=== PATIENT | female | born 1950 | race Caucasian/White ===

== ENCOUNTER 2021-12-21 09:29 | Outpatient (CLI) | payer OTHER, SELFPAY ==
[2021-12-21 13:07] LABS: Chloride* 100 mmol/L (96-114); Potassium* 4.1 mmol/L (3.6-5.1); Sodium* 138 mmol/L (135-149)
[2021-12-21 13:10] LABS: Blood Urea Nitrogen* 27 mg/dL (7-30); Carbon Dioxide* 31 mmol/L (20-32); Creatinine* 1.3 mg/dL (0.5-1.5); Estimated Glomerular Filt Rate 44 ml/min
[2021-12-21 13:11] LABS: Calcium* 9.1 mg/dL (8.4-10.6); Glucose* 115 mg/dL (60-115)
[2021-12-21 13:19] LABS: NT Pro B Type NatriureticPept* 4620 PG/mL (0-125)
== END 2021-12-21 09:30 | disposition home or self-care (01) ==
PROVIDERS: PCP Family Medicine; Visit Provider Family Medicine
DX: D64.9 Anemia, unspecified (principal); I10 Essential (primary) hypertension; I42.0 Dilated cardiomyopathy; I50.9 Heart failure, unspecified
CPT/HCPCS: 80048; 83880

== ENCOUNTER 2021-12-24 08:59 | Day surgery (SDC) | payer OTHER, SELFPAY ==
[2021-12-24] MEDS: TETRACAINE 0.5% OPHTH 1 DROP EYE-LEFT ×2 (09:16→09:26)
[2021-12-24] MEDS: KETOROLAC OPHTH 0.5% 1 DROP EYE-LEFT ×3 (09:16→09:36)
[2021-12-24] MEDS: SODIUM CHLORIDE 0.9 % (FLUSH) 10 ML SYRINGE IVF (09:30)
[2021-12-24] MEDS: BALANCED SALT IRRIG SOLN 15 ML EYE-LEFT (09:38)
[2021-12-24] MEDS: TETRACAINE 0.5% OPHTH 2 DROP EYE-LEFT (09:38)
[2021-12-24 09:49] VITALS: BP 118/68; PULSE 94; RESP 16; TEMP 36.1; O2SAT 97; BMI 32.6
--- NOTE | 2021-12-24 09:56 | SUR.PREOP ---
The eye drops brought by the patient (Ketorolac and Prednisolone) are examined and I have determined they are labeled by the patient's pharmacy for this patient as prescribed by the surgeon. The bottles are intact, recently obtained and appear to be correct.
[2021-12-24 11:00] VITALS: BP 108/56; PULSE 92; RESP 16; TEMP 36.6; O2SAT 95
--- NOTE | 2021-12-24 11:23 | W.ANESCHARGE ---
Anesthesia Charges Start Date/Time Anesthesia Start Date: 12/24/21 Anesthesia Start Time: 10:15 Stop Date/Time Anesthesia Stop Date: 12/24/21 Anesthesia Stop Time: 10:48 Summary Emergency: No Extremes of Age: Over 69-CPT 99178
--- NOTE | 2021-12-24 11:40 | W.ANESCHARGE ---
Anesthesia Charges Start Date/Time Anesthesia Start Date: 12/24/21 Anesthesia Start Time: 10:15 Stop Date/Time Anesthesia Stop Date: 12/24/21 Anesthesia Stop Time: 10:48 Summary Emergency: No Extremes of Age: Over 69-CPT 90439
--- NOTE | 2021-12-24 12:29 | PM.PROC ---
Procedure Note Date Seen: 12/24/21 Will [facility] bill your pro fee for this procedure?: Yes Procedure Description: SURGEON: Lynne Tabor MD PREOPERATIVE DIAGNOSIS: Mature cataract, left eye. POSTOPERATIVE DIAGNOSIS: Mature cataract, left eye. NAME OF OPERATION: Phacoemulsification of cataract with posterior chamber intraocular lens implantation in the left eye with trypan blue. ANESTHESIA: Topical. ESTIMATED BLOOD LOSS: Less than 2 cc. COMPLICATIONS: None. PATHOLOGY SPECIMEN: None. INDICATIONS: See consult note for details. The risks, benefits and alternatives of the procedure were explained to the patient, who elected to proceed and signed informed consent to do so. PROCEDURE: The patient was brought to the pre-holding area where the left eye was identified as the operative eye. I placed my initials above this eye. The patient received eye drops consisting of 0.5% tetracaine, 1% tropicamide, 10% phenylephrine, and 0.5% ketorolac. The patient was given 12.5 grams IV mannitol (discussed with Isidro in pharmacy on 12/23/21 and felt ok to give with this low dose) and a Honan balloon was placed for 8 minutes pre-operatively. The patient was then brought to the operating room where the left eye was again identified as the operative eye. The eye was prepped with Betadine and draped in the usual sterile ophthalmic fashion. A #15 super-sharp blade was used to create a paracentesis site. 1% non-preserved intracameral lidocaine was injected into the anterior chamber. An air bubble was injected into the anterior chamber. Trypan blue was injected posterior to the air bubble in order to stain Endocoat was injected into the anterior chamber. A 2.4 mm keratome was used to create a three-plane self-sealing incision 1 mm anterior to the temporal limbus. A cystotome was used to create an anterior capsular leaflet. The Utrata forceps were used to extend this to form a continuous curvilinear capsulorrhexis. Hydrodissection was performed. The cataract was removed with phacoemulsification using the [id number] technique. The irrigation and aspiration tip was used to remove the remaining cortex. Healon was injected into the capsular bag. An STELLA ZCB00 intraocular lens of 29.0 diopters was injected into the capsular bag. The irrigation and aspiration tip was used to remove the remaining viscoelastic. Balanced salt solution on a cannula was used to hydrate the wound, and the wound was found to be watertight. The pupil was noted to be round. DISPOSITION: The patient was taken to the recovery room and discharged to home in stable condition. The patient was instructed to call me or go to the emergency department with any sudden change, including dramatic loss of vision, severe pain in the eye or eyebrow region, nausea, or vomiting. The patient will follow up in the clinic tomorrow morning. Surgeon: Lynne Tabor MD
== END 2021-12-24 11:34 | disposition home or self-care (01) ==
PROVIDERS: PCP Family Medicine; Visit Provider Ophthalmology
PROC: (CPT 66984; principal; 2021-12-24 09:00)
DX: H25.89 Other age-related cataract (principal)
CPT/HCPCS: 66984; 00142; 99100; A9270; J2150; J2250; J3010; V2632

== ENCOUNTER 2022-01-05 07:33 | Day surgery (SDC) | payer OTHER, SELFPAY ==
[2022-01-05] MEDS: TETRACAINE 0.5% OPHTH 1 DROP EYE-RIGHT ×2 (07:30→07:40)
[2022-01-05] MEDS: KETOROLAC OPHTH 0.5% 1 DROP EYE-RIGHT ×3 (07:30→07:50)
[2022-01-05 07:55] VITALS: BP 108/80; PULSE 96; RESP 16; TEMP 36.5; O2SAT 96; BMI 32.6
[2022-01-05] MEDS: ETHYL CHLORIDE 1 APPLICATION 1 APPLIC TOPICAL (08:16)
[2022-01-05] MEDS: SODIUM CHLORIDE 0.9 % (FLUSH) 10 ML SYRINGE IVF (08:16)
--- NOTE | 2022-01-05 08:18 | SUR.PREOP ---
0730: The eye drops brought by the patient (Ketorolac and Prednisolone) are examined and I have determined they are labeled by the patient's pharmacy for this patient as prescribed by the surgeon. The bottles are intact, recently obtained and appear to be correct.
[2022-01-05] MEDS: TETRACAINE 0.5% OPHTH 2 DROP EYE-RIGHT (08:43)
[2022-01-05] MEDS: BALANCED SALT IRRIG SOLN 15 ML EYE-RIGHT (08:47)
[2022-01-05] MEDS: TRYPAN BLUE 0.5 ML SYRINGE EYE-RIGHT (08:47)
[2022-01-05 09:09] VITALS: BP 99/47; PULSE 83; RESP 16; TEMP 36.3; O2SAT 96
--- NOTE | 2022-01-05 09:12 | W.ANESCHARGE ---
Anesthesia Charges Start Date/Time Anesthesia Start Date: 01/05/22 Anesthesia Start Time: 08:40 Stop Date/Time Anesthesia Stop Date: 01/05/22 Anesthesia Stop Time: 09:13 Summary Emergency: No Extremes of Age: Over 69-CPT [id number]
--- NOTE | 2022-01-05 09:20 | PM.PROC ---
Procedure Note Date Seen: 01/05/22 Will [facility] bill your pro fee for this procedure?: Yes Procedure Description: SURGEON: Lynne aTbor MD PREOPERATIVE DIAGNOSIS: Mature cataract, right eye. POSTOPERATIVE DIAGNOSIS: Mature cataract, right eye. NAME OF OPERATION: Phacoemulsification of cataract with posterior chamber intraocular lens implantation in the right eye with trypan blue. ANESTHESIA: Topical. ESTIMATED BLOOD LOSS: Less than 2 cc. COMPLICATIONS: None. PATHOLOGY SPECIMEN: None. INDICATIONS: See consult note for details. The risks, benefits and alternatives of the procedure were explained to the patient, who elected to proceed and signed informed consent to do so. PROCEDURE: The patient was brought to the pre-holding area where the right eye was identified as the operative eye. I placed my initials above this eye. The patient received eye drops consisting of 0.5% tetracaine, 1% tropicamide, 10% phenylephrine, and 0.5% ketorolac. The patient was given 12.5 grams IV mannitol and a Honan balloon was placed for 5 minutes pre-operatively. The patient was then brought to the operating room where the left eye was again identified as the operative eye. The eye was prepped with Betadine and draped in the usual sterile ophthalmic fashion. A #15 super-sharp blade was used to create a paracentesis site. 1% non-preserved intracameral lidocaine was injected into the anterior chamber. An air bubble was injected into the anterior chamber. Trypan blue was injected posterior to the air bubble in order to stain the anterior capsule. Balanced salt solution was used to irrigate the anterior chamber. Endocoat was injected into the anterior chamber. A 2.4 mm keratome was used to create a three-plane self-sealing incision 1 mm anterior to the temporal limbus. A cystotome was used to create an anterior capsular leaflet. The Utrata forceps were used to extend this to form a continuous curvilinear capsulorrhexis. Hydrodissection was performed. The cataract was removed with phacoemulsification using the [id number]-[id number] technique. The irrigation and aspiration tip was used to remove the remaining cortex. Healon was injected into the capsular bag. An STELLA ZCB00 intraocular lens of 28.0 diopters was injected into the capsular bag. The irrigation and aspiration tip was used to remove the remaining viscoelastic. Balanced salt solution on a cannula was used to hydrate the wound, and the wound was found to be watertight. The pupil was noted to be round. DISPOSITION: The patient was taken to the recovery room and discharged to home in stable condition. The patient was instructed to call me or go to the emergency department with any sudden change, including dramatic loss of vision, severe pain in the eye or eyebrow region, nausea, or vomiting. The patient will follow up in the clinic tomorrow morning. Surgeon: Lynne Tabor MD
== END 2022-01-05 09:32 | disposition home or self-care (01) ==
LOC: OR 07:36
PROVIDERS: PCP Family Medicine; Visit Provider Ophthalmology
PROC: (CPT 66984; principal; 2022-01-05 07:30)
DX: H25.89 Other age-related cataract (principal)
CPT/HCPCS: 66984; 00142; 99100; A9270; J2150; J2250; J3010; V2632

== ENCOUNTER 2023-04-21 15:48 | Outpatient (CLI) | payer OTHER, SELFPAY | END 2023-04-21 15:49 | disposition home or self-care (01) | LOC: NFLDREF 15:49 | PROVIDERS: PCP Family Medicine; Visit Provider Family Medicine | DX: N18.30 Chronic kidney disease, stage 3 unspecified (principal) | CPT/HCPCS: 80048 ==

== ENCOUNTER 2023-04-27 10:52 | Outpatient (REF) | payer OTHER, SELFPAY | END 2023-04-27 10:53 | disposition home or self-care (01) | LOC: NFLDREF 10:52 | PROVIDERS: PCP Family Medicine; Referring Provider Family Medicine; Visit Provider Family Medicine | DX: N17.9 Acute kidney failure, unspecified (principal) | CPT/HCPCS: 80048 ==

== ENCOUNTER 2023-05-23 10:38 | Outpatient (CLI) | payer OTHER, SELFPAY | END 2023-05-23 10:39 | disposition home or self-care (01) | LOC: NFLDREF 05-24 12:47 | PROVIDERS: PCP Family Medicine; Referring Provider Family Medicine; Visit Provider Family Medicine | DX: N18.30 Chronic kidney disease, stage 3 unspecified (principal); I10 Essential (primary) hypertension | CPT/HCPCS: 80048 ==

== ENCOUNTER 2023-10-05 14:00 | Outpatient (CLI) | payer OTHER, SELFPAY ==
--- OUTSIDE RECORDS SUMMARY | 2023-10-05 14:02 | XMS_ITS | Clinical Summary ---
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 Bacitracin Contact Dermatitis 04/25/2016 Benzalkonium Chloride Rash,Contact Dermatitis 05/30/2016 Talc Rash High 02/16/2021 Vitamin A Rash 01/05/2017 Zinc Oxide Rash 01/05/2017 Medications Medication Sig Dispensed Refills Start Date End Date Status loratadine (CLARITIN) 10 mg tabletIndications:D ilated cardiomyopathy (HC) Take 1 tablet by mouth once daily. 90 tablet 3 10/21/2014 Active multivitamin (MVI) tablet Take 1 tablet by mouth once daily. 0 05/25/2015 Active cholecalciferol (VITAMIN D3) 1,000 unit capsule Take 1 capsule by mouth once daily. 0 05/25/2015 Active VITAMIN B COMPLEX (B COMPLEX 1 ORAL) Take by mouth once daily. Active albuterol HFA (PRO-AIR; VENTOLIN; PROVENTIL) 90 mcg/actuation inhaler Inhale 2 Puffs by mouth 4 times daily if needed. 0 12/31/2020 Active durable medical equipment (DME)Indications:PT TD (posterior tibial tendon dysfunction) AIR LIFT PTTD BRACE, LARGE, RIGHT, REF: 02PLR 1 Each 03/24/2021 Active aspirin (ECOTRIN) 81 mg enteric coated tabletIndications:C hronic systolic congestive heart failure (HC) Take 1 Tablet (81 mg) by mouth once daily. 0 05/24/2022 Active apixaban (Eliquis) 5 mg tabletIndications:P aroxysmal atrial fibrillation (HC) Take 1 Tablet (5 mg) by mouth two times daily. 180 Tablet 3 12/07/2022 Active carvediloL (COREG) 25 mg tabletIndications:P aroxysmal atrial fibrillation (HC) Take 1 Tablet (25 mg) by mouth two times daily. 180 Tablet 3 12/07/2022 Active Arnuity Ellipta 100 mcg/actuation inhaler Inhale 1 Puff by mouth once daily. 02/04/2023 Active Spiriva Respimat 2.5 mcg/actuation mist for inhalation Inhale 2 Puffs by mouth once daily. 02/04/2023 Active vitamin e 200 unit capsule Take 1 Capsule by mouth once daily. Active fluticasone (50 mcg per actuation) nasal solution (FLONASE) Inhale 1 Roberts into affected nostril(s) once daily if needed for Rhinitis. Active amiodarone (CORDARONE) 200 mg tabletIndications:A trial fibrillation, unspecified type (HC) Take 200 mg (1 tablet) once daily. Discontinue after 2 months. 0 04/06/2023 Active simvastatin (ZOCOR) 10 mg tabletIndications:C hronic systolic congestive heart failure (HC) TAKE 1 TABLET BY MOUTH AT BEDTIME 90 Tablet 2 05/17/2023 Active isosorbide dinitrate (ISORDIL) 30 mg tabletIndications:N onischemic cardiomyopathy (HC) Take 1 Tablet (30 mg) by mouth three times daily. 90 Tablet 5 06/29/2023 Active hydrALAZINE (APRESOLINE) 10 mg tabletIndications:N onischemic cardiomyopathy (HC) Take 4 Tablets (40 mg) by mouth three times daily. 355 Tablet 5 06/29/2023 Active empagliflozin (Jardiance) 10 mg tabletIndications:N onischemic cardiomyopathy (HC) Take 1 Tablet (10 mg) by mouth once daily. 30 Tablet 11 08/24/2023 Active furosemide (LASIX) 40 mg tabletIndications:D ilated cardiomyopathy (HC) TAKE 1 TABLET BY MOUTH IN THE MORNING AND 1 TABLET BY MOUTH AT 1PM 135 Tablet 1 09/22/2023 Active potassium chloride (KLOR-CON M10) 10 mEq extended-release tablet (part/cryst)Indicat ions:Dilated cardiomyopathy (HC) Take 1 Tablet (10 mEq) by mouth once daily with a meal. 90 Tablet 3 10/03/2023 Active furosemide (LASIX) 40 mg tabletIndications:D ilated cardiomyopathy (HC) TAKE 1 TABLET BY MOUTH IN THE MORNING AND 1/2 (ONE-HALF) IN THE EVENING 135 Tablet 1 04/28/2023 09/22/19 24 Discontinue d(Reorder (E-cancel not sent)) doxycycline 100 mg tabletIndications:W ound of left lower extremity, initial encounter Take 1 Tablet (100 mg) by mouth two times daily for 7 days. 14 Tablet 09/21/2023 09/28/19 24 potassium chloride (KLOR-CON M10) 10 mEq extended-release tablet (part/cryst)Indicat ions:Dilated cardiomyopathy (HC) Take 1 Tablet (10 mEq) by mouth once daily with a meal. 90 Tablet 3 10/03/2023 10/03/19 24 Discontinue d(Reorder (E-cancel not sent)) Hospital, Clinic, or Other Facility Administered Medication Ordered Dose Route Frequency Start Date End Date Status cefTRIAXone (ROCEPHIN) Intramuscular injection 1 gIndications:skin and skin structure infection 1 g IM ONE TIME 09/21/2023 09/21/2023 Ended Active Problems Problem Noted Date Diagnosed Date Obesity, Class II, BMI 35-39.9, with comorbidity 07/05/2016 CKD (chronic kidney disease) stage 3, GFR 30-59 ml/min 03/25/2015 Venous insufficiency 03/25/2015 Hyperuricemia 03/25/2015 Asymptomatic menopausal state 03/25/2015 Vitamin D deficiency 08/13/2012 Hyperlipidemia 08/13/2012 Dilated cardiomyopathy 01/06/2012 Ankle wound Resolved Problems Problem Noted Date Diagnosed Date Resolved Date Asymptomatic varicose veins 02/04/2009 03/25/2015 Encounters Date Type Department Care Team Description 10/02/2023 10:15 AM CDT Office Visit [facility] [address] [place] [address] Lise Cardenas MD Follow Up (Left ankle wound. Has wound care on 10/05/23) 10/02/2023 Travel 09/27/2023 Telephone [facility] [address] [place] [address] Lise Cardenas MD FYI (Wound clinic appt ) 09/22/2023 3:55 PM CDT Office Visit [facility] [address] [place] [address] Lise Cardenas MD Foot Pain/problem (Urgent care 09/21/23. Left foot pain. Pain is improving ); Establish Care (Looking for a new PCP/) 09/22/2023 Telephone [facility] [address] [place] [phone] Charisma Montaño Appointment 09/21/2023 7:05 PM CDT Ancillary Procedure [facility] [address] [place] [phone] 09/21/2023 5:55 PM CDT - 09/21/2023 11:59 PM CDT Hospital Encounter [facility] [address] [place] [address] Charis Weber PROFESSOR OF BUSINESS Left ankle swelling; Wound of left lower extremity, initial encounter; Pain and swelling of lower leg, left 09/21/2023 5:00 PM CDT Office Visit [facility] [address] [place] [phone] Charis Weber NP Derm Problem (left ankle) 09/21/2023 Travel 09/21/2023 Nurse Triage [facility] [address] [place] [address] Pcp, No Leg Swelling (Left leg only. ) 08/24/2023 Refill [facility] [address] [place] [phone] Maurice Poe MD Refill Request (Jardiance) 07/10/2023 Telephone [facility] [address] [place] [phone] Leti Cortez Referral (Nephrology) from Last 3 Months Immunizations Name Administration Dates Next Due AMB Influenza, IIV3 (Age >=3 years)(Flu Clinic O nly) 03/14/2013 AMB Influenza, IIV4 PF (=>6 mos Flulaval,Fluzone Fluarix)(Flu Clinic Only) 02/06/2014 Influenza, High-dose Inactivated 03/17/2016,03/02 Influenza, IIV3 (Age >=3 years) 01/25/2012 Pneumococcal Poly,23-Valent (Pneumovax) 02/07/20 12 Pneumococcal conj 13-Valent (Prevnar 13) 016 Tdap 02/07/2012 Family History Medical History Relation Name Comments Heart Disease Mother Stroke Mother Cancer-breast No Family History Relation Name Status Comments Father Alive Mother (Age 71) Cancer Social History Tobacco Use Types Packs/Day Years Used Date Smoking Tobacco: Former Cigarettes 1 40 0 01/03/1972 - 01/03/2012 Smokeless Tobacco: Never Tobacco Cessation:Counseling Given: Yes Alcohol Use Standard Drinks/Week Comments No 0 (1 standard drink = 0.6 oz pur e alcohol) Social Connections Answer Date Recorded Frequency of Communication with Friends and Fami ly 0 09/22/2023 Financial Resource Strain Answer Date R ecorded Difficulty of Paying Living Expenses 3 09/22/2023 Difficulty of Paying Living Expenses Not on file 09/22/2023 Food Insecurity Answer Date Recorded Worried About Running Out of Food in the Last Ye ar 1 09/22/2023 Transportation Needs Answer Date Record ed Lack of Transportation (Medical) 1 09/22/2023 Housing Stability Answer Date Recorded Unable to Pay for Housing in the Last Year 1 09/22/2023 Sex and Gender Information Value Date Recorded Sex Assigned at Not on file Gender Identity Not on file Sexual Orientation Not on file Obstetrics History Last Filed Vital Signs Vital Sign Reading Time Taken Comments Blood Pressure 120/79 10/02/2023 10:14 AM CDT Pulse 74 10/02/2023 10:14 AM CDT Temperature 36.4 ??C (97.5 ??F) 09/21/2023 5:07 PM CD T Respiratory Rate 16 09/21/2023 5:07 PM CDT Oxygen Saturation 96% 10/02/2023 10:14 AM CDT Inhaled Oxygen Concentration - - Weight 106.1 kg (234 lb) 10/02/2023 10:14 AM CDT Height 172.7 cm (5' 8) 04/05/2023 9:39 AM RN CLINICAL DOCUMENTATION Body Mass Index 35.58 04/05/2023 9:39 AM RN CLINICAL DOCUMENTATION Plan of Treatment Upcoming Encounters Date Type Department Care Team (Late st Contact Info) Description 10/10/2023 11:00 AM CDT Office Visit [facility] [address] [phone] Brian Jc MD [address] [address] 10/24/2023 2:30 PM CDT Orders Only [facility] [address] [facility] [address] [place] [phone] 10/24/2023 3:30 PM CDT Office Visit [facility] [address] [facility] [address] [place] [phone] Maurice Poe MD [address] [address] Health Maintenance Due Date Last Done Comments Hepatitis C screening for ag e 18-79 1967 Colonoscopy through age [address] (for lung CA) ag e 50-80 1999 Zoster (shingles) series for age 50+ (1 of 2) 1999 Mammogram for age 45-75 05/21/2013 05/21/2012 Medicare Wellness for age 65+ 2014 Depression screening for age 12+ 03/31/2017 03/31/20 16 Pneumococcal series for age 65+ (3 of 3 - PPSV23 or PCV20) 03/31/2017 03/31/2016, 02/07/2012 Tetanus booster 02/06/2022 02/07/2012 COVID-19 vaccine series ( season) 2022 03/26/2021, 07/24/2020, 07/03/2020 Lipids for age 45-75 06/22/2023 06/22/2018, 2015, 10/08/2012, Additional history exists Influenza for age 65+ 12/31/2023 03/17/2016 , 03/25/2015, 03/25/2015, Additional history exists BMI (ht and wt on same day) for age 18+ 02/16/2024 02/15/2023, 12/17/2019, 12/19/2018, Additional history exists Tdap Completed 02/07/2012 DEXA/DXA scan for age 65+ Completed 03/27/2015 Procedures Procedure Name Priority Date/Time Associated Diagnosis Comments MAGNESIUM Routine 10/02/2023 10:48 AM CDT Nonischemic cardiomyopathy (HC) PRO-BNP Routine 10/02/2023 10:48 AM CDT Nonischemic cardiomyopathy (HC) BASIC METABOLIC PANEL Routine 10/02/2023 10:48 AM CDT Nonischemic cardiomyopathy (HC) AEROBIC BACTERIAL CULTURE, STAIN STAT 09/21/2023 7:40 PM CDT Wound of left lower extremity, initial encounter XR ANKLE 3 VIEWS LEFT STAT 09/21/2023 7:11 PM CDT Left ankle swelling Wound of left lower extremity, initial encounter CBC WITH AUTO DIFFERENTIAL STAT 09/21/2023 7:05 PM CDT Left ankle swelling Wound of left lower extremity, initial encounter URIC ACID STAT 09/21/2023 7:05 PM CDT Left ankle swelling Wound of left lower extremity, initial encounter BASIC METABOLIC PANEL STAT 09/21/2023 7:05 PM CDT Left ankle swelling Wound of left lower extremity, initial encounter CBC WITH AUTO DIFFERENTIAL STAT 09/21/2023 7:05 PM CDT Left ankle swelling Wound of left lower extremity, initial encounter US VENOUS LOWER EXTREMITY LEFT STAT 09/21/2023 6:44 PM CDT Left ankle swelling Wound of left lower extremity, initial encounter Pain and swelling of lower leg, left LIPID PANEL Routine 06/22/2018 7:32 AM RN CLINICAL DOCUMENTATION Dilated cardiomyopathy (HC) XR DXA BONE DENSITY 2 SITES AXIAL Routine 03/27/2015 1:29 PM RN CLINICAL DOCUMENTATION Asymptomatic menopausal state XR MAMMO BILAT SCREEN FFDM (IA) Routine 05/21/2012 11:17 AM RN CLINICAL DOCUMENTATION Other screening mammogram from Last 3 Months or Most Recently Relevant to Health Maintenance Results * (ABNORMAL) PRO-BNP (10/02/2023 10:48 AM CDT) [facility] PRO-BNP 3,902(H) <125 pg/mL 10/02/2023 6:24 PM CDT [facility] Blood BLOOD SPECIMEN / Unknown Venipuncture / Unknown 10/02/2023 10:48 AM CDT 10/02/2023 11:00 AM CDT Narrative [facility] - 10/02/2023 6:24 PM CDT The following cut-points have been suggested for the use of proBNP for the diagnostic evaluation of heart failure (HF) in patient with acute dyspnea. Patients with eGFR >= 60 Diagnosis (rule in CHF) ? <50 Years Old ?450 pg/mL 50 - 75 Years Old ?900 pg/mL >75 Years Old ? 1800 pg/mL Exclusion (rule out CHF) Age Independent ?300 pg/mL A cutoff of 1200 pg/mL for patients with an eGFR <60 yields a diagnostic sensitivity of 89% and specificity of 72% for acute congestive heart failure. ? Maurice Poe MD SEND OUTS Performing Organization Address [facility] de Phone Number [facility] [address] [place] [address], * MAGNESIUM (10/02/2023 10:48 AM CDT) Pathologist [facility] MAGNESIUM 2.0 1.6 - 2.4 mg/dL 10/02/2023 6:21 PM CDT [facility] Blood BLOOD SPECIMEN / Unknown Venipuncture / Unknown 10/02/2023 10:48 AM CDT 10/02/2023 11:00 AM CDT Maurice Poe MD CHEMISTRY Performing Organization Address [facility] Phone Number [facility] [address] [place] [address], * (ABNORMAL) BASIC METABOLIC PANEL (10/02/2023 10:48 AM CDT) Only the most recent of2 resultswithin the time period is included. SODIUM 142 136 - 145 mmol/L 10/02/2023 6:21 PM CDT [facility] POTASSIUM 3.2(L) 3.5 - 5.1 mmol/L 10/02/2023 6:21 PM CDT [facility] CHLORIDE 103 98 - 107 mmol/L 10/02/2023 6:21 PM CDT [facility] CO2,TOTAL 27 22 - 29 mmol/L 10/02/2023 6:21 PM CDT [facility] ANION GAP 12 5 - 18 10/02/2023 6:21 PM CDT [facility] GLUCOSE 94 70 - 99 mg/dL 10/02/2023 6:21 PM CDT [facility] CALCIUM 9.1 8.8 - 10.2 mg/dL 10/02/2023 6:21 PM CDT [facility] BUN 17 8 - 23 mg/dL 10/02/2023 6:21 PM T [facility] CREATININE 1.37(H) 0.50 - 0.90 mg/dL 10/02/2023 6:21 PM T [facility] BUN/CREAT RATIO 12 10 - 20 6:21 PM T [facility] eGFR 41(L) >90 mL/min/1.7 3m2 10/02/2023 6:21 PM CDT [facility] Comment:As of 2021, eG FR is calculated by the CKD-EPI creatinine equation without race adjustment. ??eGFR can be influenced by muscle mass, exercise, and diet. ??The reported eGFR is an estimation only and is only applicable if the renal function is stable. Blood BLOOD SPECIMEN / Unknown Venipuncture / Unknown 10/02/2023 10:48 AM CDT 10/02/2023 11:00 AM CDT Maurice Poe MD CHEMISTRY [facility] [address] [place] [address], * (ABNORMAL) AEROBIC BACTERIAL CULTURE, STAIN (09/21/2023 7:40 PM CDT) CULTURE RESULT(A) 09/25/2023 9:51 AM CDT [facility] CULTURE 4+ Staphylococcus aureus 09/25/2023 9:51 AM CDT [facility] GRAM STAIN No PMNs 09/25/2023 9:51 AM CDT [facility] GRAM STAIN No RBCs 09/25/2023 9:51 AM CDT [facility] GRAM STAIN No Epithelial cells 09/25/2023 9:51 AM CDT [facility] GRAM STAIN 3+ Gram Positive Cocci 09/25/2023 9:51 AM CDT [facility] Other (Other) Non-Blood / Unknown 09/21/2023 7:40 PM CDT 09/21/2023 7:57 PM CDT Narrative Organism Antibiotic Method Susceptibility Staphylococcus aureus OXACILLIN <=0.25: S Comment:Oxacillin mike sceptible should not be interpreted as penicillin or amoxicillin susceptible. Staphylococcus aureus CLINDAMYCIN <=0.12: S Staphylococcus aureus DOXYCYCLINE <=0.5: S Staphylococcus aureus CEFAZOLIN S Staphylococcus aureus TRIMETHOPRIM/SULF <=0.5/9.5: S Charis Weber PROFESSOR OF BUSINESS MICROBIOLOGY [facility] [address] [place] [address], * XR ANKLE 3 VIEWS LEFT (09/21/2023 7:11 PM CDT) Anatomical Region Laterality Modality ANKLES, ANKLE L Computed Radiogr aphy 09/21/2023 7:30 PM CDT Narrative 09/21/2023 7:30 PM CDT For Patients: ??As a result of the Cures Act, medical imaging exams and procedure reports are released immediately into your electronic medical record. ??You may view this report before your referring provider. ??If you have questions, please contact your health care provider. Indication: Left ankle swelling Technique: Left ankle, 3 views. Comparison: None. Findings/Impression: Bones: Alignment is normal. No displaced fractures or bone lesions. ?? Joint spaces: Degenerative changes. Soft tissues: Unremarkable. Dictated by Abram Rodríguez MD @ 09/21/2023 7:30:49 PM (Electronically Signed) Procedure Note Abram Rodríguez MD - 09/21/2023 For Patients: As a result of the Cures Act, medical imagingexams and procedure reports are released immediately into your electronicmedical record. You may view this report before your referring provider.If you have questions, please contact your health care provider. Indication: Left ankle swelling Technique: Left ankle, 3 views. Comparison: None. Findings/Impression: Bones: Alignment is normal. No displaced fractures or bone lesions. Joint spaces: Degenerative changes. Soft tissues: Unremarkable. Dictated by Abram Rodríguez MD @ 09/21/2023 7:30:49 PM (Electronically Signed) Charis Weber PROFESSOR OF BUSINESS GENERAL IMAGING * (ABNORMAL) CBC WITH AUTO DIFFERENTIAL (09/21/2023 7:05 PM CDT) WHITE BLOOD COUNT 5.1 4.5 - 11.0 thou/cu mm 09/21/2023 7:12 PM [facility] RED BLOOD COUNT 3.76(L) 4.00 - 5.20 mil/cu mm 09/21/2023 7:12 PM [facility] HEMOGLOBIN 11.7(L) 12.0 - 16.0 g/dL 09/21/2023 7:12 PM [facility] HEMATOCRIT 36.0 33.0 - 51.0 % 09/21/2023 7:12 PM [facility] MCV 96 80 - 100 fL 09/21/2023 7:12 PM [facility] MCH 31.1 26.0 - 34.0 pg 09/21/2023 7:12 PM [facility] MCHC 32.5 32.0 - 36.0 g/dL 09/21/2023 7:12 PM [facility] RDW 12.7 11.5 - 15.5 % 09/21/2023 7:12 PM [facility] PLATELET COUNT 192 140 - 440 thou/cu mm 09/21/2023 7:12 PM [facility] MPV 10.0 6.5 - 11.0 fL 09/21/2023 7:12 PM [facility] % NEUT 64.6 % 09/21/2023 7:12 PM [facility] % LYMPH 21.1 % 09/21/2023 7:12 PM T [facility] % MONO 9.9 % 09/21/2023 7:12 PM T [facility] % EOS 2.6 % 09/21/2023 7:12 PM T [facility] % BASO 1.8 % 09/21/2023 7:12 PM T [facility] ABSOLUTE NEUTROPHILS 3.3 1.7 - 7.0 thou/cu mm 09/21/2023 7:12 PM T [facility] ABSOLUTE LYMPHOCYTES 1.1 0.9 - 2.9 thou/cu mm 09/21/2023 7:12 PM T [facility] ABSOLUTE MONOCYTES 0.5 <0.9 thou/cu mm 09/21/2023 7:12 PM T [facility] ABSOLUTE EOSINOPHILS 0.1 <0.5 thou/cu mm 09/21/2023 7:12 PM [facility] ABSOLUTE BASOPHILS 0.1 <0.3 thou/cu mm 09/21/2023 7:12 PM T [facility] Blood BLOOD SPECIMEN / Unknown Venipuncture / Unknown 09/21/2023 7:05 PM CDT 09/21/2023 7:05 PM CDT Charis E Furlong PROFESSOR OF BUSINESS HEMATOLOGY Performing Organization Address [facility] Co de Phone Number [facility] [address] [place] [address] * (ABNORMAL) URIC ACID (09/21/2023 7:05 PM CDT) URIC ACID 8.6(H) 2.4 - 5.7 mg/dL 09/21/2023 7:28 PM CDT [facility] Blood BLOOD SPECIMEN / Unknown Venipuncture / Unknown 09/21/2023 7:05 PM CDT 09/21/2023 7:05 PM CDT Charis E Furlong PROFESSOR OF BUSINESS CHEMISTRY [facility] [address] [place] [address] * US VENOUS LOWER EXTREMITY LEFT (09/21/2023 6:44 PM CDT) Anatomical Region Laterality Modality LEGS, LEG L, Abdomen Ultrasound 09/21/2023 7:09 PM CDT Impressions 09/21/2023 7:09 PM CDT 1. Mild nonspecific soft tissue swelling of the left lower calf limits evaluation of the veins of the lower calf. 2. Otherwise, no deep vein thrombus within left lower extremity. Dictated by Gibran Ayala MD @ 09/21/2023 7:09:10 PM (Electronically Signed) Narrative 09/21/2023 7:09 PM CDT For Patients: ??As a result of the Cures Act, medical imaging exams and procedure reports are released immediately into your electronic medical record. ??You may view this report before your referring provider. ??If you have questions, please contact your health care provider. INDICATION: Left lower extremity swelling. TECHNIQUE: Left lower extremity Doppler venous ultrasound examination was performed. Grayscale and color Doppler images were obtained. COMPARISON: Bilateral lower extremity Doppler venous ultrasound 02/28/2017. FINDINGS: RIGHT LOWER EXTREMITY: Common femoral vein: Fully compressible. No deep vein thrombus. Normal flow and response to augmentation on color Doppler imaging. LEFT LOWER EXTREMITY: Common femoral vein: Fully compressible. No deep vein thrombus. Normal flow on color Doppler imaging. Superficial femoral vein: Fully compressible. No deep vein thrombus. Normal flow on color Doppler imaging. Deep femoral vein: No deep vein thrombus Popliteal vein: Fully compressible. No deep vein thrombus. Normal flow on color Doppler imaging. Lower calf: The visualized posterior tibial vein is fully compressible. Nonvisualized peroneal vein. No deep vein thrombus. Normal flow on color Doppler imaging. Superficial veins: The superficial veins, including the greater saphenous vein, remain patent and are fully compressible. Soft tissues: There is suggestion of superficial varicose veins. No popliteal fossa fluid collection identified. Mild nonspecific soft tissue edema involving the soft tissues of the left lower calf. Left inguinal lymph node measuring 8 mm in short axis, possibly reactive Procedure Note Gibran Ayala DO - 09/21/2023 For Patients: As a result of the 21st Century Cures Act, medical imagingexams and procedure reports are released immediately into your electronicmedical record. You may view this report before your referring provider.If you have questions, please contact your health care provider. INDICATION: Left lower extremity swelling. TECHNIQUE: Left lower extremity Doppler venous ultrasound examination was performed.Grayscale and color Doppler images were obtained. COMPARISON: Bilateral lower extremity Doppler venous ultrasound 02/28/2017. FINDINGS: RIGHT LOWER EXTREMITY: Common femoral vein: Fully compressible. No deep vein thrombus. Normalflow and response to augmentation on color Doppler imaging. LEFT LOWER EXTREMITY: Common femoral vein: Fully compressible. No deep vein thrombus. Normalflow on color Doppler imaging. Superficial femoral vein: Fully compressible. No deep vein thrombus.Normal flow on color Doppler imaging. Deep femoral vein: No deep vein thrombus Popliteal vein: Fully compressible. No deep vein thrombus. Normal flow oncolor Doppler imaging. Lower calf: The visualized posterior tibial vein is fully compressible.Nonvisualized peroneal vein. No deep vein thrombus. Normal flow on colorDoppler imaging. Superficial veins: The superficial veins, including the greater saphenousvein, remain patent and are fully compressible. Soft tissues: There is suggestion of superficial varicose veins. Nopopliteal fossa fluid collection identified. Mild nonspecific soft tissueedema involving the soft tissues of the left lower calf. Left inguinallymph node measuring 8 mm in short axis, possibly reactive IMPRESSION: 1. Mild nonspecific soft tissue swelling of the left lower calf limitsevaluation of the veins of the lower calf. 2. Otherwise, no deep vein thrombus within left lower extremity. Dictated by Gibran Ayala MD @ 09/21/2023 7:09:10 PM (Electronically Signed) Charis Weber NP US * LIPID PANEL (06/22/2018 7:32 AM RN CLINICAL DOCUMENTATION) Pathologist [facility] CHOLESTEROL,TOTAL 177 100 - 199 mg/dL 06/22/2018 8:19 AM RN CLINICAL DOCUMENTATION [facility] TRIGLYCERIDES 118 <150 mg/dL 06/22/2018 8:19 AM RN CLINICAL DOCUMENTATION [facility] HDL CHOLESTEROL 54 >40 mg/dL 9 8:19 AM [facility] NON-HDL CHOLESTEROL 123 <145 mg/dl 06/22/2018 8:19 AM [facility] CHOL/HDL RATIO 3.28 <4.50 06/22/2018 8:19 AM [facility] LDL CHOLESTEROL 99 <=130 mg/dL 06/22/2018 8:19 AM [facility] PROVIDER ORDERED STATUS FASTING 06/22/2018 8:19 AM [facility] Blood BLOOD SPECIMEN / Unknown Venipuncture / Unknown 06/22/2018 7:32 AM RN CLINICAL DOCUMENTATION 06/22/2018 7:53 AM RN CLINICAL DOCUMENTATION Maurice Poe MD CHEMISTRY [facility] [address] [place] [address], * (ABNORMAL) XR DXA BONE DENSITY 2 SITES (03/27/2015 1:29 PM RN CLINICAL DOCUMENTATION) Anatomical Region Laterality Modality Spine, HIPS, HIPL, HIPR Other Narrative 04/03/2015 8:04 AM RN CLINICAL DOCUMENTATION Please see scanned document for results of this study. Raza Killian MD DEXA * XR MAMMO BILAT SCREEN FFDM (05/21/2012 11:17 AM RN CLINICAL DOCUMENTATION) Anatomical Region Laterality Modality BREASTS, Breast Left, Breast Right Bilateral Mammography Addenda Addendum by Raphael Flaherty DO on 07/31/2012 3:10 PM CDT ??ADDENDUM ? ADDENDUM ? ADDENDUM Many attempts have been made to contact the patient regarding additional imaging that is needed following her screening mammogram. ??The patient has failed to return for our recommended follow-up. ?? Impressions 05/21/2012 3:54 PM RN CLINICAL DOCUMENTATION ??ACR 0 Incomplete: Need Additional Imaging Evaluation and/or Prior Mammograms for Comparison RECOMMENDATION: ??Ultrasound of the RIGHT breast. Narrative 05/21/2012 3:54 PM RN CLINICAL DOCUMENTATION BILATERAL FULL-FIELD DIGITAL SCREENING MAMMOGRAM WITH CAD CLINICAL HISTORY: ??Screening mammogram. ?? Comparison: ??No prior mammograms for comparison. These mammographic images have been obtained using full-field digital technique. ??These mammographic images were interpreted with the benefit of computer-aided detection. FINDINGS: ??The breasts are average density. ??There is a small benign-appearing mass in the anterior RIGHT breast in the upper outer quadrant. ??This is located at the 10:00-11:00 position and measures approximately 5 mm. ??No suspicious calcifications or areas of architectural distortion are identified in either breast. Procedure Note Raphael Flaherty, DO - 07/31/2012 BILATERAL FULL-FIELD DIGITAL SCREENING MAMMOGRAM WITH CAD CLINICAL HISTORY: Screening mammogram. Comparison: No prior mammograms for comparison. These mammographic images have been obtained using full-field digitaltechnique. These mammographic images were interpreted with the benefit ofcomputer-aided detection. FINDINGS: The breasts are average density. There is a smallbenign-appearing mass in the anterior RIGHT breast in the upper outerquadrant. This is located at the 10:00-11:00 position and measuresapproximately 5 mm. No suspicious calcifications or areas ofarchitectural distortion are identified in either breast. IMPRESSION: ACR 0 Incomplete: Need Additional Imaging Evaluation and/orPrior Mammograms for Comparison RECOMMENDATION: Ultrasound of the RIGHT breast. 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
== END 2023-10-05 14:01 | disposition home or self-care (01) ==
LOC: WOUND 14:01
PROVIDERS: PCP Student in an Organized Health Care Education/Training Program; Visit Provider Nurse Practitioner Family
DX: I87.2 Venous insufficiency (chronic) (peripheral) (principal); L97.321 Non-pressure chronic ulcer of left ankle limited to breakdown of skin; L98.9 Disorder of the skin and subcutaneous tissue, unspecified; I42.0 Dilated cardiomyopathy; N18.30 Chronic kidney disease, stage 3 unspecified
CPT/HCPCS: 97597; G0463

== ENCOUNTER 2023-10-09 10:41 | Outpatient (CLI) | payer OTHER, SELFPAY ==
--- OUTSIDE RECORDS SUMMARY | 2023-10-09 10:43 | XMS_ITS | Clinical Summary ---
Author Organization [employer] Address [place], [place] [address] Care Team Providers Care Brake Repair Mechanic Name Role Phone Nurses, Advanced Heart Failure [...] per actuation) nasal solution (FLONASE) Inhale 1 Cotter into affected nostril(s) once daily if needed [...] Description 10/02/2023 10:15 AM CDT Office Visit [facility] [address] [place] [address] Lise Cardenas MD Follow Up (Left ankle wound. Has wound care on 10/05/23) 10/02/2023 Travel 09/27/[address] [facility] [address] [place] [address] Lise Cardenas MD FYI (Wound clinic appt ) 09/22/2023 3:55 PM CDT Office Visit [facility] [address] [place] [address] Lise Cardenas MD Foot Pain/problem (Urgent care 09/21/23. Left foot pain. Pain is improving ); Establish Care (Looking for a new PCP/) 09/22/2023 Telephone [facility] Orthopedics [facility] [address] [place] [phone] Charisma Montaño Appointment 09/21/2023 7:05 PM [address]T Ancillary Procedure [facility] [address] [place] [phone] 09/21/2023 5:55 PM CDT - 09/21/2023 11:59 PM CDT Hospital Encounter [facility] [address] [place] [address] Charis Weber MINCEMEAT MAKER Left ankle swelling; Wound of left lower extremity, initial encounter; Pain and swelling of lower leg, left 09/21/2023 5:00 PM CDT Office Visit [facility] [address] [place] [phone] Charis Weber NP Derm Problem (left ankle) 09/21/2023 Travel 09/21/[address] [facility] [address] [place] [address] Pcp, No Leg Swelling (Left leg only. ) 08/24/[address] [facility] [address] [place] [phone] Maurice Poe MD Refill Request (Jardiance) 07/10/[address] [facility] [address] [place] [address] Leti Cortez Referral (Nephrology) from [...] 172.7 cm (5' 8) 04/05/2023 9:39 AM FLAME ANNEALING MACHINE SETTER Body Mass Index 35.58 04/05/2023 9:39 AM FLAME ANNEALING MACHINE SETTER Plan of Treatment Upcoming Encounters Date Type Department Care Team (Late st Contact Info) Description 10/10/2023 11:00 AM CDT Office Visit [facility] [address] [phone] Brian Jc MD [address] [address] 10/24/2023 2:30 PM CDT Orders Only [facility] [address] [facility] [address] [place] [phone] 10/24/2023 3:30 PM CDT Office Visit [facility] [address] [facility] [address] [place] [phone] Maurice Poe MD [address] [address] Health Maintenance Due Date Last Done Comments [...] left LIPID PANEL Routine 06/22/2018 7:32 AM FLAME ANNEALING MACHINE SETTER Dilated cardiomyopathy (HC) XR DXA BONE DENSITY 2 SITES AXIAL Routine 03/27/2015 1:29 PM FLAME ANNEALING MACHINE SETTER Asymptomatic menopausal state XR MAMMO BILAT SCREEN FFDM (IA) Routine 05/21/2012 11:17 AM FLAME ANNEALING MACHINE SETTER Other screening mammogram from Last 3 Months or Most Recently Relevant to Health Maintenance Results * (ABNORMAL) PRO-BNP (10/02/2023 10:48 AM CDT) [facility] PRO-BNP 3,902(H) <125 pg/mL 10/02/2023 6:24 PM CDT [facility] Blood BLOOD SPECIMEN / Unknown Venipuncture / Unknown 10/02/2023 10:48 AM CDT 10/02/2023 11:00 AM CDT Narrative [facility] - 10/02/2023 6:24 PM CDT [...] Poe MD SEND OUTS Performing Organization Address [facility] de Phone Number [facility] [address] [place] [address], * MAGNESIUM (10/02/2023 10:48 AM CDT) Pathologist [facility] MAGNESIUM 2.0 1.6 - 2.4 mg/dL 10/02/2023 6:21 PM CDT [facility] Blood BLOOD SPECIMEN / Unknown Venipuncture / Unknown 10/02/2023 10:48 AM CDT 10/02/2023 11:00 AM CDT Maurice Poe MD CHEMISTRY Performing Organization Address [facility] Phone Number [facility] [address] [place] [address], * (ABNORMAL) BASIC METABOLIC PANEL (10/02/2023 10:48 AM CDT) Only the most recent of2 resultswithin the time period is included. SODIUM 142 136 - 145 mmol/L 10/02/2023 6:21 PM CDT [facility] POTASSIUM 3.2(L) 3.5 - 5.1 mmol/L 10/02/2023 6:21 PM CDT [facility] CHLORIDE 103 98 - 107 mmol/L 10/02/2023 6:21 PM CDT [facility] CO2,TOTAL 27 22 - 29 mmol/L 10/02/2023 6:21 PM CDT [facility] ANION GAP 12 5 - 18 10/02/2023 6:21 PM CDT [facility] GLUCOSE 94 70 - 99 mg/dL 10/02/2023 6:21 PM CDT [facility] CALCIUM 9.1 8.8 - 10.2 mg/dL 10/02/2023 6:21 PM CDT [facility] BUN 17 8 - 23 mg/dL 10/02/2023 6:21 PM T [facility] CREATININE 1.37(H) 0.50 - 0.90 mg/dL 10/02/2023 6:21 PM T [facility] BUN/CREAT RATIO 12 10 - 20 6:21 PM T [facility] eGFR 41(L) >90 mL/min/1.7 3m2 10/02/2023 6:21 PM CDT [facility] Comment:As of 2021, eG FR [...] 11:00 AM CDT Maurice Poe MD CHEMISTRY [facility] [address] [place] [address], * (ABNORMAL) AEROBIC BACTERIAL CULTURE, STAIN (09/21/2023 7:40 PM CDT) CULTURE RESULT(A) 09/25/2023 9:51 AM CDT [facility] CULTURE 4+ Staphylococcus aureus 09/25/2023 9:51 AM CDT [facility] GRAM STAIN No PMNs 09/25/2023 9:51 AM CDT [facility] GRAM STAIN No RBCs 09/25/2023 9:51 AM CDT [facility] GRAM STAIN No Epithelial cells 09/25/2023 9:51 AM CDT [facility] GRAM STAIN 3+ Gram Positive Cocci 09/25/2023 9:51 AM CDT [facility] Other (Other) Non-Blood / Unknown 09/21/2023 7:40 PM CDT 09/21/2023 7:57 PM CDT Narrative Organism Antibiotic Method Susceptibility Staphylococcus aureus OXACILLIN <=0.25: S Comment:Oxacillin mike sceptible should not be interpreted as penicillin or amoxicillin susceptible. Staphylococcus aureus CLINDAMYCIN <=0.12: S Staphylococcus aureus DOXYCYCLINE <=0.5: S Staphylococcus aureus CEFAZOLIN S Staphylococcus aureus TRIMETHOPRIM/SULF <=0.5/9.5: S Charis Weber MINCEMEAT MAKER MICROBIOLOGY [facility] [address] [place] [address], * XR ANKLE 3 VIEWS LEFT (09/21/2023 [...] 09/21/2023 7:30:49 PM (Electronically Signed) Charis Weber MINCEMEAT MAKER GENERAL IMAGING * (ABNORMAL) CBC WITH AUTO DIFFERENTIAL (09/21/2023 7:05 PM CDT) WHITE BLOOD COUNT 5.1 4.5 - 11.0 thou/cu mm 09/21/2023 7:12 PM [facility] RED BLOOD COUNT 3.76(L) 4.00 - 5.20 mil/cu mm 09/21/2023 7:12 PM [facility] HEMOGLOBIN 11.7(L) 12.0 - 16.0 g/dL 09/21/2023 7:12 PM [facility] HEMATOCRIT 36.0 33.0 - 51.0 % 09/21/2023 7:12 PM [facility] MCV 96 80 - 100 fL 09/21/2023 7:12 PM [facility] MCH 31.1 26.0 - 34.0 pg 09/21/2023 7:12 PM [facility] MCHC 32.5 32.0 - 36.0 g/dL 09/21/2023 7:12 PM [facility] RDW 12.7 11.5 - 15.5 % 09/21/2023 7:12 PM [facility] PLATELET COUNT 192 140 - 440 thou/cu mm 09/21/2023 7:12 PM [facility] MPV 10.0 6.5 - 11.0 fL 09/21/2023 7:12 PM [facility] % NEUT 64.6 % 09/21/2023 7:12 PM [facility] % LYMPH 21.1 % 09/21/2023 7:[address] [facility] % MONO 9.9 % 09/21/2023 7:[address] [facility] % EOS 2.6 % 09/21/2023 7:[address] [facility] % BASO 1.8 % 09/21/2023 7:[address] [facility] ABSOLUTE NEUTROPHILS 3.3 1.7 - 7.0 thou/cu mm 09/21/2023 7:[address] [facility] ABSOLUTE LYMPHOCYTES 1.1 0.9 - 2.9 thou/cu mm 09/21/2023 7:[address] [facility] ABSOLUTE MONOCYTES 0.5 <0.9 thou/cu mm 09/21/2023 7:[address] [facility] ABSOLUTE EOSINOPHILS 0.1 <0.5 thou/cu mm 09/21/2023 7:12 PM [facility] ABSOLUTE BASOPHILS 0.1 <0.3 thou/cu mm 09/21/2023 7:[address] [facility] Blood BLOOD SPECIMEN / Unknown Venipuncture / Unknown 09/21/2023 7:05 PM CDT 09/21/2023 7:05 PM CDT Charis E Furlong MINCEMEAT MAKER HEMATOLOGY Performing Organization Address City/[facility] Co de Phone Number [facility] [address] [place] [address] * (ABNORMAL) URIC ACID (09/21/2023 7:05 PM CDT) URIC ACID 8.6(H) 2.4 - 5.7 mg/dL 09/21/2023 7:[address] [facility] Blood BLOOD SPECIMEN / Unknown Venipuncture / Unknown 09/21/2023 7:05 PM CDT 09/21/2023 7:05 PM CDT Charis E Furlong MINCEMEAT MAKER CHEMISTRY [facility] [address] [place] [address] * US VENOUS LOWER EXTREMITY LEFT (09/21/2023 [...] US * LIPID PANEL (06/22/2018 7:32 AM FLAME ANNEALING MACHINE SETTER) Pathologist [facility] CHOLESTEROL,TOTAL 177 100 - 199 mg/dL 06/22/2018 8:19 AM FLAME ANNEALING MACHINE SETTER [facility] TRIGLYCERIDES 118 <150 mg/dL 06/22/2018 8:19 AM FLAME ANNEALING MACHINE SETTER [facility] HDL CHOLESTEROL 54 >40 mg/dL 9 8:19 AM [facility] NON-HDL CHOLESTEROL 123 <145 mg/dl 06/22/2018 8:19 AM [facility] CHOL/HDL RATIO 3.28 <4.50 06/22/2018 8:19 AM [facility] LDL CHOLESTEROL 99 <=130 mg/dL 06/22/2018 8:19 AM [facility] PROVIDER ORDERED STATUS FASTING 06/22/2018 8:19 AM [facility] Blood BLOOD SPECIMEN / Unknown Venipuncture / Unknown 06/22/2018 7:32 AM FLAME ANNEALING MACHINE SETTER 06/22/2018 7:53 AM FLAME ANNEALING MACHINE SETTER Maurice Poe MD CHEMISTRY [facility] [address] [place] [address], * (ABNORMAL) XR DXA BONE DENSITY 2 SITES (03/27/2015 1:29 PM FLAME ANNEALING MACHINE SETTER) Anatomical Region Laterality Modality Spine, HIPS, HIPL, HIPR Other Narrative 04/03/2015 8:04 AM FLAME ANNEALING MACHINE SETTER Please see scanned document for results of this study. Raza Killian MD DEXA * XR MAMMO BILAT SCREEN FFDM (05/21/2012 11:17 AM FLAME ANNEALING MACHINE SETTER) Anatomical Region Laterality Modality BREASTS, Breast Left, Breast Right Bilateral Mammography Addenda Addendum by Raphael Flaherty DO on 07/31/2012 3:10 PM CDT ??ADDENDUM ? ADDENDUM ? ADDENDUM Many attempts have been made to contact the patient regarding additional imaging that is needed following her screening mammogram. ??The patient has failed to return for our recommended follow-up. ?? Impressions 05/21/2012 3:54 PM FLAME ANNEALING MACHINE SETTER ??ACR 0 Incomplete: Need Additional Imaging Evaluation and/or Prior Mammograms for Comparison RECOMMENDATION: ??Ultrasound of the RIGHT breast. Narrative 05/21/2012 3:54 PM FLAME ANNEALING MACHINE SETTER BILATERAL FULL-FIELD DIGITAL SCREENING MAMMOGRAM WITH CAD [...] Code Status Discussion: Reviewed Preferences Care Teams Brake Repair Mechanic Relationship Specialty Start Date End Date Lise Cardenas MD [address] [place] [address] PCP - General Family Practice 09/22/23 Nurses, Advanced Heart Failure [address] [place] [phone] Heart Failure Care Coordination 08/25/15 Maurice Poe MD [address] [address] [place] [address] Advanced Heart Failure/Transplant Card 01/14/22
== END 2023-10-09 10:42 | disposition home or self-care (01) ==
LOC: WOUND 10:41
PROVIDERS: PCP Student in an Organized Health Care Education/Training Program; Visit Provider Nurse Practitioner Family
DX: I87.2 Venous insufficiency (chronic) (peripheral) (principal); L97.321 Non-pressure chronic ulcer of left ankle limited to breakdown of skin; L98.9 Disorder of the skin and subcutaneous tissue, unspecified
CPT/HCPCS: 29581

== ENCOUNTER 2023-10-12 14:29 | Outpatient (CLI) | payer OTHER, SELFPAY ==
--- OUTSIDE RECORDS SUMMARY | 2023-10-12 14:31 | XMS_ITS | Clinical Summary ---
Author Organization [facility] Address [place], [place] [address] Care Team Providers Care Quarry Supervisor Dimension Stone Name Role Phone Nurses, Advanced Heart Failure [...] per actuation) nasal solution (FLONASE) Inhale 1 Varina into affected nostril(s) once daily if needed for Rhinitis. Active simvastatin (ZOCOR) 10 mg tabletIndications:C hronic [...] a meal. 90 Tablet 3 10/03/2023 Active sacubitril-valsarta n (ENTRESTO 24 MG-26 MG TABLET) 24-26 mg tabletIndications:N onischemic cardiomyopathy (HC) Take 1 Tablet by mouth two times daily. 10/12/2023 Active amiodarone (CORDARONE) 200 mg tabletIndications:A trial fibrillation, unspecified type (HC) Take 200 mg (1 tablet) once daily. Discontinue after 2 months. 0 04/06/2023 10/10/19 24 Discontinue d(*Patient states no longer taking) furosemide (LASIX) 40 mg tabletIndications:D ilated cardiomyopathy [...] Active Problems Problem Noted Date Diagnosed Date Persistent atrial fibrillation 10/10/2023 Typical atrial flutter 10/10/2023 Obesity, Class II, BMI 35-39.9, with comorbidity 07/05/2016 CKD (chronic kidney disease) stage 3, GFR 30-59 ml/min 03/25/2015 Venous insufficiency 03/25/2015 Hyperuricemia 03/25/2015 Asymptomatic menopausal state 03/25/2015 Vitamin D deficiency 08/13/2012 Hyperlipidemia 08/13/2012 Dilated cardiomyopathy 01/06/2012 Ankle wound Resolved Problems Problem Noted Date Diagnosed Date Resolved Date Asymptomatic varicose veins 02/04/2009 03/25/2015 Encounters Date Type Department Care Team Description 10/12/2023 Telephone [facility] [address] [place] [address] Maurice Poe MD Medication Management 10/10/2023 1:00 PM CDT Ancillary Procedure [facility] [address] [place] [address] Arrived 10/10/2023 11:00 AM CDT Office Visit [facility] [address] [place] [address] Vince Carpenter MD CV Electrophysiology Est (Post Ablation (04/05/23)//PCP: Lise Cardenas MD) 10/10/2023 Travel 10/02/2023 10:15 AM CDT Office Visit [facility] [address] [place] [address] Lise Cardenas MD Follow Up (Left ankle wound. Has wound care on 10/05/23) 10/02/2023 Travel 09/27/2023 Telephone [facility] [address] [place] [address] Lise Cardenas MD FYI (Wound clinic appt ) 09/22/2023 3:55 PM CDT Office Visit [facility] [address] [place] [address] Lise aCrdenas MD Foot Pain/problem (Urgent care 09/21/23. Left foot pain. Pain is improving ); Establish Care (Looking for a new PCP/) 09/22/2023 Telephone [facility] [address] [place] [phone] Charisma Montaño Appointment 09/21/2023 7:05 PM CDT Ancillary Procedure [facility] [address] [place] [address] 09/21/2023 5:55 PM CDT - 09/21/2023 11:59 PM CDT Hospital Encounter [facility] [address] [place] [address] Charis Weber, TONY Left ankle swelling; Wound of left lower extremity, initial encounter; Pain and swelling of lower leg, left 09/21/2023 5:00 PM CDT Office Visit [facility] [address] [place] [address] Charis Weber NP Derm Problem (left ankle) 09/21/2023 Travel 09/21/2023 Nurse Triage [facility] [address] [place] [address] Pcp, No Leg Swelling (Left leg only. ) 08/24/2023 Refill [facility] [address] [facility] [address] [place] [address] Maurice Poe MD Refill Request (Jardiance) from Last 3 Months Immunizations Name Administration [...] Sign Reading Time Taken Comments Blood Pressure 126/76 10/10/2023 10:58 AM CDT Pulse 65 10/10/2023 10:58 AM CDT Temperature 36.4 ??C (97.5 ??F) 09/21/2023 5:07 PM CD T Respiratory Rate 16 09/21/2023 5:07 PM CDT Oxygen Saturation 96% 10/10/2023 10:58 AM CDT Inhaled Oxygen Concentration - - Weight 106.1 kg (234 lb) 10/10/2023 10:58 AM CDT Height 172.7 cm (5' 8) 10/10/2023 10:58 AM CDT Body Mass Index 35.58 10/10/2023 10:58 AM CDT Plan of Treatment Upcoming Encounters Date Type Department Care Team (Late st Contact Info) Description 10/24/2023 2:30 PM CDT Orders Only [facility] [address] [facility] [address] [place] [phone] 10/24/2023 3:30 PM CDT Office Visit [facility] [address] [place] [phone] Maurice Poe MD [address] [facility] [address] [place] [address] Health Maintenance Due Date Last Done Comments [...] wt on same day) for age 18+ 10/09/2024 10/10/2023, 02/15/2023, 12/17/2019, Additional history exists Tdap Completed 02/07/2012 DEXA/DXA scan for age 65+ Completed 03/27/2015 Procedures Procedure Name Priority Date/Time Associated Diagnosis Comments ECHO TTE COMPLETE WO CONTRAST NAT 10/10/2023 1:34 PM CDT Dilated cardiomyopathy (HC) EKG 12 LEAD Routine 10/10/2023 9:46 AM CDT Persistent atrial fibrillation (HC) MAGNESIUM Routine 10/02/2023 10:48 AM CDT Nonischemic [...] left LIPID PANEL Routine 06/22/2018 7:32 AM NUT PROCESSING SUPERVISOR Dilated cardiomyopathy (HC) XR DXA BONE DENSITY 2 SITES AXIAL Routine 03/27/2015 1:29 PM NUT PROCESSING SUPERVISOR Asymptomatic menopausal state XR MAMMO BILAT SCREEN FFDM (IA) Routine 05/21/2012 11:17 AM NUT PROCESSING SUPERVISOR Other screening mammogram from Last 3 Months or Most Recently Relevant to Health Maintenance Results * ECHO TTE COMPLETE WO CONTRAST (10/10/2023 1:34 PM CDT) AORTIC VALVE MEAN PG 3 mmHg EJECTION FRACTION 36 % PEAK TR VELOCITY 3.2 m/s LVEDD 6.8 cm MITRAL VALVE MR ERO 22 mm2 EJECTION FRACTION 30 - 35% Anatomical Region Laterality Modality Ultrasound 10/10/2023 12:5 2 PM CDT Narrative 10/10/2023 2:01 PM CDT ECHOCARDIOGRAM LEESA MOODY ? Accession#: ?? [id number] : ?1950 73 years Study Date: ?? 10/10/2023 12:52:08 PM Gender: F ?BP: ? 126/76 mmHg Height: 172.72 cm ?BSA: ?2.18 m? ? ? Weight: 106.14 kg ?Tech: ? JCP ? Referring MD: VINCE CARPENTER Site: ? [facility] Reading Location: MOBILE - OP Patient Location: Procedure: 2D, Color Doppler and Spectral Doppler. Indication for study: Dilated cardiomyopathy Cardiac Rhythm: Normal sinus and with premature ventricular contractions.Study quality: Final Impressions: 1. Severely increased LV size, normal wall thickness, moderately reduced global systolic function with an estimated EF of 30 - 35%. 2. Right ventricular cavity size is normal, global systolic RV function is borderline reduced. 3. Severely enlarged left atrium. 4. The mitral valve is sclerotic, moderate mitral regurgitation. Comparison Compared to prior exam: Left ventricular dimensions have increased, systolic function is marginally decreased, and mitral regurgitation has increased. Chamber Sizes and Function Severely increased left ventricular size, normal wall thickness, moderately reduced global systolic function with an estimated EF of 30 - 35%. Left atrial size is severely enlarged. Right ventricular cavity size is normal, global systolic RV function is borderline reduced. The right atrium is moderately enlarged. The pulmonary artery is of normal size and origin. The sinus of Valsalva is normal sized. The ascending aorta is normal for age/sex/bsa. Valves, RV Pressures and Diastolic Function The aortic valve is normal in structure and trileaflet, no stenosis and trivial regurgitation. The mitral valve is sclerotic, moderate mitral regurgitation. Indeterminate pattern of LV diastolic filling. The tricuspid valve is normal in structure. Tricuspid regurgitation is mild regurgitation. The tricuspid regurgitant velocity is 3.2 m/s, the estimated right ventricular systolic pressure is 40 mmHg plus right atrial pressure. The pulmonic valve is normal. No pulmonary regurgitation. Masses, Effusion, Shunts There is no pericardial effusion. The inferior vena cava is dilated, respiratory size variation greater than 50%. No left to right shunting was detected by limited color flow Doppler interrogation of the interatrial septum. MEASUREMENTS AND CALCULATIONS 2-D Measurements and LV Function: LVID (d) 6.8 cm LV FS% (2D) ?? 7 % LVID (s) 6.3 cm LVOT diameter 2.3 cm IVS (d) ??0.8 cm HR ?56 bpm LVPW (d) 0.8 cm LA Vol index ??63 ml/m2 Ao Sinus 3.3 cm Asc Ao ?? 3.9 cm Diastology: Mitral ?Tissue Doppler E Peak 0.9 m/s ??e', Septum ? 0.05 m/s DT ? 158 msec e', Lateral ?0.08 m/s ?E/e' Average ?? 13.84 Aortic Valve: Vmax ? 1.1 m/s ??ALEXANDER (V) ?? 3.18 cm? ? ? VTI ?0.30 m ?? ALEXANDER (I) ?? 3.17 cm? ? ? LVOT V max 0.9 m/s ??Max PG ?5 mmHg LVOT VTI ?? 0.23 m ?? Mean PG ?? 3 mmHg SV ? 95 ml ?Dim Index 0.76 SV index ?? 44 ml/m? ? ? CO ?5.3 l/min ?CI ?2.4 l/min/m? ? ? Mitral Valve: MVA ? 4.8 cm? ? ? MR ERO ??0.22 cm? ? ? MV P 1/2 ??46 msec MR Vol. 42 ml MV Mean G 2 mmHg ??MR TVI ??1.89 m Tricuspid Valve and estimated PA pressures: TR Vmax 3.2 m/s TAPSE 1.7 cm TR maxG 40 mmHg . This study was interpreted by an [facility] accredited facility. ??Final ?? Procedure Note Gildardo Mccarthy MD - 10/10/2023 ECHOCARDIOGRAM LEESA MOODY : 1950 73 years Study Date: 10/10/2023 12:52:08 PM Gender: F BP: 126/76 mmHg Height: 172.72 cm BSA: 2.18 m? ? ? Weight: 106.14 kg Tech: P Referring MD: VINCE CARPENTER Site: [facility] Reading Location: MOBILE - OP Patient Location: Procedure: 2D, Color Doppler and Spectral Doppler. Indication for study: Dilated cardiomyopathy Cardiac Rhythm: Normal sinus and with premature ventricularcontractions.Study quality: Final Impressions: 1. Severely increased LV size, normal wall thickness, moderately reducedglobal systolic function with an estimated EF of 30 - 35%. 2. Right ventricular cavity size is normal, global systolic RV functionis borderline reduced. 3. Severely enlarged left atrium. 4. The mitral valve is sclerotic, moderate mitral regurgitation. Comparison Compared to prior exam: Left ventricular dimensions have increased, systolic function ismarginally decreased, and mitral regurgitation has increased. Chamber Sizes and Function Severely increased left ventricular size, normal wall thickness,moderately reduced global systolic function with an estimated EF of 30 -35%. Left atrial size is severely enlarged. Right ventricular cavity sizeis normal, global systolic RV function is borderline reduced. The rightatrium is moderately enlarged. The pulmonary artery is of normal size andorigin. The sinus of Valsalva is normal sized. The ascending aorta isnormal for age/sex/bsa. Valves, RV Pressures and Diastolic Function The aortic valve is normal in structure and trileaflet, no stenosis andtrivial regurgitation. The mitral valve is sclerotic, moderate mitralregurgitation. Indeterminate pattern of LV diastolic filling. Thetricuspid valve is normal in structure. Tricuspid regurgitation is mildregurgitation. The tricuspid regurgitant velocity is 3.2 m/s, theestimated right ventricular systolic pressure is 40 mmHg plus right atrialpressure. The pulmonic valve is normal. No pulmonary regurgitation. Masses, Effusion, Shunts There is no pericardial effusion. The inferior vena cava is dilated,respiratory size variation greater than 50%. No left to right shunting wasdetected by limited color flow Doppler interrogation of the interatrialseptum. MEASUREMENTS AND CALCULATIONS 2-D Measurements and LV Function: LVID (d) 6.8 cm LV FS% (2D) 7 % LVID (s) 6.3 cm LVOT diameter 2.3 cm IVS (d) 0.8 cm HR 56 bpm LVPW (d) 0.8 cm LA Vol index 63 ml/m2 Ao Sinus 3.3 cm Asc Ao 3.9 cm Diastology: Mitral Tissue Doppler E Peak 0.9 m/s e', Septum 0.05 m/s DT 158 msec e', Lateral 0.08 m/s E/e' Average 13.84 Aortic Valve: Vmax 1.1 m/s ALEXANDER (V) 3.18 cm? ? ? VTI 0.30 m ALEXANDER (I) 3.17 cm? ? ? LVOT V max 0.9 m/s Max PG 5 mmHg LVOT VTI 0.23 m Mean PG 3 mmHg SV 95 ml Dim Index 0.76 SV index 44 ml/m? ? ? CO 5.3 l/min CI 2.4 l/min/m? ? ? Mitral Valve: MVA 4.8 cm? ? ? MR ERO 0.22 cm? ? ? MV P 1/2 46 msec MR Vol. 42 ml MV Mean G 2 mmHg MR TVI 1.89 m Tricuspid Valve and estimated PA pressures: TR Vmax 3.2 m/s TAPSE 1.7 cm TR maxG 40 mmHg . This study was interpreted by an [facility] accredited facility. Final Vince Carpenter MD ECHO ORD * EKG 12 LEAD (10/10/2023 9:46 AM CDT) Interpretation Sinus bradycardia with 1st degree A-V block Left axis deviation Poor ??R wave Transition Abnormal ECG Ventricular Rate 59 BPM Atrial Rate 59 BPM P-R Interval 226 ms QRS Duration 106 ms QT 458 ms QTc 453 ms P [place] 46 degrees R [place] -41 degrees T [place] -68 degrees 10/10/2023 9:46 AM CDT 10/10/2023 8:04 PM CDT Vince Carpenter MD EKG ORD * (ABNORMAL) PRO-BNP (10/02/2023 10:48 AM CDT) PRO-BNP 3,902(H) <125 pg/mL 10/02/2023 6:24 PM CDT [facility] Blood BLOOD SPECIMEN / Unknown Venipuncture / Unknown 10/02/2023 10:48 AM CDT 10/02/2023 11:00 AM CDT Narrative [facility] - 10/02/2023 6:24 PM CDT The [...] Poe MD SEND OUTS Performing Organization Address [facility]/ZIP Co de Phone Number [facility] [address] [place] [address], * MAGNESIUM (10/02/2023 10:48 AM CDT) MAGNESIUM 2.0 1.6 - 2.4 mg/dL 10/02/2023 6:21 PM CDT [facility] Blood BLOOD SPECIMEN / Unknown Venipuncture / Unknown 10/02/2023 10:48 AM CDT 10/02/2023 11:00 AM CDT Maurice Poe MD CHEMISTRY Performing Organization Address [facility] Co de Phone Number [facility] [address] [place] [address], * (ABNORMAL) BASIC METABOLIC PANEL (10/02/2023 10:48 AM CDT) Only the most recent of2 resultswithin the time period is included. SODIUM 142 136 - 145 mmol/L 10/02/2023 6:21 PM CDT [facility] POTASSIUM 3.2(L) 3.5 - 5.1 mmol/L 10/02/2023 6:21 PM CDT [facility] CHLORIDE 103 98 - 107 mmol/L 10/02/2023 6:21 PM CDT [facility] CO2,TOTAL 27 22 - 29 mmol/L 10/02/2023 6:21 PM CDT [facility] ANION GAP 12 5 - 18 10/02/2023 6:21 PM CDT [facility] GLUCOSE 94 70 - 99 mg/dL 10/02/2023 6:21 PM CDT [facility] CALCIUM 9.1 8.8 - 10.2 mg/dL 10/02/2023 6:21 PM CDT [facility] BUN 17 8 - 23 mg/dL 10/02/2023 6:21 PM CDT [facility] CREATININE 1.37(H) 0.50 - 0.90 mg/dL 10/02/2023 6:21 PM CDT [facility] BUN/CREAT RATIO 12 10 - 20 6:21 PM CDT [facility] eGFR 41(L) >90 mL/min/1.7 3m2 10/02/2023 6:21 PM CDT [facility] Comment:As of 2021, eG FR [...] 11:00 AM CDT Maurice Poe MD CHEMISTRY [facility] [address] [place] [address], * (ABNORMAL) AEROBIC BACTERIAL CULTURE, STAIN (09/21/2023 7:40 PM CDT) CULTURE RESULT(A) 09/25/2023 9:51 AM CDT [facility] CULTURE 4+ Staphylococcus aureus 09/25/2023 9:51 AM CDT [facility] GRAM STAIN No PMNs 09/25/2023 9:51 AM CDT [facility] GRAM STAIN No RBCs 09/25/2023 9:51 AM CDT [facility] GRAM STAIN No Epithelial cells 09/25/2023 9:51 AM CDT [facility] GRAM STAIN 3+ Gram Positive Cocci 09/25/2023 9:51 AM CDT [facility] Other (Other) Non-Blood / Unknown 09/21/2023 7:40 PM CDT 09/21/2023 7:57 PM CDT Narrative Organism Antibiotic Method Susceptibility Staphylococcus aureus OXACILLIN <=0.25: S Comment:Oxacillin mike sceptible should not be interpreted as penicillin or amoxicillin susceptible. Staphylococcus aureus CLINDAMYCIN <=0.12: S Staphylococcus aureus DOXYCYCLINE <=0.5: S Staphylococcus aureus CEFAZOLIN S Staphylococcus aureus TRIMETHOPRIM/SULF <=0.5/9.5: S Charis Weber WALLPAPER HANGER MICROBIOLOGY [facility] [address] [place] [address], * XR ANKLE 3 VIEWS LEFT (09/21/2023 [...] 09/21/2023 7:30:49 PM (Electronically Signed) Charis Weber WALLPAPER HANGER GENERAL IMAGING * (ABNORMAL) CBC WITH AUTO DIFFERENTIAL (09/21/2023 7:05 PM CDT) WHITE BLOOD COUNT 5.1 4.5 - 11.0 thou/cu mm 09/21/2023 7:12 PM [facility] RED BLOOD COUNT 3.76(L) 4.00 - 5.20 mil/cu mm 09/21/2023 7:12 PM [facility] HEMOGLOBIN 11.7(L) 12.0 - 16.0 g/dL 09/21/2023 7:12 PM [facility] HEMATOCRIT 36.0 33.0 - 51.0 % 09/21/2023 7:12 PM [facility] MCV 96 80 - 100 fL 09/21/2023 7:12 PM [facility] MCH 31.1 26.0 - 34.0 pg 09/21/2023 7:12 PM [facility] MCHC 32.5 32.0 - 36.0 g/dL 09/21/2023 7:12 PM [facility] RDW 12.7 11.5 - 15.5 % 09/21/2023 7:12 PM [facility] PLATELET COUNT 192 140 - 440 thou/cu mm 09/21/2023 7:12 PM [facility] MPV 10.0 6.5 - 11.0 fL 09/21/2023 7:12 PM [facility] % NEUT 64.6 % 09/21/2023 7:12 PM [facility] % LYMPH 21.1 % 09/21/2023 7:12 PM [facility] % MONO 9.9 % 09/21/2023 7:12 PM [facility] % EOS 2.6 % 09/21/2023 7:12 PM CDT [facility] % BASO 1.8 % 09/21/2023 7:12 PM CDT [facility] ABSOLUTE NEUTROPHILS 3.3 1.7 - 7.0 thou/cu mm 09/21/2023 7:12 PM CDT [facility] ABSOLUTE LYMPHOCYTES 1.1 0.9 - 2.9 thou/cu mm 09/21/2023 7:12 PM CDT [facility] ABSOLUTE MONOCYTES 0.5 <0.9 thou/cu mm 09/21/2023 7:12 PM T [facility] ABSOLUTE EOSINOPHILS 0.1 <0.5 thou/cu mm 09/21/2023 7:12 PM CDT [facility] ABSOLUTE BASOPHILS 0.1 <0.3 thou/cu mm 09/21/2023 7:12 PM CDT [facility] Blood BLOOD SPECIMEN / Unknown Venipuncture / Unknown 09/21/2023 7:05 PM CDT 09/21/2023 7:05 PM CDT Charis E Furlong WALLPAPER HANGER HEMATOLOGY [facility] [address] [place] [address] * (ABNORMAL) URIC ACID (09/21/2023 7:05 PM CDT) URIC ACID 8.6(H) 2.4 - 5.7 mg/dL 09/21/2023 7:28 PM CDT [facility] Blood BLOOD SPECIMEN / Unknown Venipuncture / Unknown 09/21/2023 7:05 PM CDT 09/21/2023 7:05 PM CDT Charis E Furlong WALLPAPER HANGER CHEMISTRY [facility] [address] [place] [address] * US VENOUS LOWER EXTREMITY LEFT (09/21/2023 [...] US * LIPID PANEL (06/22/2018 7:32 AM NUT PROCESSING SUPERVISOR) [facility] CHOLESTEROL,TOTAL 177 100 - 199 mg/dL 06/22/2018 8:19 AM [facility] TRIGLYCERIDES 118 <150 mg/dL 06/22/2018 8:19 AM [facility] HDL CHOLESTEROL 54 >40 mg/dL 9 8:19 AM [facility] NON-HDL CHOLESTEROL 123 <145 mg/dl 06/22/2018 8:19 AM [facility] CHOL/HDL RATIO 3.28 <4.50 06/22/2018 8:19 AM NUT PROCESSING SUPERVISOR [facility] LDL CHOLESTEROL 99 <=130 mg/dL 06/22/2018 8:19 AM NUT PROCESSING SUPERVISOR [facility] PROVIDER ORDERED STATUS FASTING 06/22/2018 8:19 AM NUT PROCESSING SUPERVISOR [facility] Blood BLOOD SPECIMEN / Unknown Venipuncture / Unknown 06/22/2018 7:32 AM NUT PROCESSING SUPERVISOR 06/22/2018 7:53 AM NUT PROCESSING SUPERVISOR Maurice Poe MD [facility] [address] [place] [address], * (ABNORMAL) XR DXA BONE DENSITY 2 SITES (03/27/2015 1:29 PM NUT PROCESSING SUPERVISOR) Anatomical Region Laterality Modality Spine, HIPS, HIPL, HIPR Other Narrative 04/03/2015 8:04 AM NUT PROCESSING SUPERVISOR Please see scanned document for results of this study. Raza Killian MD DEXA * XR MAMMO BILAT SCREEN FFDM (05/21/2012 11:17 AM NUT PROCESSING SUPERVISOR) Anatomical Region Laterality Modality BREASTS, Breast Left, Breast Right Bilateral Mammography Addenda Addendum by Raphael Flaherty DO on 07/31/2012 3:10 PM CDT ??ADDENDUM ? ADDENDUM ? ADDENDUM Many attempts have been made to contact the patient regarding additional imaging that is needed following her screening mammogram. ??The patient has failed to return for our recommended follow-up. ?? Impressions 05/21/2012 3:54 PM NUT PROCESSING SUPERVISOR ??ACR 0 Incomplete: Need Additional Imaging Evaluation and/or Prior Mammograms for Comparison RECOMMENDATION: ??Ultrasound of the RIGHT breast. Narrative 05/21/2012 3:54 PM NUT PROCESSING SUPERVISOR BILATERAL FULL-FIELD DIGITAL SCREENING MAMMOGRAM WITH CAD [...] Code Status Discussion: Reviewed Preferences Care Teams Quarry Supervisor Dimension Stone Relationship Specialty Start Date End Date Lise Cardenas MD [address] [place] [id number] PCP - General Family Practice 09/22/23 Nurses, Advanced Heart Failure [address] [address] Heart Failure Care Coordination 08/25/15 Maurice Poe MD [address] [address] [place] [id number] Advanced Heart Failure/Transplant Card 01/14/22
== END 2023-10-12 14:30 | disposition home or self-care (01) ==
LOC: WOUND 14:29
PROVIDERS: PCP Student in an Organized Health Care Education/Training Program; Visit Provider Nurse Practitioner Family
DX: I87.2 Venous insufficiency (chronic) (peripheral) (principal); I89.0 Lymphedema, not elsewhere classified; L97.321 Non-pressure chronic ulcer of left ankle limited to breakdown of skin
CPT/HCPCS: 97597

== ENCOUNTER 2023-10-16 08:26 | Outpatient (CLI) | payer OTHER, SELFPAY ==
--- OUTSIDE RECORDS SUMMARY | 2023-10-16 08:28 | XMS_ITS | Clinical Summary ---
Author Organization [facility] Address [place], [place] [address] Care Team Providers Care [employer] Name Role Phone Nurses, Advanced Heart Failure [...] per actuation) nasal solution (FLONASE) Inhale 1 [place] into affected nostril(s) once daily if needed [...] Encounters Date Type Department Care Team Description 10/13/2023 Telephone [facility] [address] [place] [address] Vince Carpenter MD Results (Echocardiogram 10/10/23) 10/12/2023 Telephone [facility] [address] [place] [address] Maurice Poe MD Medication Management 10/10/2023 1:00 PM CDT Ancillary Procedure [facility] [address] [place] [address] 10/10/2023 11:00 AM CDT Office Visit [facility] [address] [place] [address] Vince Carpenter MD CV Electrophysiology Est (Post Ablation (04/05/23)//PCP: Lise Cardenas MD) 10/10/2023 Travel 10/02/2023 10:15 AM CDT Office Visit [facility] [address] [place] [address] Lise Cardenas MD Follow Up (Left ankle wound. Has wound care on 10/05/23) 10/02/2023 Travel 09/27/2023 Telephone [facility] [address] [place] [address] Lise Cardenas MD FYI (Wound clinic appt ) 09/22/2023 3:55 PM CDT Office Visit [facility] [address] [place] [address] Lise Cardenas MD Foot Pain/problem (Urgent care 09/21/23. Left foot pain. Pain is improving ); Establish Care (Looking for a new PCP/) 09/22/2023 Telephone [facility] Orthoped[facility] [address] [place] [address] Sabra Charisma Nataliia Appointment 09/21/2023 7:05 PM CDT Ancillary Procedure [facility] [address] [place] [address] 09/21/2023 5:55 PM CDT - 09/21/2023 11:59 PM CDT Hospital Encounter [facility] [address] [place] [address] Charis Weber NP Left ankle swelling; Wound of left lower extremity, initial encounter; Pain and swelling of lower leg, left 09/21/2023 5:00 PM CDT Office Visit [facility] [address] [place] [address] Charis Weber NP Derm Problem (left ankle) 09/21/2023 Travel 09/21/2023 Nurse Triage [facility] [address] [place] [address] Pcp, No Leg Swelling (Left leg only. ) 08/24/2023 Refill [facility] [address] [place] [phone] Maurice Poe MD Refill Request (Jardiance) from [...] Description 10/24/2023 2:30 PM CDT Orders Only [facility] [address] [place] [address] 10/24/2023 3:30 PM CDT Office [place] [facility] [address] [place] [address] Maurice Poe MD [address] [facility] [address] [facility] [address] [place] [address] Health Maintenance Due Date Last Done Comments [...] left LIPID PANEL Routine 06/22/2018 7:32 AM PLATEN DRIER OPERATOR Dilated cardiomyopathy (HC) XR DXA BONE DENSITY 2 SITES AXIAL Routine 03/27/2015 1:29 PM PLATEN DRIER OPERATOR Asymptomatic menopausal state XR MAMMO BILAT SCREEN FFDM (IA) Routine 05/21/2012 11:17 AM PLATEN DRIER OPERATOR Other screening mammogram from Last 3 Months [...] CDT ECHOCARDIOGRAM LEESA MOODY ? Accession#: ?? [id number] : ?1950 73 years Study Date: ?? 10/10/2023 12:52:08 PM Gender: F ?BP: ? 126/76 mmHg Height: 172.72 cm ?BSA: ?2.18 m? ? ? Weight: 106.14 kg ?Tech: ? JCP ? Referring MD: VINCE CARPENTER Site: ? [facility] [place] Location: MOBILE - OP Patient Location: [...] . This study was interpreted by an [facility] accredited facility. ??Final ?? Procedure Note Gildardo Mccarthy MD - 10/10/2023 ECHOCARDIOGRAM LEESA MOODY : 1950 73 years Study Date: 10/10/2023 12:52:08 PM Gender: F BP: 126/76 mmHg Height: 172.72 cm BSA: 2.18 m? ? ? Weight: 106.14 kg Tech: [facility] Referring MD: VINCE CARPENTER Site: [facility] [place] Location: MOBILE - OP Patient Location: [...] . This study was interpreted by an [facility] accredited facility. Final Vince Carpenter MD ECHO ORD * EKG 12 LEAD (10/10/2023 9:46 AM CDT) Interpretation Sinus bradycardia with 1st degree A-V block Left axis deviation Poor ??R wave Transition Abnormal ECG Ventricular Rate 59 BPM Atrial Rate 59 BPM P-R Interval 226 ms QRS Duration 106 ms QT 458 ms QTc 453 ms P [place] 46 degrees R [place] -41 degrees T [place] -68 degrees 10/10/2023 9:46 AM CDT 10/10/2023 8:04 PM CDT Vince Carpenter MD EKG ORD * (ABNORMAL) PRO-BNP (10/02/2023 10:48 AM CDT) PRO-BNP 3,902(H) <125 pg/mL 10/02/2023 6:24 PM CDT [facility] [employer] [facility] Blood BLOOD SPECIMEN / Unknown Venipuncture / Unknown 10/02/2023 10:48 AM CDT 10/02/2023 11:00 AM CDT N[facility]ative [facility] - 10/02/2023 6:24 PM CDT [...] Poe MD SEND OUTS Performing Organization Address [facility] Co de Phone Number [facility] [address] [place] [address], * MAGNESIUM (10/02/2023 10:48 AM CDT) MAGNESIUM 2.0 1.6 - 2.4 mg/dL 10/02/2023 6:21 PM CDT [facility] Blood BLOOD SPECIMEN / Unknown Venipuncture / Unknown 10/02/2023 10:48 AM CDT 10/02/2023 11:00 AM CDT Maurice Poe MD CHEMISTRY Performing Organization Address [facility] de Phone Number [facility] [address] [place] [address], * (ABNORMAL) BASIC METABOLIC PANEL (10/02/2023 10:48 AM CDT) Only the most recent of2 resultswithin the time period is included. SODIUM 142 136 - 145 mmol/L 10/02/2023 6:21 PM CDT [facility] POTASSIUM 3.2(L) 3.5 - 5.1 mmol/L 10/02/2023 6:21 PM CDT [facility] CHLORIDE 103 98 - 107 mmol/L 10/02/2023 6:21 PM CDT [facility] CO2,TOTAL 27 22 - 29 mmol/L 10/02/2023 6:21 PM CDT [facility] ANION GAP 12 5 - 18 10/02/2023 6:21 PM T [facility] GLUCOSE 94 70 - 99 mg/dL 10/02/2023 6:21 PM T [facility] CALCIUM 9.1 8.8 - 10.2 mg/dL 10/02/2023 6:21 PM T [facility] BUN 17 8 - 23 mg/dL 10/02/2023 6:21 PM T [facility] CREATININE 1.37(H) 0.50 - 0.90 mg/dL 10/02/2023 6:21 PM [facility] BUN/CREAT RATIO 12 10 - 20 6:21 PM [facility] eGFR 41(L) >90 mL/min/1.7 3m2 10/02/2023 6:21 PM [facility] Comment:As of 2021, [...] 11:00 AM CDT Maurice Poe MD CHEMISTRY [facility] [address] [place] [address], * (ABNORMAL) AEROBIC BACTERIAL CULTURE, STAIN (09/21/2023 7:40 PM CDT) CULTURE RESULT(A) 09/25/2023 9:51 AM CDT [facility] CULTURE 4+ Staphylococcus aureus 09/25/2023 9:51 AM CDT [facility] GRAM STAIN No PMNs 09/25/2023 9:51 AM CDT [facility] GRAM STAIN No RBCs 09/25/2023 9:51 AM CDT [facility] GRAM STAIN No Epithelial cells 09/25/2023 9:51 AM CDT [facility] GRAM STAIN 3+ Gram Positive Cocci 09/25/2023 9:51 AM CDT [facility] Other (Other) Non-Blood / Unknown 09/21/2023 7:40 PM CDT 09/21/2023 7:57 PM CDT Narrative Organism Antibiotic Method Susceptibility Staphylococcus aureus OXACILLIN <=0.25: S Comment:Oxacillin mike sceptible should not be interpreted as penicillin or amoxicillin susceptible. Staphylococcus aureus CLINDAMYCIN <=0.12: S Staphylococcus aureus DOXYCYCLINE <=0.5: S Staphylococcus aureus CEFAZOLIN S Staphylococcus aureus TRIMETHOPRIM/SULF <=0.5/9.5: S Charis Weber SEWER REPAIRER MICROBIOLOGY Performing Organization Address City/State/[facility] Co de Phone Number [facility] [address] [place] [address], * XR ANKLE 3 VIEWS LEFT (09/21/2023 7:11 PM CDT) Anatomical Region Laterality Modality ANKLES, ANKLE L Computed Radiogr aphy 09/21/2023 7:30 PM CDT Narrative 09/21/2023 7:30 PM CDT For Patients: ??As a result of the Century Cures Act, medical imaging exams and procedure [...] For Patients: As a result of the Century Cures Act, medical imagingexams and procedure [...] 09/21/2023 7:30:49 PM (Electronically Signed) Charis Weber SEWER REPAIRER GENERAL IMAGING * (ABNORMAL) CBC WITH AUTO DIFFERENTIAL (09/21/2023 7:05 PM CDT) WHITE BLOOD COUNT 5.1 4.5 - 11.0 thou/cu mm 09/21/2023 7:12 PM [facility] RED BLOOD COUNT 3.76(L) 4.00 - 5.20 mil/cu mm 09/21/2023 7:12 PM [facility] HEMOGLOBIN 11.7(L) 12.0 - 16.0 g/dL 09/21/2023 7:12 PM [facility] HEMATOCRIT 36.0 33.0 - 51.0 % 09/21/2023 7:12 PM [facility] MCV 96 80 - 100 fL 09/21/2023 7:12 PM [facility] MCH 31.1 26.0 - 34.0 pg 09/21/2023 7:12 PM [facility] MCHC 32.5 32.0 - 36.0 g/dL 09/21/2023 7:12 PM [facility] RDW 12.7 11.5 - 15.5 % 09/21/2023 7:12 PM [facility] PLATELET COUNT 192 140 - 440 thou/cu mm 09/21/2023 7:12 PM [facility] MPV 10.0 6.5 - 11.0 fL 09/21/2023 7:12 PM [facility] % NEUT 64.6 % 09/21/2023 7:12 PM CDT [facility] % LYMPH 21.1 % 09/21/2023 7:12 PM T [facility] % MONO 9.9 % 09/21/2023 7:12 PM T [facility] % EOS 2.6 % 09/21/2023 7:12 PM T [facility] % BASO 1.8 % 09/21/2023 7:12 PM T [facility] ABSOLUTE NEUTROPHILS 3.3 1.7 - 7.0 thou/cu mm 09/21/2023 7:12 PM T [facility] ABSOLUTE LYMPHOCYTES 1.1 0.9 - 2.9 thou/cu mm 09/21/2023 7:12 PM T [facility] ABSOLUTE MONOCYTES 0.5 <0.9 thou/cu mm 09/21/2023 7:12 PM T [facility] ABSOLUTE EOSINOPHILS 0.1 <0.5 thou/cu mm 09/21/2023 7:12 PM T [facility] ABSOLUTE BASOPHILS 0.1 <0.3 thou/cu mm 09/21/2023 7:12 PM T [facility] Blood BLOOD SPECIMEN / Unknown Venipuncture / Unknown 09/21/2023 7:05 PM CDT 09/21/2023 7:05 PM CDT Charis Weber NP HEMATOLOGY [facility] [address] [place] [address] * (ABNORMAL) URIC ACID (09/21/2023 7:05 PM CDT) URIC ACID 8.6(H) 2.4 - 5.7 mg/dL 09/21/2023 7:28 PM CDT [facility] Blood BLOOD SPECIMEN / Unknown Venipuncture / Unknown 09/21/2023 7:05 PM CDT 09/21/2023 7:05 PM CDT Charis Rileyhaylee SEWER REPAIRER CHEMISTRY [facility] [address] [place] [address] * US VENOUS LOWER EXTREMITY LEFT (09/21/2023 [...] short axis, possibly reactive Procedure Note Gibran Ayala, - 09/21/2023 For Patients: As a result of the Century Cures Act, medical imagingexams and procedure [...] US * LIPID PANEL (06/22/2018 7:32 AM PLATEN DRIER OPERATOR) CHOLESTEROL,TOTAL 177 100 - 199 mg/dL 06/22/2018 8:19 AM PLATEN DRIER OPERATOR [facility] TRIGLYCERIDES 118 <150 mg/dL 06/22/2018 8:19 AM PLATEN DRIER OPERATOR [facility] HDL CHOLESTEROL 54 >40 mg/dL 9 8:19 AM PLATEN DRIER OPERATOR [facility] NON-HDL CHOLESTEROL 123 <145 mg/dl 06/22/2018 8:19 AM PLATEN DRIER OPERATOR [facility] CHOL/HDL RATIO 3.28 <4.50 06/22/2018 8:19 AM PLATEN DRIER OPERATOR [facility] LDL CHOLESTEROL 99 <=130 mg/dL 06/22/2018 8:19 AM PLATEN DRIER OPERATOR [facility] PROVIDER ORDERED STATUS FASTING 06/22/2018 8:19 AM PLATEN DRIER OPERATOR [facility] Blood BLOOD SPECIMEN / Unknown Venipuncture / Unknown 06/22/2018 7:32 AM PLATEN DRIER OPERATOR 06/22/2018 7:53 AM PLATEN DRIER OPERATOR Maurice Poe MD CHEMISTRY [facility] [address] [place] [address], * (ABNORMAL) XR DXA BONE DENSITY 2 SITES (03/27/2015 1:29 PM PLATEN DRIER OPERATOR) Anatomical Region Laterality Modality Spine, HIPS, HIPL, HIPR Other Narrative 04/03/2015 8:04 AM PLATEN DRIER OPERATOR Please see scanned document for results of this study. Raza Killian MD DEXA * XR MAMMO BILAT SCREEN FFDM (05/21/2012 11:17 AM PLATEN DRIER OPERATOR) Anatomical Region Laterality Modality BREASTS, Breast Left, Breast Right Bilateral Mammography Addenda Addendum by Raphael Flaehrty DO on 07/31/2012 3:10 PM CDT ??ADDENDUM ? ADDENDUM ? ADDENDUM Many attempts have been made to contact the patient regarding additional imaging that is needed following her screening mammogram. ??The patient has failed to return for our recommended follow-up. ?? Impressions 05/21/2012 3:54 PM PLATEN DRIER OPERATOR ??ACR 0 Incomplete: Need Additional Imaging Evaluation and/or Prior Mammograms for Comparison RECOMMENDATION: ??Ultrasound of the RIGHT breast. Narrative 05/21/2012 3:54 PM PLATEN DRIER OPERATOR BILATERAL FULL-FIELD DIGITAL SCREENING MAMMOGRAM WITH CAD [...] Code Status Discussion: Reviewed Preferences Care Teams Light Industrial Relationship Specialty Start Date End Date Lise Cardenas MD [address] [place] [id number] PCP - General Family Practice 09/22/23 Nurses, Advanced Heart Failure [address] [place] [phone] Heart Failure Care Coordination 08/25/15 Maurice Poe MD [address] [place] [id number] Advanced Heart Failure/Transplant Card 01/14/22
== END 2023-10-16 08:27 | disposition home or self-care (01) ==
LOC: WOUND 08:26
PROVIDERS: PCP Student in an Organized Health Care Education/Training Program; Visit Provider Nurse Practitioner Family
DX: I87.2 Venous insufficiency (chronic) (peripheral) (principal); L97.321 Non-pressure chronic ulcer of left ankle limited to breakdown of skin
CPT/HCPCS: 29581

== ENCOUNTER 2023-10-19 13:20 | Outpatient (CLI) | payer OTHER, SELFPAY ==
--- OUTSIDE RECORDS SUMMARY | 2023-10-19 13:22 | XMS_ITS | Clinical Summary ---
Author Organization [facility] Address [place], [place] [address] Care Team Providers Care Flight Service Specialist Name Role Phone Nurses, Advanced Heart Failure [...] per actuation) nasal solution (FLONASE) Inhale 1 [place] into affected nostril(s) once daily if needed [...] Type Department Care Team Description 10/13/2023 Telephone [facility] [address] [place] [address] Vince Carpenter MD Results (Echocardiogram 10/10/23) 10/12/2023 Telephone [facility] [address] [place] [address] Maurice Poe MD Medication Management 10/10/2023 1:00 PM CDT Ancillary Procedure [facility] [address] [place] [address] 10/10/2023 11:00 AM CDT Office Visit [facility] [address] [place] [address] Vince Carpenter MD CV Electrophysiology Est (Post Ablation (04/05/23)//PCP: Lise Cardenas MD) 10/10/2023 Travel 10/02/2023 10:15 AM CDT Office Visit [facility] [address] [place] [address] Lise Cardenas MD Follow Up (Left ankle wound. Has wound care on 10/05/23) 10/02/2023 Travel 09/27/2023 Telephone [facility] [address] [place] [address] Lise Cardenas MD FYI (Wound clinic appt ) 09/22/2023 3:55 PM CDT Office Visit [facility] [address] [place] [address] Lise Cardenas MD Foot Pain/problem (Urgent care 09/21/23. Left foot pain. Pain is improving ); Establish Care (Looking for a new PCP/) 09/22/2023 Telephone [facility] [address] [place] [address] Sabra Charisma Nataliia Appointment 09/21/2023 7:05 PM CDT Ancillary Procedure [facility] [address] [place] [address] 09/21/2023 5:55 PM CDT - 09/21/2023 11:59 PM CDT Hospital Encounter [facility] [address] [place] [address] Charis Weber NP Left ankle swelling; Wound of left lower extremity, initial encounter; Pain and swelling of lower leg, left 09/21/2023 5:00 PM CDT Office Visit [facility] [address] [place] [address] Charis Weber NP Derm Problem (left ankle) 09/21/2023 Travel 09/21/2023 Nurse Triage [facility] [address] [place] [address] Pcp, No Leg Swelling (Left leg only. ) 08/24/2023 Refill [facility] [address] [facility] [address] [place] [phone] Maurice Poe MD Refill Request (Jardiance) from [...] Description 10/24/2023 2:30 PM CDT Orders Only [facility] [address] [place] [address] 10/24/2023 3:30 PM CDT Office Visit [facility] [address] [place] [address] Maurice Poe MD [address] [facility] [address] [place] [address] Health Maintenance Due Date Last Done Comments [...] left LIPID PANEL Routine 06/22/2018 7:32 AM SAUSAGE MAKER Dilated cardiomyopathy (HC) XR DXA BONE DENSITY 2 SITES AXIAL Routine 03/27/2015 1:29 PM SAUSAGE MAKER Asymptomatic menopausal state XR MAMMO BILAT SCREEN FFDM (IA) Routine 05/21/2012 11:17 AM SAUSAGE MAKER Other screening mammogram from Last 3 Months [...] CDT ECHOCARDIOGRAM LEESA MOODY ? Accession#: ?? [id number] : ?1950 73 years Study Date: ?? 10/10/2023 12:52:08 PM Gender: F ?BP: ? 126/76 mmHg Height: 172.72 cm ?BSA: ?2.18 m? ? ? Weight: 106.14 kg ?Tech: ? JCP ? Referring MD: VINCE CARPENTER Site: ? [facility] Reading Location: MOBILE - OP Patient [...] was interpreted by an [facility] accredited facility. ??Final ?? Procedure Note Gildardo Mccarthy MD - 10/10/2023 ECHOCARDIOGRAM LEESA MOODY : 1950 73 years Study Date: 10/10/2023 12:52:08 PM Gender: F BP: 126/76 mmHg Height: 172.72 cm BSA: 2.18 m? ? ? Weight: 106.14 kg Tech: [facility] Referring MD: VINCE CARPENTER Site: [facility] Reading Location: MOBILE - OP Patient [...] was interpreted by an [facility] accredited facility. Final Vince Carpenter MD ECHO ORD * EKG 12 LEAD (10/10/2023 9:46 AM CDT) Interpretation Sinus bradycardia with 1st degree A-V block Left axis deviation Poor ??R wave Transition Abnormal ECG Ventricular Rate 59 BPM Atrial Rate 59 BPM P-R Interval 226 ms QRS Duration 106 ms QT 458 ms QTc 453 ms P Griffin 46 degrees R Griffin -41 degrees T Griffin -68 degrees 10/10/2023 9:46 AM CDT 10/10/2023 8:04 PM CDT Vince Carpenter MD EKG ORD * (ABNORMAL) PRO-BNP (10/02/2023 10:48 AM CDT) PRO-BNP 3,902(H) <125 pg/mL 10/02/2023 6:24 PM CDT [facility] Blood BLOOD SPECIMEN / Unknown Venipuncture / Unknown 10/02/2023 10:48 AM CDT 10/02/2023 11:00 AM CDT Narrative [facility] - 10/02/2023 6:24 PM [...] Poe MD SEND OUTS Performing Organization Address [facility] Co de Phone Number [facility] [address] [place] [address], * MAGNESIUM (10/02/2023 10:48 AM CDT) MAGNESIUM 2.0 1.6 - 2.4 mg/dL 10/02/2023 6:21 PM CDT [facility] Blood BLOOD SPECIMEN / Unknown Venipuncture / Unknown 10/02/2023 10:48 AM CDT 10/02/2023 11:00 AM CDT Maurice Poe MD CHEMISTRY Performing Organization Address [facility] de Phone Number [facility] [address] [place] [address], * (ABNORMAL) BASIC METABOLIC PANEL (10/02/2023 10:48 AM CDT) Only the most recent of2 resultswithin the time period is included. SODIUM 142 136 - 145 mmol/L 10/02/2023 6:21 PM CDT [facility] POTASSIUM 3.2(L) 3.5 - 5.1 mmol/L 10/02/2023 6:21 PM CDT [facility] CHLORIDE 103 98 - 107 mmol/L 10/02/2023 6:21 PM CDT [facility] CO2,TOTAL 27 22 - 29 mmol/L 10/02/2023 6:21 PM CDT [facility] ANION GAP 12 5 - 18 10/02/2023 6:21 PM T [facility] GLUCOSE 94 70 - 99 mg/dL 10/02/2023 6:21 PM T [facility] CALCIUM 9.1 8.8 - 10.2 mg/dL 10/02/2023 6:21 PM T [facility] BUN 17 8 - 23 mg/dL 10/02/2023 6:21 PM T [facility] CREATININE 1.37(H) 0.50 - 0.90 mg/dL 10/02/2023 6:21 PM [facility] BUN/CREAT RATIO 12 10 - 20 6:21 PM [facility] eGFR 41(L) >90 mL/min/1.7 3m2 10/02/2023 6:21 PM [facility] Comment:As of 2021, eG [...] 11:00 AM CDT Maurice Poe MD CHEMISTRY [facility] [address] [place] [address], * (ABNORMAL) AEROBIC BACTERIAL CULTURE, STAIN (09/21/2023 7:40 PM CDT) CULTURE RESULT(A) 09/25/2023 9:51 AM CDT [facility] CULTURE 4+ Staphylococcus aureus 09/25/2023 9:51 AM CDT [facility] GRAM STAIN No PMNs 09/25/2023 9:51 AM CDT [facility] GRAM STAIN No RBCs 09/25/2023 9:51 AM CDT [facility] GRAM STAIN No Epithelial cells 09/25/2023 9:51 AM CDT [facility] GRAM STAIN 3+ Gram Positive Cocci 09/25/2023 9:51 AM CDT [facility] Other (Other) Non-Blood / Unknown 09/21/2023 7:40 PM CDT 09/21/2023 7:57 PM CDT Narrative Organism Antibiotic Method Susceptibility Staphylococcus aureus OXACILLIN <=0.25: S Comment:Oxacillin mike sceptible should not be interpreted as penicillin or amoxicillin susceptible. Staphylococcus aureus CLINDAMYCIN <=0.12: S Staphylococcus aureus DOXYCYCLINE <=0.5: S Staphylococcus aureus CEFAZOLIN S Staphylococcus aureus TRIMETHOPRIM/SULF <=0.5/9.5: S Charis Weber CLINICAL TRIAL ASSISTANT MICROBIOLOGY Performing Organization Address City/State/[facility] Co de Phone Number [facility] [address] [place] [address], * XR ANKLE 3 VIEWS LEFT (09/21/2023 [...] 09/21/2023 7:30:49 PM (Electronically Signed) Charis Weber CLINICAL TRIAL ASSISTANT GENERAL IMAGING * (ABNORMAL) CBC WITH AUTO DIFFERENTIAL (09/21/2023 7:05 PM CDT) WHITE BLOOD COUNT 5.1 4.5 - 11.0 thou/cu mm 09/21/2023 7:12 PM [facility] RED BLOOD COUNT 3.76(L) 4.00 - 5.20 mil/cu mm 09/21/2023 7:12 PM [facility] HEMOGLOBIN 11.7(L) 12.0 - 16.0 g/dL 09/21/2023 7:12 PM [facility] HEMATOCRIT 36.0 33.0 - 51.0 % 09/21/2023 7:12 PM [facility] MCV 96 80 - 100 fL 09/21/2023 7:12 PM [facility] MCH 31.1 26.0 - 34.0 pg 09/21/2023 7:12 PM [facility] MCHC 32.5 32.0 - 36.0 g/dL 09/21/2023 7:12 PM [facility] RDW 12.7 11.5 - 15.5 % 09/21/2023 7:12 PM [facility] PLATELET COUNT 192 140 - 440 thou/cu mm 09/21/2023 7:12 PM [facility] MPV 10.0 6.5 - 11.0 fL 09/21/2023 7:12 PM [facility] % NEUT 64.6 % 09/21/2023 7:12 PM CDT [facility] % LYMPH 21.1 % 09/21/2023 7:12 PM T [facility] % MONO 9.9 % 09/21/2023 7:12 PM T [facility] % EOS 2.6 % 09/21/2023 7:12 PM T [facility] % BASO 1.8 % 09/21/2023 7:12 PM T [facility] ABSOLUTE NEUTROPHILS 3.3 1.7 - 7.0 thou/cu mm 09/21/2023 7:12 PM T [facility] ABSOLUTE LYMPHOCYTES 1.1 0.9 - 2.9 thou/cu mm 09/21/2023 7:12 PM T [facility] ABSOLUTE MONOCYTES 0.5 <0.9 thou/cu mm 09/21/2023 7:12 PM T [facility] ABSOLUTE EOSINOPHILS 0.1 <0.5 thou/cu mm 09/21/2023 7:12 PM T [facility] ABSOLUTE BASOPHILS 0.1 <0.3 thou/cu mm 09/21/2023 7:12 PM T [facility] Blood BLOOD SPECIMEN / Unknown Venipuncture / Unknown 09/21/2023 7:05 PM CDT 09/21/2023 7:05 PM CDT Charis Weber NP HEMATOLOGY [facility] [address] [place] [address] * (ABNORMAL) URIC ACID (09/21/2023 7:05 PM CDT) URIC ACID 8.6(H) 2.4 - 5.7 mg/dL 09/21/2023 7:28 PM CDT [facility] Blood BLOOD SPECIMEN / Unknown Venipuncture / Unknown 09/21/2023 7:05 PM CDT 09/21/2023 7:05 PM CDT Charis Rileyhaylee CLINICAL TRIAL ASSISTANT CHEMISTRY [facility] [address] [place] [address] * US VENOUS LOWER EXTREMITY LEFT (09/21/2023 [...] US * LIPID PANEL (06/22/2018 7:32 AM SAUSAGE MAKER) CHOLESTEROL,TOTAL 177 100 - 199 mg/dL 06/22/2018 8:19 AM SAUSAGE MAKER [facility] TRIGLYCERIDES 118 <150 mg/dL 06/22/2018 8:19 AM SAUSAGE MAKER [facility] HDL CHOLESTEROL 54 >40 mg/dL 9 8:19 AM SAUSAGE MAKER [facility] NON-HDL CHOLESTEROL 123 <145 mg/dl 06/22/2018 8:19 AM [facility] CHOL/HDL RATIO 3.28 <4.50 06/22/2018 8:19 AM SAUSAGE MAKER [facility] LDL CHOLESTEROL 99 <=130 mg/dL 06/22/2018 8:19 AM SAUSAGE MAKER [facility] PROVIDER ORDERED STATUS FASTING 06/22/2018 8:19 AM SAUSAGE MAKER [facility] Blood BLOOD SPECIMEN / Unknown Venipuncture / Unknown 06/22/2018 7:32 AM SAUSAGE MAKER 06/22/2018 7:53 AM SAUSAGE MAKER Maurice Poe MD CHEMISTRY [facility] [address] [place] [address], * (ABNORMAL) XR DXA BONE DENSITY 2 SITES (03/27/2015 1:29 PM SAUSAGE MAKER) Anatomical Region Laterality Modality Spine, HIPS, HIPL, HIPR Other Narrative 04/03/2015 8:04 AM SAUSAGE MAKER Please see scanned document for results of this study. Raza Killian MD DEXA * XR MAMMO BILAT SCREEN FFDM (05/21/2012 11:17 AM SAUSAGE MAKER) Anatomical Region Laterality Modality BREASTS, Breast Left, Breast Right Bilateral Mammography Addenda Addendum by Raphael Flaherty DO on 07/31/2012 3:10 PM CDT ??ADDENDUM ? ADDENDUM ? ADDENDUM Many attempts have been made to contact the patient regarding additional imaging that is needed following her screening mammogram. ??The patient has failed to return for our recommended follow-up. ?? Impressions 05/21/2012 3:54 PM SAUSAGE MAKER ??ACR 0 Incomplete: Need Additional Imaging Evaluation and/or Prior Mammograms for Comparison RECOMMENDATION: ??Ultrasound of the RIGHT breast. Narrative 05/21/2012 3:54 PM SAUSAGE MAKER BILATERAL FULL-FIELD DIGITAL SCREENING MAMMOGRAM WITH CAD [...] Code Status Discussion: Reviewed Preferences Care Teams Flight Service Specialist Relationship Specialty Start Date End Date Lise Cardenas MD [address] [place] [id number] PCP - General Family Practice 09/22/23 Nurses, Advanced Heart Failure [address] [place] [address] Heart Failure Care Coordination 08/25/15 Maurice Poe MD [address] [place] [phone] Advanced Heart Failure/Transplant Card 01/14/22
== END 2023-10-19 13:21 | disposition home or self-care (01) ==
PROVIDERS: PCP Student in an Organized Health Care Education/Training Program; Visit Provider Family Medicine
DX: I87.2 Venous insufficiency (chronic) (peripheral) (principal); L97.322 Non-pressure chronic ulcer of left ankle with fat layer exposed; I89.0 Lymphedema, not elsewhere classified
CPT/HCPCS: 11042

== ENCOUNTER 2023-10-26 13:59 | Outpatient (CLI) | payer OTHER, SELFPAY ==
--- OUTSIDE RECORDS SUMMARY | 2023-10-26 14:01 | XMS_ITS | Clinical Summary ---
Author Organization [facility] [employer] [facility] Address [place], [place] [address] Care Team Providers Care Second Miller Name Role Phone Nurses, Advanced Heart Failure [...] times daily if needed. 0 12/31/2020 Active aspirin (ECOTRIN) 81 mg enteric coated [...] per actuation) nasal solution (FLONASE) Inhale 1 [place] into affected nostril(s) once daily if needed for Rhinitis. Active simvastatin (ZOCOR) 10 mg tabletIndications:C hronic systolic congestive heart failure (HC) TAKE 1 TABLET BY MOUTH AT BEDTIME 90 Tablet 2 05/17/2023 Active isosorbide dinitrate (ISORDIL) 30 mg tabletIndications:N onischemic cardiomyopathy (HC) Take 1 Tablet (30 mg) by mouth three times daily. 90 Tablet 5 06/29/2023 Active empagliflozin (Jardiance) 10 [...] by mouth once daily with a meal. On hold due for questions 10/24/2023 Active hydrALAZINE (APRESOLINE) 25 mg tabletIndications:D ilated cardiomyopathy (HC) Take 2 Tablets (50 mg) by mouth three times daily. 540 Tablet 3 10/24/2023 Active durable medical equipment (DME)Indications:PT TD (posterior tibial tendon dysfunction) AIR LIFT PTTD BRACE, LARGE, RIGHT, REF: 02PLR 1 Each 03/24/2021 10/24/19 24 Discontinue d(*Patient states no longer taking) amiodarone (CORDARONE) 200 mg tabletIndications:A trial fibrillation, unspecified type (HC) Take 200 mg (1 tablet) once daily. Discontinue after 2 months. 0 04/06/2023 10/10/19 24 Discontinue d(*Patient states no longer taking) hydrALAZINE (APRESOLINE) 10 mg tabletIndications:N onischemic cardiomyopathy (HC) Take 4 Tablets (40 mg) by mouth three times daily. 355 Tablet 5 06/29/2023 10/24/19 24 Discontinue d(Reorder (E-cancel not sent)) doxycycline 100 mg tabletIndications:W ound of left lower extremity, initial encounter Take 1 Tablet (100 mg) by mouth two times daily for 7 days. 14 Tablet 09/21/2023 09/28/19 potassium chloride (KLOR-CON M10) 10 mEq extended-release tablet (part/cryst)Indicat ions:Dilated cardiomyopathy (HC) Take 1 Tablet (10 mEq) by mouth once daily with a meal. 90 Tablet 3 10/03/2023 10/03/19 Discontinue d(Reorder (E-cancel not sent)) potassium chloride (KLOR-CON M10) 10 mEq extended-release tablet (part/cryst)Indicat ions:Dilated cardiomyopathy (HC) Take 1 Tablet (10 mEq) by mouth once daily with a meal. 90 Tablet 3 10/03/2023 10/24/19 24 Discontinue d(Other - add note to specify (E-cancel not sent)) sacubitril-valsarta n (ENTRESTO 24 MG-26 MG TABLET) 24-26 mg tabletIndications:N onischemic cardiomyopathy (HC) Take 1 Tablet by mouth two times daily. 10/12/2023 10/24/19 24 Discontinue d(*Med complete/Re gimen complete/Le anuj of care change) Active Problems Problem Noted Date Diagnosed Date [...] Encounters Date Type Department Care Team Description 10/24/2023 3:30 PM CDT [place] [facility] [address] [phone] Maurice Poe MD CV Heart Failure Est (CHF IN PERSON F/U VISIT. LABS DONE PRIOR /DX. Nonischemic cardiomyopathy (HC) [I42.8] //PCP:Lise Cardenas MD/) 10/24/2023 2:30 PM CDT Orders Only [facility] [address] [facility] [address] [phone] Lab (/) 10/24/2023 Travel 10/20/2023 Refill [facility] [address] [place] [address] [phone] Maurice Poe MD Refill Request (Furosemide) 10/13/2023 Telephone [facility] [address] [phone] Vince Carpenter MD Results (Echocardiogram 10/10/23) 10/12/2023 Telephone [facility] [address] [phone] Maurice Poe MD Medication Management 10/10/2023 1:00 PM CDT Ancillary Procedure [facility] [address] [place] [address] 10/10/2023 11:00 AM CDT Office Visit [facility] [address] [place] [phone] Vince Carpenter MD CV Electrophysiology Est (Post Ablation (04/05/23)//PCP: Lise Cardenas MD) 10/10/2023 Travel 10/02/2023 10:15 AM CDT Office Visit [facility] [address] [place] [address] Lise Cardenas MD Follow Up (Left ankle wound. Has wound care on 10/05/23) 10/02/2023 Travel 09/27/2023 Telephone [facility] [address] [place] [address] Lise Cardenas MD FYI (Wound clinic appt ) 09/22/2023 3:55 PM CDT Office Visit [facility] [address] [place] [address] Lise Cardenas MD Foot Pain/problem (Urgent care 09/21/23. Left foot pain. Pain is improving ); Establish Care (Looking for a new PCP/) 09/22/2023 Telephone [facility] [address] [place] [phone] Charisma Montaño Appointment 09/21/2023 7:05 PM CDT Ancillary Procedure [facility] [address] [place] [phone] 09/21/2023 5:55 PM CDT - 09/21/2023 11:59 PM CDT Hospital Encounter [facility] [address] [place] [address] Charis Weber NP Left ankle swelling; Wound of left lower extremity, initial encounter; Pain and swelling of lower leg, left 09/21/2023 5:00 PM CDT Office Visit [facility] [address] [place] [address] Charis Weber, TONY Derm Problem (left ankle) 09/21/2023 Travel 09/21/2023 Nurse Triage [facility] [address] [place] [address] Pcp, No Leg Swelling (Left leg only. ) 08/24/2023 Refill [facility] [address] [place] [address] Maurice Poe MD Refill Request [...] Sign Reading Time Taken Comments Blood Pressure 102/66 10/24/2023 3:16 PM CDT Pulse 60 10/24/2023 3:16 PM CDT Temperature 36.4 ??C (97.5 ??F) 09/21/2023 5:07 PM CD T Respiratory Rate 16 09/21/2023 5:07 PM CDT Oxygen Saturation 95% 10/24/2023 3:16 PM CDT Inhaled Oxygen Concentration - - Weight 103.4 kg (228 lb) 10/24/2023 3:16 PM CDT Height 172.7 cm (5' 8) 10/10/2023 10:58 AM CDT Body Mass Index 34.67 10/10/2023 10:58 AM CDT Plan of Treatment Upcoming Encounters Date Type Department Care Team (Late st Contact Info) Description 11/20/2023 11:25 AM CDT Office Visit [facility] [place] [address] [facility] [address] [place] [address] Ileana Anand MD [address] [facility] [address] [address] [place], [place] [phone] Health Maintenance Due Date Last Done Comments [...] Priority Date/Time Associated Diagnosis Comments MAGNESIUM Routine 10/24/2023 1:55 PM CDT Nonischemic cardiomyopathy (HC) PRO-BNP Routine 10/24/2023 1:55 PM CDT Nonischemic cardiomyopathy (HC) BASIC METABOLIC PANEL Routine 10/24/2023 1:55 PM CDT Nonischemic cardiomyopathy (HC) ECHO TTE COMPLETE WO CONTRAST NAT 10/10/2023 [...] left LIPID PANEL Routine 06/22/2018 7:32 AM ALINING INSPECTOR Dilated cardiomyopathy (HC) XR DXA BONE DENSITY 2 SITES AXIAL Routine 03/27/2015 1:29 PM ALINING INSPECTOR Asymptomatic menopausal state XR MAMMO BILAT SCREEN FFDM (IA) Routine 05/21/2012 11:17 AM ALINING INSPECTOR Other screening mammogram from Last 3 Months or Most Recently Relevant to Health Maintenance Results * (ABNORMAL) PRO-BNP (10/24/2023 1:55 PM CDT) Only the most recent of2 resultswithin the time period is included. PRO-BNP 1,563(H) <125 pg/mL 10/24/2023 3:12 PM CDT [facility] Blood BLOOD SPECIMEN / Unknown Venipuncture / Unknown 10/24/2023 1:55 PM CDT 10/24/2023 2:[address] [facility] - 10/24/2023 3:12 PM CDT The following cut-points have been [...] Poe MD SEND OUTS Performing Organization Address [facility] de Phone Number [facility] [address] [place] [address], * MAGNESIUM (10/24/2023 1:55 PM CDT) Only the most recent of2 resultswithin the time period is included. [facility] MAGNESIUM 2.4 1.6 - 2.4 mg/dL 10/24/2023 3:11 PM CDT [facility] Blood BLOOD SPECIMEN / Unknown Venipuncture / Unknown 10/24/2023 1:55 PM CDT 10/24/2023 2:02 PM CDT Maurice Poe MD CHEMISTRY Performing Organization Address [facility] de Phone Number [facility] [employer] [facility] [address] [place] [phone], * (ABNORMAL) BASIC METABOLIC PANEL (10/24/2023 1:55 PM CDT) Only the most recent of3 resultswithin the time period is included. Pathologist [facility] SODIUM 139 136 - 145 mmol/L 10/24/2023 3:11 PM CDT [facility] POTASSIUM 3.9 3.5 - 5.1 mmol/L 10/24/2023 3:11 PM CDT [facility] CHLORIDE 101 98 - 107 mmol/L 10/24/2023 3:11 PM CDT [facility] CO2,TOTAL 27 22 - 29 mmol/L 10/24/2023 3:11 PM CDT [facility] ANION GAP 11 5 - 18 10/24/2023 3:11 PM T [facility] GLUCOSE 110(H) 70 - 99 mg/dL 10/24/2023 3:11 PM T [facility] CALCIUM 9.0 8.8 - 10.2 mg/dL 10/24/2023 3:11 PM T [facility] BUN 30(H) 8 - 23 mg/dL 10/24/2023 3:11 PM T [facility] CREATININE 1.86(H) 0.50 - 0.90 mg/dL 10/24/2023 3:11 PM T [facility] BUN/CREAT RATIO 16 10 - 20 3:11 PM T [facility] eGFR 28(L) >90 mL/min/1.7 3m2 10/24/2023 3:11 PM T [facility] Comment:As of 2021, eG FR is calculated by the CKD-EPI creatinine equation without race adjustment. ??eGFR can be influenced by muscle mass, exercise, and diet. ??The reported eGFR is an estimation only and is only applicable if the renal function is stable. Blood BLOOD SPECIMEN / Unknown Venipuncture / Unknown 10/24/2023 1:55 PM CDT 10/24/2023 2:02 PM CDT Maurice Poe MD CHEMISTRY [facility] [address] [place] [id number], [place] * ECHO TTE COMPLETE WO CONTRAST (10/10/2023 1:34 PM CDT) AORTIC VALVE MEAN PG 3 mmHg EJECTION FRACTION 36 % PEAK TR VELOCITY 3.2 m/s LVEDD 6.8 cm MITRAL VALVE MR ERO 22 mm2 EJECTION FRACTION 30 - 35% Anatomical Region Laterality Modality Ultrasound 10/10/2023 12:5 2 PM CDT Narrative 10/10/2023 2:01 PM CDT ECHOCARDIOGRAM LEESA MOODY ? Accession#: ?? [id number] : ?1950 73 years Study Date: ?? 10/10/2023 12:52:08 PM Gender: F ?BP: ? 126/76 mmHg Height: 172.72 cm ?BSA: ?2.18 m? ? ? Weight: 106.14 kg ?Tech: ? JCP ? Referring MD: VINCE CARPENTER Site: ? [facility] Reading Location: MOBILE - OP Patient [...] . This study was interpreted by an [facility] accredited facility. ??Final ?? Procedure Note Gildardo Mccarthy MD - 10/10/2023 ECHOCARDIOGRAM LEESA MOODY : 1950 73 years Study Date: 10/10/2023 12:52:08 PM Gender: F BP: 126/76 mmHg Height: 172.72 cm BSA: 2.18 m? ? ? Weight: 106.14 kg Tech: LOU Referring MD: VINCE ACRPENTER Site: [facility] Reading Location: MOBILE - OP Patient [...] . This study was interpreted by an [facility] accredited facility. Final Vince Carpenter MD ECHO ORD * EKG 12 LEAD (10/10/2023 9:46 AM CDT) Interpretation Sinus bradycardia with 1st degree A-V block Left axis deviation Poor ??R wave Transition Abnormal ECG Ventricular Rate 59 BPM Atrial Rate 59 BPM P-R Interval 226 ms QRS Duration 106 ms QT 458 ms QTc 453 ms P [place] 46 degrees R [place] -41 degrees T [place] -68 degrees 10/10/2023 9:46 AM CDT 10/10/2023 8:04 PM CDT Vince Carpenter MD EKG ORD * (ABNORMAL) AEROBIC BACTERIAL CULTURE, STAIN (09/21/2023 7:40 PM CDT) CULTURE RESULT(A) 09/25/2023 9:51 AM CDT [facility]AL LAB[facility] CULTURE 4+ Staphylococcus aureus 09/25/2023 9:51 AM CDT [facility] GRAM STAIN No PMNs 09/25/2023 9:51 AM CDT [facility] GRAM STAIN No RBCs 09/25/2023 9:51 AM CDT [facility] GRAM STAIN No Epithelial cells 09/25/2023 9:51 AM CDT [facility] GRAM STAIN 3+ Gram Positive Cocci 09/25/2023 9:51 AM CDT [facility] Other (Other) Non-Blood / Unknown 09/21/2023 7:40 PM CDT 09/21/2023 7:57 PM CDT Narrative Organism Antibiotic Method Susceptibility Staphylococcus aureus OXACILLIN <=0.25: S Comment:Oxacillin mike sceptible should not be interpreted as penicillin or amoxicillin susceptible. Staphylococcus aureus CLINDAMYCIN <=0.12: S Staphylococcus aureus DOXYCYCLINE <=0.5: S Staphylococcus aureus CEFAZOLIN S Staphylococcus aureus TRIMETHOPRIM/SULF <=0.5/9.5: S Charis Weber QUILL WORKER MICROBIOLOGY [facility] [address] [place] [address], [place] * XR ANKLE 3 VIEWS LEFT (09/21/2023 [...] 09/21/2023 7:30:49 PM (Electronically Signed) Charis Weber QUILL WORKER GENERAL IMAGING * (ABNORMAL) CBC WITH AUTO DIFFERENTIAL (09/21/2023 7:05 PM CDT) WHITE BLOOD COUNT 5.1 4.5 - 11.0 thou/cu mm 09/21/2023 7:12 PM [facility] RED BLOOD COUNT 3.76(L) 4.00 - 5.20 mil/cu mm 09/21/2023 7:12 PM [facility] HEMOGLOBIN 11.7(L) 12.0 - 16.0 g/dL 09/21/2023 7:12 PM [facility] HEMATOCRIT 36.0 33.0 - 51.0 % 09/21/2023 7:12 PM [facility] MCV 96 80 - 100 fL 09/21/2023 7:12 PM [facility] MCH 31.1 26.0 - 34.0 pg 09/21/2023 7:12 PM [facility] MCHC 32.5 32.0 - 36.0 g/dL 09/21/2023 7:12 PM [facility] RDW 12.7 11.5 - 15.5 % 09/21/2023 7:12 PM [facility] PLATELET COUNT 192 140 - 440 thou/cu mm 09/21/2023 7:12 PM [facility] MPV 10.0 6.5 - 11.0 fL 09/21/2023 7:12 PM [facility] % NEUT 64.6 % 09/21/2023 7:12 PM [facility] % LYMPH 21.1 % 09/21/2023 7:12 PM [facility] % MONO 9.9 % 09/21/2023 7:12 PM [facility] % EOS 2.6 % 09/21/2023 7:12 PM [facility] % BASO 1.8 % 09/21/2023 7:12 PM [facility] ABSOLUTE NEUTROPHILS 3.3 1.7 - 7.0 thou/cu mm 09/21/2023 7:12 PM CDT [facility] ABSOLUTE LYMPHOCYTES 1.1 0.9 - 2.9 thou/cu mm 09/21/2023 7:12 PM CDT [facility] ABSOLUTE MONOCYTES 0.5 <0.9 thou/cu mm 09/21/2023 7:12 PM CDT [facility] ABSOLUTE EOSINOPHILS 0.1 <0.5 thou/cu mm 09/21/2023 7:12 PM CDT [facility] ABSOLUTE BASOPHILS 0.1 <0.3 thou/cu mm 09/21/2023 7:12 PM CDT [facility] Blood BLOOD SPECIMEN / Unknown Venipuncture / Unknown 09/21/2023 7:05 PM CDT 09/21/2023 7:05 PM CDT Charis E Furlong QUILL WORKER HEMATOLOGY Performing Organization Address City/[facility]/ZIP Co de Phone Number [facility] [address] [place] [address] * (ABNORMAL) URIC ACID (09/21/2023 7:05 PM CDT) URIC ACID 8.6(H) 2.4 - 5.7 mg/dL 09/21/2023 7:28 PM CDT [facility] Blood BLOOD SPECIMEN / Unknown Venipuncture / Unknown 09/21/2023 7:05 PM CDT 09/21/2023 7:05 PM CDT Charis E Furlong QUILL WORKER CHEMISTRY [facility] [address] [place] [address] * US VENOUS LOWER EXTREMITY LEFT (09/21/2023 [...] US * LIPID PANEL (06/22/2018 7:32 AM [facility]) [facility] CHOLESTEROL,TOTAL 177 100 - 199 mg/dL 06/22/2018 8:19 AM [facility] [employer] [facility] TRIGLYCERIDES 118 <150 mg/dL 06/22/2018 8:19 AM [facility] HDL CHOLESTEROL 54 >40 mg/dL 9 8:19 AM [facility] NON-HDL CHOLESTEROL 123 <145 mg/dl 06/22/2018 8:19 AM [facility] CHOL/HDL RATIO 3.28 <4.50 06/22/2018 8:19 AM [facility] LDL CHOLESTEROL 99 <=130 mg/dL 06/22/2018 8:19 AM [facility] PROVIDER ORDERED STATUS FASTING 06/22/2018 8:19 AM [facility] Blood BLOOD SPECIMEN / Unknown Venipuncture / Unknown 06/22/2018 7:32 AM ALINING INSPECTOR 06/22/2018 7:53 AM ALINING INSPECTOR Maurice Poe MD CHEMISTRY [facility] [address] [place] [address], [place] * (ABNORMAL) XR DXA BONE DENSITY 2 SITES (03/27/2015 1:29 PM ALINING INSPECTOR) Anatomical Region Laterality Modality Spine, HIPS, HIPL, HIPR Other Narrative 04/03/2015 8:04 AM ALINING INSPECTOR Please see scanned document for results of this study. Raza Killian MD DEXA * XR MAMMO BILAT SCREEN FFDM (05/21/2012 11:17 AM ALINING INSPECTOR) Anatomical Region Laterality Modality BREASTS, Breast Left, Breast Right Bilateral Mammography Addenda Addendum by Raphael Flaherty DO on 07/31/2012 3:10 PM CDT ??ADDENDUM ? ADDENDUM ? ADDENDUM Many attempts have been made to contact the patient regarding additional imaging that is needed following her screening mammogram. ??The patient has failed to return for our recommended follow-up. ?? Impressions 05/21/2012 3:54 PM ALINING INSPECTOR ??ACR 0 Incomplete: Need Additional Imaging Evaluation and/or Prior Mammograms for Comparison RECOMMENDATION: ??Ultrasound of the RIGHT breast. Narrative 05/21/2012 3:54 PM ALINING INSPECTOR BILATERAL FULL-FIELD DIGITAL SCREENING MAMMOGRAM WITH CAD [...] identified in either breast. Procedure Note Raphael Flaherty DO - 07/31/2012 BILATERAL FULL-FIELD DIGITAL SCREENING [...] Code Status Discussion: Reviewed Preferences Care Teams Second Miller Relationship Specialty Start Date End Date Lise Cardenas MD [address] [place] [address] PCP - General Family Practice 09/22/23 Nurses, Advanced Heart Failure [address] [place] [phone] Heart Failure Care Coordination 08/25/15 Maurice Poe MD [address] [facility] [address] [place] [address] Advanced Heart Failure/Transplant Card 01/14/22
--- OUTSIDE RECORDS SUMMARY | 2023-10-26 14:01 | XMS_ITS ---
Author Organization [facility] Address [address] [place] [address] Care Team Providers Care Hedge Fund Principal Name Role Phone Unavailable Unavailable Unavailable Surgery Details Not on file Complications Check Surgery Details section. Procedure Estimated Blood Loss Check Surgery Details section. Procedure Findings Check Surgery Details section. Procedure Specimens Taken Check Surgery Details section.
--- OUTSIDE RECORDS SUMMARY | 2023-10-26 14:01 | XMS_ITS | Clinical Summary ---
Author Organization [facility] Address [address] [place] [address] Care Team Providers Care Disability Advocate Name Role Phone Unavailable Primary Care Provider Unavailabl e Source Comments Patient records contain information from all sites at [facility]. For routine questions regarding patient records, call [phone] during business hours, M-F 8:00 AM - 5:00 PM Central Time. Record requests for emergency care only can be directed to [phone] at any time.[facility] Medications Medication Sig Dispensed Refills Start Date End Date Status apixaban (ELIQUIS) 5 mg tablet Take 1 tablet by mouth 2 (two) times a day. 12/07/[address] tablet Take 1 tablet by mouth daily. 05/24/2022 Active carvediloL (COREG) 25 mg tablet Take 25 mg by mouth 2 (two) times a day. 12/07/2022 Active empagliflozin (JARDIANCE) 10 mg tablet Take 1 tablet by mouth daily. 08/24/2023 Active fluticasone propionate (FLONASE) 50 mcg/actuation nasal spray Administer 1 spray into nostril(s) at bedtime as needed. Active furosemide (LASIX) 40 mg tablet Take 40 mg by mouth 2 (two) times a day. 10/06/2017 Active hydrALAZINE (APRESOLINE) 10 mg tablet Take 40 mg by mouth every 8 (eight) hours. 06/29/2023 Active isosorbide dinitrate (ISORDIL) 30 mg tablet Take 30 mg by mouth 3 (three) times a day before meals. 06/29/2023 Active potassium chloride (KLOR-CON M) 10 mEq ER tablet Take 10 mEq by mouth daily with breakfast. 10/03/2023 Active tiotropium (Spiriva Respimat) 2.5 mcg/actuation inhaler Inhale 2 puffs daily. 02/04/2023 Active Active Problems Problem Noted Date Diagnosed Date Chronic Kidney Disease (CKD) , Stage 3b Glomerular Filtration Rate (GFR) 30 To 44 10/04/2023 Hypertensive Heart And Chron ic Kidney Disease With Heart Failure And Stage 1 To 4 Chronic Kidney Disease Or Unspecified Chronic Kidney Disease 10/04/2023 Hypokalemia 10/04/2023 Chronic Combined Systolic (C ongestive) And Diastolic (Congestive) Heart Failure 10/04/2023 Non-Pressure Chronic Ulcer O f Other Part Of Left Lower Leg Limited To Breakdown Of Skin 10/04/2023 Morbid Obesity Body Mass Index 40.0-44.9 Adult 0 07/05/2016 Hyperuricemia 03/25/2015 Venous Insufficiency Chronic Peripheral 03/25/20 15 Hyperlipidemia 08/13/2012 Deficiency Vitamin D 08/13/2012 Cardiomyopathy Dilated 01/06/2012 Encounters Date Type Department Care Team Description 10/04/2023 9:00 AM CDT External Outreach Division of Nephrology and Hypertension in [place], [place] [address] [place] [address] Stevan Adamson Jr., D.O. Chronic Kidney Disease (CKD), Stage 3b Glomerular Filtration Rate (GFR) 30 To 44 (HCC) (Primary Dx); Hypertensive Heart And Chronic Kidney Disease With Heart Failure And Stage 1 To 4 Chronic Kidney Disease Or Unspecified Chronic Kidney Disease (HCC); Chronic Combined Systolic (Congestive) And Diastolic (Congestive) Heart Failure (HCC); Hypokalemia; Non-Pressure Chronic Ulcer Of Other Part Of Left Lower Leg Limited To Breakdown Of Skin (HCC); Cardiomyopathy Dilated (HCC); Venous Insufficiency Chronic Peripheral; Morbid Obesity Body Mass Index 40.0-44.9 Adult (HCC); Hyperuricemia; Hyperlipidemia from Last 3 Months Immunizations Name Administration Dates Next Due Influenza Whole 02/09/2017 Influenza high dose QV(65 ye ars or older) (PF) 04/21/2023,12/22/2022,05/23/2022,2020 Influenza, Injectable, Quadrivalent 02/07/2019 Influenza, Quadrivalent, Adj uvanted, Preservative Free 04/17/2020 Influenza, Seasonal, Injectable 03/14/2013,01/24 PCV13 03/31/2016 PPSV23 08/21/2017,02/07/2012 RSV: respiratory syncytial v irus (AREXVY) recombinant vaccine 12/22/2022 Tdap 05/23/2022,02/07/2012 influenza high dose (65 year s or older) (PF) 03/17/2016,03/25/2015 influenza vaccine quad (FLUZONE/FLUARIX) (6 months and older)(PF) 02/06/2014 Social History Tobacco Use Types Packs/Day Years Used Date Smoking Tobacco: Never Assessed Dental Answer Date Recorded Dental: Regular Dentist Unknown 10/04/19 Sex and Gender Information Value Date Recorded Sex Assigned at Not on file Gender Identity Not on file Sexual Orientation Not on file Last Filed Vital Signs Vital Sign Reading Time Taken Comments Blood Pressure 116/68 10/04/2023 10:34 AM CDT Pulse 58 10/04/2023 10:34 AM CDT Temperature - - Respiratory Rate - - Oxygen Saturation - - Inhaled Oxygen Concentration - - Weight 107 kg (235 lb 15.7 oz) 10/04/2023 10:34 AM CDT Height 168.9 cm (5' 6.5) 10/04/2023 10:34 AM CD T Body Mass Index 37.52 10/04/2023 10:34 AM CDT Plan of Treatment Health Maintenance Due Date Last Done Comments Bone Density Scan (Osteoporo sis Screen) 1949 CT Colonography 1949 Cologuard 1950 Colonoscopy 1949 Colorectal Cancer Screening 1949 FIT 1949 Hepatitis C Screening 1950 Mammogram 1950 Zoster Vaccines (1 of 2) 1999 Lipid (Cholesterol) Screening 06/22/2019 06/22/2018 COVID-19 Vaccine ( - 2022-2 4 season) 2022 03/26/2021, 07/24/2020, 07/03/2020 Depression Screening (Annual PHQ-2) 05/01/2023 Fall Risk Screen (Annual) 05/01/2023 Creatinine Level (Kidney Fun ction Test) 10/01/2024 10/02/2023, 09/21/2023, 07/03/2023, Additional history exists Potassium Level 10/01/2024 10/02/2023, 05/2 06/2023, 07/03/2023, Additional history exists Sodium Level 10/01/2024 10/02/2023, 08/30, 07/03/2023, Additional history exists Office Visit for Blood Press ure Check / Re-check 10/03/2024 10/04/2023 Fasting Glucose for Diabetes Screening 10/01/2026 10/02/2023, 09/21/2023, 07/03/2023, Additional history exists DTaP,Tdap,and Td Vaccines (3 - Td or Tdap) 05/23/2032 05/23/2022, 02/07/2012 Pneumococcal vaccine (65+ years) Completed 08/21/2017, 03/31/2016, 02/07/2012 RSV vaccine - (32-3 6 weeks) or 60+ years Completed 12/22/2022 Influenza Vaccine Completed 04/21/2023, , 05/23/2022, Additional history exists Procedures Procedure Name Priority Date/Time Associated Diagnosis Comments EXTI BASIC METABOLIC PANEL, S/P Routine 10/02/2023 10:48 AM CDT EXTI LIPID PANEL, S Routine 06/22/2018 7 :32 AM BROKERAGE OFFICE MANAGER from Last 3 Months or Most Recently Relevant to Health Maintenance
--- OUTSIDE RECORDS SUMMARY | 2023-10-26 14:01 | XMS_ITS | Encounter Summary ---
Author Organization [facility] Address [address] [place] [address] Care Team Providers Care Weight Training Instructor Name Role Phone Unavailable Primary Care Provider Unavailabl e Reason for Visit * Appointment Request (Routine) - Closed Specialty Diagnoses / Procedures Referred By Sam bains Referred To Contact Nephrology and Hypertension Miguel Dash M.D. [address] [place] [address] Referral ID Status Reason Start Date Expiration Date Visits Re quested Visits Authorized [id number] Closed 10/04/2023 10/03/2024 1 1 Encounter Details Date Type Department Care Team (Latest Contact Info) Description 10/04/2023 9:00 AM CDT External Outreach Division of Nephrology and Hypertension in [place], [place] [address] [place] [address] Stevan Adamson Jr., D.O. [address] [place] [address] Chronic Kidney Disease (CKD), Stage 3b Glomerular [...] Mass Index 40.0-44.9 Adult (HCC); Hyperuricemia; Hyperlipidemia Social History Tobacco Use Types Packs/Day Years Used Date Smoking Tobacco: Never Assessed Dental Answer Date Recorded Dental: Regular Dentist Unknown 10/04/19 24 Sex and Gender Information Value Date Recorded Sex Assigned at Not on file Gender Identity Not on file Sexual Orientation Not on file documented as of this encounter Last Filed Vital Signs Vital Sign Reading [...] Mass Index 37.52 10/04/2023 10:34 AM CDT documented in this encounter Progress Notes * Stevan Adamson Jr., D.O. - 10/04/2023 9:00 AM CDT Referring Provider: DR Miller, REASON FOR VISIT [place] [facility] Initial consultation and management regards chronic kidney disease HISTORY OF PRESENT ILLNESS Ms. Moody is a 73 y.o. female who presents with a known history of chronic kidney disease which dates back to 2020. She has a history of a nonischemic dilated cardiomyopathy which was 1st diagnosed in December of 2011 when she developed acute decompensated heart failure required admission to the [facility]. 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 With goal-directed therapy over the years she has been able to regain ejection fraction up to 45-50%. Note her serum creatinine level until 2020 was 1.2 mg/dL, dora to the 1.7 and up to 2 mg/dL in [id number] on the background of requiring ablation for paroxysmal atrial fibrillation. Her goal-directed therapy included SG LT 2 inhibition, spironolactone, loop diuretics, ARB agents and beta blockade along with anticoagulation. As 2023 progressed, she has been noted to have a serum creatinine level increasing up to 2.4 mg/dL prompting her team to make some changes on the background of additionally noted hyperkalemia. Her spironolactone was discontinued, as was her losartan. She was initiated on hydralazine 3 times daily and isosorbide dinitrate 3 times daily. She lets me know that recently she had blood work performed with a serum creatinine now of 1.7 mg/dL. She has been noted to be hypokalemic and also has been advised to begin potassium chloride supplements. She has struggled with deep venous thrombosis, and superficial thrombosis with varicose veins requiring stripping in the past, and she is in the midst of a left ankle wound for which she required antibiotics over the past month. She has [facility] about this. She has noticing quite a bit of nocturia. Her weight is objectively increased by 6 lb over the her most recent visit. She is feeling rather well, she has no appetite for sweets, but has no nausea no vomiting she does not have dyspnea at rest no PND no orthopnea. She does have dyspnea on exertion. She ambulates with the use of a quad cane. She complains of tender and swollen legs. She does not use any NSAIDs or Pelayo 2 inhibitors. She has never had urolithiasis. She relates in [facility] there was a very dramatic event where she fell out of a wagon. Allegedly there was some kidney injury associated. She has had kidney infections in the past, but never been diagnosed with nephritis, no scarlet fever or rheumatic fever. She does not use NSAIDs, has not had any connective tissue type symptomatology, and does not have afamilial history of renal diseases or disorders other than a brother with obstructive uropathy. She does not recall renal imaging. As above, she had a ongoing history of paroxysmal atrial fibrillation for which she underwent ablation therapy in March of 2023. Past medical history: 1. Nonischemic dilated cardiomyopathy 2. Hypertension 3. Lower extremity varicose veins 4. Heart failure with reduced ejection fraction 5. Low vitamin-D levels 6. Hypokalemia 7. associated hypertension and DVT 8. Medically complicated overweight REVIEW OF SYSTEMS All other systems reviewed and are negative. OBJECTIVE BP 116/68 Pulse (!) 58 Ht 168.9 cm Wt 107 kg BMI 37.52 kg/m?? PHYSICAL EXAMINATION General: Awake alert oriented HEENT: BARBARA, EOMI, Mucous membranes moist, no oral lesions Neck: No Masses, No Bruits, jugular venous pulsations were visible above the base of the neck at 90?? Lungs: Clear to ascultation Heart: Regular Rate and Rhythm, No ectopy Murmurs or rubs Abdomen: Soft, Non-tender, distended Extremities: No cyanosis, No clubbing: Lower extremities are wrapped with Sadi wrapped left lower extremity is definitely more swollen than the right there is both pitting and [place] indurated nonpitting edema of bilateral lower extremities, her lower extremities are massively swollen. Neuro: Cranial Nerves intact, Gait is antalgic, she uses a cane strength grossly normal Skin: no suspicious lesions identified, I did not open the bandages over her left ankle Psychiatric: Normal affect DIAGNOSTICS Outside labs are being assembled as this was somewhat urgent consult ASSESSMENT / PLAN #1 Chronic Kidney Disease (CKD), Stage 3b Glomerular Filtration Rate (GFR) 30 To 44 ([facility]) She has CKD stage IIIB on the background of cardiorenal syndrome, ischemic and hypertensive nephrosclerosis. Going forward: 1. We will check renal artery duplex, and architecture of her kidneys 2. We will check urinalysis for her urine sediment and microalbumin From a therapeutic perspective: 1. Agree with her current goal-directed therapy, with SG LT 2 inhibition, hydralazine, nitrate, andbeta blockade therapy with a goal blood pressure of less than 120s over 80s 2. Heart failure regimen with daily weights and fine tuning of her diuretic regimen based on her weights. She is currently receiving furosemide 40 mg twice daily we will continue this for now 3. Low-sodium diet less than 2000 mg sodium per day 4. Potassium repletion as necessary towards a goal potassium of greater than 3.8 mEq per L 5. No NSAIDs or Pelayo 2 inhibitors 6. I have encouraged her drink to thirst 7. Given her dry mouth we have discussed mouth coat, and Biotene spray I am concerned about the potential for her to develop hyponatremia given her water intake currently. #2 Hypertensive Heart And Chronic Kidney Disease With Heart Failure And Stage 1 To 4 Chronic KidneyDisease Or Unspecified Chronic Kidney Disease (HCC) Her goal blood pressures have been achieved currently and we will continue with the current regimen. 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 While some of the data is not available to me it appears reasonable that the team move towards thiswith associated hyperkalemia and renal injury. #4 Hypokalemia She is on potassium supplements this will be followed carefully, I will be seeing her back in 4 months. #5 Non-Pressure Chronic Ulcer Of Other Part Of Left Lower Leg Limited To Breakdown Of Skin (HCC) She has seeing the [facility]. She just completed course of doxycycline. #6 Cardiomyopathy Dilated (HCC) Please see above #7 Venous Insufficiency Chronic Peripheral Please see above #8 Morbid Obesity Body Mass Index 40.0-44.9 Adult (HCC) She is avoiding sweets and we were hopeful to gain some traction with lowering her target weight, she may be a ultimate candidate for GLP 1 agonist. #9 Hyperuricemia We will continue on allopurinol #10 Hyperlipidemia Monitor and use statin as warranted Total time: 1 hour and 10 minutes Counseling Time: 50 minutes Stevan Adamson Jr., D.O. documented in this encounter Plan of Treatment Not on file documented as of this encounter Visit Diagnoses Diagnosis Chronic Kidney Disease (CKD), Stage 3b Glomerular Filtration Rate (GFR) 30 To 44 (HCC)- Primary Hypertensive Heart And Chronic Kidney Disease With Heart Failure And Stage 1 To 4 Chronic Kidney Disease Or Unspecified Chronic Kidney Disease (HCC) Chronic Combined Systolic (Congestive) And Diastolic (Congestive) Heart Failure (HCC) Hypokalemia Non-Pressure Chronic Ulcer Of Other Part Of Left Lower Leg Limited To Breakdown Of Skin (HCC) Cardiomyopathy Dilated (HCC) Venous Insufficiency Chronic Peripheral Morbid Obesity Body Mass Index 40.0-44.9 Adult (HCC) Hyperuricemia Hyperlipidemia documented in this encounter
--- OUTSIDE RECORDS SUMMARY | 2023-10-26 14:01 | XMS_ITS | Referral Summary ---
Author Organization [facility] Address [address] [place] [address] Care Team Providers Care Clutch Mechanic Name Role Phone Unavailable Primary Care Provider Unavailabl e Source Comments Patient records contain information from all sites at [facility]. For routine questions regarding patient records, call [phone] during business hours, M-F 8:00 AM - 5:00 PM Central Time. Record requests for emergency care only can be directed to [phone] at any time.[facility] Encounters Date Type Department Care Team Description 10/04/2023 9:00 AM CDT External Outreach Division of Nephrology and Hypertension in [place], [place] [address] [place] [address] Stevan Adamson Jr., D.O. Chronic Kidney Disease [...] (HCC); Hyperuricemia; Hyperlipidemia from Last 3 Months Medications Medication Sig Dispensed Refills Start Date [...] Hyperuricemia 03/25/2015 Venous Insufficiency Chronic Peripheral 03/25/20 Hyperlipidemia 08/13/2012 Deficiency Vitamin D 08/13/2012 Cardiomyopathy Dilated 01/06/2012 Immunizations Name Administration Dates Next Due Influenza [...] 10/04/2023 10:34 AM CDT Plan of Treatment Not on file Procedures Procedure Name Priority Date/Time Associated Diagnosis Comments EXTI BASIC METABOLIC PANEL, S/P Routine 10/02/2023 10:48 AM CDT EXTI LIPID PANEL, S Routine 06/22/2018 7 :32 AM 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
== END 2023-10-26 14:00 | disposition home or self-care (01) ==
LOC: WOUND 13:59
PROVIDERS: PCP Student in an Organized Health Care Education/Training Program; Visit Provider Nurse Practitioner Family
DX: I87.2 Venous insufficiency (chronic) (peripheral) (principal); I89.0 Lymphedema, not elsewhere classified; L97.322 Non-pressure chronic ulcer of left ankle with fat layer exposed
CPT/HCPCS: 97597

== ENCOUNTER 2023-10-31 08:26 | Outpatient (CLI) | payer OTHER, SELFPAY ==
--- OUTSIDE RECORDS SUMMARY | 2023-10-31 08:29 | XMS_ITS | Encounter Summary ---
Author Organization [facility] Address [address] [place] [address] Care Team Providers Care Cardiovascular Technologist Name Role Phone Unavailable Primary Care Provider Unavailabl e Reason for Visit * Appointment Request (Routine) - Closed Specialty Diagnoses / Procedures Referred By Sam t Referred To Contact Nephrology and Hypertension Miguel Dash M.D. [address] [place] [address] Referral ID Status Reason Start Date Expiration Date Visits Re quested Visits Authorized [id number] Closed 10/04/2023 10/03/2024 1 1 Encounter Details Date Type Department Care Team (Latest Contact Info) Description 10/04/2023 9:00 AM CDT External Outreach Division of Nephrology and Hypertension in [place], [place] [address] [place] [address] Stevan Adamson Jr., D.O. [address] [place] [address] Chronic Kidney Disease (CKD), Stage 3b Glomerular [...] Referring Provider: DR Miller, REASON FOR VISIT [place] [facility] Initial consultation and [...] decompensated heart failure required admission to the [facility]. 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 With goal-directed therapy over the years she has been able to regain ejection fraction up to 45-50%. Note her serum creatinine level until 2020 was 1.2 mg/dL, dora to the 1.7 and up to 2 mg/dL in [id number] on the background of requiring ablation for [...] has never had urolithiasis. She relates in [facility] there was a very dramatic event where [...] the right there is both pitting and [place] indurated nonpitting edema of bilateral lower extremities, [...] Filtration Rate (GFR) 30 To 44 (HCC) She has CKD stage IIIB on the [...]
--- OUTSIDE RECORDS SUMMARY | 2023-10-31 08:29 | XMS_ITS ---
Author Organization [facility] Address [address] [place] [address] Care Team Providers Care Supervisor [employer] Name Role Phone Unavailable Unavailable Unavailable Surgery Details Not on file Complications Check Surgery Details section. Procedure Estimated Blood Loss Check Surgery Details section. Procedure Findings Check Surgery Details section. Procedure Specimens Taken Check Surgery Details section.
--- OUTSIDE RECORDS SUMMARY | 2023-10-31 08:29 | XMS_ITS | Clinical Summary ---
Author Organization [facility] Address [place], [place] [address] Care Team Providers Care Branch Library Clerk Name Role Phone Nurses, Advanced Heart Failure [...] times daily. 355 Tablet 5 06/29/2023 10/24/19 Discontinue d(Reorder (E-cancel not sent)) potassium chloride [...] a meal. 90 Tablet 3 10/03/2023 10/24/19 Discontinue d(Other - add note to specify [...] Description 10/24/2023 3:30 PM CDT Office Visit [facility] [address] [place] [address] Maurice Poe MD CV Heart Failure Est (CHF IN PERSON F/U VISIT. LABS DONE PRIOR /DX. Nonischemic cardiomyopathy (HC) [I42.8] //PCP:Lise Cardenas MD/) 10/24/2023 2:30 PM CDT Orders Only [facility] [address] [place] [address] Lab (/) 10/24/2023 Travel 10/20/2023 Refill [facility] [address] [place] [address] Maurice Poe MD Refill Request (Furosemide) 10/13/2023 Telephone [facility] [address] [place] [address] Vince Carpenter MD Results (Echocardiogram 10/10/23) 10/12/2023 Telephone [facility] [address] [place] [address] Maurice Poe MD Medication Management 10/10/2023 1:00 PM CDT Ancillary Procedure [facility] [address] [place] [address] 10/10/2023 11:00 AM CDT Office Visit [facility] [address] [place] [address] Vince Carpenter MD CV Electrophysiology Est (Post Ablation (04/05/23)//PCP: Lise Cardenas MD) 10/10/2023 Travel 10/02/2023 10:15 AM CDT Office Visit [facility] [address] [place] [address] Lise Cardenas MD Follow Up (Left ankle wound. Has wound care on 10/05/23) 10/02/2023 Travel 09/27/2023 Telephone [facility] [address] [place] [address] Lise Cardenas MD FYI (Wound clinic appt ) 09/22/2023 3:55 PM CDT Office Visit [facility] [address] [place] [address] Lise Cardenas MD Foot Pain/problem (Urgent care 09/21/23. Left foot pain. Pain is improving ); Establish Care (Looking for a new PCP/) 09/22/2023 Telephone [facility] [address] [address] Charisma Montaño Appointment 09/21/2023 7:05 PM CDT Ancillary Procedure [facility] [address] [place] [address] 09/21/2023 5:55 PM CDT - 09/21/2023 11:59 PM CDT Hospital Encounter [facility] [address] [place] [address] Charis Weber NP Left ankle swelling; Wound of left lower extremity, initial encounter; Pain and swelling of lower leg, left 09/21/2023 5:00 PM CDT Office Visit [facility] [address] [place] [address] Charis Weber NP Derm Problem (left ankle) 09/21/2023 Travel 09/21/2023 Nurse Triage [facility] [address] [place] [address] Pcp, No Leg Swelling (Left leg only. ) 08/24/2023 Refill [facility] [address] [place] [phone] Maurice Poe MD Refill Request (Jardiance) from [...] Care Team (Late st Contact Info) Description 11/03/2023 2:10 PM CDT Orders Only [facility] [address] [place] [address] Lab, [facility] 11/20/2023 11:25 AM CDT Office Visit [facility] [place] [address] [facility] [address] [place] [address] Ileana Anand MD [address] [facility] [address] [place] [address] Health Maintenance Due Date Last Done Comments [...] left LIPID PANEL Routine 06/22/2018 7:32 AM [facility] Dilated cardiomyopathy (HC) XR DXA BONE DENSITY 2 SITES AXIAL Routine 03/27/2015 1:29 PM [facility] Asymptomatic menopausal state XR MAMMO BILAT SCREEN FFDM (IA) Routine 05/21/2012 11:17 AM [facility] Other screening mammogram from Last 3 Months or Most Recently Relevant to Health Maintenance Results * (ABNORMAL) PRO-BNP (10/24/2023 1:55 PM CDT) Only the most recent of2 resultswithin the time period is included. PRO-BNP 1,563(H) <125 pg/mL 10/24/2023 3:12 PM CDT [facility] Blood BLOOD SPECIMEN / Unknown Venipuncture / Unknown 10/24/2023 1:55 PM CDT 10/24/2023 2:02 PM [facility]T [facility] 10/24/2023 3:12 PM CDT The [...] Poe MD SEND OUTS Performing Organization Address [facility] de Phone Number [facility] [address] [place] [address], [place] * MAGNESIUM (10/24/2023 1:55 PM CDT) Only the most recent of2 resultswithin the time period is included. [facility] MAGNESIUM 2.4 1.6 - 2.4 mg/dL 10/24/2023 3:11 PM CDT [facility] Blood BLOOD SPECIMEN / Unknown Venipuncture / Unknown 10/24/2023 1:55 PM CDT 10/24/2023 2:02 PM CDT Maurice Poe MD CHEMISTRY Performing Organization Address [facility] Co de Phone Number [facility] [address] [place] [address], [place] * (ABNORMAL) BASIC METABOLIC PANEL (10/24/2023 1:55 PM CDT) Only the most recent of3 resultswithin the time period is included. [facility] SODIUM 139 136 - 145 mmol/L 10/24/2023 3:11 PM CDT [facility] POTASSIUM 3.9 3.5 - 5.1 mmol/L 10/24/2023 3:11 PM CDT [facility] CHLORIDE 101 98 - 107 mmol/L 10/24/2023 3:11 PM CDT [facility] CO2,TOTAL 27 22 - 29 mmol/L 10/24/2023 3:11 PM CDT [facility] ANION GAP 11 5 - 18 10/24/2023 3:11 PM CDT [facility] GLUCOSE 110(H) 70 - 99 mg/dL 10/24/2023 3:11 PM CDT [facility] CALCIUM 9.0 8.8 - 10.2 mg/dL 10/24/2023 3:11 PM T [facility] BUN 30(H) 8 - 23 mg/dL 10/24/2023 3:11 PM T [facility] CREATININE 1.86(H) 0.50 - 0.90 mg/dL 10/24/2023 3:11 PM T [facility] BUN/CREAT RATIO 16 10 - 20 4 3:11 PM T [facility] eGFR 28(L) >90 mL/min/1.7 3m2 10/24/2023 3:11 PM T [facility] Comment:As of 2021, eG [...] 2:02 PM CDT Maurice Poe MD CHEMISTRY [facility] [address] [place] [address], * ECHO TTE COMPLETE WO CONTRAST (10/10/2023 1:34 PM CDT) AORTIC VALVE MEAN PG 3 mmHg EJECTION FRACTION 36 % PEAK TR VELOCITY 3.2 m/s LVEDD 6.8 cm MITRAL VALVE MR ERO 22 mm2 EJECTION FRACTION 30 - 35% Anatomical Region Laterality Modality Ultrasound 10/10/2023 12:5 2 PM CDT Narrative 10/10/2023 2:01 PM CDT ECHOCARDIOGRAM LEESA OVIEDO ? Accession#: ?? [id number] : ?1950 73 years Study Date: ?? 10/10/2023 12:52:08 PM Gender: F ?BP: ? 126/76 mmHg Height: 172.72 cm ?BSA: ?2.18 m? ? ? Weight: 106.14 kg ?Tech: ? JCP ? Referring MD: VINCE CARPENTER Site: ? [facility] Reading Location: MOBILE - OP Patient [...] was interpreted by an [facility] accredited facility. ??Final ?? Procedure Note Gildardo Mccarthy MD - 10/10/2023 ECHOCARDIOGRAM LEESA OVIEDO : 1950 73 years Study Date: 10/10/2023 12:52:08 PM Gender: F BP: 126/76 mmHg Height: 172.72 cm BSA: 2.18 m? ? ? Weight: 106.14 kg Tech: [facility] Referring MD: VINCE CARPENTER Site: [facility] Reading Location: MOBILE - OP Patient [...] 3.18 cm? ? ? VTI 0.30 m LAEXANDER (I) 3.17 cm? ? ? LVOT V [...] was interpreted by an [facility] accredited facility. Final Vince Carpenter MD ECHO ORD * EKG 12 LEAD (10/10/2023 9:46 AM CDT) Interpretation Sinus bradycardia with 1st degree A-V block Left axis deviation Poor ??R wave Transition Abnormal ECG Ventricular Rate 59 BPM Atrial Rate 59 BPM P-R Interval 226 ms QRS Duration 106 ms QT 458 ms QTc 453 ms P [place] 46 degrees R [place] -41 degrees T [place] -68 degrees 10/10/2023 9:46 AM CDT 10/10/2023 8:04 PM CDT Vince Carpenter MD EKG ORD * (ABNORMAL) AEROBIC BACTERIAL CULTURE, STAIN (09/21/2023 7:40 PM CDT) CULTURE RESULT(A) 09/25/2023 9:51 AM CDT [facility] CULTURE 4+ Staphylococcus aureus 09/25/2023 9:51 AM CDT [facility] GRAM STAIN No PMNs 09/25/2023 9:51 AM CDT [facility] GRAM STAIN No RBCs 09/25/2023 9:51 AM CDT [facility] GRAM STAIN No Epithelial cells 09/25/2023 9:51 AM CDT [facility] GRAM STAIN 3+ Gram Positive Cocci 09/25/2023 9:51 AM CDT [facility] Other (Other) Non-Blood / Unknown 09/21/2023 7:40 PM CDT 09/21/2023 7:57 PM CDT Narrative Organism Antibiotic Method Susceptibility Staphylococcus aureus OXACILLIN <=0.25: S Comment:Oxacillin mike sceptible should not be interpreted as penicillin or amoxicillin susceptible. Staphylococcus aureus CLINDAMYCIN <=0.12: S Staphylococcus aureus DOXYCYCLINE <=0.5: S Staphylococcus aureus CEFAZOLIN S Staphylococcus aureus TRIMETHOPRIM/SULF <=0.5/9.5: S Charis Weber ACADEMIC REGISTRAR MICROBIOLOGY [facility] [address] [place] [address], * XR ANKLE 3 VIEWS LEFT (09/21/2023 [...] 09/21/2023 7:30:49 PM (Electronically Signed) Charis Weber ACADEMIC REGISTRAR GENERAL IMAGING * (ABNORMAL) CBC WITH AUTO DIFFERENTIAL (09/21/2023 7:05 PM CDT) WHITE BLOOD COUNT 5.1 4.5 - 11.0 thou/cu mm 09/21/2023 7:12 PM [facility] RED BLOOD COUNT 3.76(L) 4.00 - 5.20 mil/cu mm 09/21/2023 7:12 PM [facility] HEMOGLOBIN 11.7(L) 12.0 - 16.0 g/dL 09/21/2023 7:12 PM [facility] HEMATOCRIT 36.0 33.0 - 51.0 % 09/21/2023 7:12 PM [facility] MCV 96 80 - 100 fL 09/21/2023 7:12 PM [facility] MCH 31.1 26.0 - 34.0 pg 09/21/2023 7:12 PM [facility] MCHC 32.5 32.0 - 36.0 g/dL 09/21/2023 7:12 PM [facility] RDW 12.7 11.5 - 15.5 % 09/21/2023 7:12 PM [facility] PLATELET COUNT 192 140 - 440 thou/cu mm 09/21/2023 7:12 PM [facility] MPV 10.0 6.5 - 11.0 fL 09/21/2023 7:12 PM [facility] % NEUT 64.6 % 09/21/2023 7:12 PM [facility] % LYMPH 21.1 % 09/21/2023 7:12 PM [facility] % MONO 9.9 % 09/21/2023 7:12 PM [facility] % EOS 2.6 % 09/21/2023 7:12 PM [facility] % BASO 1.8 % 09/21/2023 7:12 PM [facility] ABSOLUTE NEUTROPHILS 3.3 1.7 - 7.0 thou/cu mm 09/21/2023 7:12 PM CDT [facility] ABSOLUTE LYMPHOCYTES 1.1 0.9 - 2.9 thou/cu mm 09/21/2023 7:12 PM CDT [facility] ABSOLUTE MONOCYTES 0.5 <0.9 thou/cu mm 09/21/2023 7:12 PM CDT [facility] ABSOLUTE EOSINOPHILS 0.1 <0.5 thou/cu mm 09/21/2023 7:12 PM CDT [facility] ABSOLUTE BASOPHILS 0.1 <0.3 thou/cu mm 09/21/2023 7:12 PM CDT [facility] Blood BLOOD SPECIMEN / Unknown Venipuncture / Unknown 09/21/2023 7:05 PM CDT 09/21/2023 7:05 PM CDT Charis E Osvaldolojay ACADEMIC REGISTRAR HEMATOLOGY [facility] [address] [place] [address] * (ABNORMAL) URIC ACID (09/21/2023 7:05 PM CDT) URIC ACID 8.6(H) 2.4 - 5.7 mg/dL 09/21/2023 7:28 PM CDT [facility] Blood BLOOD SPECIMEN / Unknown Venipuncture / Unknown 09/21/2023 7:05 PM CDT 09/21/2023 7:05 PM CDT Charis E Gus ACADEMIC REGISTRAR CHEMISTRY [facility] [address] [place] [address] * US VENOUS LOWER EXTREMITY LEFT (09/21/2023 [...] US * LIPID PANEL (06/22/2018 7:32 AM [facility]) Pathologist [facility] CHOLESTEROL,TOTAL 177 100 - 199 mg/dL 06/22/2018 8:19 AM [facility] TRIGLYCERIDES 118 <150 mg/dL 06/22/2018 8:19 AM [facility] HDL CHOLESTEROL 54 >40 mg/dL 9 8:19 AM [facility] NON-HDL CHOLESTEROL 123 <145 mg/dl 06/22/2018 8:19 AM [facility] CHOL/HDL RATIO 3.28 <4.50 06/22/2018 8:19 AM [facility] LDL CHOLESTEROL 99 <=130 mg/dL 06/22/2018 8:19 AM [facility] PROVIDER ORDERED STATUS FASTING 06/22/2018 8:19 AM [facility] Blood BLOOD SPECIMEN / Unknown Venipuncture / Unknown 06/22/2018 7:32 AM [facility] 06/22/2018 7:53 AM [facility] Maurice Poe MD CHEMISTRY [facility] [address] [place] [address], [place] * (ABNORMAL) XR DXA BONE DENSITY 2 SITES (03/27/2015 1:29 PM [facility]) Anatomical Region Laterality Modality Spine, HIPS, HIPL, HIPR Other Narrative 04/03/2015 8:04 AM [facility] Please see scanned document for results of this study. Raza Killian MD DEXA * XR MAMMO BILAT SCREEN FFDM (05/21/2012 11:17 AM [facility]) Anatomical Region Laterality Modality BREASTS, Breast Left, Breast Right Bilateral Mammography Addenda Addendum by Raphael Flaherty DO on 07/31/2012 3:10 PM CDT ??ADDENDUM ? ADDENDUM ? ADDENDUM Many attempts have been made to contact the patient regarding additional imaging that is needed following her screening mammogram. ??The patient has failed to return for our recommended follow-up. ?? Impressions 05/21/2012 3:54 PM [facility] ??ACR 0 Incomplete: Need Additional Imaging Evaluation and/or Prior Mammograms for Comparison RECOMMENDATION: ??Ultrasound of the RIGHT breast. Narrative 05/21/2012 3:54 PM [facility] BILATERAL FULL-FIELD DIGITAL SCREENING MAMMOGRAM WITH CAD [...] Code Status Discussion: Reviewed Preferences Care Teams Branch Library Clerk Relationship Specialty Start Date End Date Lise Cardenas MD [address] [place] [address] PCP - General Family Practice 09/22/23 Nurses, Advanced Heart Failure [address] [place] [address] Heart Failure Care Coordination 08/25/15 Maurice Poe MD [address] [facility] [address] [place] [address] Advanced Heart Failure/Transplant Card 01/14/22
--- OUTSIDE RECORDS SUMMARY | 2023-10-31 08:29 | XMS_ITS | Clinical Summary ---
Author Organization [facility] Address [address] [place] [address] Care Team Providers Care Christian Education Director Name Role Phone Unavailable Primary Care Provider Unavailabl e Source Comments Patient records contain information from all sites at [facility]. For routine questions regarding patient records, call [phone] during business hours, M-F 8:00 AM - 5:00 PM Central Time. Record requests for emergency care only can be directed to [phone] at any time.[facility] Medications Medication Sig Dispensed Refills Start Date [...] Outreach Division of Nephrology and Hypertension in [place], [place] [address] [place] [address] Stevan Adamson Jr., D.O. Chronic Kidney Disease [...] Lipid (Cholesterol) Screening 06/22/2019 06/22/2018 COVID-19 Vaccine (4 - 2022-2 4 season) 2022 03/26/2021, 07/24/2020, 07/03/2020 Depression Screening (Annual PHQ-2) 05/01/2023 Fall Risk Screen (Annual) 05/01/2023 Influenza Vaccine (#1) 2024 3, 12/22/2022, 05/23/2022, Additional history exists Creatinine Level (Kidney Fun ction Test) 10/01/2024 10/02/2023, 09/21/2023, 07/03/2023, Additional history exists Potassium Level 10/01/2024 10/02/2023, 08/30, 07/03/2023, Additional history exists Sodium Level 10/01/2024 [...] 6 weeks) or 60+ years Completed 12/22/2022 Procedures Procedure Name Priority Date/Time Associated Diagnosis Comments EXTI BASIC METABOLIC PANEL, S/P Routine 10/02/2023 10:48 AM CDT EXTI LIPID PANEL, S Routine 06/22/2018 7 :32 AM BOX SHOOK PATCHER from Last 3 Months or Most Recently Relevant to Health Maintenance
--- OUTSIDE RECORDS SUMMARY | 2023-10-31 08:29 | XMS_ITS | Referral Summary ---
Author Organization [facility] Address [address] [place] [address] Care Team Providers Care Business Programmer Name Role Phone Unavailable Primary Care Provider Unavailabl e Source Comments Patient records contain information from all sites at [facility]. For routine questions regarding patient records, call [phone] during business hours, M-F 8:00 AM - 5:00 PM Central Time. Record requests for emergency care only can be directed to [phone] at any time.[facility] Encounters Date Type Department Care Team Description 10/04/2023 9:00 AM CDT External Outreach Division of Nephrology and Hypertension in [place], [place] [address] [place] [address] Stevan Adamson Jr., D.O. Chronic Kidney Disease [...] PANEL, S Routine 06/22/2018 7 :32 AM HUMAN MACHINE INTERFACE ENGINEER from Last 3 Months or Most Recently Relevant to Health Maintenance
--- NOTE | 2023-10-31 08:45 | CRLHL7_ITS ---
For Patients: As a result of the Century Cures Act, medical imaging exams and procedure reports are released immediately into your electronic medical record. You may view this report before your referring provider. If you have questions, please contact your health care provider. INDICATION: Atherosclerosis of renal artery TECHNIQUE: Grayscale, color Doppler and power Doppler ultrasound of the kidneys and renal arteries performed. COMPARISON: None available FINDINGS: BILATERAL RENAL ARTERY DUPLEX ULTRASOUND ABDOMINAL AORTA: Peak systolic velocity = 86 cm/s. No aortic aneurysm. RIGHT KIDNEY: 9.3 cm in length. There is no hydronephrosis. Renal cortex measures 1.0 cm. Peak systolic velocity = 84 cm/second Renal artery to aortic peak systolic velocity ratio = 1.0 Resistive indices: 0.6-0.7 Renal vein = patent LEFT KIDNEY: 8.5 cm in length. There is no hydronephrosis. Renal cortex measures 1.0 cm. Peak systolic velocity = 104 cm/second Renal artery to aortic peak systolic velocity ratio = 1.2 Resistive indices: 0.6-0.7 Renal vein = patent IMPRESSION: No evidence of significant renal artery stenosis. Dictated by Oleksandr Lance MD @ 11/01/2023 9:11:06 AM (Electronically Signed)
== END 2023-10-31 08:27 | disposition home or self-care (01) ==
PROVIDERS: PCP Student in an Organized Health Care Education/Training Program; Visit Provider Internal Medicine Nephrology
DX: I70.1 Atherosclerosis of renal artery (principal)
CPT/HCPCS: 76775; 93975

== ENCOUNTER 2023-11-09 10:13 | Outpatient (CLI) | payer OTHER, SELFPAY ==
--- OUTSIDE RECORDS SUMMARY | 2023-11-09 10:15 | XMS_ITS | Referral Summary ---
Author Organization [facility] Address [address] [place] [address] Care Team Providers Care Web Methods Developer Name Role Phone Unavailable Primary Care Provider Unavailabl e Source Comments Patient records contain information from all sites at [facility]. For routine questions regarding patient records, call [phone] during business hours, M-F 8:00 AM - 5:00 PM Central Time. Record requests for emergency care only can be directed to [phone] at any time.[facility] Encounters Date Type Department Care Team Description 10/04/2023 9:00 AM CDT External Outreach Division of Nephrology and Hypertension in [place], [place] [address] [place] [address] Stevan Adamson Jr., D.O. Chronic Kidney Disease [...] Comments EXTI BASIC METABOLIC PANEL, S/P Routine 10/24/2023 1:55 PM CDT EXTI LIPID PANEL, S Routine 06/22/2018 7 :32 AM FOOD CROPS FARM HAND from Last 3 Months or Most Recently Relevant to Health Maintenance
--- OUTSIDE RECORDS SUMMARY | 2023-11-09 10:15 | XMS_ITS | Clinical Summary ---
Author Organization [facility] Address [place], [place] [address] Care Team Providers Care Advertising Dispatch Clerk Name Role Phone Nurses, Advanced Heart Failure Unavailable + Maurice Poe MD Unavailable [phone] Lise Cardenas MD Primary Care Prov ider [...] per actuation) nasal solution (FLONASE) Inhale 1 [place] into affected nostril(s) once daily if needed [...] LARGE, RIGHT, REF: 02PLR 1 Each 03/24/2021 4 Discontinued (*Patient states no longer taking) hydrALAZINE (APRESOLINE) 10 mg tabletIndications:N onischemic cardiomyopathy (HC) Take 4 Tablets (40 mg) by mouth three times daily. 355 Tablet 5 06/29/2023 4 Discontinued (Reorder (E-cancel not sent)) potassium chloride (KLOR-CON M10) 10 mEq extended-release tablet (part/cryst)Indicat ions:Dilated cardiomyopathy (HC) Take 1 Tablet (10 mEq) by mouth once daily with a meal. 90 Tablet 3 10/03/2023 4 Discontinued (Other - add note to specify (E-cancel not sent)) sacubitril-valsarta n (ENTRESTO 24 MG-26 MG TABLET) 24-26 mg tabletIndications:N onischemic cardiomyopathy (HC) Take 1 Tablet by mouth two times daily. 10/12/2023 4 Discontinued (*Med complete/Reg imen complete/Lev el of care change) Active Problems Problem Noted [...] Encounters Date Type Department Care Team Description 11/03/2023 2:10 PM CDT Orders Only [facility] [address] [place] [address] [facility] 11/03/2023 Telephone [facility] [address] [place] [address] [place] [phone] Maurice Poe MD Follow Up 11/03/2023 Travel 11/03/2023 Orders Only [facility] Scanner 1 scan: (1-Ord) INCOMING RECORDS-[facility], 11/03/2023 10/24/2023 3:30 PM CDT Office Visit [facility] [address] [facility] [address] [place] [phone] Maurice Poe MD CV Heart Failure Est (CHF IN PERSON F/U VISIT. LABS DONE PRIOR /DX. Nonischemic cardiomyopathy (HC) [I42.8] //PCP:Lise Cardenas MD/) 10/24/2023 2:30 PM CDT Orders Only [facility] [address] [facility] [address] [place] [phone] Lab (/) 10/24/2023 Travel 10/20/2023 Refill [facility] [address] [place] [address] [place] [phone] Maurice Poe MD Refill Request (Furosemide) 10/13/2023 Telephone [facility] [address] [place] [address] [place] [phone] Vince Carpenter MD Results (Echocardiogram 10/10/23) 10/12/2023 Telephone [facility] [address] [place] [address] [phone] Maurice Poe MD Medication Management 10/10/2023 1:00 PM CDT Ancillary Procedure [facility] [address] [place] [address] 10/10/2023 11:00 AM CDT Office [place] [facility] [address] [place] [address] [place] [phone] Vince Carpenter MD CV Electrophysiology Est (Post Ablation (12/6/23)//PCP: Lise Cardenas MD) 10/10/2023 Travel 10/02/2023 10:15 AM CDT Office Visit [facility] [address] [place] [address] Lise Cardenas MD Follow Up (Left ankle wound. Has wound care on 10/05/23) 10/02/2023 Travel 09/27/2023 Telephone [facility] [address] [place] [address] Lise Cardenas MD FYI (Wound clinic appt ) 09/22/2023 3:55 PM CDT Office Visit [facility] [address] [place] [address] Lise Cardenas MD Foot Pain/problem (Urgent care 09/21/23. Left foot pain. Pain is improving ); Establish Care (Looking for a new PCP/) 09/22/2023 Telephone [facility] [address] [address] Charisma Montaño Appointment 09/21/2023 7:05 PM CDT Ancillary Procedure [facility] [address] [place] [address] 09/21/2023 5:55 PM CDT - 09/21/2023 11:59 PM CDT Hospital Encounter [facility] [address] [place] [address] Charis Weber ACTIVITIES COUNSELOR Left ankle swelling; Wound of left lower extremity, initial encounter; Pain and swelling of lower leg, left 09/21/2023 5:00 PM CDT Office Visit [facility] [address] [place] [address] Charis Weber ACTIVITIES COUNSELOR Derm Problem (left ankle) 09/21/2023 Travel 09/21/2023 Nurse Triage [facility] [address] [place] [address] Pcp, No Leg Swelling (Left leg only. ) 08/24/2023 Refill [facility] [address] [place] [address] Maurice Poe MD Refill Request [...] Description 11/20/2023 11:25 AM CDT Office Visit [facility] [place] [address] [place] [phone] Ileana Anand MD [address] [place] [place] [address] Health Maintenance Due [...] Procedure Name Priority Date/Time Associated Diagnosis Comments BASIC METABOLIC PANEL Routine 11/03/2023 2:08 PM CDT Dilated cardiomyopathy (HC) SCAN CORRESP-IMAGING 11/03/2023 12:00 AM CDT MAGNESIUM Routine 10/24/2023 1:55 PM CDT Nonischemic [...] left LIPID PANEL Routine 06/22/2018 7:32 AM ANSWERER Dilated cardiomyopathy (HC) XR DXA BONE DENSITY 2 SITES AXIAL Routine 03/27/2015 1:29 PM ANSWERER Asymptomatic menopausal state XR MAMMO BILAT SCREEN FFDM (IA) Routine 05/21/2012 11:17 AM ANSWERER Other screening mammogram from Last 3 Months or Most Recently Relevant to Health Maintenance Results * (ABNORMAL) BASIC METABOLIC PANEL (11/03/2023 2:08 PM CDT) Only the most recent of4 resultswithin the time period is included. SODIUM 139 136 - 145 mmol/L 11/03/2023 2:38 PM CDT [facility] POTASSIUM 3.8 3.5 - 5.1 mmol/L 11/03/2023 2:38 PM T [facility] CHLORIDE 103 98 - 107 mmol/L 11/03/2023 2:38 PM CDT [facility] CO2,TOTAL 29 22 - 29 mmol/L 11/03/2023 2:38 PM [facility] ANION GAP 7 5 - 18 11/03/2023 2:38 PM CDT [facility] GLUCOSE 96 70 - 99 mg/dL 11/03/2023 2:38 PM CDT [facility] CALCIUM 9.0 8.8 - 10.2 mg/dL 11/03/2023 2:38 PM CDT [facility] BUN 27(H) 8 - 23 mg/dL 11/03/2023 2:38 PM CDT [facility] CREATININE 1.38(H) 0.50 - 0.90 mg/dL 11/03/2023 2:38 PM CDT [facility] BUN/CREAT RATIO 20 10 - 20 2:38 PM T [facility] eGFR 40(L) >90 mL/min/1.7 3m2 11/03/2023 2:38 PM T [facility] Comment:As of 2021, eG FR is calculated by the CKD-EPI creatinine equation without race adjustment. ??eGFR can be influenced by muscle mass, exercise, and diet. ??The reported eGFR is an estimation only and is only applicable if the renal function is stable. Blood BLOOD SPECIMEN / Unknown Venipuncture / Unknown 11/03/2023 2:08 PM CDT 11/03/2023 2:09 PM CDT Maurice Poe MD CHEMISTRY [facility] [address] [place] [address] * SCAN CORRESP-IMAGING (11/03/2023 12:00 AM CDT) Anatomical Region Laterality Modality Other Scanner OTHER * (ABNORMAL) PRO-BNP (10/24/2023 1:55 PM CDT) Only the most recent of2 resultswithin the time period is included. PRO-BNP 1,563(H) <125 pg/mL 10/24/2023 3:12 PM CDT [facility] Blood BLOOD SPECIMEN / Unknown Venipuncture / Unknown 10/24/2023 1:55 PM CDT 10/24/2023 2:02 PM CDT Narrative [facility] - 10/24/2023 3:12 PM CDT The [...] Poe MD SEND OUTS Performing Organization Address City/[facility] Co de Phone Number [facility] [address] [place] [address], * MAGNESIUM (10/24/2023 1:55 PM CDT) Only the most recent of2 resultswithin the time period is included. MAGNESIUM 2.4 1.6 - 2.4 mg/dL 10/24/2023 3:11 PM CDT [facility] Blood BLOOD SPECIMEN / Unknown Venipuncture / Unknown 10/24/2023 1:55 PM CDT 10/24/2023 2:02 PM CDT Maurice Poe MD CHEMISTRY [facility] [address] [place] [address], * ECHO TTE COMPLETE WO CONTRAST (10/10/2023 1:34 PM CDT) AORTIC VALVE MEAN PG 3 mmHg EJECTION FRACTION 36 % PEAK TR VELOCITY 3.2 m/s LVEDD 6.8 cm MITRAL VALVE MR ERO 22 mm2 EJECTION FRACTION 30 - 35% Anatomical Region Laterality Modality Ultrasound 10/10/2023 12:5 2 PM CDT Narrative 10/10/2023 2:01 PM CDT ECHOCARDIOGRAM LEESA OVIEDO ? Accession#: ?? [id number] : ?1950 73 years Study Date: ?? 10/10/2023 12:52:08 PM Gender: F ?BP: ? 126/76 mmHg Height: 172.72 cm ?BSA: ?2.18 m? ? ? Weight: 106.14 kg ?Tech: ? JCP ? Referring MD: VINCE CARPENTER Site: ? [facility] Reading Location: MOBILE - OP Patient [...] . This study was interpreted by an [facility] accredited facility. ??Final ?? Procedure Note Gildardo Mccarthy MD - 10/10/2023 ECHOCARDIOGRAM LEESA OVIEDO : 1950 73 years Study Date: 10/10/2023 12:52:08 PM Gender: F BP: 126/76 mmHg Height: 172.72 cm BSA: 2.18 m? ? ? Weight: 106.14 kg Tech: [facility] Referring MD: VINCE CARPENTER Site: [facility] Reading Location: MOBILE - OP Patient [...] . This study was interpreted by an [facility] accredited facility. Final Vince Carpenter MD ECHO ORD * EKG 12 LEAD (10/10/2023 9:46 AM CDT) Interpretation Sinus bradycardia with 1st degree A-V block Left axis deviation Poor ??R wave Transition Abnormal ECG Ventricular Rate 59 BPM Atrial Rate 59 BPM P-R Interval 226 ms QRS Duration 106 ms QT 458 ms QTc 453 ms P [place] 46 degrees R [place] -41 degrees T [place] -68 degrees 10/10/2023 9:46 AM CDT 10/10/2023 8:04 PM CDT Vince Carpenter MD EKG ORD * (ABNORMAL) AEROBIC BACTERIAL CULTURE, STAIN (09/21/2023 7:40 PM CDT) CULTURE RESULT(A) 09/25/2023 9:51 AM CDT [facility] CULTURE 4+ Staphylococcus aureus 09/25/2023 9:51 AM CDT [facility] GRAM STAIN No PMNs 09/25/2023 9:51 AM CDT [facility] GRAM STAIN No RBCs 09/25/2023 9:51 AM CDT [facility] GRAM STAIN No Epithelial cells 09/25/2023 9:51 AM CDT [facility] GRAM STAIN 3+ Gram Positive Cocci 09/25/2023 9:51 AM CDT [facility] Other (Other) Non-Blood / Unknown 09/21/2023 7:40 PM CDT 09/21/2023 7:57 PM CDT Narrative Organism Antibiotic Method Susceptibility Staphylococcus aureus OXACILLIN <=0.25: S Comment:Oxacillin mike sceptible should not be interpreted as penicillin or amoxicillin susceptible. Staphylococcus aureus CLINDAMYCIN <=0.12: S Staphylococcus aureus DOXYCYCLINE <=0.5: S Staphylococcus aureus CEFAZOLIN S Staphylococcus aureus TRIMETHOPRIM/SULF <=0.5/9.5: S Charis Rileyverojay ACTIVITIES COUNSELOR MICROBIOLOGY [facility] [address] [place] [address], [place] * XR ANKLE 3 VIEWS LEFT [...] 09/21/2023 7:30:49 PM (Electronically Signed) Charis Weber ACTIVITIES COUNSELOR GENERAL IMAGING * (ABNORMAL) CBC WITH AUTO DIFFERENTIAL (09/21/2023 7:05 PM T) WHITE BLOOD COUNT 5.1 4.5 - 11.0 thou/cu mm 09/21/2023 7:12 PM [facility] RED BLOOD COUNT 3.76(L) 4.00 - 5.20 mil/cu mm 09/21/2023 7:12 PM [facility] HEMOGLOBIN 11.7(L) 12.0 - 16.0 g/dL 09/21/2023 7:12 PM [facility] HEMATOCRIT 36.0 33.0 - 51.0 % 09/21/2023 7:12 PM [facility] MCV 96 80 - 100 fL 09/21/2023 7:12 PM [facility] MCH 31.1 26.0 - 34.0 pg 09/21/2023 7:12 PM [facility] MCHC 32.5 32.0 - 36.0 g/dL 09/21/2023 7:12 PM [facility] RDW 12.7 11.5 - 15.5 % 09/21/2023 7:12 PM [facility] PLATELET COUNT 192 140 - 440 thou/cu mm 09/21/2023 7:12 PM [facility] MPV 10.0 6.5 - 11.0 fL 09/21/2023 7:12 PM [facility] % NEUT 64.6 % 09/21/2023 7:12 PM [facility] % LYMPH 21.1 % 09/21/2023 7:12 PM [facility] % MONO 9.9 % 09/21/2023 7:12 PM [facility] % EOS 2.6 % 09/21/2023 7:12 PM [facility] % BASO 1.8 % 09/21/2023 7:12 PM [facility] ABSOLUTE NEUTROPHILS 3.3 1.7 - 7.0 thou/cu mm 09/21/2023 7:12 PM CDT [facility] ABSOLUTE LYMPHOCYTES 1.1 0.9 - 2.9 thou/cu mm 09/21/2023 7:12 PM CDT [facility] ABSOLUTE MONOCYTES 0.5 <0.9 thou/cu mm 09/21/2023 7:12 PM CDT [facility] ABSOLUTE EOSINOPHILS 0.1 <0.5 thou/cu mm 09/21/2023 7:12 PM CDT [facility] ABSOLUTE BASOPHILS 0.1 <0.3 thou/cu mm 09/21/2023 7:12 PM CDT [facility] Blood BLOOD SPECIMEN / Unknown Venipuncture / Unknown 09/21/2023 7:05 PM CDT 09/21/2023 7:05 PM CDT Charis E Furlong ACTIVITIES COUNSELOR HEMATOLOGY Performing Organization Address City/[facility]/ZIP Co de Phone Number [facility] [address] [place] [address] * (ABNORMAL) URIC ACID (09/21/2023 7:05 PM CDT) URIC ACID 8.6(H) 2.4 - 5.7 mg/dL 09/21/2023 7:28 PM CDT [facility] Blood BLOOD SPECIMEN / Unknown Venipuncture / Unknown 09/21/2023 7:05 PM CDT 09/21/2023 7:05 PM CDT Charis E Furlong ACTIVITIES COUNSELOR CHEMISTRY [facility] [address] [place], [place] [id number] * US VENOUS LOWER EXTREMITY LEFT (09/21/2023 [...] US * LIPID PANEL (06/22/2018 7:32 AM [facility]) [facility] CHOLESTEROL,TOTAL 177 100 - 199 mg/dL 06/22/2018 8:19 AM [facility] TRIGLYCERIDES 118 <150 mg/dL 06/22/2018 8:19 AM [facility] HDL CHOLESTEROL 54 >40 mg/dL 9 8:19 AM [facility] NON-HDL CHOLESTEROL 123 <145 mg/dl 06/22/2018 8:19 AM [facility] CHOL/HDL RATIO 3.28 <4.50 06/22/2018 8:19 AM [facility] LDL CHOLESTEROL 99 <=130 mg/dL 06/22/2018 8:19 AM ANSWERER [facility] PROVIDER ORDERED STATUS FASTING 06/22/2018 8:19 AM ANSWERER [facility] Blood BLOOD SPECIMEN / Unknown Venipuncture / Unknown 06/22/2018 7:32 AM ANSWERER 06/22/2018 7:53 AM ANSWERER Maurice Poe MD CHEMISTRY [facility] [address] [place] [address], * (ABNORMAL) XR DXA BONE DENSITY 2 SITES (03/27/2015 1:29 PM ANSWERER) Anatomical Region Laterality Modality Spine, HIPS, HIPL, HIPR Other Narrative 04/03/2015 8:04 AM ANSWERER Please see scanned document for results of this study. Raza Killian MD DEXA * XR MAMMO BILAT SCREEN FFDM (05/21/2012 11:17 AM ANSWERER) Anatomical Region Laterality Modality BREASTS, Breast Left, Breast Right Bilateral Mammography Addenda Addendum by Raphael Flaherty DO on 07/31/2012 3:10 PM CDT ??ADDENDUM ? ADDENDUM ? ADDENDUM Many attempts have been made to contact the patient regarding additional imaging that is needed following her screening mammogram. ??The patient has failed to return for our recommended follow-up. ?? Impressions 05/21/2012 3:54 PM ANSWERER ??ACR 0 Incomplete: Need Additional Imaging Evaluation and/or Prior Mammograms for Comparison RECOMMENDATION: ??Ultrasound of the RIGHT breast. Narrative 05/21/2012 3:54 PM ANSWERER BILATERAL FULL-FIELD DIGITAL SCREENING MAMMOGRAM WITH CAD [...] Code Status Discussion: Reviewed Preferences Care Teams Advertising Dispatch Clerk Relationship Specialty Start Date End Date Lise Cardenas MD [address] [place] [address] PCP - General Family Practice 09/22/23 Nurses, Advanced Heart Failure [address] [place] [address] Heart Failure Care Coordination 08/25/15 Maurice Poe MD [address] [facility] [address] [place] [address] Advanced Heart Failure/Transplant Card 01/14/22
--- OUTSIDE RECORDS SUMMARY | 2023-11-09 10:15 | XMS_ITS | Encounter Summary ---
Author Organization [facility] Address [address] [place] [address] Care Team Providers Care Lead Person Name Role Phone Unavailable Primary Care Provider Unavailabl e Reason for Visit * Appointment Request (Routine) - Closed Specialty Diagnoses / Procedures Referred By Sam t Referred To Contact Nephrology and Hypertension Miguel Dash M.D. [address] [place] [address] Referral ID Status Reason Start Date Expiration Date Visits Re quested Visits Authorized [id number] Closed 10/04/2023 10/03/2024 1 1 Encounter Details Date Type Department Care Team (Latest Contact Info) Description 10/04/2023 9:00 AM CDT External Outreach Division of Nephrology and Hypertension in [place], [place] [address] [place] [address] Setvan Adamson Jr., D.O. [address] [place] [address] Chronic Kidney Disease (CKD), Stage 3b Glomerular [...] Referring Provider: DR Miller, REASON FOR VISIT [facility] [facility] Initial consultation and [...] decompensated heart failure required admission to the [facility]. 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 With goal-directed therapy over the years she has been able to regain ejection fraction up to 45-50%. Note her serum creatinine level until 2020 was 1.2 mg/dL, dora to the 1.7 and up to 2 mg/dL in [id number] on the background of requiring ablation for [...] has never had urolithiasis. She relates in [facility] there was a very dramatic event where [...] the right there is both pitting and [place] indurated nonpitting edema of bilateral lower extremities, [...]
--- OUTSIDE RECORDS SUMMARY | 2023-11-09 10:15 | XMS_ITS ---
Author Organization [facility] Address [address] [place] [address] Care Team Providers Care Marketing Performance Analyst Name Role Phone Unavailable Unavailable Unavailable Surgery Details Not on file Complications Check Surgery Details section. Procedure Estimated Blood Loss Check Surgery Details section. Procedure Findings Check Surgery Details section. Procedure Specimens Taken Check Surgery Details section.
--- OUTSIDE RECORDS SUMMARY | 2023-11-09 10:15 | XMS_ITS | Clinical Summary ---
Author Organization [facility] Address [address] [place] [address] Care Team Providers Care Supervisor Dry Cleaning Name Role Phone Unavailable Primary Care Provider Unavailabl e Source Comments Patient records contain information from all sites at [facility]. For routine questions regarding patient records, call [phone] during business hours, M-F 8:00 AM - 5:00 PM Central Time. Record requests for emergency care only can be directed to [phone] at any time.[facility] Medications Medication Sig Dispensed Refills [...] Outreach Division of Nephrology and Hypertension in [place], [place] [address] [place] [address] Stevan Adamson Jr., D.O. Chronic Kidney Disease [...] 2024 3, 12/22/2022, 05/23/2022, Additional history exists Office Visit for Blood Press ure Check / Re-check 10/03/2024 10/04/2023 Creatinine Level (Kidney Fun ction Test) 10/23/2024 10/24/2023, 10/02/2023, 09/21/2023, Additional history exists Potassium Level 10/23/2024 10/24/2023, 06/0 06/2023, 09/21/2023, Additional history exists Sodium Level 10/23/2024 10/24/2023, 06/0 06/2023, 09/21/2023, Additional history exists Fasting Glucose for Diabetes Screening 10/23/2026 10/24/2023, 10/02/2023, 09/21/2023, Additional history exists DTaP,Tdap,and Td Vaccines (3 - Td or Tdap) 05/23/2032 05/23/2022, 02/07/2012 Pneumococcal vaccine (65+ years) Completed 08/21/2017, 03/31/2016, 02/07/2012 RSV vaccine - (32-3 6 weeks) or 60+ years Completed 12/22/2022 Procedures Procedure Name Priority Date/Time Associated Diagnosis Comments EXTI BASIC METABOLIC PANEL, S/P Routine 10/24/2023 1:55 PM CDT EXTI LIPID PANEL, S Routine 06/22/2018 7 :32 AM VIDEO NETWORK ENGINEER from Last 3 Months or Most Recently Relevant to Health Maintenance
[2023-11-09 11:10] LABS: Basophils Absolute Auto 0.05 K/uL (0.00-0.30); Eosinophils Absolute Auto 0.15 K/uL (0.00-0.50); Eosinophils Percent Auto 3.1 % (0.0-7.0); Hematocrit 37.2 % (33.0-51.0); Hemoglobin* 11.9 gm/dL (12.0-16.0); Immature Granulocytes Abs Auto 0.01 K/uL (0.00-0.30); Immature Granulocytes Pct Auto 0.2 %; Lymphocytes Absolute Auto 1.04 K/uL (0.90-2.90); Lymphocytes Percent Auto 21.8 % (20-44); Mean Corpuscular HGB Conc 32 gm/dL (32-36); Mean Corpuscular Hemoglobin 30 pg (26-34); Mean Corpuscular Volume 93 fL (80-100); Monocytes Percent Auto 8.8 % (0.0-11.0); Neutrophils Percent Auto 65.1 % (42.0-72.0); Platelet Count* 175 K/uL (140-440); RDW Coefficient of Variation % 13.2 % (11.5-15.5); White Blood Count* 4.77 K/uL (4.50-11.00)
[2023-11-09 11:19] LABS: Slide Review Reflex No
[2023-11-09 11:31] LABS: Chloride* 104 mmol/L (96-114); Sodium* 140 mmol/L (135-149)
[2023-11-09 11:32] LABS: Potassium* 3.6 mmol/L (3.6-5.1)
[2023-11-09 11:34] LABS: Anion Gap 6 mEq/L (7-15); Blood Urea Nitrogen* 28 mg/dL (7-30); Carbon Dioxide* 30 mmol/L (20-32); Creatinine* 1.4 mg/dL (0.5-1.5); Estimated Glomerular Filt Rate 39 ml/min
[2023-11-09 11:35] LABS: Calcium* 8.4 mg/dL (8.4-10.6); Glucose* 76 mg/dL (60-115)
== END 2023-11-09 10:14 | disposition home or self-care (01) ==
LOC: WOUND 10:13
PROVIDERS: PCP Student in an Organized Health Care Education/Training Program; Visit Provider Nurse Practitioner Family
DX: I87.2 Venous insufficiency (chronic) (peripheral) (principal); I89.0 Lymphedema, not elsewhere classified; L97.322 Non-pressure chronic ulcer of left ankle with fat layer exposed; I42.0 Dilated cardiomyopathy; N18.30 Chronic kidney disease, stage 3 unspecified; Z01.812 Encounter for preprocedural laboratory examination
CPT/HCPCS: 11042; 36415; 80048; 82040; 84134; 85025

== ENCOUNTER 2023-11-16 10:32 | Outpatient (CLI) | payer OTHER, SELFPAY ==
--- OUTSIDE RECORDS SUMMARY | 2023-11-16 10:34 | XMS_ITS | Clinical Summary ---
Author Organization [facility] Address [address] [place] [address] Care Team Providers Care Clerk Of Works Name Role Phone Unavailable Primary Care Provider Unavailabl e Source Comments Patient records contain information from all sites at [facility]. For routine questions regarding patient records, call [phone] during business hours, M-F 8:00 AM - 5:00 PM Central Time. Record requests for emergency care only can be directed to [phone] at any time.[facility] Medications Medication Sig Dispensed Refills Start Date [...] Outreach Division of Nephrology and Hypertension in [place], [place] [address] [place] [address] Stevan Adamson Jr., D.O. Chronic Kidney Disease [...] PANEL, S Routine 06/22/2018 7 :32 AM SECURITY SYSTEMS ADMINISTRATOR from Last 3 Months or Most Recently Relevant to Health Maintenance
--- OUTSIDE RECORDS SUMMARY | 2023-11-16 10:35 | XMS_ITS | Encounter Summary ---
Author Organization [facility] Address [address] [place] [address] Care Team Providers Care Sales/Marketing Name Role Phone Unavailable Primary Care Provider Unavailabl e Reason for Visit * Appointment Request (Routine) - Closed Specialty Diagnoses / Procedures Referred By Sam t Referred To Contact Nephrology and Hypertension Miguel Dash M.D. [address] [place] [address] Referral ID Status Reason Start Date Expiration Date Visits Re quested Visits Authorized [id number] Closed 10/04/2023 10/03/2024 1 1 Encounter Details Date Type Department Care Team (Latest Contact Info) Description 10/04/2023 9:00 AM CDT External Outreach Division of Nephrology and Hypertension in [place], [place] [address] [place] [address] Stevan Adamson Jr., D.O. [address] [place] [address] Chronic Kidney Disease (CKD), Stage 3b Glomerular [...] Referring Provider: DR Miller, REASON FOR VISIT [place] [facility] Initial consultation and [...] decompensated heart failure required admission to the [facility]. 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 With goal-directed therapy over the years she has been able to regain ejection fraction up to 45-50%. Note her serum creatinine level until 2020 was 1.2 mg/dL, dora to the 1.7 and up to 2 mg/dL in [id number] on the background of requiring ablation for [...] has never had urolithiasis. She relates in [facility] there was a very dramatic event [...] the right there is both pitting and [place] indurated nonpitting edema of bilateral lower extremities, [...]
--- OUTSIDE RECORDS SUMMARY | 2023-11-16 10:35 | XMS_ITS | Clinical Summary ---
Author Organization [facility] Address [place], [place] [address] Care Team Providers Care Furnace Roaster Name Role Phone Nurses, Advanced Heart Failure Unavailable + Maurice Poe MD Unavailable [phone] Lise Cardenas MD Primary Care Prov ider [...] per actuation) nasal solution (FLONASE) Inhale 1 [place] into affected nostril(s) once daily if needed [...] Description 11/03/2023 2:10 PM CDT Orders Only [facility] [address] [place] [address] Lab[facility]ole Lab 11/03/2023 Telephone [facility] [address] [place] [address] [place] [phone] Maurice Poe MD Follow Up 11/03/2023 Travel 11/03/2023 Orders Only [facility] Scanner 1 scan: (1-Ord) INCOMING RECORDS-[facility], 11/03/2023 10/24/2023 3:30 PM CDT Office Visit [facility] [address] [facility] [address] [place] [phone] Maurice Poe MD CV Heart Failure Est (CHF IN PERSON F/U VISIT. LABS DONE PRIOR /DX. Nonischemic cardiomyopathy (HC) [I42.8] //PCP:Lise Cardenas MD/) 10/24/2023 2:30 PM CDT Orders Only [facility] [address] [facility] [address] [place] [phone] Lab (/) 10/24/2023 Travel 10/20/2023 Refill [facility] [address] [place] [address] [place] [phone] Maurice Poe MD Refill Request (Furosemide) 10/13/2023 Telephone [facility] [address] [place] [address] [place] [phone] Vince Carpenter MD Results (Echocardiogram 10/10/23) 10/12/2023 Telephone [facility] [address] [place] [address] [phone] Maurice Poe MD Medication Management 10/10/2023 1:00 PM CDT Ancillary Procedure [facility] [address] [facility] [address] [place] [address] 10/10/2023 11:00 AM CDT Office Visit [facility] [address] [place] [address] [place] [phone] Vince Carpenter MD CV Electrophysiology Est (Post Ablation (12/6/23)//PCP: Lise Cardenas MD) 10/10/2023 Travel 10/02/2023 10:15 AM CDT Office Visit [facility] [address] [place] [address] Lise Cardenas MD Follow Up (Left ankle wound. Has wound care on 10/05/23) 10/02/2023 Travel 09/27/2023 Telephone [facility] [address] [place] [address] Lise Cardenas MD FYI (Wound clinic appt ) 09/22/2023 3:55 PM CDT Office Visit [facility] [address] [place] [address] Lise Cardenas MD Foot Pain/problem (Urgent care 09/21/23. Left foot pain. Pain is improving ); Establish Care (Looking for a new PCP/) 09/22/2023 Telephone [facility] [address] [address] Charisma Montaño Appointment 09/21/2023 7:05 PM CDT Ancillary Procedure [facility] [address] [place] [address] 09/21/2023 5:55 PM CDT - 09/21/2023 11:59 PM CDT Hospital Encounter [facility] [address] [place] [address] Charis Weber MIDDLEWARE ENGINEER Left ankle swelling; Wound of left lower extremity, initial encounter; Pain and swelling of lower leg, left 09/21/2023 5:00 PM CDT Office Visit [facility] [address] [place] [address] Charis Weber MIDDLEWARE ENGINEER Derm Problem (left ankle) 09/21/2023 Travel 09/21/2023 Nurse Triage [facility] [address] [place] [address] Pcp, No Leg Swelling (Left leg only. ) 08/24/2023 Refill [facility] [address] [place] [address] Maurice Poe MD Refill Request [...] Description 11/20/2023 11:25 AM CDT Office Visit [facility] [place] [address] [facility] [address] [place] [phone] Ileana Anand MD [address] [facility] [address] [place] [address] 01/11/2024 12:30 PM CDT Orders Only [facility] [address] [place] [address] 01/11/2024 1:30 PM CDT Office Visit [facility] [address] [place] [address] Maurice Poe MD [address] [facility] [address] [place], [place] [phone] Health Maintenance Due Date Last Done Comments [...] left LIPID PANEL Routine 06/22/2018 7:32 AM DIRECTOR OF FIELD SALES Dilated cardiomyopathy (HC) XR DXA BONE DENSITY 2 SITES AXIAL Routine 03/27/2015 1:29 PM DIRECTOR OF FIELD SALES Asymptomatic menopausal state XR MAMMO BILAT SCREEN FFDM (IA) Routine 05/21/2012 11:17 AM DIRECTOR OF FIELD SALES Other screening mammogram from Last 3 Months or Most Recently Relevant to Health Maintenance Results * (ABNORMAL) BASIC METABOLIC PANEL (11/03/2023 2:08 PM CDT) Only the most recent of4 resultswithin the time period is included. SODIUM 139 136 - 145 mmol/L 11/03/2023 2:38 PM [facility] POTASSIUM 3.8 3.5 - 5.1 mmol/L 11/03/2023 2:38 PM [facility] CHLORIDE 103 98 - 107 mmol/L 11/03/2023 2:38 PM [facility] CO2,TOTAL 29 22 - 29 mmol/L 11/03/2023 2:38 PM [facility] ANION GAP 7 5 - 18 11/03/2023 2:38 PM [facility] GLUCOSE 96 70 - 99 mg/dL 11/03/2023 2:38 PM [facility] CALCIUM 9.0 8.8 - 10.2 mg/dL 11/03/2023 2:38 PM [facility] BUN 27(H) 8 - 23 mg/dL 11/03/2023 2:38 PM [facility] CREATININE 1.38(H) 0.50 - 0.90 mg/dL 11/03/2023 2:38 PM [facility] BUN/CREAT RATIO 20 10 - 20 2:38 PM [facility] eGFR 40(L) >90 mL/min/1.7 3m2 11/03/2023 2:38 PM [facility] Comment:As of 2021, eG FR is calculated by the CKD-EPI creatinine equation without race adjustment. ??eGFR can be influenced by muscle mass, exercise, and diet. ??The reported eGFR is an estimation only and is only applicable if the renal function is stable. Blood BLOOD SPECIMEN / Unknown Venipuncture / Unknown 11/03/2023 2:08 PM CDT 11/03/2023 2:09 PM CDT Maurice Poe MD CHEMISTRY [facility] [address] [place] [address] * SCAN CORRESP-IMAGING (11/03/2023 12:00 AM CDT) Anatomical Region Laterality Modality Other Scanner OTHER * (ABNORMAL) PRO-BNP (10/24/2023 1:55 PM CDT) Only the most recent of2 resultswithin the time period is included. PRO-BNP 1,563(H) <125 pg/mL 10/24/2023 3:[address] [facility] Blood BLOOD SPECIMEN / Unknown Venipuncture / Unknown 10/24/2023 1:55 PM CDT 10/24/2023 2:02 PM CDT Narrative [facility] [employer] [facility] - 10/24/2023 3:12 PM CDT The [...] failure. ? Maurice Poe MD SEND OUTS [facility] [employer] [facility] [address] [place] [address], * MAGNESIUM (10/24/2023 1:55 PM CDT) Only the most recent of2 resultswithin the time period is included. MAGNESIUM 2.4 1.6 - 2.4 mg/dL 10/24/2023 3:11 PM CDT [facility] Blood BLOOD SPECIMEN / Unknown Venipuncture / Unknown 10/24/2023 1:55 PM CDT 10/24/2023 2:02 PM CDT Maurice Poe MD CHEMISTRY [facility] [address] [place] [address], * ECHO TTE COMPLETE WO CONTRAST (10/10/2023 1:34 PM CDT) AORTIC VALVE MEAN PG 3 mmHg EJECTION FRACTION 36 % PEAK TR VELOCITY 3.2 m/s LVEDD 6.8 cm MITRAL VALVE MR ERO 22 mm2 EJECTION FRACTION 30 - 35% Anatomical Region Laterality Modality Ultrasound 10/10/2023 12:5 2 PM CDT Narrative 10/10/2023 2:01 PM CDT ECHOCARDIOGRAM LEESA Pedro Luis PREET ? Accession#: ?? [id number] : ?1950 73 years Study Date: ?? 10/10/2023 12:52:08 PM Gender: F ?BP: ? 126/76 mmHg Height: 172.72 cm ?BSA: ?2.18 m? ? ? Weight: 106.14 kg ?Tech: ? JCP ? Referring MD: VINCE TIGERENASHE ZISHIRI Site: ? [facility] Reading Location: MOBILE - OP [...] . This study was interpreted by an [facility] accredited facility. ??Final ?? Procedure Note Gildardo Mccarthy MD - 10/10/2023 ECHOCARDIOGRAM LEESA MOODY : 1950 73 years Study Date: 10/10/2023 12:52:08 PM Gender: F BP: 126/76 mmHg Height: 172.72 cm BSA: 2.18 m? ? ? Weight: 106.14 kg Tech: JCP Referring MD: VINCE CARPENTER Site: [facility] Reading Location: MOBILE - OP [...] . This study was interpreted by an [facility] accredited facility. Final Vnice Carpenter MD ECHO ORD * EKG 12 LEAD (10/10/2023 9:46 AM CDT) Interpretation Sinus bradycardia with 1st degree A-V block Left axis deviation Poor ??R wave Transition Abnormal ECG Ventricular Rate 59 BPM Atrial Rate 59 BPM P-R Interval 226 ms QRS Duration 106 ms QT 458 ms QTc 453 ms P [place] 46 degrees R [place] -41 degrees T [place] -68 degrees 10/10/2023 9:46 AM CDT 10/10/2023 8:04 PM CDT Vince Carpenter MD EKG ORD * (ABNORMAL) AEROBIC BACTERIAL CULTURE, STAIN (09/21/2023 7:40 PM CDT) CULTURE RESULT(A) 09/25/2023 9:51 AM CDT [facility] CULTURE 4+ Staphylococcus aureus 09/25/2023 9:51 AM CDT [facility] GRAM STAIN No PMNs 09/25/2023 9:51 AM CDT [facility] GRAM STAIN No RBCs 09/25/2023 9:51 AM CDT [facility] GRAM STAIN No Epithelial cells 09/25/2023 9:51 AM CDT [facility] GRAM STAIN 3+ Gram Positive Cocci 09/25/2023 9:51 AM CDT [facility] Other (Other) Non-Blood / Unknown 09/21/2023 7:40 PM CDT 09/21/2023 7:57 PM CDT Narrative Organism Antibiotic Method Susceptibility Staphylococcus aureus OXACILLIN <=0.25: S Comment:Oxacillin mike sceptible should not be interpreted as penicillin or amoxicillin susceptible. Staphylococcus aureus CLINDAMYCIN <=0.12: S Staphylococcus aureus DOXYCYCLINE <=0.5: S Staphylococcus aureus CEFAZOLIN S Staphylococcus aureus TRIMETHOPRIM/SULF <=0.5/9.5: S Charis Weber MIDDLEWARE ENGINEER [facility] [address] [place], [place] [id number], * XR ANKLE 3 VIEWS LEFT (09/21/2023 [...] MD @ 09/21/2023 7:30:49 PM (Electronically Signed) Charislucius Weber MIDDLEWARE ENGINEER GENERAL IMAGING * (ABNORMAL) CBC WITH AUTO DIFFERENTIAL (09/21/2023 7:05 PM CDT) WHITE BLOOD COUNT 5.1 4.5 - 11.0 thou/cu mm 09/21/2023 7:12 PM [facility] RED BLOOD COUNT 3.76(L) 4.00 - 5.20 mil/cu mm 09/21/2023 7:12 PM [facility] HEMOGLOBIN 11.7(L) 12.0 - 16.0 g/dL 09/21/2023 7:12 PM [facility] HEMATOCRIT 36.0 33.0 - 51.0 % 09/21/2023 7:12 PM [facility] MCV 96 80 - 100 fL 09/21/2023 7:12 PM [facility] MCH 31.1 26.0 - 34.0 pg 09/21/2023 7:12 PM [facility] MCHC 32.5 32.0 - 36.0 g/dL 09/21/2023 7:12 PM [facility] RDW 12.7 11.5 - 15.5 % 09/21/2023 7:12 PM [facility] PLATELET COUNT 192 140 - 440 thou/cu mm 09/21/2023 7:12 PM [facility] MPV 10.0 6.5 - 11.0 fL 09/21/2023 7:12 PM CDT [facility] % NEUT 64.6 % 09/21/2023 7:12 PM T [facility] % LYMPH 21.1 % 09/21/2023 7:12 PM T [facility] % MONO 9.9 % 09/21/2023 7:12 PM T [facility] % EOS 2.6 % 09/21/2023 7:12 PM T [facility] % BASO 1.8 % 09/21/2023 7:12 PM T [facility] ABSOLUTE NEUTROPHILS 3.3 1.7 - 7.0 thou/cu mm 09/21/2023 7:12 PM T [facility] ABSOLUTE LYMPHOCYTES 1.1 0.9 - 2.9 thou/cu mm 09/21/2023 7:12 PM T [facility] ABSOLUTE MONOCYTES 0.5 <0.9 thou/cu mm 09/21/2023 7:12 PM [facility] ABSOLUTE EOSINOPHILS 0.1 <0.5 thou/cu mm 09/21/2023 7:12 PM T [facility] ABSOLUTE BASOPHILS 0.1 <0.3 thou/cu mm 09/21/2023 7:12 PM T [facility] Blood BLOOD SPECIMEN / Unknown Venipuncture / Unknown 09/21/2023 7:05 PM CDT 09/21/2023 7:05 PM CDT Charis E Furlong MIDDLEWARE ENGINEER HEMATOLOGY Performing Organization Address City/State/[facility] Co de Phone Number [facility] [address] [place] [address] * (ABNORMAL) URIC ACID (09/21/2023 7:05 PM CDT) URIC ACID 8.6(H) 2.4 - 5.7 mg/dL 09/21/2023 7:28 PM T [facility] Blood BLOOD SPECIMEN / Unknown Venipuncture / Unknown 09/21/2023 7:05 PM CDT 09/21/2023 7:05 PM CDT Charis Weber MIDDLEWARE ENGINEER CHEMISTRY [facility] [address] [place], [place] [phone] * US VENOUS LOWER EXTREMITY LEFT (09/21/2023 [...] US * LIPID PANEL (06/22/2018 7:32 AM DIRECTOR OF FIELD SALES) [facility] CHOLESTEROL,TOTAL 177 100 - 199 mg/dL 06/22/2018 8:19 AM DIRECTOR OF FIELD SALES [facility] TRIGLYCERIDES 118 <150 mg/dL 06/22/2018 8:19 AM [facility] TRAL [facility]AT[facility] HDL CHOLESTEROL 54 >40 mg/dL 9 8:19 AM DIRECTOR OF FIELD SALES [facility] NON-HDL CHOLESTEROL 123 <145 mg/dl 06/22/2018 8:19 AM [facility] CHOL/HDL RATIO 3.28 <4.50 06/22/2018 8:19 AM [facility] LDL CHOLESTEROL 99 <=130 mg/dL 06/22/2018 8:19 AM [facility] PROVIDER ORDERED STATUS FASTING 06/22/2018 8:19 AM [facility] Blood BLOOD SPECIMEN / Unknown Venipuncture / Unknown 06/22/2018 7:32 AM DIRECTOR OF FIELD SALES 06/22/2018 7:53 AM DIRECTOR OF FIELD SALES Maurice Poe MD CHEMISTRY [facility] [address] [place] [address], * (ABNORMAL) XR DXA BONE DENSITY 2 SITES (03/27/2015 1:29 PM DIRECTOR OF FIELD SALES) Anatomical Region Laterality Modality Spine, HIPS, HIPL, HIPR Other Narrative 04/03/2015 8:04 AM DIRECTOR OF FIELD SALES Please see scanned document for results of this study. Raza Killian MD DEXA * XR MAMMO BILAT SCREEN FFDM (05/21/2012 11:17 AM DIRECTOR OF FIELD SALES) Anatomical Region Laterality Modality BREASTS, Breast Left, Breast Right Bilateral Mammography Addenda Addendum by Raphael Flaherty DO on 07/31/2012 3:10 PM CDT ??ADDENDUM ? ADDENDUM ? ADDENDUM Many attempts have been made to contact the patient regarding additional imaging that is needed following her screening mammogram. ??The patient has failed to return for our recommended follow-up. ?? Impressions 05/21/2012 3:54 PM DIRECTOR OF FIELD SALES ??ACR 0 Incomplete: Need Additional Imaging Evaluation and/or Prior Mammograms for Comparison RECOMMENDATION: ??Ultrasound of the RIGHT breast. Narrative 05/21/2012 3:54 PM DIRECTOR OF FIELD SALES BILATERAL FULL-FIELD DIGITAL SCREENING MAMMOGRAM WITH CAD [...] Code Status Discussion: Reviewed Preferences Care Teams Furnace Roaster Relationship Specialty Start Date End Date Lise Cardenas MD [address] [place] [address] PCP - General Family Practice 09/22/23 Nurses, Advanced Heart Failure [address] [place] [address] Heart Failure Care Coordination 08/25/15 Maurice Poe MD [address] [place] [address] Advanced Heart Failure/Transplant Card 01/14/22
--- OUTSIDE RECORDS SUMMARY | 2023-11-16 10:35 | XMS_ITS ---
Author Organization [facility] Address [address] [place] [address] Care Team Providers Care Snag Grinder Name Role Phone Unavailable Unavailable Unavailable Surgery Details Not on file Complications Check Surgery Details section. Procedure Estimated Blood Loss Check Surgery Details section. Procedure Findings Check Surgery Details section. Procedure Specimens Taken Check Surgery Details section.
--- OUTSIDE RECORDS SUMMARY | 2023-11-16 10:35 | XMS_ITS | Referral Summary ---
Author Organization [facility] Address [address] [place] [address] Care Team Providers Care Applied Psychology Professor Name Role Phone Unavailable Primary Care Provider Unavailabl e Source Comments Patient records contain information from all sites at [facility]. For routine questions regarding patient records, call [phone] during business hours, M-F 8:00 AM - 5:00 PM Central Time. Record requests for emergency care only can be directed to [phone] at any time.[facility] Encounters Date Type Department Care Team Description 10/04/2023 9:00 AM CDT External Outreach Division of Nephrology and Hypertension in [place], [place] [address] [place] [address] Stevan Adamson Jr., D.O. Chronic Kidney Disease [...] PANEL, S Routine 06/22/2018 7 :32 AM GEM CARVER from Last 3 Months or Most Recently Relevant to Health Maintenance
== END 2023-11-16 10:33 | disposition home or self-care (01) ==
LOC: WOUND 10:32
PROVIDERS: PCP Student in an Organized Health Care Education/Training Program; Visit Provider Nurse Practitioner Family
DX: I87.2 Venous insufficiency (chronic) (peripheral) (principal); I89.0 Lymphedema, not elsewhere classified; L97.822 Non-pressure chronic ulcer of other part of left lower leg with fat layer exposed
CPT/HCPCS: 11042

== ENCOUNTER 2023-11-23 10:30 | Outpatient (CLI) | payer OTHER, SELFPAY ==
--- OUTSIDE RECORDS SUMMARY | 2023-11-23 10:32 | XMS_ITS | Referral Summary ---
Author Organization [facility] Address [address] [place] [address] Care Team Providers Care Director Of Teenage Activities Name Role Phone Unavailable Primary Care Provider Unavailabl e Source Comments Patient records contain information from all sites at [facility]. For routine questions regarding patient records, call [phone] during business hours, M-F 8:00 AM - 5:00 PM Central Time. Record requests for emergency care only can be directed to [phone] at any time.[facility] Encounters Date Type Department Care Team Description 10/04/2023 9:00 AM CDT External Outreach Division of Nephrology and Hypertension in [place], [place] [address] [place] [address] Stevan Adamson Jr., D.O. Chronic Kidney Disease [...]
--- OUTSIDE RECORDS SUMMARY | 2023-11-23 10:32 | XMS_ITS | Clinical Summary ---
Author Organization [facility] Address [address] [place] [address] Care Team Providers Care Rolled Glass Crosscutter Name Role Phone Unavailable Primary Care Provider Unavailabl e Source Comments Patient records contain information from all sites at [facility]. For routine questions regarding patient records, call [phone] during business hours, M-F 8:00 AM - 5:00 PM Central Time. Record requests for emergency care only can be directed to [phone] at any time.[facility] Medications [...] Outreach Division of Nephrology and Hypertension in [place], [place] [address] [place] [address] Stevan Adamson Jr., D.O. Chronic Kidney Disease [...] 10/04/2023 Creatinine Level (Kidney Fun ction Test) 11/02/2024 11/03/2023, 10/24/2023, 10/02/2023, Additional history exists Potassium Level 11/02/2024 11/03/2023, 09/30, 10/02/2023, Additional history exists Sodium Level 11/02/2024 11/03/2023, 09/30, 10/02/2023, Additional history exists Fasting Glucose for Diabetes Screening 11/02/2026 11/03/2023, 10/24/2023, 10/02/2023, Additional history exists DTaP,Tdap,and Td Vaccines (3 - Td or Tdap) 05/23/2032 05/23/2022, 02/07/2012 Pneumococcal vaccine (65+ years) Completed 08/21/2017, 03/31/2016, 02/07/2012 RSV vaccine - (32-3 6 weeks) or 60+ years Completed 12/22/2022
--- OUTSIDE RECORDS SUMMARY | 2023-11-23 10:32 | XMS_ITS | Encounter Summary ---
Author Organization [facility] Address [address] [place] [address] Care Team Providers Care Otolaryngology Rep Name Role Phone Unavailable Primary Care Provider Unavailabl e Reason for Visit * Appointment Request (Routine) - Closed Specialty Diagnoses / Procedures Referred By Sam t Referred To Contact Nephrology and Hypertension Miguel Dash M.D. [address] [place] [address] Referral ID Status Reason Start Date Expiration Date Visits Re quested Visits Authorized [id number] Closed 10/04/2023 10/03/2024 1 1 Encounter Details Date Type Department Care Team (Latest Contact Info) Description 10/04/2023 9:00 AM CDT External Outreach Division of Nephrology and Hypertension in [place], [place] [address] [place] [address] Stevan Adamson Jr., D.O. [address] [place] [address] Chronic Kidney Disease (CKD), Stage 3b Glomerular [...] Referring Provider: DR Miller, REASON FOR VISIT [facility] Initial consultation and [...] decompensated heart failure required admission to the [facility]. 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 With goal-directed therapy over the years she has been able to regain ejection fraction up to 45-50%. Note her serum creatinine level until 2020 was 1.2 mg/dL, dora to the 1.7 and up to 2 mg/dL in [id number] on the background of requiring ablation for [...] has never had urolithiasis. She relates in [facility] there was a very dramatic event where [...] the right there is both pitting and [place] indurated nonpitting edema of bilateral lower extremities, [...]
--- OUTSIDE RECORDS SUMMARY | 2023-11-23 10:32 | XMS_ITS ---
Author Organization [facility] Address [address] [place] [address] Care Team Providers Care Head Irrigator Name Role Phone Unavailable Unavailable Unavailable Surgery Details Not on file Complications Check Surgery Details section. Procedure Estimated Blood Loss Check Surgery Details section. Procedure Findings Check Surgery Details section. Procedure Specimens Taken Check Surgery Details section.
--- OUTSIDE RECORDS SUMMARY | 2023-11-23 10:32 | XMS_ITS | Clinical Summary ---
Author Organization [facility] [employer] [facility] Address [place], [place] [address] Care Team Providers Care Controls Technician Name Role Phone Nurses, Advanced Heart Failure Unavailable + Maurice Poe MD Unavailable [phone] Lise Cardenas MD Primary Care Prov ider [...] End Date Status loratadine (CLARITIN) 10 mg tabletIndications:Di lated cardiomyopathy (HC) Take 1 tablet by mouth once daily. 90 tablet 3 10/21/2014 Active multivitamin (MVI) tablet Take 1 tablet by mouth once daily. 0 05/25/2015 Active cholecalciferol (VITAMIN D3) 1,000 unit capsule Take 1 capsule by mouth once daily. 0 05/25/2015 Active VITAMIN B COMPLEX (B COMPLEX 1 ORAL) Take by mouth once daily. Active aspirin (ECOTRIN) 81 mg enteric coated tabletIndications:Ch ronic systolic congestive heart failure (HC) Take 1 Tablet (81 mg) by mouth once daily. 0 05/24/2022 Active apixaban (Eliquis) 5 mg tabletIndications:Pa roxysmal atrial fibrillation (HC) Take 1 Tablet (5 mg) by mouth two times daily. 180 Tablet 3 12/07/2022 Active carvediloL (COREG) 25 mg tabletIndications:Pa roxysmal atrial fibrillation (HC) Take 1 Tablet (25 mg) by mouth two times daily. 180 Tablet 3 12/07/2022 Active vitamin e 200 unit capsule Take 1 Capsule by mouth once daily. Active simvastatin (ZOCOR) 10 mg tabletIndications:Ch ronic systolic congestive heart failure (HC) TAKE 1 TABLET BY MOUTH AT BEDTIME 90 Tablet 2 05/17/2023 Active isosorbide dinitrate (ISORDIL) 30 mg tabletIndications:No nischemic cardiomyopathy (HC) Take 1 Tablet (30 mg) by mouth three times daily. 90 Tablet 5 06/29/2023 Active empagliflozin (Jardiance) 10 mg tabletIndications:No nischemic cardiomyopathy (HC) Take 1 Tablet (10 mg) by mouth once daily. 30 Tablet 11 08/24/2023 Active furosemide (LASIX) 40 mg tabletIndications:Di lated cardiomyopathy (HC) TAKE 1 TABLET BY MOUTH IN THE MORNING AND 1 TABLET BY MOUTH AT 1PM 135 Tablet 1 09/22/2023 Active potassium chloride (KLOR-CON M10) 10 mEq extended-release tablet (part/cryst)Indicati ons:Dilated cardiomyopathy (HC) Take 1 Tablet (10 mEq) by mouth once daily with a meal. On hold due for questions 10/24/2023 Active hydrALAZINE (APRESOLINE) 25 mg tabletIndications:Di lated cardiomyopathy (HC) Take 2 Tablets (50 mg) by mouth three times daily. 540 Tablet 3 10/24/2023 Active albuterol HFA (PRO-AIR; VENTOLIN; PROVENTIL) 90 mcg/actuation inhalerIndications:A cute exacerbation of chronic obstructive pulmonary disease (COPD) (HC) Inhale 2 Puffs by mouth 4 times daily if needed for Shortness Of Breath, Wheezing or Shortness of Breath 1st choice. 1 Each 11/20/2023 Active Arnuity Ellipta 100 mcg/actuation inhalerIndications:A cute exacerbation of chronic obstructive pulmonary disease (COPD) (HC) Inhale 1 Puff by mouth once daily. 30 Each 11/20/2023 Active Spiriva Respimat 2.5 mcg/actuation mist for inhalationIndication s:Centrilobular emphysema (HC) Inhale 2 Puffs by mouth once daily. 3 Each 3 11/20/2023 Active fluticasone (50 mcg per actuation) nasal solution (FLONASE)Indications :Allergic rhinitis due to pollen, unspecified seasonality Inhale 1 [place] into affected nostril(s) once daily if needed for Rhinitis. 16 g 11 11/20/2023 Active albuterol HFA (PRO-AIR; VENTOLIN; PROVENTIL) 90 mcg/actuation inhaler Inhale 2 Puffs by mouth 4 times daily if needed. 0 12/31/2020 4 Discontinue d(Reorder (E-cancel not sent)) Arnuity Ellipta 100 mcg/actuation inhaler Inhale 1 Puff by mouth once daily. 02/04/2023 4 Discontinue d(Reorder (E-cancel not sent)) Spiriva Respimat 2.5 mcg/actuation mist for inhalation Inhale 2 Puffs by mouth once daily. 02/04/2023 4 Discontinue d(Reorder (E-cancel not sent)) fluticasone (50 mcg per actuation) nasal solution (FLONASE) Inhale 1 [place] into affected nostril(s) once daily if needed for Rhinitis. 4 Discontinue d(Reorder (E-cancel not sent)) Active Problems Problem Noted Date Diagnosed Date Centrilobular emphysema 11/20/2023 Acute on chronic systolic (congestive) heart daxa lure 11/20/2023 Persistent atrial fibrillation 10/10/2023 Typical atrial flutter [...] Encounters Date Type Department Care Team Description 11/20/2023 11:25 AM CDT Office Visit [facility] [place] [address] [place] [phone] Ileana Anand MD Follow Up (Pulmonary. COPD.) 11/20/2023 Travel 11/03/2023 2:10 PM CDT Orders Only [facility] [address] [facility] [place] [phone] Lab, [facility] 11/03/2023 Telephone [facility] [address] [place] [phone] Maurice Poe MD Follow Up 11/03/2023 Travel 11/03/2023 Orders Only [facility] Scanner 1 scan: (1-Ord) INCOMING RECORDS-[facility], 11/03/2023 10/24/2023 3:30 PM CDT Office Visit [facility] [address] [place] [phone] Maurice Poe MD CV Heart Failure Est (CHF IN PERSON F/U VISIT. LABS DONE PRIOR /DX. Nonischemic cardiomyopathy (HC) [I42.8] //PCP:Lise Cardenas MD/) 10/24/2023 2:30 PM CDT Orders Only [facility] [address] [place] [address] Lab (/) 10/24/2023 Travel 10/20/2023 Refill [facility] [address] [place] [address] Maurice Poe MD Refill Request (Furosemide) 10/13/2023 Telephone [facility] [address] [place] [phone] Vince Carpenter MD Results (Echocardiogram 10/10/23) 10/12/2023 Telephone [facility] [address] [place] [address] Maurcie Poe MD Medication Management 10/10/2023 1:00 PM CDT Ancillary Procedure [facility] [address] [place] [address] 10/10/2023 11:00 AM CDT Office Visit [facility] [address] [place] [address] Vince Carpenter MD CV Electrophysiology Est (Post Ablation (04/05/23)//PCP: Lise Cardenas MD) 10/10/2023 Travel 10/02/2023 10:15 AM CDT Office Visit [facility] [address] [place] [address] Lise Cardenas MD Follow Up (Left ankle wound. Has wound care on 10/05/23) 10/02/2023 Travel 09/27/2023 Telephone [facility] [address] [place] [address] Lise Cardenas MD FYI (Wound clinic appt ) 09/22/2023 3:55 PM CDT Office Visit [facility] [address] [place] [address] Lise Cardenas MD Foot Pain/problem (Urgent care 09/21/23. Left foot pain. Pain is improving ); Establish Care (Looking for a new PCP/) 09/22/2023 Telephone [facility] [address] [place] [phone] Charisma Montaño Appointment 09/21/2023 7:05 PM CDT Ancillary Procedure [facility] [address] [place] [address] 09/21/2023 5:55 PM CDT - 09/21/2023 11:59 PM CDT Hospital Encounter [facility] [address] [place] [address] Charis Weber NP Left ankle swelling; Wound of left lower extremity, initial encounter; Pain and swelling of lower leg, left 09/21/2023 5:00 PM CDT Office Visit [facility] [address] [facility] [place] [address] Charis Weber NP Derm Problem (left ankle) 09/21/2023 Travel 09/21/2023 Nurse Triage [facility] [address] [place] [address] Pcp, No Leg Swelling (Left leg only. ) 08/24/2023 Refill [facility] [address] [facility] [address] [place] [phone] Maurice Poe MD Refill Request (Jardiance) from [...] Sign Reading Time Taken Comments Blood Pressure 116/72 11/20/2023 12:11 PM CDT Pulse 66 11/20/2023 12:11 PM CDT Temperature 36.4 ??C (97.5 ??F) 09/21/2023 5:07 PM CD T Respiratory Rate 16 09/21/2023 5:07 PM CDT Oxygen Saturation 95% 10/24/2023 3:16 PM CDT Inhaled Oxygen Concentration - - Weight 104.7 kg (230 lb 12.8 oz) 2023 12:11 PM CDT Height 172.7 cm (5' 8) 11/20/2023 12:1 1 PM CDT Body Mass Index 35.09 11/20/2023 12:11 PM CDT Plan of Treatment Upcoming Encounters Date Type Department Care Team (Late st Contact Info) Description 01/11/2024 12:30 PM CDT Orders Only [facility] [address] [facility] [address] [place] [phone] 01/11/2024 1:30 PM CDT Office Visit [facility] [address] [place] [phone] Maurice Poe MD [address] [facility] [address] [place] [address] Health Maintenance Due Date Last Done Comments [...] wt on same day) for age 18+ 11/19/2024 11/20/2023, 10/10/2023, 02/15/2023, Additional history exists Tdap Completed 02/07/2012 DEXA/DXA [...] left LIPID PANEL Routine 06/22/2018 7:32 AM NEGATIVE TURNER Dilated cardiomyopathy (HC) XR DXA BONE DENSITY 2 SITES AXIAL Routine 03/27/2015 1:29 PM NEGATIVE TURNER Asymptomatic menopausal state XR MAMMO BILAT SCREEN FFDM (IA) Routine 05/21/2012 11:17 AM NEGATIVE TURNER Other screening mammogram from Last 3 Months or Most Recently Relevant to Health Maintenance Results * (ABNORMAL) BASIC METABOLIC PANEL (11/03/2023 2:08 PM CDT) Only the most recent of4 resultswithin the time period is included. SODIUM 139 136 - 145 mmol/L 11/03/2023 2:38 PM [facility] POTASSIUM 3.8 3.5 - 5.1 mmol/L 11/03/2023 2:38 PM [facility] CHLORIDE 103 98 - 107 mmol/L 11/03/2023 2:38 PM [facility] CO2,TOTAL 29 22 - 29 mmol/L 11/03/2023 2:38 PM [facility] ANION GAP 7 5 - 18 11/03/2023 2:38 PM [facility] GLUCOSE 96 70 - 99 mg/dL 11/03/2023 2:38 PM [facility] CALCIUM 9.0 8.8 - 10.2 mg/dL 11/03/2023 2:38 PM [facility] BUN 27(H) 8 - 23 mg/dL 11/03/2023 2:38 PM [facility] CREATININE 1.38(H) 0.50 - 0.90 mg/dL 11/03/2023 2:38 PM [facility] BUN/CREAT RATIO 20 10 - 20 2:38 PM [facility] eGFR 40(L) >90 mL/min/1.7 3m2 11/03/2023 2:38 PM [facility] Comment:As of 2021, eG FR is calculated by the CKD-EPI creatinine equation without race adjustment. ??eGFR can be influenced by muscle mass, exercise, and diet. ??The reported eGFR is an estimation only and is only applicable if the renal function is stable. Blood BLOOD SPECIMEN / Unknown Venipuncture / Unknown 11/03/2023 2:08 PM CDT 11/03/2023 2:09 PM CDT Maurice Poe MD CHEMISTRY [facility] [address] [place] [address] * SCAN CORRESP-IMAGING (11/03/2023 12:00 AM CDT) Anatomical Region Laterality Modality Other Scanner OTHER * (ABNORMAL) PRO-BNP (10/24/2023 1:55 PM CDT) Only the most recent of2 resultswithin the time period is included. [facility] PRO-BNP 1,563(H) <125 pg/mL 10/24/2023 3:12 PM CDT [facility] Blood BLOOD SPECIMEN / Unknown Venipuncture / Unknown 10/24/2023 1:55 PM CDT 10/24/2023 2:02 PM CDT Narrative [facility] - 10/24/2023 3:12 PM CDT [...] failure. ? Maurice Poe MD SEND OUTS [facility] [address] [place] [address], * MAGNESIUM (10/24/2023 1:55 PM CDT) Only the most recent of2 resultswithin the time period is included. MAGNESIUM 2.4 1.6 - 2.4 mg/dL 10/24/2023 3:11 PM CDT [facility] Blood BLOOD SPECIMEN / Unknown Venipuncture / Unknown 10/24/2023 1:55 PM CDT 10/24/2023 2:02 PM CDT Maurice Poe MD CHEMISTRY Performing Organization Address City/[facility] Co de Phone Number [facility] [address] [place] [address], [place] * ECHO TTE COMPLETE WO CONTRAST (10/10/2023 1:34 PM CDT) AORTIC VALVE MEAN PG 3 mmHg EJECTION FRACTION 36 % PEAK TR VELOCITY 3.2 m/s LVEDD 6.8 cm MITRAL VALVE MR ERO 22 mm2 EJECTION FRACTION 30 - 35% Anatomical Region Laterality Modality Ultrasound 10/10/2023 12:5 2 PM CDT Narrative 10/10/2023 2:01 PM CDT ECHOCARDIOGRAM LEESA OVIEDO ? Accession#: ?? [id number] : ?1950 73 years Study Date: ?? 10/10/2023 12:52:08 PM Gender: F ?BP: ? 126/76 mmHg Height: 172.72 cm ?BSA: ?2.18 m? ? ? Weight: 106.14 kg ?Tech: ? JCP ? Referring MD: VINCE CARPENTER Site: ? [facility] [place] Location: MOBILE - OP Patient Location: [...] . This study was interpreted by an [facility] accredited facility. ??Final ?? Procedure Note Gildardo Mccarthy MD - 10/10/2023 ECHOCARDIOGRAM LEESA OVIEDO : 1950 73 years Study Date: 10/10/2023 12:52:08 PM Gender: F BP: 126/76 mmHg Height: 172.72 cm BSA: 2.18 m? ? ? Weight: 106.14 kg Tech: LOU Referring MD: VINCE CARPENTER Site: [facility] [place] Location: MOBILE - OP Patient Location: [...] . This study was interpreted by an [facility] accredited facility. Final Vince Carpenter MD ECHO ORD * EKG 12 LEAD (10/10/2023 9:46 AM CDT) Interpretation Sinus bradycardia with 1st degree A-V block Left axis deviation Poor ??R wave Transition Abnormal ECG Ventricular Rate 59 BPM Atrial Rate 59 BPM P-R Interval 226 ms QRS Duration 106 ms QT 458 ms QTc 453 ms P [place] 46 degrees R [place] -41 degrees T [place] -68 degrees 10/10/2023 9:46 AM CDT 10/10/2023 8:04 PM CDT Vince Carpenter MD EKG ORD * (ABNORMAL) AEROBIC BACTERIAL CULTURE, STAIN (09/21/2023 7:40 PM CDT) CULTURE RESULT(A) 09/25/2023 9:51 AM CDT [facility] CULTURE 4+ Staphylococcus aureus 09/25/2023 9:51 AM CDT [facility] GRAM STAIN No PMNs 09/25/2023 9:51 AM CDT [facility] GRAM STAIN No RBCs 09/25/2023 9:51 AM CDT [facility] GRAM STAIN No Epithelial cells 09/25/2023 9:51 AM CDT [facility] GRAM STAIN 3+ Gram Positive Cocci 09/25/2023 9:51 AM CDT [facility] Other (Other) Non-Blood / Unknown 09/21/2023 7:40 PM CDT 09/21/2023 7:57 PM CDT Narrative Organism Antibiotic Method Susceptibility Staphylococcus aureus OXACILLIN <=0.25: S Comment:Oxacillin mike sceptible should not be interpreted as penicillin or amoxicillin susceptible. Staphylococcus aureus CLINDAMYCIN <=0.12: S Staphylococcus aureus DOXYCYCLINE <=0.5: S Staphylococcus aureus CEFAZOLIN S Staphylococcus aureus TRIMETHOPRIM/SULF <=0.5/9.5: S Charis Weber FISH NET MAKER [facility]CROBIOLOGY [facility] [address] [place] [address], * XR ANKLE 3 VIEWS LEFT (09/21/2023 7:11 PM CDT) Anatomical Region Laterality Modality ANKLES, ANKLE L Computed Radiogr aphy 09/21/2023 7:30 PM CDT Narrative 09/21/2023 7:30 PM CDT For Patients: ??As a result of the 21st Century Cures Act, medical imaging exams and [...] 09/21/2023 7:30:49 PM (Electronically Signed) Charislucius Weber [employer] GENERAL IMAGING * (ABNORMAL) CBC WITH AUTO DIFFERENTIAL (09/21/2023 7:05 PM CDT) WHITE BLOOD COUNT 5.1 4.5 - 11.0 thou/cu mm 09/21/2023 7:12 PM [facility] RED BLOOD COUNT 3.76(L) 4.00 - 5.20 mil/cu mm 09/21/2023 7:12 PM [facility] HEMOGLOBIN 11.7(L) 12.0 - 16.0 g/dL 09/21/2023 7:12 PM [facility] HEMATOCRIT 36.0 33.0 - 51.0 % 09/21/2023 7:12 PM [facility] MCV 96 80 - 100 fL 09/21/2023 7:12 PM T [facility] MCH 31.1 26.0 - 34.0 pg 09/21/2023 7:12 PM [facility] MCHC 32.5 32.0 - 36.0 g/dL 09/21/2023 7:12 PM [facility] RDW 12.7 11.5 - 15.5 % 09/21/2023 7:12 PM [facility] PLATELET COUNT 192 140 - 440 thou/cu mm 09/21/2023 7:12 PM [facility] MPV 10.0 6.5 - 11.0 fL 09/21/2023 7:12 PM [facility] % NEUT 64.6 % 09/21/2023 7:12 PM [facility] % LYMPH 21.1 % 09/21/2023 7:12 PM [facility] % MONO 9.9 % 09/21/2023 7:12 PM [facility] % EOS 2.6 % 09/21/2023 7:12 PM [facility] % BASO 1.8 % 09/21/2023 7:12 PM [facility] ABSOLUTE NEUTROPHILS 3.3 1.7 - 7.0 thou/cu mm 09/21/2023 7:12 PM [facility] ABSOLUTE LYMPHOCYTES 1.1 0.9 - 2.9 thou/cu mm 09/21/2023 7:12 PM [facility] ABSOLUTE MONOCYTES 0.5 <0.9 thou/cu mm 09/21/2023 7:12 PM [facility] ABSOLUTE EOSINOPHILS 0.1 <0.5 thou/cu mm 09/21/2023 7:12 PM [facility] ABSOLUTE BASOPHILS 0.1 <0.3 thou/cu mm 09/21/2023 7:12 PM [facility] Blood BLOOD SPECIMEN / Unknown Venipuncture / Unknown 09/21/2023 7:05 PM CDT 09/21/2023 7:05 PM CDT Charis Weber NP HEMATOLOGY [facility] [address] [place] [address] * (ABNORMAL) URIC ACID (09/21/2023 7:05 PM CDT) URIC ACID 8.6(H) 2.4 - 5.7 mg/dL 09/21/2023 7:28 PM CDT [facility] Blood BLOOD SPECIMEN / Unknown Venipuncture / Unknown 09/21/2023 7:05 PM CDT 09/21/2023 7:05 PM CDT Charis E Osvaldolong FISH [employer] MA[employer]ER CHEMISTRY [facility] [address] [place] [address] * US VENOUS LOWER EXTREMITY LEFT (09/21/2023 [...] US * LIPID PANEL (06/22/2018 7:32 AM NEGATIVE TURNER) CHOLESTEROL,TOTAL 177 100 - 199 mg/dL 06/22/2018 8:19 AM [facility] TRIGLYCERIDES 118 <150 mg/dL 06/22/2018 8:19 AM [facility] HDL CHOLESTEROL 54 >40 mg/dL 9 8:19 AM [facility] NON-HDL CHOLESTEROL 123 <145 mg/dl 06/22/2018 8:19 AM [facility] CHOL/HDL RATIO 3.28 <4.50 06/22/2018 8:19 AM [facility] LDL CHOLESTEROL 99 <=130 mg/dL 06/22/2018 8:19 AM [facility] PROVIDER ORDERED STATUS FASTING 06/22/2018 8:19 AM [facility] Blood BLOOD SPECIMEN / Unknown Venipuncture / Unknown 06/22/2018 7:32 AM NEGATIVE TURNER 06/22/2018 7:53 AM NEGATIVE TURNER Maurice Poe MD CHEMISTRY [facility] [address] [place] [address], * (ABNORMAL) XR DXA BONE DENSITY 2 SITES (03/27/2015 1:29 PM NEGATIVE TURNER) Anatomical Region Laterality Modality Spine, HIPS, HIPL, HIPR Other Narrative 04/03/2015 8:04 AM NEGATIVE TURNER Please see scanned document for results of this study. Raza Killian MD DEXA * XR MAMMO BILAT SCREEN FFDM (05/21/2012 11:17 AM NEGATIVE TURNER) Anatomical Region Laterality Modality BREASTS, Breast Left, Breast Right Bilateral Mammography Addenda Addendum by Raphael Flaherty DO on 07/31/2012 3:10 PM CDT ??ADDENDUM ? ADDENDUM ? ADDENDUM Many attempts have been made to contact the patient regarding additional imaging that is needed following her screening mammogram. ??The patient has failed to return for our recommended follow-up. ?? Impressions 05/21/2012 3:54 PM NEGATIVE TURNER ??ACR 0 Incomplete: Need Additional Imaging Evaluation and/or Prior Mammograms for Comparison RECOMMENDATION: ??Ultrasound of the RIGHT breast. Narrative 05/21/2012 3:54 PM NEGATIVE TURNER BILATERAL FULL-FIELD DIGITAL SCREENING MAMMOGRAM WITH CAD [...] Code Status Discussion: Reviewed Preferences Care Teams Controls Technician Relationship Specialty Start Date End Date Lise Cardenas MD [address] [place] [phone] PCP - General Family Practice 09/22/23 Nurses, Advanced Heart Failure [address] [place] [address] Heart Failure Care Coordination 08/25/15 Maurice Poe MD [address] [place] [address] Advanced Heart Failure/Transplant Card 01/14/22
== END 2023-11-23 10:31 | disposition home or self-care (01) ==
LOC: WOUND 10:30
PROVIDERS: PCP Student in an Organized Health Care Education/Training Program; Visit Provider Nurse Practitioner Family
DX: I87.2 Venous insufficiency (chronic) (peripheral) (principal); I89.0 Lymphedema, not elsewhere classified; L97.322 Non-pressure chronic ulcer of left ankle with fat layer exposed
CPT/HCPCS: 97597

== ENCOUNTER 2023-11-30 10:30 | Outpatient (CLI) | payer OTHER, SELFPAY ==
--- OUTSIDE RECORDS SUMMARY | 2023-11-30 10:33 | XMS_ITS | Clinical Summary ---
Author Organization [facility] Address [address] [place] [address] Care Team Providers Care Land Developer Name Role Phone Unavailable Primary Care Provider Unavailabl e Source Comments Patient records contain information from all sites at [facility]. For routine questions regarding patient records, call [phone] during business hours, M-F 8:00 AM - 5:00 PM Central Time. Record requests for emergency care only can be directed to [phone] at any time.[facility] Medications Medication Sig Dispensed Refills Start Date [...] Outreach Division of Nephrology and Hypertension in [place], [place] [address] [place] [address] Stevan Adamson Jr., D.O. Chronic Kidney Disease [...]
--- OUTSIDE RECORDS SUMMARY | 2023-11-30 10:33 | XMS_ITS | Encounter Summary ---
Author Organization [facility] Address [address] [place] [address] Care Team Providers Care Lobsterman Name Role Phone Unavailable Primary Care Provider Unavailabl e Reason for Visit * Appointment Request (Routine) - Closed Specialty Diagnoses / Procedures Referred By Sam t Referred To Contact Nephrology and Hypertension Miguel Dash M.D. [address] [place] [address] Referral ID Status Reason Start Date Expiration Date Visits Re quested Visits Authorized [id number] Closed 10/04/2023 10/03/2024 1 1 Encounter Details Date Type Department Care Team (Latest Contact Info) Description 10/04/2023 9:00 AM CDT External Outreach Division of Nephrology and Hypertension in [place], [place] [address] [place] [address] Stevan Adamson Jr., D.O. [address] [place] [address] Chronic Kidney Disease (CKD), Stage 3b Glomerular [...] Referring Provider: DR Miller, REASON FOR VISIT [place] out reach CKD [facility] Initial consultation and [...] decompensated heart failure required admission to the [facility]. 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 With goal-directed therapy over the years she has been able to regain ejection fraction up to 45-50%. Note her serum creatinine level until 2020 was 1.2 mg/dL, dora to the 1.7 and up to 2 mg/dL in [id number] on the background of requiring ablation for [...] has never had urolithiasis. She relates in [facility] there was a very dramatic event where [...] the right there is both pitting and Tracy indurated nonpitting edema of bilateral lower extremities, [...]
--- OUTSIDE RECORDS SUMMARY | 2023-11-30 10:33 | XMS_ITS | Referral Summary ---
Author Organization [facility] Address [address] [place] [address] Care Team Providers Care Project Superintendent Name Role Phone Unavailable Primary Care Provider Unavailabl e Source Comments Patient records contain information from all sites at [facility]. For routine questions regarding patient records, call [phone] during business hours, M-F 8:00 AM - 5:00 PM Central Time. Record requests for emergency care only can be directed to [phone] at any time.[facility] Encounters Date Type Department Care Team Description 10/04/2023 9:00 AM CDT External Outreach Division of Nephrology and Hypertension in [place], [place] [address] [place] [address] Stevan Adamson Jr., D.O. Chronic Kidney Disease [...]
--- OUTSIDE RECORDS SUMMARY | 2023-11-30 10:33 | XMS_ITS ---
Author Organization [facility] Address [address] [place] [address] Care Team Providers Care Tin Can Laborer Name Role Phone Unavailable Unavailable Unavailable Surgery Details Not on file Complications Check Surgery Details section. Procedure Estimated Blood Loss Check Surgery Details section. Procedure Findings Check Surgery Details section. Procedure Specimens Taken Check Surgery Details section.
--- OUTSIDE RECORDS SUMMARY | 2023-11-30 10:33 | XMS_ITS | Clinical Summary ---
Author Organization [facility] Address [place], [place] [address] Care Team Providers Care Side Hemmer Name Role Phone Nurses, Advanced Heart Failure Unavailable + Maurice Poe MD Unavailable [phone] Lise Cardenas MD Primary Care Prov ider [...] End Date Status loratadine (CLARITIN) 10 mg tabletIndications: Dilated cardiomyopathy (HC) Take 1 tablet by mouth once daily. 90 tablet 3 5 Active multivitamin (MVI) tablet Take 1 tablet by mouth once daily. 0 6 Active cholecalciferol (VITAMIN D3) 1,000 unit capsule Take 1 capsule by mouth once daily. 0 6 Active VITAMIN B COMPLEX (B COMPLEX 1 ORAL) Take by mouth once daily. Active aspirin (ECOTRIN) 81 mg enteric coated tabletIndications: Chronic systolic congestive heart failure (HC) Take 1 Tablet (81 mg) by mouth once daily. 0 3 Active vitamin e 200 unit capsule Take 1 Capsule by mouth once daily. Active simvastatin (ZOCOR) 10 mg tabletIndications: Chronic systolic congestive heart failure (HC) TAKE 1 TABLET BY MOUTH AT BEDTIME 90 Tablet 2 4 Active isosorbide dinitrate (ISORDIL) 30 mg tabletIndications: Nonischemic cardiomyopathy (HC) Take 1 Tablet (30 mg) by mouth three times daily. 90 Tablet 5 4 Active empagliflozin (Jardiance) 10 mg tabletIndications: Nonischemic cardiomyopathy (HC) Take 1 Tablet (10 mg) by mouth once daily. 30 Tablet 11 4 Active furosemide (LASIX) 40 mg tabletIndications: Dilated cardiomyopathy (HC) TAKE 1 TABLET BY MOUTH IN THE MORNING AND 1 TABLET BY MOUTH AT 1PM 135 Tablet 1 4 Active potassium chloride (KLOR-CON M10) 10 mEq extended-release tablet (part/cryst)Indica tions:Dilated cardiomyopathy (HC) Take 1 Tablet (10 mEq) by mouth once daily with a meal. On hold due for questions 4 Active hydrALAZINE (APRESOLINE) 25 mg tabletIndications: Dilated cardiomyopathy (HC) Take 2 Tablets (50 mg) by mouth three times daily. 540 Tablet 3 4 Active albuterol HFA (PRO-AIR; VENTOLIN; PROVENTIL) 90 mcg/actuation inhalerIndications :Acute exacerbation of chronic obstructive pulmonary disease (COPD) (HC) Inhale 2 Puffs by mouth 4 times daily if needed for Shortness Of Breath, Wheezing or Shortness of Breath 1st choice. 1 Each 4 Active Arnuity Ellipta 100 mcg/actuation inhalerIndications :Acute exacerbation of chronic obstructive pulmonary disease (COPD) (HC) Inhale 1 Puff by mouth once daily. 30 Each 4 Active Spiriva Respimat 2.5 mcg/actuation mist for inhalationIndicati ons:Centrilobular emphysema (HC) Inhale 2 Puffs by mouth once daily. 3 Each 4 Active fluticasone (50 mcg per actuation) nasal solution (FLONASE)Indicatio ns:Allergic rhinitis due to pollen, unspecified seasonality Inhale 1 [place] into affected nostril(s) once daily if needed for Rhinitis. 16 g 11 4 Active apixaban (Eliquis) 5 mg tabletIndications: Paroxysmal atrial fibrillation (HC) Take 1 tablet by mouth twice daily 180 Tablet 3 4 Active carvediloL (COREG) 25 mg tabletIndications: Paroxysmal atrial fibrillation (HC) Take 1 tablet by mouth twice daily 180 Tablet 3 4 Active albuterol HFA (PRO-AIR; VENTOLIN; PROVENTIL) 90 mcg/actuation inhaler Inhale 2 Puffs by mouth 4 times daily if needed. 0 1 11/20/19 24 Discontinued(Reo rder (E-cancel not sent)) apixaban (Eliquis) 5 mg tabletIndications: Paroxysmal atrial fibrillation (HC) Take 1 Tablet (5 mg) by mouth two times daily. 180 Tablet 3 3 11/24/19 24 Discontinued carvediloL (COREG) 25 mg tabletIndications: Paroxysmal atrial fibrillation (HC) Take 1 Tablet (25 mg) by mouth two times daily. 180 Tablet 3 3 11/24/19 24 Discontinued Arnuity Ellipta 100 mcg/actuation inhaler Inhale 1 Puff by mouth once daily. 3 11/20/19 24 Discontinued(Reo rder (E-cancel not sent)) Spiriva Respimat 2.5 mcg/actuation mist for inhalation Inhale 2 Puffs by mouth once daily. 3 11/20/19 24 Discontinued(Reo rder (E-cancel not sent)) fluticasone (50 mcg per actuation) nasal solution (FLONASE) Inhale 1 [place] into affected nostril(s) once daily if needed for Rhinitis. 11/20/19 24 Discontinued(Reo rder (E-cancel not sent)) Active Problems Problem Noted [...] Encounters Date Type Department Care Team Description 11/24/[address] [facility] [address] [place] [address] Maurice Poe MD Refill Request (Eliquis, Carvedilol) 11/20/2023 11:25 AM CDT Office Visit [facility] [place] [address] [facility] [address] [place] [phone] Ileana Anand MD Follow Up (Pulmonary. COPD.) 11/20/2023 Travel 11/03/2023 2:10 [address]T Orders Only [facility] [address] [facility] [place] [address] Lab, [facility] Lab 11/03/2023 Telephone [facility] [address] [facility] [address] [place] [address] Maurice Poe MD Follow Up 11/03/2023 Travel 11/03/2023 Orders Only [facility] Scanner 1 scan: (1-Ord) INCOMING RECORDS-[facility], 11/03/2023 10/24/2023 3:30 PM CDT Office Visit [facility] [address] [place] [address] Maurice Poe MD CV Heart Failure Est (CHF IN PERSON F/U VISIT. LABS DONE PRIOR /DX. Nonischemic cardiomyopathy (HC) [I42.8] //PCP:Lise Cardenas MD/) 10/24/2023 2:30 PM CDT Orders Only [facility] [address] [place] [address] Lab (/) 10/24/2023 Travel 10/20/[address] [facility] [address] [place] [address] Maurice Poe MD Refill Request (Furosemide) 10/13/[address] [facility] [address] [place] [address] Vince Carpenter MD Results (Echocardiogram 10/10/23) 10/12/[address] [facility] [address] [place] [address] Maurice Poe MD Medication Management 10/10/2023 1:00 PM CDT Ancillary Procedure [facility] [address] [place] [address] 10/10/2023 11:00 AM CDT Office Visit [facility] [address] [place] [address] Vince Carpenter MD CV Electrophysiology Est (Post Ablation (04/05/23)//PCP: Lise Cardenas MD) 10/10/2023 Travel 10/02/2023 10:15 AM CDT Office Visit [facility] [address] [place] [address] Lise Cardenas MD Follow Up (Left ankle wound. Has wound care on 10/05/23) 10/02/2023 Travel 09/27/2023 Telephone [facility] [address] [place] [address] Lise Cardenas MD FYI (Wound clinic appt ) 09/22/2023 3:55 PM CDT Office Visit [facility] [address] [place] [address] Lise Cardenas MD Foot Pain/problem (Urgent care 09/21/23. Left foot pain. Pain is improving ); Establish Care (Looking for a new PCP/) 09/22/2023 Telephone [facility] Orthoped[facility] - [place] [address] [place] [address] Charisma Montaño Appointment 09/21/2023 7:05 PM CDT Ancillary Procedure [facility] [address] [place] [address] 09/21/2023 5:55 PM CDT - 09/21/2023 11:59 PM CDT Hospital Encounter [facility] [address] [place] [address] Charis Weber NP Left ankle swelling; Wound of left lower extremity, initial encounter; Pain and swelling of lower leg, left 09/21/2023 5:00 PM CDT Office Visit [facility] [address] [place] [address] Charis Weber NP Derm Problem (left ankle) 09/21/2023 Travel 09/21/2023 Nurse Triage [facility] [address] [place] [address] Pcp, No Leg Swelling (Left leg only. ) from Last 3 Months Immunizations Name Administration [...] Description 01/11/2024 12:30 PM CDT Orders Only [facility] [address] [facility] [address] [place] [address] 01/11/2024 1:30 PM CDT Office Visit [facility] [address] [place] [address] Maurice Poe MD [address] [facility] [address] [place] [address] (work) Health Maintenance Due Date Last Done Comments [...] left LIPID PANEL Routine 06/22/2018 7:32 AM HELICOPTER CREW CHIEF Dilated cardiomyopathy (HC) XR DXA BONE DENSITY 2 SITES AXIAL Routine 03/27/2015 1:29 PM HELICOPTER CREW CHIEF Asymptomatic menopausal state XR MAMMO BILAT SCREEN FFDM (IA) Routine 05/21/2012 11:17 AM HELICOPTER CRE[employer] CHIEF Other screening mammogram from Last 3 Months or Most Recently Relevant to Health Maintenance Results * (ABNORMAL) BASIC METABOLIC PANEL (11/03/2023 2:08 PM CDT) Only the most recent of4 resultswithin the time period is included. SODIUM 139 136 - 145 mmol/L 11/03/2023 2:38 PM [facility] POTASSIUM 3.8 3.5 - 5.1 mmol/L 11/03/2023 2:38 PM [facility] CHLORIDE 103 98 - 107 mmol/L 11/03/2023 2:38 PM [facility] CO2,TOTAL 29 22 - 29 mmol/L 11/03/2023 2:38 PM [facility] ANION GAP 7 5 - 18 11/03/2023 2:38 PM [facility] GLUCOSE 96 70 - 99 mg/dL 11/03/2023 2:38 PM [facility] CALCIUM 9.0 8.8 - 10.2 mg/dL 11/03/2023 2:38 PM [facility] BUN 27(H) 8 - 23 mg/dL 11/03/2023 2:38 PM [facility] CREATININE 1.38(H) 0.50 - 0.90 mg/dL 11/03/2023 2:38 PM [facility] BUN/CREAT RATIO 20 10 - 20 2:38 PM [facility] eGFR 40(L) >90 mL/min/1.7 3m2 11/03/2023 2:38 PM [facility] Comment:As of 2021, eG FR [...] 2:09 PM CDT Maurice Poe MD CHEMISTRY [facility] [address] [place], [place] [phone] * SCAN CORRESP-IMAGING (11/03/2023 12:00 AM CDT) Anatomical Region Laterality Modality Other Scanner OTHER * (ABNORMAL) PRO-BNP (10/24/2023 1:55 PM CDT) Only the most recent of2 resultswithin the time period is included. Pathologist [facility] PRO-BNP 1,563(H) <125 pg/mL 10/24/2023 3:12 PM CDT [facility] Blood BLOOD SPECIMEN / Unknown Venipuncture / Unknown 10/24/2023 1:55 PM CDT 10/24/2023 2:02 PM CDT Narrative [facility] - 10/24/2023 3:12 PM CDT [...] Poe MD SEND OUTS Performing Organization Address [facility] Co de Phone Number [facility] [address] [phone], * MAGNESIUM (10/24/2023 1:55 PM CDT) Only the most recent of2 resultswithin the time period is included. Pathologist [facility] MAGNESIUM 2.4 1.6 - 2.4 mg/dL 10/24/2023 3:11 PM CDT [facility] Blood BLOOD SPECIMEN / Unknown Venipuncture / Unknown 10/24/2023 1:55 PM CDT 10/24/2023 2:02 PM CDT Maurice Poe MD CHEMISTRY Performing Organization Address [facility] Co de Phone Number [facility] [address] [address], * ECHO TTE COMPLETE WO CONTRAST (10/10/2023 1:34 PM CDT) AORTIC VALVE MEAN PG 3 mmHg EJECTION FRACTION 36 % PEAK TR VELOCITY 3.2 m/s LVEDD 6.8 cm MITRAL VALVE MR ERO 22 mm2 EJECTION FRACTION 30 - 35% Anatomical Region Laterality Modality Ultrasound 10/10/2023 12:5 2 PM CDT Narrative 10/10/2023 2:01 PM CDT ECHOCARDIOGRAM LEESA MOODY ? Accession#: ?? [id number] : ?1950 73 years Study Date: ?? 10/10/2023 12:52:08 PM Gender: F ?BP: ? 126/76 mmHg Height: 172.72 cm ?BSA: ?2.18 m? ? ? Weight: 106.14 kg ?Tech: ? JCP ? Referring MD: VINCE CARPENTER Site: ? [facility] Reading Location: MOBILE - OP Patient [...] Tech: JCP Referring MD: VINCE CARPENTER Site: [facility] Reading Location: MOBILE - OP Patient [...] QT 458 ms QTc 453 ms P [place] 46 degrees R [place] -41 degrees T [place] -68 degrees 10/10/2023 9:46 AM CDT 10/10/2023 8:04 PM CDT Vince Carpenter MD EKG ORD * (ABNORMAL) AEROBIC BACTERIAL CULTURE, STAIN (09/21/2023 7:40 PM CDT) CULTURE RESULT(A) 09/25/2023 9:51 AM CDT [facility] CULTURE 4+ Staphylococcus aureus 09/25/2023 9:51 AM CDT [facility] GRAM STAIN No PMNs 09/25/2023 9:51 AM CDT [facility] GRAM STAIN No RBCs 09/25/2023 9:51 AM CDT [facility] GRAM STAIN No Epithelial cells 09/25/2023 9:51 AM CDT [facility] GRAM STAIN 3+ Gram Positive Cocci 09/25/2023 9:51 AM CDT [facility] Other (Other) Non-Blood / Unknown 09/21/2023 7:40 PM CDT 09/21/2023 7:57 PM CDT Narrative Organism Antibiotic Method Susceptibility Staphylococcus aureus OXACILLIN <=0.25: S Comment:Oxacillin mike sceptible should not be interpreted as penicillin or amoxicillin susceptible. Staphylococcus aureus CLINDAMYCIN <=0.12: S Staphylococcus aureus DOXYCYCLINE <=0.5: S Staphylococcus aureus CEFAZOLIN S Staphylococcus aureus TRIMETHOPRIM/SULF <=0.5/9.5: S Cahris Weber NP MICROBIOLOGY [facility] [address] [place] [address], * XR ANKLE 3 VIEWS LEFT (09/21/2023 [...] 09/21/2023 7:30:49 PM (Electronically Signed) Charis Weber AVIATION MAINTENANCE INSTRUCTOR GENERAL IMAGING * (ABNORMAL) CBC WITH AUTO DIFFERENTIAL (09/21/2023 7:05 PM CDT) WHITE BLOOD COUNT 5.1 4.5 - 11.0 thou/cu mm 09/21/2023 7:12 PM [facility] RED BLOOD COUNT 3.76(L) 4.00 - 5.20 mil/cu mm 09/21/2023 7:12 PM T [facility] HEMOGLOBIN 11.7(L) 12.0 - 16.0 g/dL 09/21/2023 7:12 PM T [facility] HEMATOCRIT 36.0 33.0 - 51.0 % 09/21/2023 7:12 PM [facility] MCV 96 80 - 100 fL 09/21/2023 7:12 PM [facility] MCH 31.1 26.0 - 34.0 pg 09/21/2023 7:12 PM [facility] MCHC 32.5 32.0 - 36.0 g/dL 09/21/2023 7:12 PM [facility] RDW 12.7 11.5 - 15.5 % 09/21/2023 7:12 PM [facility] PLATELET COUNT 192 140 - 440 thou/cu mm 09/21/2023 7:12 PM [facility] MPV 10.0 6.5 - 11.0 fL 09/21/2023 7:12 PM [facility] % NEUT 64.6 % 09/21/2023 7:12 PM [facility] % LYMPH 21.1 % 09/21/2023 7:12 PM [facility] % MONO 9.9 % 09/21/2023 7:12 PM [facility] % EOS 2.6 % 09/21/2023 7:12 PM [facility] % BASO 1.8 % 09/21/2023 7:12 PM [facility] ABSOLUTE NEUTROPHILS 3.3 1.7 - 7.0 thou/cu mm 09/21/2023 7:12 PM [facility] ABSOLUTE LYMPHOCYTES 1.1 0.9 - 2.9 thou/cu mm 09/21/2023 7:12 PM [facility] ABSOLUTE MONOCYTES 0.5 <0.9 thou/cu mm 09/21/2023 7:12 PM [facility] ABSOLUTE EOSINOPHILS 0.1 <0.5 thou/cu mm 09/21/2023 7:12 PM [facility] ABSOLUTE BASOPHILS 0.1 <0.3 thou/cu mm 09/21/2023 7:12 PM [facility] Blood BLOOD SPECIMEN / Unknown Venipuncture / Unknown 09/21/2023 7:05 PM CDT 09/21/2023 7:05 PM T Charis E Furlong AVIATION MAINTENANCE INSTRUCTOR HEMATOLOGY [facility] [address] [place] [address] * (ABNORMAL) URIC ACID (09/21/2023 7:05 PM CDT) URIC ACID 8.6(H) 2.4 - 5.7 mg/dL 09/21/2023 7:28 PM CDT [facility] Blood BLOOD SPECIMEN / Unknown Venipuncture / Unknown 09/21/2023 7:05 PM CDT 09/21/2023 7:05 PM CDT Charis E Gus AVIATION MAINTENANCE INSTRUCTOR CHEMISTRY Performing Organization Address [facility] Co de Phone Number [facility] [address] [place] [address] * US VENOUS LOWER EXTREMITY LEFT (09/21/2023 [...] US * LIPID PANEL (06/22/2018 7:32 AM HELIC[employer]TER CREW CHIEF) CHOLESTEROL,TOTAL 177 100 - 199 mg/dL 06/22/2018 8:19 AM [facility] [facility] TRIGLYCERIDES 118 <150 mg/dL 06/22/2018 8:19 AM HELIC[employer]TER CREW CHIEF [facility] [employer] [facility] HDL CHOLESTEROL 54 >40 mg/dL 9 8:19 AM HELICOPTER CREW CHIEF [facility] NON-HDL CHOLESTEROL 123 <145 mg/dl 06/22/2018 8:19 AM HELICOPTER CREW CHIEF [facility] CHOL/HDL RATIO 3.28 <4.50 06/22/2018 8:19 AM HELICOPTER CREW CHIEF [facility] LDL CHOLESTEROL 99 <=130 mg/dL 06/22/2018 8:19 AM HELICOPTER CREW CHIEF [facility] PROVIDER ORDERED STATUS FASTING 06/22/2018 8:19 AM HELICOPTER CREW CHIEF [facility] [employer] [facility] Blood BLOOD SPECIMEN / Unknown Venipuncture / Unknown 06/22/2018 7:32 AM HELICOPTER CREW CHIEF 06/22/2018 7:53 AM HELICOPTER CREW CHIEF Maurice Poe MD CHEMISTRY [facility] [address] [place] [address], * (ABNORMAL) XR DXA BONE DENSITY 2 SITES (03/27/2015 1:29 PM HELIC[employer]TER CREW CHIEF) Anatomical Region Laterality Modality Spine, HIPS, HIPL, HIPR Other Narrative 04/03/2015 8:04 AM HELICOPTER CREW CHIEF Please see scanned document for results of this study. Raza Killian MD DEXA * XR MAMMO BILAT SCREEN FFDM (05/21/2012 11:17 AM HELICOPTER CREW CHIEF) Anatomical Region Laterality Modality BREASTS, Breast Left, Breast Right Bilateral Mammography Addenda Addendum by Raphael Flaherty DO on 07/31/2012 3:10 PM CDT ??ADDENDUM ? ADDENDUM ? ADDENDUM Many attempts have been made to contact the patient regarding additional imaging that is needed following her screening mammogram. ??The patient has failed to return for our recommended follow-up. ?? Impressions 05/21/2012 3:54 PM HELIC[employer]TER CREW CHIEF ??ACR 0 Incomplete: Need Additional Imaging Evaluation and/or Prior Mammograms for Comparison RECOMMENDATION: ??Ultrasound of the RIGHT breast. Narrative 05/21/2012 3:54 PM HELICOPTER CREW CHIEF BILATERAL FULL-FIELD DIGITAL SCREENING MAMMOGRAM WITH CAD [...] Code Status Discussion: Reviewed Preferences Care Teams Side Hemmer Relationship Specialty Start Date End Date Lise Cardenas MD [address] [place] [id number] PCP - General Family Practice 09/22/23 Nurses, Advanced Heart Failure [address] [place] [address] Heart Failure Care Coordination 08/25/15 Maurice Poe MD [address] [place] [address] [address] [place] [address] Advanced Heart Failure/Transplant Card 01/14/22
== END 2023-11-30 10:31 | disposition home or self-care (01) ==
PROVIDERS: PCP Student in an Organized Health Care Education/Training Program; Visit Provider Nurse Practitioner Family
DX: I87.2 Venous insufficiency (chronic) (peripheral) (principal); I89.0 Lymphedema, not elsewhere classified; L97.322 Non-pressure chronic ulcer of left ankle with fat layer exposed
CPT/HCPCS: 97597

== ENCOUNTER 2023-12-07 10:29 | Outpatient (CLI) | payer OTHER, SELFPAY ==
--- OUTSIDE RECORDS SUMMARY | 2023-12-07 10:31 | XMS_ITS | Clinical Summary ---
Author Organization [facility] Address [address] [place] [address] Care Team Providers Care Information Assoc Name Role Phone Unavailable Primary Care Provider Unavailabl e Source Comments Patient records contain information from all sites at [facility]. For routine questions regarding patient records, call [phone] during business hours, M-F 8:00 AM - 5:00 PM Central Time. Record requests for emergency care only can be directed to [phone] at any time.[facility] Medications Medication Sig Dispensed Refills Start [...] Outreach Division of Nephrology and Hypertension in [place], [place] [address] [place] [address] Stevan [place] Jr., D.O. Chronic Kidney Disease [...]
--- OUTSIDE RECORDS SUMMARY | 2023-12-07 10:31 | XMS_ITS | Referral Summary ---
Author Organization [facility] Address [address] [place] [address] Care Team Providers Care Rn Hospice Name Role Phone Unavailable Primary Care Provider Unavailabl e Source Comments Patient records contain information from all sites at [facility]. For routine questions regarding patient records, call [phone] during business hours, M-F 8:00 AM - 5:00 PM Central Time. Record requests for emergency care only can be directed to [phone] at any time.[facility] Encounters Date Type Department Care Team Description 10/04/2023 9:00 AM CDT External Outreach Division of Nephrology and Hypertension in [place], [place] [address] [place] [address] Stevan [place] Jr., D.O. Chronic Kidney Disease [...]
--- OUTSIDE RECORDS SUMMARY | 2023-12-07 10:31 | XMS_ITS | Encounter Summary ---
Author Organization [facility] Address [address] [place] [address] Care Team Providers Care Cardiology Consultants Name Role Phone Unavailable Primary Care Provider Unavailabl e Reason for Visit * Appointment Request (Routine) - Closed Specialty Diagnoses / Procedures Referred By Sam t Referred To Contact Nephrology and Hypertension Miguel Dash M.D. [address] [place] [address] Referral ID Status Reason Start Date Expiration Date Visits Re quested Visits Authorized [id number] Closed 10/04/2023 10/03/2024 1 1 Encounter Details Date Type Department Care Team (Latest Contact Info) Description 10/04/2023 9:00 AM CDT External Outreach Division of Nephrology and Hypertension in [place], [place] [address] [place] [address] Stevan [place] Jr., D.O. [address] [place] [address] Chronic Kidney Disease (CKD), Stage 3b Glomerular [...] Referring Provider: DR Miller, REASON FOR VISIT [place] out reach [facility] Initial consultation and [...] decompensated heart failure required admission to the [facility]. 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 With goal-directed therapy over the years she has been able to regain ejection fraction up to 45-50%. Note her serum creatinine level until 2020 was 1.2 mg/dL, dora to the 1.7 and up to 2 mg/dL in [id number] on the background of requiring ablation for [...] has never had urolithiasis. [facility] [...] the right there is both pitting and [place] indurated nonpitting edema of bilateral lower extremities, [...]
--- OUTSIDE RECORDS SUMMARY | 2023-12-07 10:31 | XMS_ITS | Clinical Summary ---
Author Organization [facility] Address [place], [place] [address] Care Team Providers Care Barge Captain Name Role Phone Nurses, Advanced Heart Failure [...] due to pollen, unspecified seasonality Inhale 1 [place] into affected nostril(s) once daily if needed [...] per actuation) nasal solution (FLONASE) Inhale 1 [place] into affected nostril(s) once daily if needed [...] Type Department Care Team Description 11/24/2023 Refill [facility] [address] [place] [address] Maurice Poe MD Refill Request (Eliquis, Carvedilol) 11/20/2023 11:25 AM CDT Office Visit [facility] [place] [address] [facility] [address] [place] [phone] Ileana Anand MD Follow Up (Pulmonary. COPD.) 11/20/2023 Travel 11/03/2023 2:10 PM CDT Orders Only [facility] [address] [facility] [place] [address] Lab, [facility] Lab 11/03/2023 Telephone [facility] [address] [facility] [address] [place] [address] Maurice Poe MD Follow Up 11/03/2023 Travel 11/03/2023 Orders Only [facility] Scanner 1 scan: (1-Ord) INCOMING RECORDS-[facility], 11/03/2023 10/24/2023 3:30 PM CDT Office Visit [facility] [address] [place] [address] Maurice Poe MD CV Heart Failure Est (CHF IN PERSON F/U VISIT. LABS DONE PRIOR /DX. Nonischemic cardiomyopathy (HC) [I42.8] //PCP:Lise Cardenas MD/) 10/24/2023 2:30 PM CDT Orders Only [facility] [address] [place] [address] Lab (/) 10/24/2023 Travel 10/20/2023 Refill [facility] [address] [place] [address] Maurice Poe MD Refill Request (Furosemide) 10/13/2023 Telephone [facility] [address] [place] [address] Vince Carpenter MD Results (Echocardiogram 10/10/23) 10/12/2023 Telephone [facility] [address] [place] [address] Maurice Poe MD Medication Management 10/10/2023 1:00 PM CDT Ancillary Procedure [facility] [address] [place] [address] 10/10/2023 11:00 AM CDT Office Visit [facility] [address] [place] [address] Vince Carpenter MD CV Electrophysiology Est (Post Ablation (04/05/23)//PCP: Lise Cardenas MD) 10/10/2023 Travel 10/02/2023 10:15 AM CDT Office Visit [facility] [address] [place] [address] Lise Cardenas MD Follow Up (Left ankle wound. Has wound care on 10/05/23) 10/02/2023 Travel 09/27/2023 Telephone [facility] [address] [place] [address] Lise Cardenas MD FYI (Wound clinic appt ) 09/22/2023 3:55 PM CDT Office Visit [facility] [address] [place] [address] Lise Cardenas MD Foot Pain/problem (Urgent care 09/21/23. Left foot pain. Pain is improving ); Establish Care (Looking for a new PCP/) 09/22/2023 Telephone [facility] [place] [address] [place] [address] Charisma Montaño Appointment 09/21/2023 7:05 PM CDT Ancillary Procedure [facility] [address] [place] [address] 09/21/2023 5:55 PM CDT - 09/21/2023 11:59 PM CDT Hospital Encounter [facility] [address] [place] [address] Charis Weber NP Left ankle swelling; Wound of left lower extremity, initial encounter; Pain and swelling of lower leg, left 09/21/2023 5:00 PM CDT Office Visit [facility] [address] [place] [address] Charis Weber NP Derm Problem (left ankle) 09/21/2023 Travel 09/21/2023 Nurse Triage [facility] [address] [place] [address] Pcp, No Leg Swelling (Left leg only. [...] Description 01/11/2024 12:30 PM CDT Orders Only [facility] [address] [facility] [address] [place] [address] 01/11/2024 1:30 PM CDT Office Visit [facility] [address] [place] [address] Maurice Poe MD [address] [facility] [address] [place] [address] (work) Health Maintenance Due Date Last Done [...] left LIPID PANEL Routine 06/22/2018 7:32 AM BLADE GRINDER Dilated cardiomyopathy (HC) XR DXA BONE DENSITY 2 SITES AXIAL Routine 03/27/2015 1:29 PM BLADE GRINDER Asymptomatic menopausal state XR MAMMO BILAT SCREEN FFDM (IA) Routine 05/21/2012 11:17 AM BLADE GRINDER Other screening mammogram from Last 3 Months or Most Recently Relevant to Health Maintenance Results * (ABNORMAL) BASIC METABOLIC PANEL (11/03/2023 2:08 PM CDT) Only the most recent of4 resultswithin the time period is included. SODIUM 139 136 - 145 mmol/L 11/03/2023 2:38 PM [facility] POTASSIUM 3.8 3.5 - 5.1 mmol/L 11/03/2023 2:38 PM [facility] CHLORIDE 103 98 - 107 mmol/L 11/03/2023 2:38 PM [facility] CO2,TOTAL 29 22 - 29 mmol/L 11/03/2023 2:38 PM [facility] ANION GAP 7 5 - 18 11/03/2023 2:38 PM [facility] GLUCOSE 96 70 - 99 mg/dL 11/03/2023 2:38 PM [facility] CALCIUM 9.0 8.8 - 10.2 mg/dL 11/03/2023 2:38 PM [facility] BUN 27(H) 8 - 23 mg/dL 11/03/2023 2:38 PM [facility] CREATININE 1.38(H) 0.50 - 0.90 mg/dL 11/03/2023 2:38 PM [facility] BUN/CREAT RATIO 20 10 - 20 2:38 PM [facility] eGFR 40(L) >90 mL/min/1.7 3m2 11/03/2023 2:38 PM [facility] Comment:As of 2021, eG FR is calculated by the CKD-EPI creatinine equation without race adjustment. ??eGFR can be influenced by muscle mass, exercise, and diet. ??The reported eGFR is an estimation only and is only applicable if the renal function is stable. Blood BLOOD SPECIMEN / Unknown Venipuncture / Unknown 11/03/2023 2:08 PM CDT 11/03/2023 2:09 PM CDT Maurice Poe MD CHEMISTRY [facility] [address] [place], [place] [id number] * SCAN CORRESP-IMAGING (11/03/2023 12:00 AM CDT) Anatomical Region Laterality Modality Other Scanner OTHER * (ABNORMAL) PRO-BNP (10/24/2023 1:55 PM CDT) Only the most recent of2 resultswithin the time period is included. Pathologist [facility] PRO-BNP 1,563(H) <125 pg/mL 10/24/2023 3:12 PM CDT [facility] Blood BLOOD SPECIMEN / Unknown Venipuncture / Unknown 10/24/2023 1:55 PM CDT 10/24/2023 2:02 PM CDT Narrative [facility] - 10/24/2023 3:12 PM CDT The [...] Poe MD SEND OUTS Performing Organization Address [facility] Co de Phone Number [facility] [address] [phone], * MAGNESIUM (10/24/2023 1:55 PM CDT) Only the most recent of2 resultswithin the time period is included. Pathologist [facility] MAGNESIUM 2.4 1.6 - 2.4 mg/dL 10/24/2023 3:[address] [facility] Blood BLOOD SPECIMEN / Unknown Venipuncture / Unknown 10/24/2023 1:55 PM CDT 10/24/2023 2:02 PM CDT Maurice Poe MD CHEMISTRY Performing Organization Address [facility] Co de Phone Number [facility] [address] [address], * ECHO TTE COMPLETE WO CONTRAST (10/10/2023 1:34 PM CDT) AORTIC VALVE MEAN PG 3 mmHg EJECTION FRACTION 36 % PEAK TR VELOCITY 3.2 m/s LVEDD 6.8 cm MITRAL VALVE MR ERO 22 mm2 EJECTION FRACTION 30 - 35% Anatomical Region Laterality Modality Ultrasound 10/10/2023 12:5 2 PM CDT Narrative 10/10/2023 2:01 PM CDT ECHOCARDIOGRAM LEESA MOODY ? Accession#: ?? [id number] : ?1950 73 years Study Date: ?? 10/10/2023 12:52:08 PM Gender: F ?BP: ? 126/76 mmHg Height: 172.72 cm ?BSA: ?2.18 m? ? ? Weight: 106.14 kg ?Tech: ? JCP ? Referring MD: VINCE CARPENTER Site: ? [facility] Reading Location: MOBILE - OP Patient Location: [...] . This study was interpreted by an [facility] accredited facility. ??Final ?? Procedure Note Gildardo Mccarthy MD - 10/10/2023 ECHOCARDIOGRAM LEESA MOODY : 1950 73 years Study Date: 10/10/2023 12:52:08 PM Gender: F BP: 126/76 mmHg Height: 172.72 cm BSA: 2.18 m? ? ? Weight: 106.14 kg Tech: JCP Referring MD: VINCE CARPENTER Site: [facility] Reading Location: MOBILE - OP Patient Location: [...] . This study was interpreted by an [facility] accredited facility. Final Vicne Carpenter MD ECHO ORD * EKG 12 LEAD (10/10/2023 9:46 AM CDT) Interpretation Sinus bradycardia with 1st degree A-V block Left axis deviation Poor ??R wave Transition Abnormal ECG Ventricular Rate 59 BPM Atrial Rate 59 BPM P-R Interval 226 ms QRS Duration 106 ms QT 458 ms QTc 453 ms P [place] 46 degrees R [place] -41 degrees T [place] -68 degrees 10/10/2023 9:46 AM CDT 10/10/2023 8:04 PM CDT Vince Carpenter MD EKG ORD * (ABNORMAL) AEROBIC BACTERIAL CULTURE, STAIN (09/21/2023 7:40 PM CDT) CULTURE RESULT(A) 09/25/2023 9:51 AM CDT [facility] CULTURE 4+ Staphylococcus aureus 09/25/2023 9:51 AM CDT [facility] GRAM STAIN No PMNs 09/25/2023 9:51 AM CDT [facility] GRAM STAIN No RBCs 09/25/2023 9:51 AM CDT [facility] GRAM STAIN No Epithelial cells 09/25/2023 9:51 AM CDT [facility] GRAM STAIN 3+ Gram Positive Cocci 09/25/2023 9:51 AM CDT [facility] Other (Other) Non-Blood / Unknown 09/21/2023 7:40 PM CDT 09/21/2023 7:57 PM CDT Narrative Organism Antibiotic Method Susceptibility Staphylococcus aureus OXACILLIN <=0.25: S Comment:Oxacillin mike sceptible should not be interpreted as penicillin or amoxicillin susceptible. Staphylococcus aureus CLINDAMYCIN <=0.12: S Staphylococcus aureus DOXYCYCLINE <=0.5: S Staphylococcus aureus CEFAZOLIN S Staphylococcus aureus TRIMETHOPRIM/SULF <=0.5/9.5: S Charis Weber NP MICROBIOLOGY [facility] [address] [place] [address], * XR ANKLE 3 VIEWS LEFT (09/21/2023 [...] 09/21/2023 7:30:49 PM (Electronically Signed) Charis Weber INSERT MOLDING OPERATOR GENERAL IMAGING * (ABNORMAL) CBC WITH AUTO DIFFERENTIAL (09/21/2023 7:05 PM CDT) WHITE BLOOD COUNT 5.1 4.5 - 11.0 thou/cu mm 09/21/2023 7:12 PM [facility] RED BLOOD COUNT 3.76(L) 4.00 - 5.20 mil/cu mm 09/21/2023 7:12 PM T [facility] HEMOGLOBIN 11.7(L) 12.0 - 16.0 g/dL 09/21/2023 7:12 PM T [facility] HEMATOCRIT 36.0 33.0 - 51.0 % 09/21/2023 7:12 PM [facility] MCV 96 80 - 100 fL 09/21/2023 7:12 PM [facility] MCH 31.1 26.0 - 34.0 pg 09/21/2023 7:12 PM [facility] MCHC 32.5 32.0 - 36.0 g/dL 09/21/2023 7:12 PM [facility] RDW 12.7 11.5 - 15.5 % 09/21/2023 7:12 PM [facility] PLATELET COUNT 192 140 - 440 thou/cu mm 09/21/2023 7:12 PM [facility] MPV 10.0 6.5 - 11.0 fL 09/21/2023 7:12 PM [facility] % NEUT 64.6 % 09/21/2023 7:12 PM [facility] % LYMPH 21.1 % 09/21/2023 7:12 PM [facility] % MONO 9.9 % 09/21/2023 7:12 PM [facility] % EOS 2.6 % 09/21/2023 7:12 PM [facility] % BASO 1.8 % 09/21/2023 7:12 PM [facility] ABSOLUTE NEUTROPHILS 3.3 1.7 - 7.0 thou/cu mm 09/21/2023 7:12 PM [facility] ABSOLUTE LYMPHOCYTES 1.1 0.9 - 2.9 thou/cu mm 09/21/2023 7:12 PM [facility] ABSOLUTE MONOCYTES 0.5 <0.9 thou/cu mm 09/21/2023 7:12 PM [facility] ABSOLUTE EOSINOPHILS 0.1 <0.5 thou/cu mm 09/21/2023 7:12 PM [facility] ABSOLUTE BASOPHILS 0.1 <0.3 thou/cu mm 09/21/2023 7:12 PM [facility] Blood BLOOD SPECIMEN / Unknown Venipuncture / Unknown 09/21/2023 7:05 PM CDT 09/21/2023 7:05 PM T Charis E Furlong INSERT MOLDING OPERATOR HEMATOLOGY [facility] [address] [place] [address] * (ABNORMAL) URIC ACID (09/21/2023 7:05 PM CDT) URIC ACID 8.6(H) 2.4 - 5.7 mg/dL 09/21/2023 7:28 PM CDT [facility] Blood BLOOD SPECIMEN / Unknown Venipuncture / Unknown 09/21/2023 7:05 PM CDT 09/21/2023 7:05 PM CDT Charis E Gus INSERT MOLDING OPERATOR CHEMISTRY Performing Organization Address [facility] Co de Phone Number [facility] [address] [place] [address] * US VENOUS LOWER EXTREMITY LEFT (09/21/2023 [...] US * LIPID PANEL (06/22/2018 7:32 AM BLADE GRINDER) CHOLESTEROL,TOTAL 177 100 - 199 mg/dL 06/22/2018 8:19 AM BLADE GRINDER [facility] LABOR[facility] TRIGLYCERIDES 118 <150 mg/dL 06/22/2018 8:19 AM BLADE GRINDER [facility] [employer] [facility] TRAL LABORAT[facility] HDL CHOLESTEROL 54 >40 mg/dL 9 8:19 AM BLADE GRINDER [facility] NON-HDL CHOLESTEROL 123 <145 mg/dl 06/22/2018 8:19 AM BLADE GRINDER [facility] CHOL/HDL RATIO 3.28 <4.50 06/22/2018 8:19 AM BLADE GRINDER [facility] TRAL LABORAT[facility] LDL CHOLESTEROL 99 <=130 mg/dL 06/22/2018 8:19 AM BLADE GRINDER [facility] TRAL [facility] PROVIDER ORDERED STATUS FASTING 06/22/2018 8:19 AM BLADE GRINDER [facility] [employer] [facility]ATORY Blood BLOOD SPECIMEN / Unknown Venipuncture / Unknown 06/22/2018 7:32 AM BLADE GRINDER 06/22/2018 7:53 AM BLADE GRINDER Maurice Poe MD CHEMISTRY [facility] [address] [place] [address], * (ABNORMAL) XR DXA BONE DENSITY 2 SITES (03/27/2015 1:29 PM BLADE GRINDER) Anatomical Region Laterality Modality Spine, HIPS, HIPL, HIPR Other Narrative 04/03/2015 8:04 AM BLADE GRINDER Please see scanned document for results of this study. Raza Killian MD DEXA * XR MAMMO BILAT SCREEN FFDM (05/21/2012 11:17 AM BLADE GRINDER) Anatomical Region Laterality Modality BREASTS, Breast Left, Breast Right Bilateral Mammography Addenda Addendum by Raphael Flaherty DO on 07/31/2012 3:10 PM CDT ??ADDENDUM ? ADDENDUM ? ADDENDUM Many attempts have been made to contact the patient regarding additional imaging that is needed following her screening mammogram. ??The patient has failed to return for our recommended follow-up. ?? Impressions 05/21/2012 3:54 PM BLADE GRINDER ??ACR 0 Incomplete: Need Additional Imaging Evaluation and/or Prior Mammograms for Comparison RECOMMENDATION: ??Ultrasound of the RIGHT breast. Narrative 05/21/2012 3:54 PM BLADE GRINDER BILATERAL FULL-FIELD DIGITAL SCREENING MAMMOGRAM WITH CAD [...] Code Status Discussion: Reviewed Preferences Care Teams Barge Captain Relationship Specialty Start Date End Date Lise Cardenas MD [address] [place] [id number] PCP - General Family Practice 09/22/23 Nurses, Advanced Heart Failure [address] [place] [phone] Heart Failure Care Coordination 08/25/15 Maurice Poe MD [address] [place] [address] [address] [place] [address] Advanced Heart Failure/Transplant Card 01/14/22
--- OUTSIDE RECORDS SUMMARY | 2023-12-07 10:31 | XMS_ITS ---
Author Organization [facility] Address [address] [place] [address] Care Team Providers Care Firearms Specialist Name Role Phone Unavailable Unavailable Unavailable Surgery Details Not on file Complications Check Surgery Details section. Procedure Estimated Blood Loss Check Surgery Details section. Procedure Findings Check Surgery Details section. Procedure Specimens Taken Check Surgery Details section.
== END 2023-12-07 10:30 | disposition home or self-care (01) ==
LOC: WOUND 10:29
PROVIDERS: PCP Student in an Organized Health Care Education/Training Program; Visit Provider Nurse Practitioner Family
DX: I87.2 Venous insufficiency (chronic) (peripheral) (principal); I89.0 Lymphedema, not elsewhere classified; L97.322 Non-pressure chronic ulcer of left ankle with fat layer exposed
CPT/HCPCS: 97597

== ENCOUNTER 2023-12-14 09:28 | Outpatient (CLI) | payer OTHER, SELFPAY ==
--- OUTSIDE RECORDS SUMMARY | 2023-12-14 09:30 | XMS_ITS | Clinical Summary ---
Author Organization [facility] Address [address] [place] [address] Care Team Providers Care Automation Driver Name Role Phone Unavailable Primary Care Provider Unavailabl e Source Comments Patient records contain information from all sites at [facility]. For routine questions regarding patient records, call [phone] during business hours, M-F 8:00 AM - 5:00 PM Central Time. Record requests for emergency care only can be directed to [phone] at any time.[facility] Medications Medication Sig Dispensed Refills [...] Outreach Division of Nephrology and Hypertension in [place], [place] [address] [place] [address] Stevan Adamson Jr., D.O. Chronic Kidney Disease [...]
--- OUTSIDE RECORDS SUMMARY | 2023-12-14 09:30 | XMS_ITS | Encounter Summary ---
Author Organization [facility] Address [address] [place] [address] Care Team Providers Care Tractor Crane Operator Name Role Phone Unavailable Primary Care Provider Unavailabl e Reason for Visit * Appointment Request (Routine) - Closed Specialty Diagnoses / Procedures Referred By Sam t Referred To Contact Nephrology and Hypertension Miguel Dash M.D. [address] [place] [address] Referral ID Status Reason Start Date Expiration Date Visits Re quested Visits Authorized [id number] Closed 10/04/2023 10/03/2024 1 1 Encounter Details Date Type Department Care Team (Latest Contact Info) Description 10/04/2023 9:00 AM CDT External Outreach Division of Nephrology and Hypertension in [place], [place] [address] [place] [address] Stevan Adamson Jr., D.O. [address] [place] [address] Chronic Kidney Disease (CKD), Stage 3b Glomerular [...] Referring Provider: DR Miller, REASON FOR VISIT [facility] Initial consultation and [...] decompensated heart failure required admission to the [facility]. 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 With goal-directed therapy over the years she has been able to regain ejection fraction up to 45-50%. Note her serum creatinine level until 2020 was 1.2 mg/dL, dora to the 1.7 and up to 2 mg/dL in [id number] on the background of requiring ablation for [...] has never had urolithiasis. She relates in [facility] there was a very dramatic event [...] the right there is both pitting and [place] indurated nonpitting edema of bilateral lower extremities, [...]
--- OUTSIDE RECORDS SUMMARY | 2023-12-14 09:30 | XMS_ITS ---
Author Organization [facility] Address [address] [place] [address] Care Team Providers Care Sieve Repairer Name Role Phone Unavailable Unavailable Unavailable Surgery Details Not on file Complications Check Surgery Details section. Procedure Estimated Blood Loss Check Surgery Details section. Procedure Findings Check Surgery Details section. Procedure Specimens Taken Check Surgery Details section.
--- OUTSIDE RECORDS SUMMARY | 2023-12-14 09:30 | XMS_ITS | Referral Summary ---
Author Organization [facility] Address [address] [place] [address] Care Team Providers Care Ebd Teacher Name Role Phone Unavailable Primary Care Provider Unavailabl e Source Comments Patient records contain information from all sites at [facility]. For routine questions regarding patient records, call [phone] during business hours, M-F 8:00 AM - 5:00 PM Central Time. Record requests for emergency care only can be directed to [phone] at any time.[facility] Encounters Date Type Department Care Team Description 10/04/2023 9:00 AM CDT External Outreach Division of Nephrology and Hypertension in [place], [place] [address] [place] [address] Stevan Adamson Jr., D.O. Chronic Kidney Disease [...]
--- OUTSIDE RECORDS SUMMARY | 2023-12-14 09:30 | XMS_ITS | Clinical Summary ---
Author Organization [employer] Address [place], [place] [address] Care Team Providers Care Resource Conservation Manager Name Role Phone Nurses, Advanced Heart Failure Unavailable + Maurice Poe MD Unavailable [phone] Lise Cardenas MD Primary Care Prov ider [...] due to pollen, unspecified seasonality Inhale 1 Ewing into affected nostril(s) once daily if needed [...] per actuation) nasal solution (FLONASE) Inhale 1 Ewing into affected nostril(s) once daily if needed [...] Type Department Care Team Description 11/24/2023 Refill [facility] [place] [address] [place] [address] Maurice Poe MD Refill Request (Eliquis, Carvedilol) 11/20/2023 11:25 AM CDT Office Visit [facility] [place] [address] [facility] [address] [place] [phone] Ileana Anand MD Follow Up (Pulmonary. COPD.) 11/20/2023 Travel 11/03/2023 2:10 PM CDT Orders Only [facility] [address] [facility] [place] [address] Lab, [facility] Lab 11/03/2023 Telephone [facility] [address] [facility] [address] [place] [address] Maurice Poe MD Follow Up 11/03/2023 Travel 11/03/2023 Orders Only [facility] Scanner 1 scan: (1-Ord) INCOMING RECORDS-[facility], 11/03/2023 10/24/2023 3:30 PM CDT Office Visit [facility] [address] [place] [address] Maurice Poe MD CV Heart Failure Est (CHF IN PERSON F/U VISIT. LABS DONE PRIOR /DX. Nonischemic cardiomyopathy (HC) [I42.8] //PCP:Lise Cardenas MD/) 10/24/2023 2:30 PM CDT Orders Only [facility] [address] [place] [address] Lab (/) 10/24/2023 Travel 10/20/2023 Refill [facility] [place] [address] [place] [address] Maurice Poe MD Refill Request (Furosemide) 10/13/2023 Telephone [facility] [place] [address] [place] [address] Vince Carpenter MD Results (Echocardiogram 10/10/23) 10/12/2023 Telephone [facility] [place] [address] [place] [address] Maurice Poe MD Medication Management 10/10/2023 1:00 PM CDT Ancillary Procedure [facility] [address] [place] [address] 10/10/2023 11:00 AM CDT Office Visit [facility] [place] [address] [place] [address] Vince Carpenter MD CV Electrophysiology Est (Post Ablation (04/05/23)//PCP: Lise Cardenas MD) 10/10/2023 Travel 10/02/2023 10:15 AM CDT Office Visit [facility] [address] [place] [address] Lise Cardenas MD Follow Up (Left ankle wound. Has wound care on 10/05/23) 10/02/2023 Travel 09/27/2023 Telephone [facility] [address] [place] [address] Lise Cardenas MD FYI (Wound clinic appt ) 09/22/2023 3:55 PM CDT Office Visit [facility] [address] [place] [address] Lise Cardenas MD Foot Pain/problem (Urgent care 09/21/23. Left foot pain. Pain is improving ); Establish Care (Looking for a new PCP/) 09/22/2023 Telephone [facility] [place] [address] [place] [address] Charisma Montaño Appointment 09/21/2023 7:05 PM CDT Ancillary Procedure [facility] [address] [place] [address] 09/21/2023 5:55 PM CDT - 09/21/2023 11:59 PM CDT Hospital Encounter [facility] [address] [place] [address] Charis Weber NP Left ankle swelling; Wound of left lower extremity, initial encounter; Pain and swelling of lower leg, left 09/21/2023 5:00 PM CDT Office Visit [facility] [address] [place] [address] Charis Weber NP Derm Problem (left ankle) 09/21/2023 Travel 09/21/2023 Nurse Triage [facility] [address] [place] [address] Pcp, No Leg Swelling (Left leg only. [...] Description 01/11/2024 12:30 PM CDT Orders Only [facility] [address] [facility] [address] [place] [address] 01/11/2024 1:30 PM CDT Office Visit [facility] [address] [place] [address] Maurice Poe MD [address] [facility] [address] [place] [address] (work) Health Maintenance Due Date Last Done [...] left LIPID PANEL Routine 06/22/2018 7:32 AM EARLY CHILDHOOD TEACHER ASSISTANT Dilated cardiomyopathy (HC) XR DXA BONE DENSITY 2 SITES AXIAL Routine 03/27/2015 1:29 PM EARLY CHILDHOOD TEACHER ASSISTANT Asymptomatic menopausal state XR MAMMO BILAT SCREEN FFDM (IA) Routine 05/21/2012 11:17 AM EARLY CHILDHOOD TEACHER ASSISTANT Other screening mammogram from Last 3 Months or Most Recently Relevant to Health Maintenance Results * (ABNORMAL) BASIC METABOLIC PANEL (11/03/2023 2:08 PM CDT) Only the most recent of4 resultswithin the time period is included. SODIUM 139 136 - 145 mmol/L 11/03/2023 2:38 PM [facility] POTASSIUM 3.8 3.5 - 5.1 mmol/L 11/03/2023 2:38 PM [facility] CHLORIDE 103 98 - 107 mmol/L 11/03/2023 2:38 PM [facility] CO2,TOTAL 29 22 - 29 mmol/L 11/03/2023 2:38 PM [facility] ANION GAP 7 5 - 18 11/03/2023 2:38 PM [facility] GLUCOSE 96 70 - 99 mg/dL 11/03/2023 2:38 PM [facility] CALCIUM 9.0 8.8 - 10.2 mg/dL 11/03/2023 2:38 PM [facility] BUN 27(H) 8 - 23 mg/dL 11/03/2023 2:38 PM [facility] CREATININE 1.38(H) 0.50 - 0.90 mg/dL 11/03/2023 2:38 PM [facility] BUN/CREAT RATIO 20 10 - 20 2:38 PM [facility] eGFR 40(L) >90 mL/min/1.7 3m2 11/03/2023 2:38 PM [facility] Comment:As of 2021, eG FR [...] 2:09 PM CDT Maurice Poe MD CHEMISTRY [facility] [address] [place], [place] [phone] * SCAN CORRESP-IMAGING (11/03/2023 12:00 AM CDT) Anatomical Region Laterality Modality Other Scanner OTHER * (ABNORMAL) PRO-BNP (10/24/2023 1:55 PM CDT) Only the most recent of2 resultswithin the time period is included. Pathologist [facility] PRO-BNP 1,563(H) <125 pg/mL 10/24/2023 3:12 PM CDT [facility] Blood BLOOD SPECIMEN / Unknown Venipuncture / Unknown 10/24/2023 1:55 PM CDT 10/24/2023 2:02 PM CDT Narrative [facility] - 10/24/2023 3:12 PM CDT [...] Poe MD SEND OUTS Performing Organization Address [facility] Co de Phone Number [facility] [address] [phone], * MAGNESIUM (10/24/2023 1:55 PM CDT) Only the most recent of2 resultswithin the time period is included. Pathologist [facility] MAGNESIUM 2.4 1.6 - 2.4 mg/dL 10/24/2023 3:11 PM CDT [facility] Blood BLOOD SPECIMEN / Unknown Venipuncture / Unknown 10/24/2023 1:55 PM CDT 10/24/2023 2:02 PM CDT Maurice Poe MD CHEMISTRY Performing Organization Address [facility] Co de Phone Number [facility] [address] [address], * ECHO TTE COMPLETE WO CONTRAST (10/10/2023 1:34 PM CDT) AORTIC VALVE MEAN PG 3 mmHg EJECTION FRACTION 36 % PEAK TR VELOCITY 3.2 m/s LVEDD 6.8 cm MITRAL VALVE MR ERO 22 mm2 EJECTION FRACTION 30 - 35% Anatomical Region Laterality Modality Ultrasound 10/10/2023 12:5 2 PM CDT Narrative 10/10/2023 2:01 PM CDT ECHOCARDIOGRAM LEESA MOODY ? Accession#: ?? [id number] : ?1950 73 years Study Date: ?? 10/10/2023 12:52:08 PM Gender: F ?BP: ? 126/76 mmHg Height: 172.72 cm ?BSA: ?2.18 m? ? ? Weight: 106.14 kg ?Tech: ? JCP ? Referring MD: VINCE CARPENTER Site: ? [facility] [place] Reading Location: MOBILE - OP Patient Location: [...] study was interpreted by an [facility] accredited facility. ??Final ?? Procedure Note Gildardo Mccarthy MD - 10/10/2023 ECHOCARDIOGRAM LEESA MOODY : 1950 73 years Study Date: 10/10/2023 12:52:08 PM Gender: F BP: 126/76 mmHg Height: 172.72 cm BSA: 2.18 m? ? ? Weight: 106.14 kg Tech: JCP Referring MD: VINCE CARPENTER Site: [facility] [place] Reading Location: MOBILE - OP Patient Location: [...] study was interpreted by an [facility] accredited facility. Final Vinec Carpenter MD ECHO ORD * EKG 12 LEAD (10/10/2023 9:46 AM CDT) Interpretation Sinus bradycardia with 1st degree A-V block Left axis deviation Poor ??R wave Transition Abnormal ECG Ventricular Rate 59 BPM Atrial Rate 59 BPM P-R Interval 226 ms QRS Duration 106 ms QT 458 ms QTc 453 ms P [place] 46 degrees R [place] -41 degrees T [place] -68 degrees 10/10/2023 9:46 AM CDT 10/10/2023 8:04 PM CDT Vince Carpenter MD EKG ORD * (ABNORMAL) AEROBIC BACTERIAL CULTURE, STAIN (09/21/2023 7:40 PM CDT) CULTURE RESULT(A) 09/25/2023 9:51 AM CDT [facility] CULTURE 4+ Staphylococcus aureus 09/25/2023 9:51 AM CDT [facility] GRAM STAIN No PMNs 09/25/2023 9:51 AM CDT [facility] GRAM STAIN No RBCs 09/25/2023 9:51 AM CDT [facility] GRAM STAIN No Epithelial cells 09/25/2023 9:51 AM CDT [facility] GRAM STAIN 3+ Gram Positive Cocci 09/25/2023 9:51 AM CDT [facility] Other (Other) Non-Blood / Unknown 09/21/2023 7:40 PM CDT 09/21/2023 7:57 PM CDT Narrative Organism Antibiotic Method Susceptibility Staphylococcus aureus OXACILLIN <=0.25: S Comment:Oxacillin mike sceptible should not be interpreted as penicillin or amoxicillin susceptible. Staphylococcus aureus CLINDAMYCIN <=0.12: S Staphylococcus aureus DOXYCYCLINE <=0.5: S Staphylococcus aureus CEFAZOLIN S Staphylococcus aureus TRIMETHOPRIM/SULF <=0.5/9.5: S Charis Weber NP MICROBIOLOGY [facility] [address] [place] [address], * XR ANKLE 3 VIEWS LEFT (09/21/2023 [...] 09/21/2023 7:30:49 PM (Electronically Signed) Charis Weber EMAIL MARKETING PROCESSOR GENERAL IMAGING * (ABNORMAL) CBC WITH AUTO DIFFERENTIAL (09/21/2023 7:05 PM CDT) WHITE BLOOD COUNT 5.1 4.5 - 11.0 thou/cu mm 09/21/2023 7:12 PM [facility] RED BLOOD COUNT 3.76(L) 4.00 - 5.20 mil/cu mm 09/21/2023 7:[address] [facility] HEMOGLOBIN 11.7(L) 12.0 - 16.0 g/dL 09/21/2023 7:[address] [facility] HEMATOCRIT 36.0 33.0 - 51.0 % 09/21/2023 7:12 PM [facility] MCV 96 80 - 100 fL 09/21/2023 7:12 PM [facility] MCH 31.1 26.0 - 34.0 pg 09/21/2023 7:12 PM [facility] MCHC 32.5 32.0 - 36.0 g/dL 09/21/2023 7:12 PM [facility] RDW 12.7 11.5 - 15.5 % 09/21/2023 7:12 PM [facility] PLATELET COUNT 192 140 - 440 thou/cu mm 09/21/2023 7:12 PM [facility] MPV 10.0 6.5 - 11.0 fL 09/21/2023 7:12 PM [facility] % NEUT 64.6 % 09/21/2023 7:12 PM [facility] % LYMPH 21.1 % 09/21/2023 7:12 PM [facility] % MONO 9.9 % 09/21/2023 7:12 PM [facility] % EOS 2.6 % 09/21/2023 7:12 PM [facility] % BASO 1.8 % 09/21/2023 7:12 PM [facility] ABSOLUTE NEUTROPHILS 3.3 1.7 - 7.0 thou/cu mm 09/21/2023 7:12 PM [facility] ABSOLUTE LYMPHOCYTES 1.1 0.9 - 2.9 thou/cu mm 09/21/2023 7:12 PM [facility] ABSOLUTE MONOCYTES 0.5 <0.9 thou/cu mm 09/21/2023 7:12 PM [facility] ABSOLUTE EOSINOPHILS 0.1 <0.5 thou/cu mm 09/21/2023 7:12 PM [facility] ABSOLUTE BASOPHILS 0.1 <0.3 thou/cu mm 09/21/2023 7:12 PM [facility] Blood BLOOD SPECIMEN / Unknown Venipuncture / Unknown 09/21/2023 7:05 PM CDT 09/21/2023 7:05 PM T Charis E Furlong EMAIL MARKETING PROCESSOR HEMATOLOGY [facility] [address] [place] [address] * (ABNORMAL) URIC ACID (09/21/2023 7:05 PM CDT) URIC ACID 8.6(H) 2.4 - 5.7 mg/dL 09/21/2023 7:[address] [facility] Blood BLOOD SPECIMEN / Unknown Venipuncture / Unknown 09/21/2023 7:05 PM CDT 09/21/2023 7:05 PM CDT Charis E Gus EMAIL MARKETING PROCESSOR CHEMISTRY Performing Organization Address [facility] Co de Phone Number [facility] [address] [place] [address] * US VENOUS LOWER EXTREMITY LEFT (09/21/2023 [...] US * LIPID PANEL (06/22/2018 7:32 AM EARLY CHILDHOOD TEACHER ASSISTANT) CHOLESTEROL,TOTAL 177 100 - 199 mg/dL 06/22/2018 8:19 AM EARLY CHILDHOOD TEACHER ASSISTANT [facility] TRAL LABORATORY TRIGLYCERIDES 118 <150 mg/dL 06/22/2018 8:19 AM EARLY CHILDHOOD TEACHER ASSISTANT [facility] [employer] LABORATORY-[facility] TRAL LABORATORY HDL CHOLESTEROL 54 >40 mg/dL 9 8:19 AM EARLY CHILDHOOD TEACHER ASSISTANT [facility] TRAL LABORATORY NON-HDL CHOLESTEROL 123 <145 mg/dl 06/22/2018 8:19 AM EARLY CHILDHOOD TEACHER ASSISTANT [facility] TRAL LABORATORY CHOL/HDL RATIO 3.28 <4.50 06/22/2018 8:19 AM EARLY CHILDHOOD TEACHER ASSISTANT [facility] TRAL LABORATORY LDL CHOLESTEROL 99 <=130 mg/dL 06/22/2018 8:19 AM EARLY CHILDHOOD TEACHER ASSISTANT [facility] TRAL LABORATORY PROVIDER ORDERED STATUS FASTING 06/22/2018 8:19 AM EARLY CHILDHOOD TEACHER ASSISTANT [facility] [employer] [facility] TRAL LABORATORY Blood BLOOD SPECIMEN / Unknown Venipuncture / Unknown 06/22/2018 7:32 AM EARLY CHILDHOOD TEACHER ASSISTANT 06/22/2018 7:53 AM EARLY CHILDHOOD TEACHER ASSISTANT Maurice oPe MD CHEMISTRY [facility] [address] [place] [address], * (ABNORMAL) XR DXA BONE DENSITY 2 SITES (03/27/2015 1:29 PM EARLY CHILDHOOD TEACHER ASSISTANT) Anatomical Region Laterality Modality Spine, HIPS, HIPL, HIPR Other Narrative 04/03/2015 8:04 AM EARLY CHILDHOOD TEACHER ASSISTANT Please see scanned document for results of this study. Raza Killian MD DEXA * XR MAMMO BILAT SCREEN FFDM (05/21/2012 11:17 AM EARLY CHILDHOOD TEACHER ASSISTANT) Anatomical Region Laterality Modality BREASTS, Breast Left, Breast Right Bilateral Mammography Addenda Addendum by Raphael Flaherty DO on 07/31/2012 3:10 PM CDT ??ADDENDUM ? ADDENDUM ? ADDENDUM Many attempts have been made to contact the patient regarding additional imaging that is needed following her screening mammogram. ??The patient has failed to return for our recommended follow-up. ?? Impressions 05/21/2012 3:54 PM EARLY CHILDHOOD TEACHER ASSISTANT ??ACR 0 Incomplete: Need Additional Imaging Evaluation and/or Prior Mammograms for Comparison RECOMMENDATION: ??Ultrasound of the RIGHT breast. Narrative 05/21/2012 3:54 PM EARLY CHILDHOOD TEACHER ASSISTANT BILATERAL FULL-FIELD DIGITAL SCREENING MAMMOGRAM WITH CAD [...] Code Status Discussion: Reviewed Preferences Care Teams Resource Conservation Manager Relationship Specialty Start Date End Date Lise Cardenas MD [address] [place] [phone] PCP - General Family Practice 09/22/23 Nurses, Advanced Heart Failure [address] [place] [address] Heart Failure Care Coordination 08/25/15 Maurice Poe MD [address] [place] [address] [address] [place] [address] Advanced Heart Failure/Transplant Card 01/14/22
== END 2023-12-14 09:29 | disposition home or self-care (01) ==
LOC: WOUND 09:28
PROVIDERS: PCP Student in an Organized Health Care Education/Training Program; Visit Provider Nurse Practitioner Family
DX: I87.2 Venous insufficiency (chronic) (peripheral) (principal); I89.0 Lymphedema, not elsewhere classified; L97.322 Non-pressure chronic ulcer of left ankle with fat layer exposed
CPT/HCPCS: 97597

== ENCOUNTER 2023-12-21 09:49 | Outpatient (CLI) | payer OTHER, SELFPAY ==
--- OUTSIDE RECORDS SUMMARY | 2023-12-21 09:50 | XMS_ITS ---
Author Organization [facility] Address [address] [place] [address] Care Team Providers Care Supervisor Paper Coating Name Role Phone Unavailable Unavailable Unavailable Surgery Details Not on file Complications Check Surgery Details section. Procedure Estimated Blood Loss Check Surgery Details section. Procedure Findings Check Surgery Details section. Procedure Specimens Taken Check Surgery Details section.
--- OUTSIDE RECORDS SUMMARY | 2023-12-21 09:50 | XMS_ITS | Referral Summary ---
Author Organization [facility] Address [address] [place] [address] Care Team Providers Care Manager Social Work Name Role Phone Unavailable Primary Care Provider Unavailabl e Source Comments Patient records contain information from all sites at [facility]. For routine questions regarding patient records, call [phone] during business hours, M-F 8:00 AM - 5:00 PM Central Time. Record requests for emergency care only can be directed to [phone] at any time.[facility] Encounters Date Type Department Care Team Description 10/04/2023 9:00 AM CDT External Outreach Division of Nephrology and Hypertension in [place], [place] [address] [place] [address] Stevan Adamson Jr., D.O. Chronic Kidney Disease [...]
--- OUTSIDE RECORDS SUMMARY | 2023-12-21 09:50 | XMS_ITS | Clinical Summary ---
Author Organization [facility] Address [address] [place] [address] Care Team Providers Care Nursing Home Social Worker Name Role Phone Unavailable Primary Care Provider Unavailabl e Source Comments Patient records contain information from all sites at [facility]. For routine questions regarding patient records, call [phone] during business hours, M-F 8:00 AM - 5:00 PM Central Time. Record requests for emergency care only can be directed to [phone] at any time.[facility] Medications Medication Sig Dispensed Refills [...] Outreach Division of Nephrology and Hypertension in [place], [place] [address] [place] [address] Stevan Adamson Jr., D.O. Chronic Kidney Disease [...]
--- OUTSIDE RECORDS SUMMARY | 2023-12-21 09:50 | XMS_ITS | Encounter Summary ---
Author Organization [facility] Address [address] [place] [address] Care Team Providers Care Machine Ii Trimmer Name Role Phone Unavailable Primary Care Provider Unavailabl e Reason for Visit * Appointment Request (Routine) - Closed Specialty Diagnoses / Procedures Referred By Sam t Referred To Contact Nephrology and Hypertension Miguel Dash M.D. [address] [place] [address] Referral ID Status Reason Start Date Expiration Date Visits Re quested Visits Authorized [id number] Closed 10/04/2023 10/03/2024 1 1 Encounter Details Date Type Department Care Team (Latest Contact Info) Description 10/04/2023 9:00 AM CDT External Outreach Division of Nephrology and Hypertension in [place], [place] [address] [place] [address] Stevan Adamson Jr., D.O. [address] [place] [address] Chronic Kidney Disease (CKD), Stage 3b Glomerular [...] Referring Provider: DR Miller, REASON FOR VISIT [facility] Initial consultation and [...] decompensated heart failure required admission to the [facility]. 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 With goal-directed therapy over the years she has been able to regain ejection fraction up to 45-50%. Note her serum creatinine level until 2020 was 1.2 mg/dL, dora to the 1.7 and up to 2 mg/dL in [id number] on the background of requiring ablation for [...] has never had urolithiasis. [facility] [...] the right there is both pitting and Orting indurated nonpitting edema of bilateral lower extremities, [...]
--- OUTSIDE RECORDS SUMMARY | 2023-12-21 09:51 | XMS_ITS | Clinical Summary ---
Author Organization [facility] Address [place], [place] [address] Care Team Providers Care Intervention Nurse Name Role Phone Nurses, Advanced Heart Failure [...] by mouth once daily. 0 05/24/2022 Active vitamin e 200 unit capsule Take 1 Capsule by mouth once daily. Active simvastatin (ZOCOR) 10 mg tabletIndications:C hronic systolic congestive heart failure (HC) TAKE 1 TABLET BY MOUTH AT BEDTIME 90 Tablet 2 05/17/2023 Active empagliflozin (Jardiance) 10 mg tabletIndications:N onischemic [...] albuterol HFA (PRO-AIR; VENTOLIN; PROVENTIL) 90 mcg/actuation inhalerIndications: Acute exacerbation of chronic obstructive pulmonary disease (COPD) (HC) Inhale 2 Puffs by mouth 4 times daily if needed for Shortness Of Breath, Wheezing or Shortness of Breath 1st choice. 1 Each 11/20/2023 Active Arnuity Ellipta 100 mcg/actuation inhalerIndications: Acute exacerbation of chronic obstructive pulmonary disease (COPD) (HC) Inhale 1 Puff by mouth once daily. 30 Each 11/20/2023 Active Spiriva Respimat 2.5 mcg/actuation mist for inhalationIndicatio ns:Centrilobular emphysema (HC) Inhale 2 Puffs by mouth once daily. 3 Each 11/20/2023 Active fluticasone (50 mcg per actuation) nasal solution (FLONASE)Indication s:Allergic rhinitis due to pollen, unspecified seasonality Inhale 1 [place] into affected nostril(s) once daily if needed for Rhinitis. 16 g 11/20/2023 Active apixaban (Eliquis) 5 mg tabletIndications:P aroxysmal atrial fibrillation (HC) Take 1 tablet by mouth twice daily 180 Tablet 3 11/24/2023 Active carvediloL (COREG) 25 mg tabletIndications:P aroxysmal atrial fibrillation (HC) Take 1 tablet by mouth twice daily 180 Tablet 3 11/24/2023 Active isosorbide dinitrate (ISORDIL) 30 mg tabletIndications:N onischemic cardiomyopathy (HC) TAKE 1 TABLET BY MOUTH THREE TIMES DAILY 90 Tablet 5 12/18/2023 Active apixaban (Eliquis) 5 mg tabletIndications:P aroxysmal atrial fibrillation (HC) Take 1 Tablet (5 mg) by mouth two times daily. 180 Tablet 3 12/07/2022 11/24/19 24 Discontinued carvediloL (COREG) 25 mg tabletIndications:P aroxysmal atrial fibrillation (HC) Take 1 Tablet (25 mg) by mouth two times daily. 180 Tablet 3 12/07/2022 11/24/19 24 Discontinued isosorbide dinitrate (ISORDIL) 30 mg tabletIndications:N onischemic cardiomyopathy (HC) Take 1 Tablet (30 mg) by mouth three times daily. 90 Tablet 5 06/29/2023 12/18/19 24 Discontinued Active Problems Problem Noted Date Diagnosed Date [...] Encounters Date Type Department Care Team Description 12/19/2023 Telephone [facility] [place] [address] [place] [phone] Ileana Anand MD Prior Authorization (Arnuity Ellipta 100 mcg/actuation inhaler JESUS (NOT NEEDED)) 12/16/2023 Refill [facility] [address] [place] [address] Maurice Poe MD Refill Request (Isosorbide Dinitrate) 11/24/2023 Refill [facility] [address] [place] [address] Maurice Poe MD Refill Request (Eliquis, Carvedilol) 11/20/2023 11:25 AM CDT Office Visit [facility] [place] [address] [facility] [address] [place] [phone] Ileana Anand MD Follow Up (Pulmonary. COPD.) 11/20/2023 Travel 11/03/2023 2:10 PM CDT Orders Only [facility] [address] [place] [address] Lab, [facility] Lab 11/03/2023 Telephone [facility] [address] [place] [address] Maurice Poe MD Follow Up 11/03/2023 Travel 11/03/2023 Orders Only [facility] Scanner 1 scan: (1-Ord) INCOMING RECORDS-[facility], 11/03/2023 10/24/2023 3:30 PM CDT Office Visit [facility] [address] [place] [address] Maurice Poe MD CV Heart Failure Est (CHF IN PERSON F/U VISIT. LABS DONE PRIOR /DX. Nonischemic cardiomyopathy (HC) [I42.8] //PCP:Lise Cardenas MD/) 10/24/2023 2:30 PM CDT Orders Only [facility] [address] [place] [address] Lab (/) 10/24/2023 Travel 10/20/2023 Refill [facility] [address] [place] [address] Maurice Poe MD Refill Request (Furosemide) 10/13/2023 Telephone [facility] [address] [place] [phone] Vince Carpenter MD Results (Echocardiogram 10/10/23) 10/12/2023 Telephone [facility] [address] [facility] [address] [place] [phone] Maurice Poe MD Medication Management 10/10/2023 1:00 PM CDT Ancillary Procedure [facility] [address] [place] [address] 10/10/2023 11:00 AM CDT Office Visit [facility] [address] [address] Vince Carpenter MD CV Electrophysiology Est (Post Ablation (04/05/23)//PCP: Lise Cardenas MD) 10/10/2023 Travel 10/02/2023 10:15 AM CDT Office Visit [facility] [address] [place] [address] Lise Cardenas MD Follow Up (Left ankle wound. Has wound care on 10/05/23) 10/02/2023 Travel 09/27/2023 Telephone [facility] [address] [place] [address] Lise Cardenas MD FYI (Wound clinic appt ) 09/22/2023 3:55 PM CDT Office Visit [facility] [address] [place] [address] Lise Cardenas MD Foot Pain/problem (Urgent care 09/21/23. Left foot pain. Pain is improving ); Establish Care (Looking for a new PCP/) 09/22/2023 Telephone [facility] [address] [place] [phone] Charisma Montaño Appointment 09/21/2023 7:05 PM CDT Ancillary Procedure [facility] [address] [place] [address] 09/21/2023 5:55 PM CDT - 09/21/2023 11:59 PM CDT Hospital Encounter [facility] [address] [place] [address] Charis Weber, SPARK PLUG ASSEMBLER Left ankle swelling; Wound of left lower extremity, initial encounter; Pain and swelling of lower leg, left 09/21/2023 5:00 PM CDT Office Visit [facility] [address] [place] [address] Charis Weber NP Derm Problem (left ankle) 09/21/2023 Travel 09/21/2023 Nurse Triage [facility] [address] [place] [address] Pcp, No Leg Swelling (Left leg only. [...] Description 01/11/2024 12:30 PM CDT Orders Only [facility] [address] [facility] [address] [place] [phone] 01/11/2024 1:30 PM CDT Office Visit [facility] [address] [facility] [address] [place] [phone] Maurice Poe MD [address] [facility] [address] [place] [address] Health Maintenance Due Date Last Done Comments [...] left LIPID PANEL Routine 06/22/2018 7:32 AM GAS OPERATOR Dilated cardiomyopathy (HC) XR DXA BONE DENSITY 2 SITES AXIAL Routine 03/27/2015 1:29 PM GAS OPERATOR Asymptomatic menopausal state XR MAMMO BILAT SCREEN FFDM (IA) Routine 05/21/2012 11:17 AM GAS OPERATOR Other screening mammogram from Last 3 Months or Most Recently Relevant to Health Maintenance Results * (ABNORMAL) BASIC METABOLIC PANEL (11/03/2023 2:08 PM CDT) Only the most recent of4 resultswithin the time period is included. SODIUM 139 136 - 145 mmol/L 11/03/2023 2:38 PM [facility] POTASSIUM 3.8 3.5 - 5.1 mmol/L 11/03/2023 2:38 PM [facility] CHLORIDE 103 98 - 107 mmol/L 11/03/2023 2:38 PM [facility] CO2,TOTAL 29 22 - 29 mmol/L 11/03/2023 2:38 PM [facility] ANION GAP 7 5 - 18 11/03/2023 2:38 PM [facility] GLUCOSE 96 70 - 99 mg/dL 11/03/2023 2:38 PM [facility] CALCIUM 9.0 8.8 - 10.2 mg/dL 11/03/2023 2:38 PM [facility] BUN 27(H) 8 - 23 mg/dL 11/03/2023 2:38 PM [facility] CREATININE 1.38(H) 0.50 - 0.90 mg/dL 11/03/2023 2:38 PM [facility] BUN/CREAT RATIO 20 10 - 20 2:38 PM [facility] eGFR 40(L) >90 mL/min/1.7 3m2 11/03/2023 2:38 PM [facility] Comment:As of 2021, eG FR is calculated by the CKD-EPI creatinine equation without race adjustment. ??eGFR can be influenced by muscle mass, exercise, and diet. ??The reported eGFR is an estimation only and is only applicable if the renal function is stable. Blood BLOOD SPECIMEN / Unknown Venipuncture / Unknown 11/03/2023 2:08 PM CDT 11/03/2023 2:09 PM CDT Maurice Poe MD CHEMISTRY [facility] [address] [place] [address] * SCAN CORRESP-IMAGING (11/03/2023 12:00 AM CDT) Anatomical Region Laterality Modality Other Scanner OTHER * (ABNORMAL) PRO-BNP (10/24/2023 1:55 PM CDT) Only the most recent of2 resultswithin the time period is included. PRO-BNP 1,563(H) <125 pg/mL 10/24/2023 3:12 PM CDT [facility] Blood BLOOD SPECIMEN / Unknown Venipuncture / Unknown 10/24/2023 1:55 PM CDT 10/24/2023 2:02 PM CDT Narrative [facility] - 10/24/2023 3:12 PM CDT The [...] MD SEND OUTS Performing Organization Address [facility]/ZIP Co de Phone Number [facility] [address] [address], * MAGNESIUM (10/24/2023 1:55 PM CDT) Only the most recent of2 resultswithin the time period is included. Pathologist [facility] MAGNESIUM 2.4 1.6 - 2.4 mg/dL 10/24/2023 3:11 PM CDT [facility] Blood BLOOD SPECIMEN / Unknown Venipuncture / Unknown 10/24/2023 1:55 PM CDT 10/24/2023 2:02 PM CDT Maurice Poe MD CHEMISTRY Performing Organization Address [facility] Co de Phone Number [facility] [address] [place] [phone], [place] * ECHO TTE COMPLETE WO CONTRAST (10/10/2023 1:34 PM CDT) AORTIC VALVE MEAN PG 3 mmHg EJECTION FRACTION 36 % PEAK TR VELOCITY 3.2 m/s LVEDD 6.8 cm MITRAL VALVE MR ERO 22 mm2 EJECTION FRACTION 30 - 35% Anatomical Region Laterality Modality Ultrasound 10/10/2023 12:5 2 PM CDT Narrative 10/10/2023 2:01 PM CDT ECHOCARDIOGRAM LEESA Pedro Luis PREET ? Accession#: ?? [id number] : ?1950 73 years Study Date: ?? 10/10/2023 12:52:08 PM Gender: F ?BP: ? 126/76 mmHg Height: 172.72 cm ?BSA: ?2.18 m? ? ? Weight: 106.14 kg ?Tech: ? JCP ? Referring MD: VINCE CARPENTER Site: ? [facility] Reading Location: MOBILE - OP [...] . This study was interpreted by an [facility] accredited facility. ??Final ?? Procedure Note Gildardo Mccarthy MD - 10/10/2023 ECHOCARDIOGRAM LEESA OVIEDO : 1950 73 years Study Date: 10/10/2023 12:52:08 PM Gender: F BP: 126/76 mmHg Height: 172.72 cm BSA: 2.18 m? ? ? Weight: 106.14 kg Tech: LOU Referring MD: VINCE CARPENTER Site: [facility] Reading Location: MOBILE - OP [...] . This study was interpreted by an [facility] accredited facility. Final Vince Carpenter MD ECHO ORD * EKG 12 LEAD (10/10/2023 9:46 AM CDT) Interpretation Sinus bradycardia with 1st degree A-V block Left axis deviation Poor ??R wave Transition Abnormal ECG Ventricular Rate 59 BPM Atrial Rate 59 BPM P-R Interval 226 ms QRS Duration 106 ms QT 458 ms QTc 453 ms P Vassar 46 degrees R Vassar -41 degrees T Vassar -68 degrees 10/10/2023 9:46 AM CDT 10/10/2023 8:04 PM CDT Vince Carpenter MD EKG ORD * (ABNORMAL) AEROBIC BACTERIAL CULTURE, STAIN (09/21/2023 7:40 PM CDT) CULTURE RESULT(A) 09/25/2023 9:51 AM CDT [facility] CULTURE 4+ Staphylococcus aureus 09/25/2023 9:51 AM CDT [facility] GRAM STAIN No PMNs 09/25/2023 9:51 AM CDT [facility] GRAM STAIN No RBCs 09/25/2023 9:51 [...] TRIMETHOPRIM/SULF <=0.5/9.5: S Charis Weber NP MICROBIOLOGY [facility] [address] [place] [address], * XR ANKLE 3 VIEWS LEFT (09/21/2023 [...] 09/21/2023 7:30:49 PM (Electronically Signed) Charis Weber [employer] ASSEMBLER GENERAL IMAGING * (ABNORMAL) CBC WITH AUTO DIFFERENTIAL (09/21/2023 7:05 PM CDT) WHITE BLOOD COUNT 5.1 4.5 - 11.0 thou/cu mm 09/21/2023 7:12 PM [facility] RED BLOOD COUNT 3.76(L) 4.00 - 5.20 mil/cu mm 09/21/2023 7:12 PM T [facility] HEMOGLOBIN 11.7(L) 12.0 - 16.0 g/dL 09/21/2023 7:12 PM T [facility] HEMATOCRIT 36.0 33.0 - 51.0 % 09/21/2023 7:12 PM [facility] MCV 96 80 - 100 fL 09/21/2023 7:12 PM [facility] MCH 31.1 26.0 - 34.0 pg 09/21/2023 7:12 PM [facility] MCHC 32.5 32.0 - 36.0 g/dL 09/21/2023 7:12 PM [facility] RDW 12.7 11.5 - 15.5 % 09/21/2023 7:12 PM [facility] PLATELET COUNT 192 140 - 440 thou/cu mm 09/21/2023 7:12 PM [facility] MPV 10.0 6.5 - 11.0 fL 09/21/2023 7:12 PM [facility] % NEUT 64.6 % 09/21/2023 7:12 PM [facility] % LYMPH 21.1 % 09/21/2023 7:12 PM [facility] % MONO 9.9 % 09/21/2023 7:12 PM [facility] % EOS 2.6 % 09/21/2023 7:12 PM [facility] % BASO 1.8 % 09/21/2023 7:12 PM [facility] ABSOLUTE NEUTROPHILS 3.3 1.7 - 7.0 thou/cu mm 09/21/2023 7:12 PM [facility] ABSOLUTE LYMPHOCYTES 1.1 0.9 - 2.9 thou/cu mm 09/21/2023 7:12 PM [facility] ABSOLUTE MONOCYTES 0.5 <0.9 thou/cu mm 09/21/2023 7:12 PM [facility] ABSOLUTE EOSINOPHILS 0.1 <0.5 thou/cu mm 09/21/2023 7:12 PM [facility] ABSOLUTE BASOPHILS 0.1 <0.3 thou/cu mm 09/21/2023 7:12 PM [facility] Blood BLOOD SPECIMEN / Unknown Venipuncture / Unknown 09/21/2023 7:05 PM T 09/21/2023 7:05 PM T Charis E Furlong [employer] ASSEMBLER HEMATOLOGY [facility] [address] [place], [place] [phone] * (ABNORMAL) URIC ACID (09/21/2023 7:05 PM CDT) URIC ACID 8.6(H) 2.4 - 5.7 mg/dL 09/21/2023 7:28 PM CDT [facility] Blood BLOOD SPECIMEN / Unknown Venipuncture / Unknown 09/21/2023 7:05 PM CDT 09/21/2023 7:05 PM CDT Charis Rileyhaylee SPARK PL[employer] ASSEMBLER CHEMISTRY [facility] [address] [place] [address] * US VENOUS LOWER EXTREMITY LEFT (09/21/2023 [...] in short axis, possibly reactive Procedure Note JamieGibranDO - 09/21/2023 For Patients: As a result [...] US * LIPID PANEL (06/22/2018 7:32 AM GAS OPERATOR) CHOLESTEROL,TOTAL 177 100 - 199 mg/dL 06/22/2018 8:19 AM GAS OPERATOR [facility] TRIGLYCERIDES 118 <150 mg/dL 06/22/2018 8:19 AM GAS OPERATOR [facility] HDL CHOLESTEROL 54 >40 mg/dL 9 8:19 AM GAS OPERATOR [facility] NON-HDL CHOLESTEROL 123 <145 mg/dl 06/22/2018 8:19 AM [facility] CHOL/HDL RATIO 3.28 <4.50 06/22/2018 8:19 AM [facility] LDL CHOLESTEROL 99 <=130 mg/dL 06/22/2018 8:19 AM GAS OPERATOR [facility] PROVIDER ORDERED STATUS FASTING 06/22/2018 8:19 AM GAS OPERATOR [facility] Blood BLOOD SPECIMEN / Unknown Venipuncture / Unknown 06/22/2018 7:32 AM GAS OPERATOR 06/22/2018 7:53 AM GAS OPERATOR Maurice Poe MD CHEMISTRY [facility] [address] [place] [address], [place] * (ABNORMAL) XR DXA BONE DENSITY 2 SITES (03/27/2015 1:29 PM GAS OPERATOR) Anatomical Region Laterality Modality Spine, HIPS, HIPL, HIPR Other Narrative 04/03/2015 8:04 AM GAS OPERATOR Please see scanned document for results of this study. Raza Killian MD DEXA * XR MAMMO BILAT SCREEN FFDM (05/21/2012 11:17 AM GAS OPERATOR) Anatomical Region Laterality Modality BREASTS, Breast Left, Breast Right Bilateral Mammography Addenda Addendum by Raphael Flaherty DO on 07/31/2012 3:10 PM CDT ??ADDENDUM ? ADDENDUM ? ADDENDUM Many attempts have been made to contact the patient regarding additional imaging that is needed following her screening mammogram. ??The patient has failed to return for our recommended follow-up. ?? Impressions 05/21/2012 3:54 PM GAS OPERATOR ??ACR 0 Incomplete: Need Additional Imaging Evaluation and/or Prior Mammograms for Comparison RECOMMENDATION: ??Ultrasound of the RIGHT breast. Narrative 05/21/2012 3:54 PM GAS OPERATOR BILATERAL FULL-FIELD DIGITAL SCREENING MAMMOGRAM WITH [...] Code Status Discussion: Reviewed Preferences Care Teams Intervention Nurse Relationship Specialty Start Date End Date Lise Cardenas MD [address] [place] [id number] PCP - General Family Practice 09/22/23 Nurses, Advanced Heart Failure [address] [address] Heart Failure Care Coordination 08/25/15 Maurice Poe MD [address] [address] Advanced Heart Failure/Transplant Card 9/16/22
== END 2023-12-21 09:50 | disposition home or self-care (01) ==
LOC: WOUND 09:49
PROVIDERS: PCP Student in an Organized Health Care Education/Training Program; Visit Provider Nurse Practitioner Family
DX: I87.2 Venous insufficiency (chronic) (peripheral) (principal); I89.0 Lymphedema, not elsewhere classified; L97.322 Non-pressure chronic ulcer of left ankle with fat layer exposed
CPT/HCPCS: 97597

== ENCOUNTER 2023-12-28 10:32 | Outpatient (CLI) | payer OTHER, SELFPAY ==
--- OUTSIDE RECORDS SUMMARY | 2023-12-28 10:33 | XMS_ITS | Clinical Summary ---
Author Organization [facility] Address [address] [place] [address] Care Team Providers Care Psychologist Military Personnel Name Role Phone Unavailable Primary Care Provider Unavailabl e Source Comments Patient records contain information from all sites at [facility]. For routine questions regarding patient records, call [phone] during business hours, M-F 8:00 AM - 5:00 PM Central Time. Record requests for emergency care only can be directed to [phone] at any time.[facility] Medications Medication Sig Dispensed Refills Start Date [...] Outreach Division of Nephrology and Hypertension in [place], [place] [address] [place] [address] Stevan Adamson Jr., D.O. Chronic Kidney Disease [...]
--- OUTSIDE RECORDS SUMMARY | 2023-12-28 10:34 | XMS_ITS ---
Author Organization [facility] Address [address] [place] [address] Care Team Providers Care Erector Operator Name Role Phone Unavailable Unavailable Unavailable Surgery Details Not on file Complications Check Surgery Details section. Procedure Estimated Blood Loss Check Surgery Details section. Procedure Findings Check Surgery Details section. Procedure Specimens Taken Check Surgery Details section.
--- OUTSIDE RECORDS SUMMARY | 2023-12-28 10:34 | XMS_ITS | Clinical Summary ---
Author Organization [facility] Address [place], [place] [address] Care Team Providers Care Manager Animal Name Role Phone Nurses, Advanced Heart Failure [...] due to pollen, unspecified seasonality Inhale 1 Prospect into affected nostril(s) once daily if needed [...] TIMES DAILY 90 Tablet 5 12/18/2023 Active isosorbide dinitrate (ISORDIL) 30 mg tabletIndications:N [...] Type Department Care Team Description 12/19/2023 Telephone [facility] [place] [address] [facility] [address] [place] [address] Ileana Anand MD Prior Authorization (Arnuity Ellipta 100 mcg/actuation inhaler JESUS (NOT NEEDED)) 12/16/2023 Refill [facility] [address] [place] [phone] Maurice Poe MD Refill Request (Isosorbide Dinitrate) 11/24/2023 Refill [facility] [address] [place] [phone] Maurice Poe MD Refill Request (Eliquis, Carvedilol) 11/20/2023 11:25 AM CDT Office Visit [facility] [place] [address] [place] [phone] Ileana Anand MD Follow Up (Pulmonary. COPD.) 11/20/2023 Travel 11/03/2023 2:10 PM CDT Orders Only [facility] [address] [facility] NIRAJ Zimmerman [phone] Lab, [facility] 11/03/2023 Telephone [facility] [address] [place] [phone] Maurice Poe MD Follow Up 11/03/2023 Travel 11/03/2023 Orders Only [facility] Scanner 1 scan: (1-Ord) INCOMING RECORDS-, [facility], 11/03/2023 10/24/2023 3:30 PM CDT Office Visit [facility] [address] [place] [address] Maurice Poe MD CV Heart Failure Est (CHF IN PERSON F/U VISIT. LABS DONE PRIOR /DX. Nonischemic cardiomyopathy (HC) [I42.8] //PCP:Lise Cardenas MD/) 10/24/2023 2:30 PM CDT Orders Only [facility] [address] [place] [address] Lab (/) 10/24/2023 Travel 10/20/2023 Refill [facility] [address] [place] [address] Maurice Poe MD Refill Request (Furosemide) 10/13/2023 Telephone [facility] [address] [place] [phone] 85 Vince Carpenter MD Results (Echocardiogram 10/10/23) 10/12/2023 Telephone [facility] [address] [place] [address] Maurice Poe MD Medication Management 10/10/2023 1:00 PM CDT Ancillary Procedure [facility] [address] [place] [address] 10/10/2023 11:00 AM CDT Office Visit [facility] [address] [place] [address] Vince Carpenter MD CV Electrophysiology Est (Post Ablation (04/05/23)//PCP: Lise Cardenas MD) 10/10/2023 Travel 10/02/2023 10:15 AM CDT Office Visit [facility] [address] [place] [address] Lise Cardenas MD Follow Up (Left ankle wound. Has wound care on 10/05/23) 10/02/2023 Travel 09/27/2023 Telephone [facility] [address] [place] [address] Lise Cardenas MD FYI (Wound clinic appt ) from Last 3 Months Immunizations Name [...] Description 01/11/2024 12:30 PM CDT Orders Only [facility] [address] [facility] [address] [place] [address] 01/11/2024 1:30 PM CDT Office Visit [facility] [address] [place] [address] Maurice Poe MD [address] [facility] [address] [place] [address] Health Maintenance Due Date Last Done Comments [...] 10/02/2023 10:48 AM CDT Nonischemic cardiomyopathy (HC) LIPID PANEL Routine 06/22/2018 7:32 AM AUTO CLAIMS ADJUSTER Dilated cardiomyopathy (HC) XR DXA BONE DENSITY 2 SITES AXIAL Routine 03/27/2015 1:29 PM AUTO CLAIMS ADJUSTER Asymptomatic menopausal state XR MAMMO BILAT SCREEN FFDM (IA) Routine 05/21/2012 11:17 AM AUTO CLAIMS ADJUSTER Other screening mammogram from Last 3 Months or Most Recently Relevant to Health Maintenance Results * (ABNORMAL) BASIC METABOLIC PANEL (11/03/2023 2:08 PM CDT) Only the most recent of3 resultswithin the time period is included. SODIUM 139 136 - 145 mmol/L 11/03/2023 2:38 PM CDT [facility] POTASSIUM 3.8 3.5 - 5.1 mmol/L 11/03/2023 2:38 PM [facility] CHLORIDE 103 98 - 107 mmol/L 11/03/2023 2:38 PM [facility] CO2,TOTAL 29 22 - 29 mmol/L 11/03/2023 2:38 PM [facility] ANION GAP 7 5 - 18 11/03/2023 2:38 PM [facility] GLUCOSE 96 70 - 99 mg/dL 11/03/2023 2:38 PM CDT [facility] CALCIUM 9.0 8.8 - 10.2 mg/dL 11/03/2023 2:38 PM CDT [facility] BUN 27(H) 8 - 23 mg/dL 11/03/2023 2:38 PM CDT [facility] CREATININE 1.38(H) 0.50 - 0.90 mg/dL 11/03/2023 2:38 PM CDT [facility] BUN/CREAT RATIO 20 10 - 20 2:38 PM CDT [facility] eGFR 40(L) >90 mL/min/1.7 3m2 11/03/2023 2:38 PM CDT [facility] Comment:As of 2021, eG [...] 2:09 PM CDT Maurice Poe MD CHEMISTRY [facility] [address] [place] [address] * SCAN CORRESP-IMAGING (11/03/2023 12:00 AM CDT) Anatomical Region Laterality Modality Other Scanner OTHER * (ABNORMAL) PRO-BNP (10/24/2023 1:55 PM CDT) Only the most recent of2 resultswithin the time period is included. PRO-BNP 1,563(H) <125 pg/mL 10/24/2023 3:12 PM CDT [facility] Blood BLOOD SPECIMEN / Unknown Venipuncture / Unknown 10/24/2023 1:55 PM CDT 10/24/2023 2:02 PM CDT Narrative [facility] - 10/24/2023 3:12 PM CDT [...] Poe MD SEND OUTS Performing Organization Address [facility] de Phone Number [facility] [address] [place] [address], * MAGNESIUM (10/24/2023 1:55 PM CDT) Only the most recent of2 resultswithin the time period is included. MAGNESIUM 2.4 1.6 - 2.4 mg/dL 10/24/2023 3:11 PM CDT [facility] Blood BLOOD SPECIMEN / Unknown Venipuncture / Unknown 10/24/2023 1:55 PM CDT 10/24/2023 2:02 PM CDT Maurice Poe MD CHEMISTRY Performing Organization Address [facility]/State/ZIP Co de Phone Number [facility] [address] [place] [address], * ECHO TTE COMPLETE WO CONTRAST (10/10/2023 1:34 PM CDT) AORTIC VALVE MEAN PG 3 mmHg EJECTION FRACTION 36 % PEAK TR VELOCITY 3.2 m/s LVEDD 6.8 cm MITRAL VALVE MR ERO 22 mm2 EJECTION FRACTION 30 - 35% Anatomical Region Laterality Modality Ultrasound 10/10/2023 12:5 2 PM CDT Narrative 10/10/2023 2:01 PM CDT ECHOCARDIOGRAM LEESA MOODY ? Accession#: ?? [id number] : ?1950 73 years Study Date: ?? 10/10/2023 12:52:08 PM Gender: F ?BP: ? 126/76 mmHg Height: 172.72 cm ?BSA: ?2.18 m? ? ? Weight: 106.14 kg ?Tech: ? JCP ? Referring MD: VINCE CARPENTER Site: ? [facility] Reading Location: MOBILE - OP Patient [...] . This study was interpreted by an [facility] accredited facility. ??Final ?? Procedure Note Gildardo Mccarthy MD - 10/10/2023 ECHOCARDIOGRAM LEESA MOODY : 1950 73 years Study Date: 10/10/2023 12:52:08 PM Gender: F BP: 126/76 mmHg Height: 172.72 cm BSA: 2.18 m? ? ? Weight: 106.14 kg Tech: [facility] Referring MD: VINCE CARPENTER Site: [facility] Reading Location: MOBILE - OP Patient [...] . This study was interpreted by an [facility] accredited facility. Final Vince Carpenter MD ECHO ORD * EKG 12 LEAD (10/10/2023 9:46 AM CDT) Interpretation Sinus bradycardia with 1st degree A-V block Left axis deviation Poor ??R wave Transition Abnormal ECG Ventricular Rate 59 BPM Atrial Rate 59 BPM P-R Interval 226 ms QRS Duration 106 ms QT 458 ms QTc 453 ms P Isaban 46 degrees R Isaban -41 degrees T Isaban -68 degrees 10/10/2023 9:46 AM CDT 10/10/2023 8:04 PM CDT Vince Carpenter MD EKG ORD * LIPID PANEL (06/22/2018 7:32 AM AUTO CLAIMS ADJUSTER) CHOLESTEROL,TOTAL 177 100 - 199 mg/dL 06/22/2018 8:19 AM AUTO CLAIMS ADJUSTER [facility] TRIGLYCERIDES 118 <150 mg/dL 06/22/2018 8:19 AM AUTO CLAIMS ADJUSTER [facility] HDL CHOLESTEROL 54 >40 mg/dL 9 8:19 AM AUTO CLAIMS ADJUSTER [facility] NON-HDL CHOLESTEROL 123 <145 mg/dl 06/22/2018 8:19 AM AUTO CLAIMS ADJUSTER [facility] CHOL/HDL RATIO 3.28 <4.50 06/22/2018 8:19 AM AUTO CLAIMS ADJUSTER [facility] LDL CHOLESTEROL 99 <=130 mg/dL 06/22/2018 8:19 AM AUTO CLAIMS ADJUSTER [facility] PROVIDER ORDERED STATUS FASTING 06/22/2018 8:19 AM [facility] Blood BLOOD SPECIMEN / Unknown Venipuncture / Unknown 06/22/2018 7:32 AM AUTO CLAIMS ADJUSTER 06/22/2018 7:53 AM AUTO CLAIMS ADJUSTER Maurice Poe MD CHEMISTRY [facility] [address] [place] [address], [place] * (ABNORMAL) XR DXA BONE DENSITY 2 SITES (03/27/2015 1:29 PM AUTO CLAIMS ADJUSTER) Anatomical Region Laterality Modality Spine, HIPS, HIPL, HIPR Other Narrative 04/03/2015 8:04 AM AUTO CLAIMS ADJUSTER Please see scanned document for results of this study. Raza Killian MD DEXA * XR MAMMO BILAT SCREEN FFDM (05/21/2012 11:17 AM AUTO CLAIMS ADJUSTER) Anatomical Region Laterality Modality BREASTS, Breast Left, Breast Right Bilateral Mammography Addenda Addendum by Raphael Flaherty DO on 07/31/2012 3:10 PM CDT ??ADDENDUM ? ADDENDUM ? ADDENDUM Many attempts have been made to contact the patient regarding additional imaging that is needed following her screening mammogram. ??The patient has failed to return for our recommended follow-up. ?? Impressions 05/21/2012 3:54 PM AUTO CLAIMS ADJUSTER ??ACR 0 Incomplete: Need Additional Imaging Evaluation and/or Prior Mammograms for Comparison RECOMMENDATION: ??Ultrasound of the RIGHT breast. Narrative 05/21/2012 3:54 PM AUTO CLAIMS ADJUSTER BILATERAL FULL-FIELD DIGITAL SCREENING MAMMOGRAM WITH CAD [...] are identified in either breast. Procedure Note CherryRaphael patton Mala, DO - 07/31/2012 BILATERAL FULL-FIELD DIGITAL SCREENING [...] Code Status Discussion: Reviewed Preferences Care Teams Manager Animal Relationship Specialty Start Date End Date Lise Cardenas MD [address] [place] [address] PCP - General Family Practice 09/22/23 Nurses, Advanced Heart Failure [address] [place] [address] Heart Failure Care Coordination 08/25/15 Maurice Poe MD [address] [place] [address] [place] [address] Advanced Heart Failure/Transplant Card 01/14/22
--- OUTSIDE RECORDS SUMMARY | 2023-12-28 10:34 | XMS_ITS | Referral Summary ---
Author Organization [facility] Address [address] [place] [address] Care Team Providers Care Boat Buffer Plastic Name Role Phone Unavailable Primary Care Provider Unavailabl e Source Comments Patient records contain information from all sites at [facility]. For routine questions regarding patient records, call [phone] during business hours, M-F 8:00 AM - 5:00 PM Central Time. Record requests for emergency care only can be directed to [phone] at any time.[facility] Encounters Date Type Department Care Team Description 10/04/2023 9:00 AM CDT External Outreach Division of Nephrology and Hypertension in [place], [place] [address] [place] [address] Stevan Adamson Jr., D.O. Chronic Kidney Disease [...]
--- OUTSIDE RECORDS SUMMARY | 2023-12-28 10:34 | XMS_ITS | Encounter Summary ---
Author Organization [facility] Address [address] [place] [address] Care Team Providers Care Senior Laboratory Technician Name Role Phone Unavailable Primary Care Provider Unavailabl e Reason for Visit * Appointment Request (Routine) - Closed Specialty Diagnoses / Procedures Referred By Sam t Referred To Contact Nephrology and Hypertension Miguel Dash M.D. [address] [place] [address] Referral ID Status Reason Start Date Expiration Date Visits Re quested Visits Authorized [id number] Closed 10/04/2023 10/03/2024 1 1 Encounter Details Date Type Department Care Team (Latest Contact Info) Description 10/04/2023 9:00 AM CDT External Outreach Division of Nephrology and Hypertension in [place], [place] [address] [place] [address] Stevan Adamson Jr., D.O. [address] [place] [address] Chronic Kidney Disease (CKD), Stage 3b Glomerular [...] Referring Provider: DR Miller, REASON FOR VISIT [place] [facility] Initial consultation and [...] decompensated heart failure required admission to the [facility]. 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 With goal-directed therapy over the years she has been able to regain ejection fraction up to 45-50%. Note her serum creatinine level until 2020 was 1.2 mg/dL, dora to the 1.7 and up to 2 mg/dL in [id number] on the background of requiring ablation for [...] has never had urolithiasis. She relates in [facility] there was a very dramatic [...] the right there is both pitting and [place] indurated nonpitting edema of bilateral lower extremities, [...]
== END 2023-12-28 10:33 | disposition home or self-care (01) ==
LOC: WOUND 10:32
PROVIDERS: PCP Student in an Organized Health Care Education/Training Program; Visit Provider Nurse Practitioner Family
DX: I87.2 Venous insufficiency (chronic) (peripheral) (principal); I89.0 Lymphedema, not elsewhere classified; L97.322 Non-pressure chronic ulcer of left ankle with fat layer exposed
CPT/HCPCS: 97597

== ENCOUNTER 2024-01-05 15:17 | Outpatient (CLI) | payer OTHER, SELFPAY ==
--- OUTSIDE RECORDS SUMMARY | 2024-01-05 15:18 | XMS_ITS ---
Author Organization [facility] Address [address] [place] [address] Care Team Providers Care Cutter Inspector Name Role Phone Unavailable Unavailable Unavailable Surgery Details Not on file Complications Check Surgery Details section. Procedure Estimated Blood Loss Check Surgery Details section. Procedure Findings Check Surgery Details section. Procedure Specimens Taken Check Surgery Details section.
--- OUTSIDE RECORDS SUMMARY | 2024-01-05 15:18 | XMS_ITS | Encounter Summary ---
Author Organization [facility] Address [address] [place] [address] Care Team Providers Care Aerodynamics Teacher Name Role Phone Unavailable Primary Care Provider Unavailabl e Reason for Visit * Appointment Request (Routine) - Closed Specialty Diagnoses / Procedures Referred By Sam t Referred To Contact Nephrology and Hypertension Miguel Dash M.D. [address] [place] [address] Referral ID Status Reason Start Date Expiration Date Visits Re quested Visits Authorized [id number] Closed 10/04/2023 10/03/2024 1 1 Encounter Details Date Type Department Care Team (Latest Contact Info) Description 10/04/2023 9:00 AM CDT External Outreach Division of Nephrology and Hypertension in [place], [place] [address] [place] [address] Stevan Adamson Jr., D.O. [address] [place] [address] Chronic Kidney Disease (CKD), Stage 3b Glomerular [...] Referring Provider: DR Miller, REASON FOR VISIT [place] [facility] Initial consultation and [...] heart failure required admission to the [facility]. 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 With goal-directed therapy over the years she has been able to regain ejection fraction up to 45-50%. Note her serum creatinine level until 2020 was 1.2 mg/dL, dora to the 1.7 and up to 2 mg/dL in [id number] on the background of requiring ablation for [...] has never had urolithiasis. She relates in [facility] there was a very dramatic event where [...] the right there is both pitting and [place] indurated nonpitting edema of bilateral lower extremities, [...]
--- OUTSIDE RECORDS SUMMARY | 2024-01-05 15:18 | XMS_ITS | Referral Summary ---
Author Organization [facility] Address [address] [place] [address] Care Team Providers Care Fmd Teacher Name Role Phone Unavailable Primary Care Provider Unavailabl e Source Comments Patient records contain information from all sites at [facility]. For routine questions regarding patient records, call [phone] during business hours, M-F 8:00 AM - 5:00 PM Central Time. Record requests for emergency care only can be directed to [phone] at any time.[facility] Medications Medication Sig Dispensed Refills Start Date [...] (AREXVY) recombinant vaccine 12/22/2022 Tdap 05/23/2022,02/07/2012 influenza trivalent high dos e (HD)(PF) 03/17/2016,03/25/2015 influenza vaccine quad (FLUZONE/FLUARIX) (6 months [...]
--- OUTSIDE RECORDS SUMMARY | 2024-01-05 15:18 | XMS_ITS | Clinical Summary ---
Author Organization [facility] Address [address] [place] [address] Care Team Providers Care Jewel Oliving Machine Operator Name Role Phone Unavailable Primary Care Provider Unavailabl e Source Comments Patient records contain information from all sites at [facility]. For routine questions regarding patient records, call [phone] during business hours, M-F 8:00 AM - 5:00 PM Central Time. Record requests for emergency care only can be directed to [phone] at any time.[facility] Medications Medication Sig Dispensed Refills Start [...] 2) 1999 Lipid (Cholesterol) Screening 06/22/2019 06/22/2018 Depression Screening (Annual PHQ-2) 05/01/2023 Fall Risk Screen (Annual) 05/01/2023 COVID-19 Vaccine ( - 2022-2 4 season) 2023 03/26/2021, 07/24/2020, 07/03/2020 Influenza Vaccine (#1) 2024 , 12/22/2022, 05/23/2022, Additional history exists Office Visit [...]
--- OUTSIDE RECORDS SUMMARY | 2024-01-05 15:19 | XMS_ITS | Clinical Summary ---
Author Organization [facility] Address [place], [place] [address] Care Team Providers Care Cytotechnologist/Cytology Supervisor Name Role Phone Nurses, Advanced Heart Failure [...] due to pollen, unspecified seasonality Inhale 1 [place] into affected nostril(s) once daily if needed [...] TIMES DAILY 90 Tablet 5 12/18/2023 Active doxycycline 100 mg tabletIndications:C ellulitis of skin Take 1 Tablet (100 mg) by mouth two times daily for 7 days. 14 Tablet 01/03/2024 01/10/20 24 Active isosorbide dinitrate (ISORDIL) 30 mg tabletIndications:N [...] Encounters Date Type Department Care Team Description 01/03/2024 4:50 PM CDT Office Visit [facility] [address] [phone] Charis Weber NP Skin Problem (Left foot/heel) 01/03/2024 Travel 12/19/2023 Telephone [facility] [place] [address] [place] [phone] Ileana Anand MD Prior Authorization (Arnuity Ellipta 100 mcg/actuation inhaler JESUS (NOT NEEDED)) 12/16/2023 Refill [facility] [address] [place] [address] Maurice Poe MD Refill Request (Isosorbide Dinitrate) 11/24/2023 Refill [facility] [address] [place] [address] Maurice Poe MD Refill Request (Eliquis, Carvedilol) 11/20/2023 11:25 AM CDT Office Visit [facility] [place] [address] [facility] [address] [place] [phone] Ileana Anand MD Follow Up (Pulmonary. COPD.) 11/20/2023 Travel 11/03/2023 2:10 PM CDT Orders Only [facility] [address] [facility] [place] [phone] Lab, [facility] 11/03/2023 Telephone [facility] [address] [place] [address] Maurice Poe MD Follow Up 11/03/2023 Travel 11/03/2023 Orders Only [facility] Scanner 1 scan: (1-Ord) INCOMING RECORDS-[facility], 11/03/2023 10/24/2023 3:30 PM CDT Office Visit [facility] [address] [place] [address] Maurice Poe MD CV Heart Failure Est (CHF IN PERSON F/U VISIT. LABS DONE PRIOR /DX. Nonischemic cardiomyopathy (HC) [I42.8] //PCP:Lise Cardenas MD/) 10/24/2023 2:30 PM CDT Orders Only [facility] [address] [place] [address] Lab (/) 10/24/2023 Travel 10/20/2023 Refill [facility] [address] [place] [address] Maurice Poe MD Refill Request (Furosemide) 10/13/2023 Telephone [facility] [address] [place] [phone] Vince Carpenter MD Results (Echocardiogram 10/10/23) 10/12/2023 Telephone [facility] [address] [place] [phone] Maurice Poe MD Medication Management 10/10/2023 1:00 PM CDT Ancillary Procedure [facility] [address] [place] [address] 10/10/2023 11:00 AM CDT Office Visit [facility] [address] [address] Vince Carpenter MD CV Electrophysiology Est (Post Ablation (04/05/23)//PCP: Lise Cardenas MD) 10/10/2023 Travel from Last 3 Months Immunizations Name Administration [...] Sign Reading Time Taken Comments Blood Pressure 115/70 01/03/2024 5:26 PM CDT Pulse 98 01/03/2024 5:26 PM CDT Temperature 36.7 ??C (98 ??F) 01/03/2024 5:26 PM CDT Respiratory Rate 16 01/03/2024 5:26 PM CDT Oxygen Saturation 95% 01/03/2024 5:26 PM CDT Inhaled Oxygen Concentration - - Weight 105.6 kg (232 lb 14.4 oz) 01/03/2024 5:26 PM CDT Height 172.7 cm (5' 8) 11/20/2023 12:1 1 PM CDT Body Mass Index 35.41 11/20/2023 12:11 PM CDT Plan of Treatment Upcoming Encounters Date Type Department Care Team (Late st Contact Info) Description 01/11/2024 12:30 PM CDT Orders Only [facility] [address] [facility] [address] [place] [phone] 01/11/2024 1:30 PM CDT Office Visit [facility] [address] [place] [phone] Maurice Poe MD [address] [facility] [address] [place] [address] Health Maintenance Due Date Last Done Comments [...] 03/31/2017 03/31/2016, 02/07/2012 Tetanus booster 02/06/2022 02/07/2012 Lipids for age 45-75 06/22/2023 06/22/2018, 2015, 10/08/2012, Additional history exists COVID-19 vaccine series ( season) 2023 03/26/2021, 07/24/2020, 07/03/2020 Influenza for age 65+ 12/31/2023 03/17/2016 , 03/25/2015, 03/25/2015, Additional history exists BMI (ht and wt on same day) for age 18+ 11/19/2024 11/20/2023, 10/10/2023, 02/15/2023, Additional history exists Tdap Completed 02/07/2012 DEXA/DXA scan for age 65+ Completed 03/27/2015 Procedures Procedure Name Priority Date/Time Associated Diagnosis Comments AEROBIC BACTERIAL CULTURE, STAIN STAT 01/03/2024 6:21 PM CDT Cellulitis of skin BASIC METABOLIC PANEL Routine 11/03/2023 2:08 PM [...] 9:46 AM CDT Persistent atrial fibrillation (HC) LIPID PANEL Routine 06/22/2018 7:32 AM DISPLAY CARVER Dilated cardiomyopathy (HC) XR DXA BONE DENSITY 2 SITES AXIAL Routine 03/27/2015 1:29 PM DISPLAY CARVER Asymptomatic menopausal state XR MAMMO BILAT SCREEN FFDM (IA) Routine 05/21/2012 11:17 AM DISPLAY CARVER Other screening mammogram from Last 3 Months or Most Recently Relevant to Health Maintenance Results * (ABNORMAL) BASIC METABOLIC PANEL (11/03/2023 2:08 PM CDT) Only the most recent of2 resultswithin the time period is included. SODIUM 139 136 - 145 mmol/L 11/03/2023 2:38 PM [facility] POTASSIUM 3.8 3.5 - 5.1 mmol/L 11/03/2023 2:38 PM [facility] CHLORIDE 103 98 - 107 mmol/L 11/03/2023 2:38 PM [facility] CO2,TOTAL 29 22 - 29 mmol/L 11/03/2023 2:38 PM [facility] ANION GAP 7 5 - 18 11/03/2023 2:38 PM [facility] GLUCOSE 96 70 - 99 mg/dL 11/03/2023 2:38 PM [facility] CALCIUM 9.0 8.8 - 10.2 mg/dL 11/03/2023 2:38 PM [facility] BUN 27(H) 8 - 23 mg/dL 11/03/2023 2:38 PM [facility] CREATININE 1.38(H) 0.50 - 0.90 mg/dL 11/03/2023 2:38 PM CDT [facility] BUN/CREAT RATIO 20 10 - 20 2:38 PM CDT [facility] eGFR 40(L) >90 mL/min/1.7 3m2 11/03/2023 2:38 PM CDT [facility] Comment:As of 2021, eG FR is calculated by the CKD-EPI creatinine equation without race adjustment. ??eGFR can be influenced by muscle mass, exercise, and diet. ??The reported eGFR is an estimation only and is only applicable if the renal function is stable. Blood BLOOD SPECIMEN / Unknown Venipuncture / Unknown 11/03/2023 2:08 PM CDT 11/03/2023 2:09 PM CDT Maurice Poe MD CHEMISTRY [facility] [address] [place] [address] * SCAN CORRESP-IMAGING (11/03/2023 12:00 AM CDT) Anatomical Region Laterality Modality Other Scanner OTHER * (ABNORMAL) PRO-BNP (10/24/2023 1:55 PM CDT) [facility] PRO-BNP 1,563(H) <125 pg/mL 10/24/2023 3:12 PM CDT [facility] Blood BLOOD SPECIMEN / Unknown Venipuncture / Unknown 10/24/2023 1:55 PM CDT 10/24/2023 2:02 PM CDT Narrative [facility] - 10/24/2023 3:12 PM CDT The [...] Poe MD SEND OUTS Performing Organization Address [facility] Co de Phone Number [facility] [address] [place] [address], * MAGNESIUM (10/24/2023 1:55 PM CDT) [facility] MAGNESIUM 2.4 1.6 - 2.4 mg/dL 10/24/2023 3:11 PM CDT [facility] Blood BLOOD SPECIMEN / Unknown Venipuncture / Unknown 10/24/2023 1:55 PM CDT 10/24/2023 2:02 PM CDT Maurice Poe MD CHEMISTRY Performing Organization Address [facility] Co de Phone Number [facility] [address] [place] [id number], [place] * ECHO TTE COMPLETE WO CONTRAST (10/10/2023 1:34 PM CDT) Pathologist [facility] AORTIC VALVE MEAN PG 3 mmHg EJECTION FRACTION 36 % PEAK TR VELOCITY 3.2 m/s LVEDD 6.8 cm MITRAL VALVE MR ERO 22 mm2 EJECTION FRACTION 30 - 35% Anatomical Region Laterality Modality Ultrasound 10/10/2023 12:5 2 PM CDT Narrative 10/10/2023 2:01 PM CDT ECHOCARDIOGRAM LEESA MOODY ? Accession#: ?? [id number] : ?1950 73 years Study Date: ?? 10/10/2023 12:52:08 PM Gender: F ?BP: ? 126/76 mmHg Height: 172.72 cm ?BSA: ?2.18 m? ? ? Weight: 106.14 kg ?Tech: ? JCP ? Referring MD: VINCE CARPENTER Site: ? [facility] Reading Location: MOBILE - OP Patient [...] . This study was interpreted by an [facility] accredited facility. ??Final ?? Procedure Note Gildardo Mccarthy MD - 10/10/2023 ECHOCARDIOGRAM LEESA MOODY : 1950 73 years Study Date: 10/10/2023 12:52:08 PM Gender: F BP: 126/76 mmHg Height: 172.72 cm BSA: 2.18 m? ? ? Weight: 106.14 kg Tech: [facility] Referring MD: VINCE CARPENTER Site: [facility] Reading Location: MOBILE - OP Patient [...] . This study was interpreted by an [facility] accredited facility. Final Vince Carpenter MD ECHO ORD * EKG 12 LEAD (10/10/2023 9:46 AM CDT) Interpretation Sinus bradycardia with 1st degree A-V block Left axis deviation Poor ??R wave Transition Abnormal ECG Ventricular Rate 59 BPM Atrial Rate 59 BPM P-R Interval 226 ms QRS Duration 106 ms QT 458 ms QTc 453 ms P Shannon 46 degrees R Shannon -41 degrees T Shannon -68 degrees 10/10/2023 9:46 AM CDT 10/10/2023 8:04 PM CDT Vince Carpenter MD EKG ORD * LIPID PANEL (06/22/2018 7:32 AM DISPLAY CARVER) CHOLESTEROL,TOTAL 177 100 - 199 mg/dL 06/22/2018 8:19 AM DISPLAY CARVER [facility] TRIGLYCERIDES 118 <150 mg/dL 06/22/2018 8:19 AM DISPLAY CARVER [facility] HDL CHOLESTEROL 54 >40 mg/dL 9 8:19 AM DISPLAY CARVER [facility] NON-HDL CHOLESTEROL 123 <145 mg/dl 06/22/2018 8:19 AM DISPLAY CARVER [facility] CHOL/HDL RATIO 3.28 <4.50 06/22/2018 8:19 AM DISPLAY CARVER [facility] LDL CHOLESTEROL 99 <=130 mg/dL 06/22/2018 8:19 AM DISPLAY CARVER [facility] PROVIDER ORDERED STATUS FASTING 06/22/2018 8:19 AM DISPLAY CARVER [facility] Blood BLOOD SPECIMEN / Unknown Venipuncture / Unknown 06/22/2018 7:32 AM DISPLAY CARVER 06/22/2018 7:53 AM DISPLAY CARVER Maurice Poe MD CHEMISTRY [facility] [address] [place] [address], * (ABNORMAL) XR DXA BONE DENSITY 2 SITES (03/27/2015 1:29 PM DISPLAY CARVER) Anatomical Region Laterality Modality Spine, HIPS, HIPL, HIPR Other Narrative 04/03/2015 8:04 AM DISPLAY CARVER Please see scanned document for results of this study. Raza Killian MD DEXA * XR MAMMO BILAT SCREEN FFDM (05/21/2012 11:17 AM DISPLAY CARVER) Anatomical Region Laterality Modality BREASTS, Breast Left, Breast Right Bilateral Mammography Addenda Addendum by Raphael Flaherty DO on 07/31/2012 3:10 PM CDT ??ADDENDUM ? ADDENDUM ? ADDENDUM Many attempts have been made to contact the patient regarding additional imaging that is needed following her screening mammogram. ??The patient has failed to return for our recommended follow-up. ?? Impressions 05/21/2012 3:54 PM DISPLAY CARVER ??ACR 0 Incomplete: Need Additional Imaging Evaluation and/or Prior Mammograms for Comparison RECOMMENDATION: ??Ultrasound of the RIGHT breast. Narrative 05/21/2012 3:54 PM DISPLAY CARVER BILATERAL FULL-FIELD DIGITAL SCREENING MAMMOGRAM WITH CAD [...] Code Status Discussion: Reviewed Preferences Care Teams Cytotechnologist/Cytology Supervisor Relationship Specialty Start Date End Date Lise Cardenas MD [address] [place] [id number] PCP - General Family Practice 09/22/23 Nurses, Advanced Heart Failure [address] [address] Heart Failure Care Coordination 08/25/15 Maurice Poe MD [address] [place] [address] Advanced Heart Failure/Transplant Card 01/14/22
== END 2024-01-05 15:18 | disposition home or self-care (01) ==
LOC: WOUND 15:17
PROVIDERS: PCP Student in an Organized Health Care Education/Training Program; Visit Provider Nurse Practitioner Family
DX: I87.2 Venous insufficiency (chronic) (peripheral) (principal); I89.0 Lymphedema, not elsewhere classified; L97.322 Non-pressure chronic ulcer of left ankle with fat layer exposed
CPT/HCPCS: 97597

== ENCOUNTER 2024-01-12 15:23 | Outpatient (CLI) | payer OTHER, SELFPAY ==
--- OUTSIDE RECORDS SUMMARY | 2024-01-12 15:25 | XMS_ITS | Clinical Summary ---
Author Organization [facility] Address [address] [place] [address] Care Team Providers Care Human Services Assistant Name Role Phone Unavailable Primary Care Provider Unavailabl e Source Comments Patient records contain information from all sites at [facility]. For routine questions regarding patient records, call [phone] during business hours, M-F 8:00 AM - 5:00 PM Central Time. Record requests for emergency care only can be directed to [phone] at any time.[facility] Medications Medication Sig Dispensed Refills Start [...] 10/04/2023 Creatinine Level (Kidney Fun ction Test) 01/10/2025 01/11/2024, 11/03/2023, 10/24/2023, Additional history exists Potassium Level 01/10/2025 01/11/2024, 07/0 08/2023, 10/24/2023, Additional history exists Sodium Level 01/10/2025 01/11/2024, 07/0 08/2023, 10/24/2023, Additional history exists Fasting Glucose for Diabetes Screening 01/10/2027 01/11/2024, 11/03/2023, 10/24/2023, Additional history exists DTaP,Tdap,and Td Vaccines (3 - Td or Tdap) 05/23/2032 05/23/2022, 02/07/2012 Pneumococcal vaccine (65+ years) Completed 08/21/2017, 03/31/2016, 02/07/2012 RSV vaccine - (32-3 6 weeks) or 60+ years Completed 12/22/2022
--- OUTSIDE RECORDS SUMMARY | 2024-01-12 15:26 | XMS_ITS | Referral Summary ---
Author Organization [facility] Address [address] [place] [address] Care Team Providers Care Program Research Specialist Name Role Phone Unavailable Primary Care Provider Unavailabl e Source Comments Patient records contain information from all sites at [facility]. For routine questions regarding patient records, call [phone] during business hours, M-F 8:00 AM - 5:00 PM Central Time. Record requests for emergency care only can be directed to [phone] at any time.[facility] Medications Medication Sig Dispensed Refills Start Date [...]
--- OUTSIDE RECORDS SUMMARY | 2024-01-12 15:26 | XMS_ITS | Clinical Summary ---
Author Organization [email or web address] [facility] Address [place], [place] [address] Care Team Providers Care Podiatrist Orthopedic Name Role Phone Nurses, Advanced Heart Failure [...] AT BEDTIME 90 Tablet 2 4 Active empagliflozin (Jardiance) 10 mg tabletIndications: Nonischemic cardiomyopathy (HC) Take 1 Tablet (10 mg) by mouth once daily. 30 Tablet 11 4 Active albuterol HFA (PRO-AIR; VENTOLIN; PROVENTIL) [...] due to pollen, unspecified seasonality Inhale 1 [place] into affected nostril(s) once daily if needed for Rhinitis. 16 g 4 Active apixaban (Eliquis) 5 mg tabletIndications: Paroxysmal atrial fibrillation (HC) Take 1 tablet by mouth twice daily 180 Tablet 4 Active carvediloL (COREG) 25 mg tabletIndications: Paroxysmal atrial fibrillation (HC) Take 1 tablet by mouth twice daily 180 Tablet 4 Active hydrALAZINE (APRESOLINE) 25 mg tabletIndications: Dilated cardiomyopathy (HC) Take 1 Tablet (25 mg) by mouth three times daily. 270 Tablet 4 Active isosorbide dinitrate (ISORDIL) 20 mg tabletIndications: Nonischemic cardiomyopathy (HC) Take 1 Tablet (20 mg) by mouth three times daily. 270 Tablet 4 Active furosemide (LASIX) 20 mg tabletIndications: Dilated cardiomyopathy (HC) Take 3 Tablets (60 mg) by mouth two times daily. 540 Tablet 3 4 Active amiodarone (CORDARONE) 200 mg tabletIndications: Persistent atrial fibrillation (HC) Take 2 tablets (400 mg) twice a day for 2 weeks. Then take 1 tablet (200 mg) once a day and stay on that dose. Have an EKG done 2 weeks after starting 180 Tablet 3 4 Active isosorbide dinitrate (ISORDIL) 30 mg tabletIndications: Nonischemic cardiomyopathy (HC) Take 1 Tablet (30 mg) by mouth three times daily. 90 Tablet 5 4 12/18/19 24 Discontinued furosemide (LASIX) 40 mg tabletIndications: Dilated cardiomyopathy (HC) TAKE 1 TABLET BY MOUTH IN THE MORNING AND 1 TABLET BY MOUTH AT 1PM 135 Tablet 1 4 01/11/20 24 Discontinued(Reo rder (E-cancel not sent)) potassium chloride (KLOR-CON M10) 10 mEq extended-release tablet (part/cryst)Indica tions:Dilated cardiomyopathy (HC) Take 1 Tablet (10 mEq) by mouth once daily with a meal. On hold due for questions 4 01/11/20 24 Discontinued(Oth er - add note to specify (E-cancel not sent)) hydrALAZINE (APRESOLINE) 25 mg tabletIndications: Dilated cardiomyopathy (HC) Take 2 Tablets (50 mg) by mouth three times daily. 540 Tablet 3 4 01/11/20 24 Discontinued(*Me d complete/Regimen complete/Level of care change) isosorbide dinitrate (ISORDIL) 30 mg tabletIndications: Nonischemic cardiomyopathy (HC) TAKE 1 TABLET BY MOUTH THREE TIMES DAILY 90 Tablet 5 4 01/11/20 24 Discontinued(*Me d complete/Regimen complete/Level of care change) doxycycline 100 mg tabletIndications: Cellulitis of skin Take 1 Tablet (100 mg) by mouth two times daily for 7 days. 14 Tablet 4 01/10/20 24 doxycycline 50 mg capsule Take 50 mg by mouth two times daily. 4 01/11/20 24 losartan (COZAAR) 25 mg tabletIndications: Dilated cardiomyopathy (HC) Take 1 Tablet (25 mg) by mouth two times daily. 180 Tablet 3 4 01/11/20 24 Discontinued(*Me d complete/Regimen complete/Level of care change) Active Problems Problem Noted [...] Encounters Date Type Department Care Team Description 01/12/2024 Telephone [facility] [address] [facility] [address] [place] [address] Maurice Poe MD Medication Management 01/11/2024 1:30 PM CDT Office Visit [facility] [address] [facility] [address] [place] [address] Maurice Poe MD CHF (Annual follow up) 01/11/2024 12:30 PM CDT Orders Only [facility] [address] [facility] [address] [place] [address] Lab 01/11/2024 Travel 01/03/2024 4:50 PM CDT Office Visit [facility] [address] [phone] Charis Weber NP Skin Problem (Left foot/heel) 01/03/2024 Travel 12/19/2023 Telephone [facility] [place] [address] [facility] [place] [address] [place] [phone] Ileana Anand MD Prior Authorization (Arnuity Ellipta 100 mcg/actuation inhaler JESUS (NOT NEEDED)) 12/16/2023 Refill [facility] [address] [facility] [address] [place] [address] Maurice Poe MD Refill Request (Isosorbide Dinitrate) 11/24/2023 Refill [facility] [address] [facility] [address] [place] [address] Maurice Poe MD Refill Request (Eliquis, Carvedilol) 11/20/2023 11:25 AM CDT Office Visit [facility] [place] [address] [facility] [address] [place] [phone] Ileana Anand MD Follow Up (Pulmonary. COPD.) 11/20/2023 Travel 11/03/2023 2:10 PM CDT Orders Only [facility] [address] [place] [address] Lab, [facility] Lab 11/03/2023 Telephone [facility] [address] [facility] [address] [place] [phone] Maurice Poe MD Follow Up 11/03/2023 Travel 11/03/2023 Orders Only [facility] Scanner 1 scan: (1-Ord) INCOMING RECORDS-[facility], 11/03/2023 10/24/2023 3:30 PM CDT Office Visit [facility] [address] [facility] [address] [place] [address] Maurice Poe MD CV Heart Failure Est (CHF IN PERSON F/U VISIT. LABS DONE PRIOR /DX. Nonischemic cardiomyopathy (HC) [I42.8] //PCP:Lise Cardenas MD/) 10/24/2023 2:30 PM CDT Orders Only [facility] [address] [facility] [address] [place] [address] Lab (/) 10/24/2023 Travel 10/20/2023 Refill [facility] [address] [facility] [address] [place] [phone] Maurice Poe MD Refill Request (Furosemide) 10/13/2023 Telephone [facility] [address] [facility] [address] [place] [phone] Brian Jc MD Results (Echocardiogram 10/10/23) 10/12/2023 Telephone [facility] [address] [facility] [address] [place] [phone] Maurice Poe MD Medication Management from Last 3 Months Immunizations Name Administration [...] Sign Reading Time Taken Comments Blood Pressure 106/68 01/11/2024 12:54 PM CDT Pulse 89 01/11/2024 12:54 PM CDT Temperature 36.7 ??C (98 ??F) 01/03/2024 5:2 6 PM CDT Respiratory Rate 16 01/11/2024 12:5 4 PM CDT Oxygen Saturation 96% 01/11/2024 12: 54 PM CDT Inhaled Oxygen Concentration - - Weight 105.2 kg (231 lb 14. 4 oz) 01/11/2024 12:54 PM CDT with shoes Height 172.7 cm (5' 8) 11/20/2023 12:1 1 PM CDT Body Mass Index 35.26 11/20/2023 12:11 PM CDT Plan of Treatment Health Maintenance Due [...] Priority Date/Time Associated Diagnosis Comments MAGNESIUM Routine 01/11/2024 12:46 PM CDT Dilated cardiomyopathy (HC) PRO-BNP Routine 01/11/2024 12:46 PM CDT Dilated cardiomyopathy (HC) BASIC METABOLIC PANEL Routine 01/11/2024 12:46 PM CDT Dilated cardiomyopathy (HC) AEROBIC BACTERIAL CULTURE, STAIN STAT 01/03/2024 6:21 PM CDT Cellulitis of skin BASIC METABOLIC PANEL Routine 11/03/2023 2:08 PM CDT Dilated cardiomyopathy (HC) SCAN CORRESP-IMAGING 11/03/2023 12:00 AM CDT MAGNESIUM Routine 10/24/2023 1:55 PM CDT Nonischemic cardiomyopathy (HC) PRO-BNP Routine 10/24/2023 1:55 PM CDT Nonischemic cardiomyopathy (HC) BASIC METABOLIC PANEL Routine 10/24/2023 1:55 PM CDT Nonischemic cardiomyopathy (HC) LIPID PANEL Routine 06/22/2018 7:32 AM BLOWER ROOM ATTENDANT Dilated cardiomyopathy (HC) XR DXA BONE DENSITY 2 SITES AXIAL Routine 03/27/2015 1:29 PM BLOWER ROOM ATTENDANT Asymptomatic menopausal state XR MAMMO BILAT SCREEN FFDM (IA) Routine 05/21/2012 11:17 AM BLOWER ROOM ATTENDANT Other screening mammogram from Last 3 Months or Most Recently Relevant to Health Maintenance Results * (ABNORMAL) PRO-BNP (01/11/2024 12:46 PM CDT) Only the most recent of2 resultswithin the time period is included. Pathologist [facility] PRO-BNP 7,847(H) <125 pg/mL 01/11/2024 1:33 PM CDT [facility] Blood BLOOD SPECIMEN / Unknown Venipuncture / Unknown 01/11/2024 12:46 PM CDT 01/11/2024 12:46 PM CDT Narrative [facility] - 01/11/2024 1:33 PM CDT The following cut-points have been [...] failure. ? Maurice Poe MD SEND OUTS [facility] [address] [place] [address], [place] * MAGNESIUM (01/11/2024 12:46 PM CDT) Only the most recent of2 resultswithin the time period is included. [facility] MAGNESIUM 2.3 1.6 - 2.4 mg/dL 01/11/2024 1:33 PM CDT [facility] Blood BLOOD SPECIMEN / Unknown Venipuncture / Unknown 01/11/2024 12:46 PM CDT 01/11/2024 12:46 PM CDT Maurice Poe MD CHEMISTRY [facility] [address] [place] [address], * (ABNORMAL) BASIC METABOLIC PANEL (01/11/2024 12:46 PM CDT) Only the most recent of3 resultswithin the time period is included. SODIUM 140 136 - 145 mmol/L 01/11/2024 1:33 PM CDT [facility] POTASSIUM 3.6 3.5 - 5.1 mmol/L 01/11/2024 1:33 PM CDT [facility] CHLORIDE 102 98 - 107 mmol/L 01/11/2024 1:33 PM CDT [facility] CO2,TOTAL 28 22 - 29 mmol/L 01/11/2024 1:33 PM CDT [facility] ANION GAP 10 5 - 18 01/11/2024 1:33 PM CDT [facility] GLUCOSE 117(H) 70 - 99 mg/dL 01/11/2024 1:33 PM T [facility] CALCIUM 8.8 8.8 - 10.2 mg/dL 01/11/2024 1:33 PM CDT [facility] BUN 24(H) 8 - 23 mg/dL 01/11/2024 1:33 PM T [facility] CREATININE 1.46(H) 0.50 - 0.90 mg/dL 01/11/2024 1:33 PM T [facility] BUN/CREAT RATIO 16 10 - 20 1:33 PM T [facility] eGFR 38(L) >90 mL/min/1.7 3m2 01/11/2024 1:33 PM CDT [facility] Comment:As of 2021, eG FR is calculated by the CKD-EPI creatinine equation without race adjustment. ??eGFR can be influenced by muscle mass, exercise, and diet. ??The reported eGFR is an estimation only and is only applicable if the renal function is stable. Blood BLOOD SPECIMEN / Unknown Venipuncture / Unknown 01/11/2024 12:46 PM CDT 01/11/2024 12:46 PM CDT Maurice Poe MD CHEMISTRY [facility] [address] [place] [address], * (ABNORMAL) AEROBIC BACTERIAL CULTURE, STAIN (01/03/2024 6:21 PM CDT) CULTURE RESULT(A) 01/08/2024 2:04 PM CDT [facility] CULTURE 4+ Escherichia coli 01/08/2024 2:04 PM CDT [facility] CULTURE 3+ Mixed warren present 01/08/2024 2:04 PM CDT [facility] GRAM STAIN No PMNs 01/08/2024 2:04 PM CDT [facility] GRAM STAIN 1+ Epithelial cells 01/08/2024 2:04 PM CDT [facility] GRAM STAIN No RBCs 01/08/2024 2:04 PM CDT [facility] GRAM STAIN 3+ Gram Positive Cocci 01/08/2024 2:04 PM CDT [facility] GRAM STAIN 4+ Gram Negative Bacilli 01/08/2024 2:04 PM CDT [facility] Other (Other) Non-Blood / Unknown 01/03/2024 6:21 PM CDT 01/03/2024 7:12 PM CDT Narrative [facility] - 01/08/2024 2:04 PM CDT Mixed warren; No Staphylococcus aureus, beta-Streptococcus, Streptococcus pneumoniae, or Pseudomonas aeruginosa isolated. Organism Antibiotic Method Susceptibility Escherichia coli TRIMETHOPRIM/SULF <=19: S Escherichia coli AMPICILLIN >=32: R Escherichia coli CEFAZOLIN 4: I Escherichia coli GENTAMICIN <=1: S Escherichia coli CEFTRIAXONE <=0.25: S Escherichia coli CEFTAZIDIME <=0.5: S Escherichia coli LEVOFLOXACIN <=0.12: S Escherichia coli CIPROFLOXACIN <=0.06: S Escherichia coli PIPERACILLIN/TAZO <=4: S Escherichia coli AMPICILLIN/SULBACTAM 16: I Escherichia coli CEFEPIME <=0.12: S Escherichia coli MEROPENEM <=0.25: S Charis Weber RESIDENT ASSISTANT [facility] [address] [place] [address], * SCAN CORRESP-IMAGING (11/03/2023 12:00 AM CDT) Anatomical Region Laterality Modality Other Scanner OTHER * LIPID PANEL (06/22/2018 7:32 AM BLOWER ROOM ATTENDANT) CHOLESTEROL,TOTAL 177 100 - 199 mg/dL 06/22/2018 8:19 AM BLOWER ROOM ATTENDANT [facility] TRIGLYCERIDES 118 <150 mg/dL 06/22/2018 8:19 AM BLOWER ROOM ATTENDANT [facility] HDL CHOLESTEROL 54 >40 mg/dL 9 8:19 AM BLOWER ROOM ATTENDANT [facility] NON-HDL CHOLESTEROL 123 <145 mg/dl 06/22/2018 8:19 AM BLOWER ROOM ATTENDANT [facility] CHOL/HDL RATIO 3.28 <4.50 06/22/2018 8:19 AM BLOWER ROOM ATTENDANT [facility] [employer] [facility] LDL CHOLESTEROL 99 <=130 mg/dL 06/22/2018 8:19 AM BLOWER ROOM ATTENDANT [facility] PROVIDER ORDERED STATUS FASTING 06/22/2018 8:19 AM BLOWER ROOM ATTENDANT [facility] Blood BLOOD SPECIMEN / Unknown Venipuncture / Unknown 06/22/2018 7:32 AM BLOWER ROOM ATTENDANT 06/22/2018 7:53 AM BLOWER ROOM ATTENDANT Maurice Poe MD CHEMISTRY [facility] [address] [place] [address], * (ABNORMAL) XR DXA BONE DENSITY 2 SITES (03/27/2015 1:29 PM BLOWER ROOM ATTENDANT) Anatomical Region Laterality Modality Spine, HIPS, HIPL, HIPR Other Narrative 04/03/2015 8:04 AM BLOWER ROOM ATTENDANT Please see scanned document for results of this study. Raza Killian MD DEXA * XR MAMMO BILAT SCREEN FFDM (05/21/2012 11:17 AM BLOWER ROOM ATTENDANT) Anatomical Region Laterality Modality BREASTS, Breast Left, Breast Right Bilateral Mammography Addenda Addendum by Raphael Flaherty DO on 07/31/2012 3:10 PM CDT ??ADDENDUM ? ADDENDUM ? ADDENDUM Many attempts have been made to contact the patient regarding additional imaging that is needed following her screening mammogram. ??The patient has failed to return for our recommended follow-up. ?? Impressions 05/21/2012 3:54 PM BLOWER ROOM ATTENDANT ??ACR 0 Incomplete: Need Additional Imaging Evaluation and/or Prior Mammograms for Comparison RECOMMENDATION: ??Ultrasound of the RIGHT breast. Narrative 05/21/2012 3:54 PM BLOWER ROOM ATTENDANT BILATERAL FULL-FIELD DIGITAL SCREENING MAMMOGRAM WITH CAD [...] Code Status Discussion: Reviewed Preferences Care Teams Podiatrist Orthopedic Relationship Specialty Start Date End Date Lise Cardenas MD [address] [place] [address] PCP - General Family Practice 09/22/23 Nurses, Advanced Heart Failure [address] [place] [phone] Heart Failure Care Coordination 08/25/15 Maurice Poe MD [address] [address] [place] [address] Advanced Heart Failure/Transplant Card 01/14/22
--- OUTSIDE RECORDS SUMMARY | 2024-01-12 15:26 | XMS_ITS ---
Author Organization [facility] Address [address] [place] [address] Care Team Providers Care Physiology Teacher Name Role Phone Unavailable Unavailable Unavailable Surgery Details Not on file Complications Check Surgery Details section. Procedure Estimated Blood Loss Check Surgery Details section. Procedure Findings Check Surgery Details section. Procedure Specimens Taken Check Surgery Details section.
--- OUTSIDE RECORDS SUMMARY | 2024-01-12 15:26 | XMS_ITS | Encounter Summary ---
Author Organization [facility] Address [address] [place] [address] Care Team Providers Care Slasher Runner Name Role Phone Unavailable Primary Care Provider Unavailabl e Reason for Visit * Appointment Request (Routine) - Closed Specialty Diagnoses / Procedures Referred By Sam t Referred To Contact Nephrology and Hypertension Miguel Dash M.D. [address] [place] [address] Referral ID Status Reason Start Date Expiration Date Visits Re quested Visits Authorized [id number] Closed 10/04/2023 10/03/2024 1 1 Encounter Details Date Type Department Care Team (Latest Contact Info) Description 10/04/2023 9:00 AM CDT External Outreach Division of Nephrology and Hypertension in [place], [place] [address] [place] [address] Stevan Adamson Jr., D.O. [address] [place] [address] Chronic Kidney Disease (CKD), Stage 3b Glomerular [...] Referring Provider: DR Miller, REASON FOR VISIT [facility] Initial consultation and [...] 1.7 and up to 2 mg/dL in [id number] on the background of requiring ablation for [...] [facility]. [facility] where [...] the right there is both pitting and [place] indurated nonpitting edema of bilateral lower extremities, [...]
== END 2024-01-12 15:24 | disposition home or self-care (01) ==
LOC: WOUND 15:23
PROVIDERS: PCP Student in an Organized Health Care Education/Training Program; Visit Provider Nurse Practitioner Family
DX: I89.0 Lymphedema, not elsewhere classified (principal); I87.2 Venous insufficiency (chronic) (peripheral); I42.0 Dilated cardiomyopathy; N18.30 Chronic kidney disease, stage 3 unspecified
CPT/HCPCS: G0463

== ENCOUNTER 2024-01-25 10:30 | Outpatient (CLI) | payer OTHER, SELFPAY ==
--- OUTSIDE RECORDS SUMMARY | 2024-01-25 10:32 | XMS_ITS | Referral Summary ---
Author Organization [facility] Address [address] [place] [address] Care Team Providers Care Hand Bander Name Role Phone Unavailable Primary Care Provider Unavailabl e Source Comments Patient records contain information from all sites at [facility]. For routine questions regarding patient records, call [phone] during business hours, M-F 8:00 AM - 5:00 PM Central Time. Record requests for emergency care only can be directed to [phone] at any time.[facility] Medications Medication Sig Dispensed Refills Start Date [...]
--- OUTSIDE RECORDS SUMMARY | 2024-01-25 10:32 | XMS_ITS ---
Author Organization [facility] Address [address] [place] [address] Care Team Providers Care Prototype Carpenter Name Role Phone Unavailable Unavailable Unavailable Surgery Details Not on file Complications Check Surgery Details section. Procedure Estimated Blood Loss Check Surgery Details section. Procedure Findings Check Surgery Details section. Procedure Specimens Taken Check Surgery Details section.
--- OUTSIDE RECORDS SUMMARY | 2024-01-25 10:32 | XMS_ITS | Clinical Summary ---
Author Organization [facility] Address [address] [place] [address] Care Team Providers Care Knife Setter Assembler Name Role Phone Unavailable Primary Care Provider Unavailabl e Source Comments Patient records contain information from all sites at [facility]. For routine questions regarding patient records, call [phone] during business hours, M-F 8:00 AM - 5:00 PM Central Time. Record requests for emergency care only can be directed to [phone] at any time.[facility] Medications Medication Sig Dispensed Refills [...] Fall Risk Screen (Annual) 05/01/2023 COVID-19 Vaccine (4 - 2023-2 5 season) 2023 03/26/2021, 07/24/2020, 07/03/2020 Influenza Vaccine [...]
--- OUTSIDE RECORDS SUMMARY | 2024-01-25 10:32 | XMS_ITS | Clinical Summary ---
Author Organization [facility] Address [place], [place] [address] Care Team Providers Care Director Radio Name Role Phone Nurses, Advanced Heart Failure Unavailable + Maurice Poe MD Unavailable [phone] Lise Cardenas MD Primary Care Prov ider [...] once daily. 30 Tablet 11 08/24/2023 Active albuterol HFA (PRO-AIR; VENTOLIN; PROVENTIL) 90 [...] due to pollen, unspecified seasonality Inhale 1 [place] into affected nostril(s) once daily if needed for Rhinitis. 16 g 11/20/2023 Active apixaban (Eliquis) 5 mg tabletIndications:P aroxysmal atrial fibrillation (HC) Take 1 tablet by mouth twice daily 180 Tablet 11/24/2023 Active carvediloL (COREG) 25 mg tabletIndications:P aroxysmal atrial fibrillation (HC) Take 1 tablet by mouth twice daily 180 Tablet 11/24/2023 Active hydrALAZINE (APRESOLINE) 25 mg tabletIndications:D ilated cardiomyopathy (HC) Take 1 Tablet (25 mg) by mouth three times daily. 270 Tablet 01/11/2024 Active isosorbide dinitrate (ISORDIL) 20 mg tabletIndications:N onischemic cardiomyopathy (HC) Take 1 Tablet (20 mg) by mouth three times daily. 270 Tablet 01/11/2024 Active furosemide (LASIX) 20 mg tabletIndications:D ilated cardiomyopathy (HC) Take 3 Tablets (60 mg) by mouth two times daily. 540 Tablet 3 01/11/2024 Active amiodarone (CORDARONE) 200 mg tabletIndications:P ersistent atrial fibrillation (HC) Take 2 tablets (400 mg) twice a day for 2 weeks. Then take 1 tablet (200 mg) once a day and stay on that dose. Have an EKG done 2 weeks after starting 180 Tablet 3 01/12/2024 Active furosemide (LASIX) 40 mg tabletIndications:D ilated cardiomyopathy (HC) TAKE 1 TABLET BY MOUTH IN THE MORNING AND 1 TABLET BY MOUTH AT 1PM 135 Tablet 1 09/22/2023 4 Discontinued (Reorder (E-cancel not sent)) potassium chloride (KLOR-CON M10) 10 mEq extended-release tablet (part/cryst)Indicat ions:Dilated cardiomyopathy (HC) Take 1 Tablet (10 mEq) by mouth once daily with a meal. On hold due for questions 10/24/2023 4 Discontinued (Other - add note to specify (E-cancel not sent)) hydrALAZINE (APRESOLINE) 25 mg tabletIndications:D ilated cardiomyopathy (HC) Take 2 Tablets (50 mg) by mouth three times daily. 540 Tablet 3 10/24/2023 4 Discontinued (*Med complete/Reg imen complete/Lev el of care change) isosorbide dinitrate (ISORDIL) 30 mg tabletIndications:N onischemic cardiomyopathy (HC) TAKE 1 TABLET BY MOUTH THREE TIMES DAILY 90 Tablet 5 12/18/2023 4 Discontinued (*Med complete/Reg imen complete/Lev el of care change) doxycycline 100 mg tabletIndications:C ellulitis of skin Take 1 Tablet (100 mg) by mouth two times daily for 7 days. 14 Tablet 01/03/2024 4 doxycycline 50 mg capsule Take 50 mg by mouth two times daily. 01/04/2024 4 losartan (COZAAR) 25 mg tabletIndications:D ilated cardiomyopathy (HC) Take 1 Tablet (25 mg) by mouth two times daily. 180 Tablet 3 01/11/2024 4 Discontinued (*Med complete/Reg imen complete/Lev el [...] Encounters Date Type Department Care Team Description 01/17/2024 Telephone [facility] [address] [place] [address] Maurice Poe MD Cardiology Appointment 01/12/2024 Telephone [facility] [address] [place] [address] Maurice Poe MD Medication Management 01/11/2024 1:30 PM CDT Office Visit [facility] [address] [place] [address] Maurice Poe MD CHF (Annual follow up) 01/11/2024 12:30 PM CDT Orders Only [facility] [address] [place] [address] Lab 01/11/2024 Travel 01/03/2024 4:50 PM CDT Office Visit [facility] [address] [phone] Charis Weber, TONY Skin Problem (Left foot/heel) 01/03/2024 Travel 12/19/2023 Telephone [facility] [place] [address] [place] [address] Ileana Anand MD Prior Authorization (Arnuity Ellipta 100 mcg/actuation inhaler JESUS (NOT NEEDED)) 12/16/2023 Refill [facility] [address] [place] [address] Maurice Poe MD Refill Request (Isosorbide Dinitrate) 11/24/2023 Refill [facility] [address] [place] [address] Maurice Poe MD Refill Request (Eliquis, Carvedilol) 11/20/2023 11:25 AM CDT Office Visit [facility] [place] [address] [facility] [address] [place] [address] Ileana Anand MD Follow Up (Pulmonary. COPD.) 11/20/2023 Travel 11/03/2023 2:10 PM CDT Orders Only [facility] [address] [place] [address] Lab, Nicole Lab 11/03/2023 Telephone [facility] [address] [facility] [address] [place] [phone] Maurice Poe MD Follow Up 11/03/2023 Travel 11/03/2023 Orders Only [facility] Scanner 1 scan: (1-Ord) INCOMING RECORDS-, [facility], 11/03/2023 from Last 3 Months Immunizations Name Administration Dates Next Due AMB Influenza, IIV3 (Age >=3 years)(Flu Clinic O nly) 03/14/2013 AMB Influenza, IIV4 PF (=>6 mos Flulaval,Fluzone Fluarix)(Flu Clinic Only) 02/06/2014 Influenza, High-dose Inactivated 03/17/2016,03/02 Influenza, IIV3 (Age >=3 years) 01/25/2012 Pneumococcal Poly,23-Valent (Pneumovax) 10/09/20 12 Pneumococcal conj 13-Valent (Prevnar 13) 016 [...] Upcoming Encounters Date Type Department Care Team (Latest Contact Info) Description 01/30/2024 10:40 AM CDT Orders Only [address] [phone] Nicole Reno 02/06/2024 11:45 AM CDT Nurse/Clinic Staff Only [facility] [address] [facility] [place] [address] 04/04/2024 9:15 AM RETORT FURNACE OPERATOR Appointment [facility] [address] [place] [address] 04/04/2024 10:20 AM RETORT FURNACE OPERATOR Orders Only [facility] [address] [facility] [address] [place] [phone] 04/04/2024 11:30 AM RETORT FURNACE OPERATOR Office Visit [facility] [address] [phone] Maurice Poe MD [address] [address] Health Maintenance Due Date Last Done Comments [...] (HC) SCAN CORRESP-IMAGING 11/03/2023 12:00 AM CDT LIPID PANEL Routine 06/22/2018 7:32 AM RETORT FURNACE OPERATOR Dilated cardiomyopathy (HC) XR DXA BONE DENSITY 2 SITES AXIAL Routine 03/27/2015 1:29 PM RETORT FURNACE OPERATOR Asymptomatic menopausal state XR MAMMO BILAT SCREEN FFDM (IA) Routine 05/21/2012 11:17 AM RETORT FURNACE OPERATOR Other screening mammogram from Last 3 Months or Most Recently Relevant to Health Maintenance Results * (ABNORMAL) PRO-BNP (01/11/2024 12:46 PM CDT) PRO-BNP 7,847(H) <125 pg/mL 01/11/2024 1:33 PM CDT [facility] Blood BLOOD SPECIMEN / Unknown Venipuncture / Unknown 01/11/2024 12:46 PM CDT 01/11/2024 12:46 PM CDT [facility] - 01/11/2024 1:33 PM CDT The [...] Poe MD SEND OUTS Performing Organization Address City/[facility] Co de Phone Number [facility] [employer] [facility] [facility] [address] [place] [address], * MAGNESIUM (01/11/2024 12:46 PM CDT) [facility] MAGNESIUM 2.3 1.6 - 2.4 mg/dL 01/11/2024 1:33 PM CDT [facility] Blood BLOOD SPECIMEN / Unknown Venipuncture / Unknown 01/11/2024 12:46 PM CDT 01/11/2024 12:46 PM CDT Maurice Poe MD CHEMISTRY Performing Organization Address [facility] Co de Phone Number [facility] [address] [place] [address], * (ABNORMAL) BASIC METABOLIC PANEL (01/11/2024 12:46 PM CDT) Only the most recent of2 resultswithin the time period is included. SODIUM 140 136 - 145 mmol/L 01/11/2024 1:33 PM CDT [facility] POTASSIUM 3.6 3.5 - 5.1 mmol/L 01/11/2024 1:33 PM CDT [facility] CHLORIDE 102 98 - 107 mmol/L 01/11/2024 1:33 PM CDT [facility] CO2,TOTAL 28 22 - 29 mmol/L 01/11/2024 1:33 PM CDT [facility] ANION GAP 10 5 - 18 01/11/2024 1:33 PM CDT [facility] GLUCOSE 117(H) 70 - 99 mg/dL 01/11/2024 1:33 PM CDT [facility] CALCIUM 8.8 8.8 - 10.2 mg/dL 01/11/2024 1:33 PM T [facility] BUN 24(H) 8 - 23 mg/dL 01/11/2024 1:33 PM T [facility] CREATININE 1.46(H) 0.50 - 0.90 mg/dL 01/11/2024 1:33 PM T [facility] BUN/CREAT RATIO 16 10 - 20 4 1:33 PM T [facility] eGFR 38(L) >90 mL/min/1.7 3m2 01/11/2024 1:33 PM T [facility] Comment:As of 2021, eG FR [...] 12:46 PM CDT Maurice Poe MD CHEMISTRY [facility] [address] [place] [address], [place] * (ABNORMAL) AEROBIC BACTERIAL CULTURE, STAIN (01/03/2024 6:21 PM CDT) CULTURE RESULT(A) 01/08/2024 2:04 PM CDT [facility] CULTURE 4+ Escherichia coli 01/08/2024 2:04 PM CDT [facility] CULTURE 3+ Mixed warren present 01/08/2024 2:04 PM CDT [facility] GRAM STAIN No PMNs 01/08/2024 2:04 PM CDT [facility] GRAM STAIN 1+ Epithelial cells 01/08/2024 2:04 PM CDT [facility] GRAM STAIN No RBCs 01/08/2024 2:04 PM CDT [facility] GRAM STAIN 3+ Gram Positive Cocci 01/08/2024 2:04 PM CDT [facility] GRAM STAIN 4+ Gram Negative Bacilli 01/08/2024 2:04 PM CDT [facility] Other (Other) Non-Blood / Unknown 01/03/2024 6:21 PM CDT 01/03/2024 7:12 PM CDT [facility] LAB[facility] - 01/08/2024 2:04 PM CDT Mixed warren; No Staphylococcus aureus, beta-Streptococcus, Streptococcus pneumoniae, or Pseudomonas aeruginosa isolated. Organism Antibiotic Method Susceptibility Escherichia coli TRIMETHOPRIM/SULF <=/19: S Escherichia coli AMPICILLIN >=32: R Escherichia coli CEFAZOLIN 4: I Escherichia coli GENTAMICIN <=1: S Escherichia coli CEFTRIAXONE <=0.25: S Escherichia coli CEFTAZIDIME <=0.5: S Escherichia coli LEVOFLOXACIN <=0.12: S Escherichia coli CIPROFLOXACIN <=0.06: S Escherichia coli PIPERACILLIN/TAZO <=4: S Escherichia coli AMPICILLIN/SULBACTAM 16: I Escherichia coli CEFEPIME <=0.12: S Escherichia coli MEROPENEM <=0.25: S Charis Weber NP MICROBIOLOGY [facility] [employer] [address] [place] [address], [place] * SCAN CORRESP-IMAGING (11/03/2023 12:00 AM CDT) Anatomical Region Laterality Modality Other Scanner OTHER * LIPID PANEL (06/22/2018 7:32 AM RETORT FURNACE OPERATOR) [facility] CHOLESTEROL,TOTAL 177 100 - 199 mg/dL 06/22/2018 8:19 AM RETORT FURNACE OPERATOR [facility] LAB[facility]AT[facility] TRIGLYCERIDES 118 <150 mg/dL 06/22/2018 8:19 AM RETORT FURNACE OPERATOR [facility] HDL CHOLESTEROL 54 >40 mg/dL 9 8:19 AM RETORT FURNACE OPERATOR [facility] NON-HDL CHOLESTEROL 123 <145 mg/dl 06/22/2018 8:19 AM RETORT FURNACE OPERATOR [facility] CHOL/HDL RATIO 3.28 <4.50 06/22/2018 8:19 AM RETORT FURNACE OPERATOR [facility] LDL CHOLESTEROL 99 <=130 mg/dL 06/22/2018 8:19 AM RETORT FURNACE OPERATOR [facility] PROVIDER ORDERED STATUS FASTING 06/22/2018 8:19 AM RETORT FURNACE OPERATOR [facility] Blood BLOOD SPECIMEN / Unknown Venipuncture / Unknown 06/22/2018 7:32 AM RETORT FURNACE OPERATOR 06/22/2018 7:53 AM RETORT FURNACE OPERATOR Maurice Poe MD CHEMISTRY [facility] [employer] [facility] [address] [place] [address], [place] * (ABNORMAL) XR DXA BONE DENSITY 2 SITES (03/27/2015 1:29 PM RETORT FURNACE OPERATOR) Anatomical Region Laterality Modality Spine, HIPS, HIPL, HIPR Other Narrative 04/03/2015 8:04 AM RETORT FURNACE OPERATOR Please see scanned document for results of this study. Raza Killian MD DEXA * XR MAMMO BILAT SCREEN FFDM (05/21/2012 11:17 AM RETORT FURNACE OPERATOR) Anatomical Region Laterality Modality BREASTS, Breast Left, Breast Right Bilateral Mammography Addenda Addendum by Raphael Flaherty DO on 07/31/2012 3:10 PM CDT ??ADDENDUM ? ADDENDUM ? ADDENDUM Many attempts have been made to contact the patient regarding additional imaging that is needed following her screening mammogram. ??The patient has failed to return for our recommended follow-up. ?? Impressions 05/21/2012 3:54 PM RETORT FURNACE OPERATOR ??ACR 0 Incomplete: Need Additional Imaging Evaluation and/or Prior Mammograms for Comparison RECOMMENDATION: ??Ultrasound of the RIGHT breast. Narrative 05/21/2012 3:54 PM RETORT FURNACE OPERATOR BILATERAL FULL-FIELD DIGITAL SCREENING MAMMOGRAM WITH [...] Code Status Discussion: Reviewed Preferences Care Teams Director Radio Relationship Specialty Start Date End Date Lise Cardenas MD [address] [place] [phone] PCP - General Family Practice 09/22/23 Nurses, Advanced Heart Failure [address], [place] [address] Heart Failure Care Coordination 08/25/15 Maurice Poe MD [address] [place] [address] [place] [address] Advanced Heart Failure/Transplant Card 01/14/22
== END 2024-01-25 10:31 | disposition home or self-care (01) ==
LOC: WOUND 10:30
PROVIDERS: PCP Student in an Organized Health Care Education/Training Program; Visit Provider Nurse Practitioner Family
DX: I87.2 Venous insufficiency (chronic) (peripheral) (principal); I89.0 Lymphedema, not elsewhere classified; L97.328 Non-pressure chronic ulcer of left ankle with other specified severity
CPT/HCPCS: G0463

== ENCOUNTER 2024-02-08 10:39 | Outpatient (CLI) | payer OTHER, SELFPAY ==
--- OUTSIDE RECORDS SUMMARY | 2024-02-09 09:32 | XMS_ITS ---
Author Organization [facility] Address [address] [place] [address] Care Team Providers Care Electrical Assembly Technician Name Role Phone Unavailable Unavailable Unavailable Surgery Details Not on file Complications Check Surgery Details section. Procedure Estimated Blood Loss Check Surgery Details section. Procedure Findings Check Surgery Details section. Procedure Specimens Taken Check Surgery Details section.
--- OUTSIDE RECORDS SUMMARY | 2024-02-09 09:32 | XMS_ITS | Clinical Summary ---
Author Organization [facility] Address [address] [place] [address] Care Team Providers Care Horse Breaker Name Role Phone Unavailable Primary Care Provider Unavailabl e Source Comments Patient records contain information from all sites at [facility]. For routine questions regarding patient records, call [phone] during business hours, M-F 8:00 AM - 5:00 PM Central Time. Record requests for emergency care only can be directed to [phone] at any time.[facility] Medications Medication Sig Dispensed Refills Start Date [...]
--- OUTSIDE RECORDS SUMMARY | 2024-02-09 09:32 | XMS_ITS | Referral Summary ---
Author Organization [facility] Address [address] [place] [address] Care Team Providers Care Surface Water Technician Name Role Phone Unavailable Primary Care Provider Unavailabl e Source Comments Patient records contain information from all sites at [facility]. For routine questions regarding patient records, call [phone] during business hours, M-F 8:00 AM - 5:00 PM Central Time. Record requests for emergency care only can be directed to [phone] at any time.[facility] Medications Medication Sig Dispensed Refills Start Date [...]
--- OUTSIDE RECORDS SUMMARY | 2024-02-09 09:33 | XMS_ITS | Clinical Summary ---
Author Organization [facility] Address [place], [place] [address] Care Team Providers Care Back Up Worker Name Role Phone Nurses, Advanced Heart Failure Unavailable + Maurice Poe MD Unavailable [phone] Lise Cardenas MD Primary Care Prov ider [...] due to pollen, unspecified seasonality Inhale 1 [place] into affected nostril(s) [...] three times daily. 270 Tablet 01/11/2024 Active amiodarone (CORDARONE) 200 mg tabletIndications:P ersistent atrial fibrillation (HC) Take 2 tablets (400 mg) twice a day for 2 weeks. Then take 1 tablet (200 mg) once a day and stay on that dose. Have an EKG done 2 weeks after starting 180 Tablet 3 01/12/2024 Active potassium chloride (KLOR-CON M20) 20 mEq extended-release tablet (part/cryst)Indicat ions:Dilated cardiomyopathy (HC) Take 1 Tablet (20 mEq) by mouth once daily with a meal. 02/01/2024 Active furosemide (LASIX) 20 mg tabletIndications:D ilated cardiomyopathy (HC) Take 3 tablets (60 mg) in the mornings and take 2 tablets (40 mg) in the afternoons 540 Tablet 3 02/05/2024 Active furosemide (LASIX) 40 mg tabletIndications:D ilated cardiomyopathy (HC) TAKE 1 TABLET BY MOUTH IN THE MORNING AND 1 TABLET BY MOUTH AT 1PM 135 Tablet 1 09/22/2023 4 Discontinue d(Reorder (E-cancel not sent)) potassium chloride (KLOR-CON M10) 10 mEq extended-release tablet (part/cryst)Indicat ions:Dilated cardiomyopathy (HC) Take 1 Tablet (10 mEq) by mouth once daily with a meal. On hold due for questions 10/24/2023 4 Discontinue d(Other - add note to specify (E-cancel not sent)) hydrALAZINE (APRESOLINE) 25 mg tabletIndications:D ilated cardiomyopathy (HC) Take 2 Tablets (50 mg) by mouth three times daily. 540 Tablet 3 10/24/2023 4 Discontinue d(*Med complete/Re gimen complete/Le anuj of care change) isosorbide dinitrate (ISORDIL) 30 mg tabletIndications:N onischemic cardiomyopathy (HC) TAKE 1 TABLET BY MOUTH THREE TIMES DAILY 90 Tablet 5 12/18/2023 4 Discontinue d(*Med complete/Re gimen complete/Le anuj of care change) doxycycline 100 mg tabletIndications:C [...] times daily. 180 Tablet 3 01/11/2024 4 Discontinue d(*Med complete/Re gimen complete/Le anuj of care change) furosemide (LASIX) 20 mg tabletIndications:D ilated cardiomyopathy (HC) Take 3 Tablets (60 mg) by mouth two times daily. 540 Tablet 3 01/11/2024 4 Discontinue d(Reorder (E-cancel not sent)) furosemide (LASIX) 20 mg tabletIndications:D ilated cardiomyopathy (HC) Take 3 tablets (60 mg) in the mornings and take 2 tablets (40 mg) in the afternoons 540 Tablet 3 02/01/2024 4 Discontinue d(Reorder (E-cancel not sent)) Active [...] Encounters Date Type Department Care Team Description 02/06/2024 11:45 AM CDT Nurse/Clinic Staff Only [facility] [address] [facility] NIRAJ Zimmerman [id number] Cardiovascular Diagnostic Testing 02/05/2024 Travel 02/01/2024 Refill [facility] [address] [facility] [place] [address] Maurice Poe MD Refill Request (Furosemide) 01/30/2024 10:40 AM CDT Orders Only [facility] [address] [facility] [place] [address] Lab, Nicole Lab 01/30/2024 Telephone [facility] [address] [place] [address] Maurice Poe MD Follow Up 01/29/2024 Travel 01/29/2024 Orders Only [facility] [address] [place] [address] Maurice Poe MD <No scans attached> 01/17/2024 Telephone [facility] [address] [address] Maurice Poe MD Cardiology Appointment 01/12/2024 Telephone [facility] [address] [address] Maurice Poe MD Medication Management 01/11/2024 1:30 PM CDT Office Visit [facility] [address] [facility] [address] [place] [address] Maurice Poe MD CHF (Annual follow up) 01/11/2024 12:30 PM CDT Orders Only [facility] [address] [facility] [address] [place] [address] Lab 01/11/2024 Travel 01/03/2024 4:50 PM CDT Office Visit [facility] [address] [facility] [place] [address] Charis Weber, TONY Skin Problem (Left foot/heel) 01/03/2024 Travel 12/19/2023 Telephone [facility] [place] [address] [facility] [address] [place] [phone] Ileana Anand MD Prior Authorization (Arnuity Ellipta 100 mcg/actuation inhaler JESUS (NOT NEEDED)) 12/16/2023 Refill [facility] [address] [place] [address] Maurice Poe MD Refill Request (Isosorbide Dinitrate) 11/24/2023 Refill [facility] [address] [place] [address] [place] [address] Maurice Poe MD Refill Request (Eliquis, Carvedilol) 11/20/2023 11:25 AM CDT Office Visit [facility] [employer] [address] [facility] [address] [place] [address] Ileana Anand MD Follow Up (Pulmonary. COPD.) 11/20/2023 Travel from Last 3 Months Immunizations Name [...] Care Team (Late st Contact Info) Description 04/04/2024 9:15 AM COLD STRIP FEEDER Appointment [facility] [address] [place] [address] 04/04/2024 10:20 AM COLD STRIP FEEDER Orders Only [facility] [address] [phone] 04/04/2024 11:30 AM COLD STRIP FEEDER Office Visit [facility] [address] [phone] Maurice Poe MD [address] [address] Health Maintenance Due Date Last Done Comments [...] Procedure Name Priority Date/Time Associated Diagnosis Comments EKG 12 LEAD Routine 02/06/2024 12:00 AM CDT Persistent atrial fibrillation (HC) MAGNESIUM Routine 01/30/2024 10:48 AM CDT Dilated cardiomyopathy (HC) PRO-BNP Routine 01/30/2024 10:48 AM CDT Dilated cardiomyopathy (HC) Other forms of dyspnea BASIC METABOLIC PANEL Routine 01/30/2024 10:44 AM CDT Dilated cardiomyopathy (HC) MAGNESIUM Routine 01/11/2024 12:46 PM CDT Dilated cardiomyopathy (HC) PRO-BNP Routine 01/11/2024 12:46 PM CDT Dilated cardiomyopathy (HC) BASIC METABOLIC PANEL Routine 01/11/2024 12:46 PM CDT Dilated cardiomyopathy (HC) AEROBIC BACTERIAL CULTURE, STAIN STAT 01/03/2024 6:21 PM CDT Cellulitis of skin SC SPMTRY W/VC EXPIRATORY WINSOME W/WO MXML VOL VNTJ Routine 11/20/2023 12:00 AM CDT Centrilobular emphysema (HC) LIPID PANEL Routine 06/22/2018 7:32 AM COLD STRIP FEEDER Dilated cardiomyopathy (HC) XR DXA BONE DENSITY 2 SITES AXIAL Routine 03/27/2015 1:29 PM COLD STRIP FEEDER Asymptomatic menopausal state XR MAMMO BILAT SCREEN FFDM ([place]) Routine 05/21/2012 11:17 AM COLD STRIP FEEDER Other screening mammogram from Last 3 Months or Most Recently Relevant to Health Maintenance Results * EKG 12 LEAD (02/06/2024 12:00 AM CDT) Maurice Poe MD EKG ORD * (ABNORMAL) PRO-BNP (01/30/2024 10:48 AM CDT) Only the most recent of2 resultswithin the time period is included. NT PROBNP 5,108(H) <125 pg/mL [facility] Blood BLOOD SPECIMEN / Unknown 01/30/2024 10:48 AM CDT 01/30/2024 10:48 AM CDT Maurice Poe MD SEND OUTS [facility] [address] [place] [address], [facility] [address] [facility] [place] [address] * MAGNESIUM (01/30/2024 10:48 AM CDT) Only the most recent of2 resultswithin the time period is included. MAGNESIUM 2.4 1.5 - 2.5 mg/dL [facility] Blood BLOOD SPECIMEN / Unknown 01/30/2024 10:48 AM CDT 01/30/2024 10:48 AM CDT Maurice Poe MD CHEMISTRY Performing Organization Address City/[facility]/ZIP Co de Phone Number [place] [facility] [address] [place] [address], [facility] [address] [place] [address] * (ABNORMAL) BASIC METABOLIC PANEL (01/30/2024 10:44 AM CDT) Only the most recent of2 resultswithin the time period is included. [facility] GLUCOSE 103(H) 65 - 99 mg/dL [facility] Comment: ? Fasting reference interval For someone without known diabetes, a glucose value between 100 and 125 mg/dL is consistent with prediabetes and should be confirmed with a follow-up test. UREA NITROGEN (BUN) 25 7 - 25 mg/dL [facility] CREATININE 1.81(H) 0.60 - 1.00 mg/dL [facility] EGFR 29(L) > OR = 60 mL/min/1.7 3m2 [facility] BUN/CREATININE RATIO 14 6 - 22 (calc) [facility] SODIUM 142 135 - 146 mmol/L [facility] POTASSIUM 3.3(L) 3.5 - 5.3 mmol/L [facility] CHLORIDE 102 98 - 110 mmol/L [facility] CARBON DIOXIDE 32 20 - 32 mmol/L [facility] ELECTROLYTE BALANCE 8 7 - 17 mmol/L (calc) [facility] CALCIUM 8.8 8.6 - 10.4 mg/dL [facility] Blood BLOOD SPECIMEN / Unknown 01/30/2024 10:44 AM CDT 01/30/2024 10:45 AM CDT Maurice Poe MD CHEMISTRY [place] [facility] [address] [place] [address], [facility] [address] [place] [address] * (ABNORMAL) AEROBIC BACTERIAL CULTURE, STAIN (01/03/2024 6:21 PM CDT) CULTURE RESULT(A) 01/08/2024 2:04 PM CDT [facility] CULTURE 4+ Escherichia coli 01/08/2024 2:04 PM CDT [facility] CULTURE 3+ Mixed warren present 01/08/2024 2:04 PM CDT [facility] GRAM STAIN No PMNs 01/08/2024 2:04 PM CDT [facility] GRAM STAIN 1+ Epithelial cells 01/08/2024 2:04 PM CDT [facility] GRAM STAIN No RBCs 01/08/2024 2:04 PM CDT [facility] GRAM STAIN 3+ Gram Positive Cocci 01/08/2024 2:04 PM CDT [facility] GRAM STAIN 4+ Gram Negative Bacilli 01/08/2024 2:04 PM CDT [facility] Other (Other) Non-Blood / Unknown 01/03/2024 6:21 PM CDT 01/03/2024 7:12 PM [facility]T [facility] 01/08/2024 2:04 PM CDT Mixed warren; No Staphylococcus aureus, beta-Streptococcus, Streptococcus pneumoniae, or Pseudomonas aeruginosa isolated. Organism Antibiotic Method Susceptibility Escherichia coli TRIMETHOPRIM/SULF <=1/19: S Escherichia coli AMPICILLIN >=32: R Escherichia coli CEFAZOLIN 4: I Escherichia coli GENTAMICIN <=1: S Escherichia coli CEFTRIAXONE <=0.25: S Escherichia coli CEFTAZIDIME <=0.5: S Escherichia coli LEVOFLOXACIN <=0.12: S Escherichia coli CIPROFLOXACIN <=0.06: S Escherichia coli PIPERACILLIN/TAZO <=4: S Escherichia coli AMPICILLIN/SULBACTAM 16: I Escherichia coli CEFEPIME <=0.12: S Escherichia coli MEROPENEM <=0.25: S Charis Weber NP MICROBIOLOGY [facility] [address] [place] [address], [place] * [place] SPIROMETRY W VITAL CAPACITY (11/20/2023 12:00 AM CDT) Ileana Anand MD PB - RESPIRATORY [facility] * LIPID PANEL (06/22/2018 7:32 AM COLD STRIP FEEDER) CHOLESTEROL,TOTAL 177 100 - 199 mg/dL 06/22/2018 8:19 AM COLD STRIP FEEDER [facility] [email or web address] [facility] TRIGLYCERIDES 118 <150 mg/dL 06/22/2018 8:19 AM COLD STRIP FEEDER [facility] HDL CHOLESTEROL 54 >40 mg/dL 9 8:19 AM COLD STRIP FEEDER [facility] NON-HDL CHOLESTEROL 123 <145 mg/dl 06/22/2018 8:19 AM COLD STRIP FEEDER [facility] CHOL/HDL RATIO 3.28 <4.50 06/22/2018 8:19 AM COLD STRIP FEEDER [facility] LDL CHOLESTEROL 99 <=130 mg/dL 06/22/2018 8:19 AM COLD STRIP FEEDER [facility] PROVIDER ORDERED STATUS FASTING 06/22/2018 8:19 AM COLD STRIP FEEDER [facility] Blood BLOOD SPECIMEN / Unknown Venipuncture / Unknown 06/22/2018 7:32 AM COLD STRIP FEEDER 06/22/2018 7:53 AM COLD STRIP FEEDER Maurice Poe MD CHEMISTRY [facility] [address] [place] [address], * (ABNORMAL) XR DXA BONE DENSITY 2 SITES (03/27/2015 1:29 PM COLD STRIP FEEDER) Anatomical Region Laterality Modality Spine, HIPS, HIPL, HIPR Other Narrative 04/03/2015 8:04 AM COLD STRIP FEEDER Please see scanned document for results of this study. Raza Killian MD DEXA * XR MAMMO BILAT SCREEN FFDM (05/21/2012 11:17 AM COLD STRIP FEEDER) Anatomical Region Laterality Modality BREASTS, Breast Left, Breast Right Bilateral Mammography Addenda Addendum by Raphael Flaherty DO on 07/31/2012 3:10 PM CDT ??ADDENDUM ? ADDENDUM ? ADDENDUM Many attempts have been made to contact the patient regarding additional imaging that is needed following her screening mammogram. ??The patient has failed to return for our recommended follow-up. ?? Impressions 05/21/2012 3:54 PM COLD STRIP FEEDER ??ACR 0 Incomplete: Need Additional Imaging Evaluation and/or Prior Mammograms for Comparison RECOMMENDATION: ??Ultrasound of the RIGHT breast. Narrative 05/21/2012 3:54 PM COLD STRIP FEEDER BILATERAL FULL-FIELD DIGITAL SCREENING MAMMOGRAM WITH CAD [...] Code Status Discussion: Reviewed Preferences Care Teams Back Up Worker Relationship Specialty Start Date End Date Lise Cardenas MD [address] [place] [address] PCP - General Family Practice 09/22/23 Nurses, Advanced Heart Failure [address] [place] [address] Heart Failure Care Coordination 08/25/15 Maurice Poe MD [address] [place] [id number] Advanced Heart Failure/Transplant Card 01/14/22
== END 2024-02-08 10:40 | disposition home or self-care (01) ==
LOC: NFLDREF 02-09 09:30
PROVIDERS: PCP Student in an Organized Health Care Education/Training Program; Referring Provider Student in an Organized Health Care Education/Training Program; Visit Provider Internal Medicine Nephrology
DX: N18.30 Chronic kidney disease, stage 3 unspecified (principal); I12.9 Hypertensive chronic kidney disease with stage 1 through stage 4 chronic kidney disease, or unspecified chronic kidney disease; I48.91 Unspecified atrial fibrillation; I48.92 Unspecified atrial flutter; I50.9 Heart failure, unspecified; D64.9 Anemia, unspecified
CPT/HCPCS: 80069; 82043; 82570; 82607; 82728; 82747; 82784; 83520; 83540; 83550; 83970; 84155; 84165; 84550; 86140; 86334; 87086; 87186

== ENCOUNTER 2024-02-26 06:50 | Emergency (ER) | payer OTHER, SELFPAY ==
[2024-02-26] VITALS (40 sets, daily range): BP systolic 105–124; BP diastolic 63–90; PULSE 77–94; RESP 18; TEMP 36.6; O2SAT 85–100; BMI 35.0
--- NOTE | 2024-02-26 07:09 | XR_ITS ---
Patient: ARISTIDES OVIEDO Facility:?[facility] RIS Patient ID:?[id number] Site Patient ID:?[id number]. Site :?[id number] Study:?XRay-Chest Portable 1V-02/26/2024 7:26:22 AM Ordering Physician:Dennis Atkins Final Report: INDICATION: Dyspnea COMPARISON: December 28, 2012 TECHNIQUE: Synovial portable study FINDINGS: TUBES AND LINES: None. HEART AND MEDIASTINUM: Significantly enlarged heart scratch. LUNGS AND PLEURAL SPACES: Mass or masslike area of consolidation at the right apex measuring 7 centimeters.Mild vascular congestion. Normal pleural spaces OSSEOUS STRUCTURES: Age-appropriate appearance. No acute focal finding. IMPRESSION: 1. 7 centimeter mass or masslike opacity at the right apex. 2. Mild background of vascular congestion. No pleural effusion or pneumothorax. 3. Significantly enlarged heart. 4. Chest CT recommended for further evaluation. Dictated by Prince Lopez MD @ 02/26/2024 7:29:36 AM Signed by:?Prince Lopez MD @02/26/2024 7:29:36 AM (Electronic Signature)
--- NOTE | 2024-02-26 07:10 | ED.GENADULT ---
HPI - General Adult General Date Seen: 02/26/24 <Milly Posey MD - Last Filed: 02/27/24 08:30> Chief complaint: Arrhythmia/Palpitations <Milly Posey MD - Last Filed: 02/27/24 08:30> Stated complaint: afib, trouble breathing <Milly Posey MD - Last Filed: 02/27/24 08:30> Time Seen by Provider: 02/26/24 06:58 <Milly Posey MD - Last Filed: 02/27/24 08:30> Source: patient, RN notes reviewed and old records reviewed <Milly Posey MD - Last Filed: 02/27/24 08:30> Mode of arrival: ambulatory <Milly Posey MD - Last Filed: 02/27/24 08:30> Limitations: no limitations <Milly Posey MD - Last Filed: 02/27/24 08:30> History of Present Illness HPI narrative: Patient is a 73-year-old woman who presents for evaluation of shortness of breath. She has been short of breath for the past few days. She does have a history of atrial fibrillation, says she found that in December she was back in AFib and has a scheduled cardioversion tomorrow at [facility]. She is anticoagulated on Eliquis chronically. She thought she was getting a little bit of a chest cold, she has had some sinus congestion, has felt like maybe she needed to cough although she has not had a cough. Has not had chest pain. Chronic edema in her legs. Does have a history of heart failure and takes Lasix. No fevers, vomiting, diarrhea, bloody stools, abdominal pain. Feels okay at rest but is short of breath with exertion. <Milly Posey MD - Last Filed: 02/27/24 08:30> Related Data Home medications: Home Medications ?Medication ?Instructions ?Recorded ?Confirmed albuterol sulfate 90 mcg/actuation inhalation 12/21/21 02/13/24 aerosol inhaler empagliflozin 10 mg tablet 10 mg PO ONCE 12/21/21 02/26/24 (Jardiance) fluticasone propionate 50 1 spray intranasal 12/21/21 02/13/24 mcg/actuation nasal spray,suspension simvastatin 10 mg tablet 10 mg PO ONCE 12/21/21 02/26/24 vitamin B complex (B 1 tab PO DAILY 01/05/22 02/26/24 Complex-Vitamin B12 tablet) apixaban 5 mg tablet (Eliquis) 5 mg PO 12/21/22 02/13/24 aspirin 81 mg tablet,delayed 81 mg PO DAILY 12/21/22 02/26/24 release (Adult Low Dose Aspirin) fluticasone furoate 50 1 inh inhalation 12/21/22 02/13/24 mcg/actuation blister powder for inhalation (Arnuity Ellipta) tiotropium bromide 2.5 2 puff inhalation DAILY 12/21/22 02/26/24 mcg/actuation mist for inhalation (Spiriva Respimat) carvedilol 25 mg tablet 25 mg PO BID 04/21/23 02/26/24 loratadine 10 mg tablet (Claritin) 10 mg PO QDAY 04/21/23 02/26/24 coenzyme Q10 100 mg capsule (Co 100 mg PO QDAY 10/04/23 02/26/24 Q-10) amiodarone 200 mg tablet 200 mg PO QDAY 02/13/24 02/26/24 cholecalciferol (vitamin D3) 50 50 mcg PO QDAY 02/13/24 02/26/24 mcg (2,000 unit) tablet furosemide 20 mg tablet 20 mg PO BID 02/13/24 02/26/24 hydralazine 25 mg tablet 25 mg PO TID 02/13/24 02/26/24 isosorbide dinitrate 20 mg tablet 20 mg PO TID 02/13/24 02/26/24 vitamin E (dl, acetate) 90 mg (200 90 mg PO QDAY 02/13/24 02/26/24 unit) capsule Previous Rx's ?Medication ?Instructions ?Recorded potassium chloride 20 mEq 20 meq PO BID #14 tabs 02/26/24 tablet,extended release(part/cryst) (Klor-Con M) <Milly Posey MD - Last Filed: 02/27/24 08:30> Allergies/adverse reactions: Allergies Allergy/AdvReac Type Severity Reaction Status Date / Time talc Allergy Intermediate Rash Verified 02/13/24 11:02 vitamin A Allergy Intermediate Rash Verified 02/13/24 11:02 zinc oxide Allergy Intermediate Rash Verified 02/13/24 11:02 bacitracin Allergy Mild Rash Verified 02/13/24 11:02 neomycin Allergy Mild Rash Verified 02/13/24 11:02 polymyxin B Allergy Mild Rash Verified 02/13/24 11:02 Sulfa (Sulfonamide Allergy Rash Verified 02/13/24 11:02 Antibiotics) <Milly Posey MD - Last Filed: 02/27/24 08:30> Review of Systems Status of ROS: Reports: 10 or more systems reviewed and unremarkable except as noted in History and below <Milly Posey MD - Last Filed: 02/27/24 08:30> [facility] Medical History: Medical History COPD (chronic obstructive pulmonary disease) ?J44.9 - Chronic obstructive pulmonary disease, unspecified (ICD-10) Atrial fibrillation/flutter (~05/2022) ?I48.91 - Unspecified atrial fibrillation (ICD-10) ?I48.92 - Unspecified atrial flutter (ICD-10) Pes planus of right foot ?M21.41 - Flat foot [pes planus] (acquired), right foot (ICD-10) Pain in both feet ?M79.671 - Pain in right foot (ICD-10) ?M79.672 - Pain in left foot (ICD-10) History of malignant neoplasm of cervix ?Z85.41 - Personal history of malignant neoplasm of cervix uteri (ICD-10) <Milly Posey MD - Last Filed: 02/27/24 08:30> Surgical History: Surgical History History of cardioversion (01/2023) ?Z92.89 - Personal history of other medical treatment (ICD-10) History of cardiac radiofrequency ablation (RFA) (04/05/23) ?Z98.890 - Other specified postprocedural states (ICD-10) History of surgery on left wrist (12/26/17) ?Z98.890 - Other specified postprocedural states (ICD-10) History of hysterectomy (1989) ?Z90.710 - Acquired absence of both cervix and uterus (ICD-10) History of appendectomy (1969) ?Z90.49 - Acquired absence of other specified parts of digestive tract (ICD-10) <Milly Posey MD - Last Filed: 02/27/24 08:30> Social History: Social History Narrative: , lives with son in [place], 3 sons ex smoker, quit 2010, 40 pack years no alcohol Smoking Status: Never smoker Do you use any of these nicotine containing products: None How often do you have a drink containing alcohol: never How often do you have six or more drinks on one occasion: Never AUDIT-C Alcohol total score: 0 Non-prescribed substance use: denies use Caffeine: Yes (coffee) Are you using contraception or practicing any form of control: No <Milly Posey MD - Last Filed: 02/27/24 08:30> Exam Narrative: Exam Narrative: Vital signs as noted above. In general, an alert, well-appearing patient. Breathing easily at rest. Head: Normocephalic, atraumatic. Eyes: Pupils are equal reactive. Extraocular movements are full. Conjunctivae are normal. ENT: Mucous membranes are moist. Neck: Supple without lymphadenopathy. Heart: Irregular, rate controlled. No significant murmur. Lungs: No increased work of breathing, some coarse scattered rales. Abdomen: Soft and nontender. No organomegaly. Extremities: Wrapped bilaterally, edematous. Neurologic: Patient is alert and oriented to person and place. Speech is fluent. Face is symmetric. Moves all extremities equally. Affect: Normal. Skin: Warm and dry. Well perfused. <Milly Posey MD - Last Filed: 02/27/24 08:30> Const: Vital Signs, click to edit/add: Vital Signs - 24 hr 02/26/24 08:30 02/26/24 08:32 02/26/24 08:33 Pulse Rate 82 79 82 Blood Pressure 123/63 Pulse Oximetry 94 93 94 02/26/24 08:50 02/26/24 09:00 02/26/24 09:02 Pulse Rate 86 86 94 Blood Pressure 122/80 Pulse Oximetry 93 93 94 02/26/24 09:15 02/26/24 09:17 02/26/24 09:30 Pulse Rate 85 89 87 Blood Pressure 122/75 Pulse Oximetry 95 95 96 02/26/24 09:31 02/26/24 09:45 02/26/24 09:47 Pulse Rate 93 85 87 Blood Pressure 110/79 122/70 Pulse Oximetry 95 94 95 02/26/24 09:48 02/26/24 10:00 02/26/24 10:01 Pulse Rate 89 85 87 Blood Pressure 122/74 Pulse Oximetry 97 95 94 02/26/24 10:15 02/26/24 10:17 02/26/24 10:30 Pulse Rate 83 83 90 Blood Pressure 111/65 Pulse Oximetry 94 93 95 02/26/24 10:31 02/26/24 10:45 02/26/24 10:47 Pulse Rate 80 80 Blood Pressure 118/77 118/67 Pulse Oximetry 94 96 02/26/24 11:00 02/26/24 11:02 02/26/24 11:15 Pulse Rate 87 87 90 Blood Pressure 115/64 Pulse Oximetry 96 95 96 02/26/24 11:16 Pulse Rate 87 Blood Pressure 120/75 Pulse Oximetry 96 <Milly Posey MD - Last Filed: 02/27/24 08:30> Vital Signs, click to edit/add: Vital Signs - 24 hr 02/26/24 08:30 02/26/24 08:32 02/26/24 08:33 Pulse Rate 82 79 82 Blood Pressure 123/63 Pulse Oximetry 94 93 94 02/26/24 08:50 02/26/24 09:00 02/26/24 09:02 Pulse Rate 86 86 94 Blood Pressure 122/80 Pulse Oximetry 93 93 94 02/26/24 09:15 02/26/24 09:17 02/26/24 09:30 Pulse Rate 85 89 87 Blood Pressure 122/75 Pulse Oximetry 95 95 96 02/26/24 09:31 02/26/24 09:45 02/26/24 09:47 Pulse Rate 93 85 87 Blood Pressure 110/79 122/70 Pulse Oximetry 95 94 95 02/26/24 09:48 02/26/24 10:00 02/26/24 10:01 Pulse Rate 89 85 87 Blood Pressure 122/74 Pulse Oximetry 97 95 94 02/26/24 10:15 02/26/24 10:17 02/26/24 10:30 Pulse Rate 83 83 90 Blood Pressure 111/65 Pulse Oximetry 94 93 95 02/26/24 10:31 02/26/24 10:45 02/26/24 10:47 Pulse Rate 80 80 Blood Pressure 118/77 118/67 Pulse Oximetry 94 96 02/26/24 11:00 02/26/24 11:02 02/26/24 11:15 Pulse Rate 87 87 90 Blood Pressure 115/64 Pulse Oximetry 96 95 96 02/26/24 11:16 Pulse Rate 87 Blood Pressure 120/75 Pulse Oximetry 96 <Oleksandr Ramirez MD - Last Filed: 02/26/24 11:23> Documenting provider has reviewed patient's vital signs: yes <Milly Posey MD - Last Filed: 02/27/24 08:30> Course Course ED Course: Dyspnea primarily with exertion. She is in atrial fibrillation, EKG shows a controlled rate with a ventricular rate of 86, no acute ST segment changes. Occasional PVCs. She has been in atrial fibrillation since December, I doubt that this is independently responsible for her dyspnea over the past several days. Diagnostic considerations would include congestive heart failure, COPD, viral process such as COVID, pneumonia, pulmonary embolism, atypical angina. Will check a chest x-ray, labs to include troponin and D-dimer, will try DuoNeb given her history of COPD. Chest x-ray by my review showed a large infiltrate or mass in the right upper lobe, read similarly by Radiology and CT scan was recommended. She did end up having a normal D-dimer, so I did a noncontrast CT scan. In the meantime, her labs were notable for a normal white blood cell count, a potassium of 2.8, CRP of 1.2. Magnesium was ordered and pending at the time of my leaving the emergency department. Her troponin was normal. I did talk with the on-call real estate services administrator at [facility] about her, he agreed that cardioversion tomorrow was probably unlikely to work out. I replaced her with IV and oral potassium and prescribed oral potassium for home replacement. CT scan and Mag are pending at the time of my departure, signed out to Dr. Ramirez to follow-up on. Clinically, she does not have a lot of symptoms to suggest pneumonia, but certainly would be reasonable to treat for that depending on how the CT looks. She will need to have her potassium rechecked with her primary doctor in the next week, needs to be above 4 before they would do her cardioversion. The on-call real estate services administrator said he would let her usual real estate services administrator no was going on but I have asked her to call her cardiology clinic today so that they can set up a plan to get the cardioversion rescheduled. She does have according to her records a diagnosis of dilated cardiomyopathy, EF was 35-40% in 2021. Her atrial fibrillation has been rate controlled and has been going on for quite a while, she does not have significant pulmonary vascular congestion although her BNP today is elevated at 8000, which is about double what it was last time it was checked. Discussed with her that the atrial fibrillation may be contributing to some degree to her symptoms, but cardiology feels that it is a minor contributor given that she has been rate controlled this whole time. Final disposition and plan per Dr. Ramirez, I reviewed everything with the patient that I have discussed above. <Milly Posey MD - Last Filed: 02/27/24 08:30> Vital Signs Vital signs: Initial Vital Signs Temperature 98 F 02/26/24 06:58 Temperature Source Temporal Artery Scan 02/26/24 06:58 Pulse Rate 92 02/26/24 06:58 Pulse Rhythm Irregular 02/26/24 06:58 Respiratory Rate 18 02/26/24 06:58 Blood Pressure 121/83 02/26/24 06:58 Blood Pressure Mean 95 02/26/24 06:58 Blood Pressure Position Sitting 02/26/24 06:58 Pulse Oximetry 96 02/26/24 06:58 Oxygen Delivery Method Room Air 02/26/24 06:58 Vital Signs Temperature 98 F 02/26/24 06:58 Pulse Rate 92 02/26/24 06:58 Respiratory Rate 18 02/26/24 06:58 Blood Pressure 121/83 02/26/24 06:58 Pulse Oximetry 96 02/26/24 06:58 Oxygen Delivery Method Room Air 02/26/24 06:58 Temperature 98 F 02/26/24 06:58 Pulse Rate 87 02/26/24 11:16 Respiratory Rate 18 02/26/24 06:58 Blood Pressure 120/75 02/26/24 11:16 Pulse Oximetry 96 02/26/24 11:16 Oxygen Delivery Method Room Air 02/26/24 06:58 <Milly Posey MD - Last Filed: 02/27/24 08:30> Initial Vital Signs Temperature 98 F 02/26/24 06:58 Temperature Source Temporal Artery Scan 02/26/24 06:58 Pulse Rate 92 02/26/24 06:58 Pulse Rhythm Irregular 02/26/24 06:58 Respiratory Rate 18 02/26/24 06:58 Blood Pressure 121/83 02/26/24 06:58 Blood Pressure Mean 95 02/26/24 06:58 Blood Pressure Position Sitting 02/26/24 06:58 Pulse Oximetry 96 02/26/24 06:58 Oxygen Delivery Method Room Air 02/26/24 06:58 Vital Signs Temperature 98 F 02/26/24 06:58 Pulse Rate 92 02/26/24 06:58 Respiratory Rate 18 02/26/24 06:58 Blood Pressure 121/83 02/26/24 06:58 Pulse Oximetry 96 02/26/24 06:58 Oxygen Delivery Method Room Air 02/26/24 06:58 Temperature 98 F 02/26/24 06:58 Pulse Rate 87 02/26/24 11:16 Respiratory Rate 18 02/26/24 06:58 Blood Pressure 120/75 02/26/24 11:16 Pulse Oximetry 96 02/26/24 11:16 Oxygen Delivery Method Room Air 02/26/24 06:58 <Oleksandr Ramirez MD - Last Filed: 02/26/24 11:23> Medications Administered Medications: Discontinued Medications Generic Name Dose Route Start Last Admin Trade Name Freq PRN Reason Stop Dose Admin Albuterol/Ipratropium 1 neb 02/26/24 07:09 02/26/24 07:17 Iprat-Albut 0.5-2.5 Mg/3 Ml Neb IH 02/26/24 07:10 1 neb ONCE ONE Administration Potassium Chloride 10 meq in 100 mls @ 100 mls/hr 02/26/24 08:15 02/26/24 10:00 Potassium Chloride IVPB 02/26/24 09:14 Infused ONCE ONE Infusion Ceftriaxone Sodium 1 gm/ 100 mls @ 200 mls/hr 02/26/24 10:44 02/26/24 10:55 Sodium Chloride IVPB 02/26/24 10:45 200 mls/hr ONCE ONE Administration Potassium Chloride 40 meq 02/26/24 08:15 02/26/24 08:30 Potassium Chloride 10 Meq Capsule Er PO 02/26/24 08:16 40 meq ONCE ONE Administration <Milly Posey MD - Last Filed: 02/27/24 08:30> Discontinued Medications Generic Name Dose Route Start Last Admin Trade Name Freq PRN Reason Stop Dose Admin Albuterol/Ipratropium 1 neb 02/26/24 07:09 02/26/24 07:17 Iprat-Albut 0.5-2.5 Mg/3 Ml Neb IH 02/26/24 07:10 1 neb ONCE ONE Administration Potassium Chloride 10 meq in 100 mls @ 100 mls/hr 02/26/24 08:15 02/26/24 10:00 Potassium Chloride IVPB 02/26/24 09:14 Infused ONCE ONE Infusion Ceftriaxone Sodium 1 gm/ 100 mls @ 200 mls/hr 02/26/24 10:44 02/26/24 10:55 Sodium Chloride IVPB 02/26/24 10:45 200 mls/hr ONCE ONE Administration Potassium Chloride 40 meq 02/26/24 08:15 02/26/24 08:30 Potassium Chloride 10 Meq Capsule Er PO 02/26/24 08:16 40 meq ONCE ONE Administration <Oleksandr Ramirez MD - Last Filed: 02/26/24 11:23> Medical Decision Making MDM Narrative Medical decision making narrative: Ashley -- received this patient at change of shift pending CT imaging of the chest. I did review CT imaging and this appears to show a right upper lung central opacity. See radiology over-read for further characterization Radiology over-read as below Study:?CT-Chest W/O-02/26/2024 8:45:29 AM Ordering Physician:?Taty Atkins Final Report: INDICATION: Dyspnea. Abnormal chest radiograph. COMPARISON: A chest radiograph from earlier the same day and the most recent available CT of January 03, 2021 TECHNIQUE: : CT examination of the chest was performed without contrast.Thin axial sections were obtained from the thoracic inlet through the lung bases. Please note that all CT scans at this facility use dose modulation, iterative reconstruction, and/or weight-based dosing when appropriate to reduce radiation dose to as low as reasonably achievable. FINDINGS: : HEART and MEDIASTINUM: The heart is enlarged but overall unchanged in appearance. Atherosclerotic vascular calcifications. No pericardial effusion. A few prominent lymph nodes are noted similar to the prior exam LUNGS and PLEURAL SPACES: The right upper lobe opacity on the chest x-ray corresponds to a well-circumscribed ground-glass opacity. This is sufficiently focal fat it should be considered a ground-glass nodule. No definite solid component or edson consolidation. This measures 6.5 centimeters. This could be inflammatory. There are some malignancies that present with this appearance especially adenocarcinoma of the lung. Minimal basilar atelectasis. Very small right effusion There are multiple nodules identified at the lung bases including portions of the right middle lobe and lingula. Most of these are tree-in-bud nodules which are usually considered infectious or inflammatory. There is no finding of edema or significant vascular congestion VISUALIZED UPPER ABDOMEN: The limited visualized upper abdominal structures appear normal. OSSEOUS STRUCTURES: Age-appropriate appearance. No acute fracture or destructive process. TUBES and LINES: None. IMPRESSION: 1. Large ground-glass nodule/opacity in the right upper lobe measuring about 6.5 centimeters without focal consolidation or visible solid component. A focal opacity of this appearance could be inflammatory but could also represent a malignancy such as a primary adenocarcinoma of the lung. 2. Minimal basilar atelectasis. Very small right effusion. Nodular opacities at both lung bases in a tree-in-bud distribution. This distribution of nodules is generally considered infectious or inflammatory. 3. Careful clinical and imaging follow-up is recommended regarding the right upper lobe finding. Appropriate consultation is recommended. As a minimum, follow-up CT in no greater than 3 months is recommended, sooner clinical or imaging evaluation if there is clinical indication. 4. A few minimally prominent mediastinal lymph nodes are noted unchanged Did discuss all findings with Ms. Moody. Given a g of Rocephin. Otherwise vitally well. Continue outpatient with doxycycline. Close follow-up. See patient discharge plan for further discussion/recommendations as initiated by Dr. Posey. <Oleksandr Ramirez MD - Last Filed: 02/26/24 11:23> Lab Data Labs: Lab Results 02/26/24 02/26/24 02/26/24 Range/Units 07:05 07:10 07:15 WBC 5.18 (4.50-11.00) K/uL RBC 3.53 L (4.00-5.20) m/uL Hgb 11.1 L (12.0-16.0) gm/dL Hct 33.5 (33.0-51.0) % MCV 95 (80-100) fL MCH 31 (26-34) pg MCHC 33 (32-36) gm/dL RDW Coeff of Patel 13.6 (11.5-15.5) % Plt Count 202 (140-440) K/uL Neut % (Auto) 65.7 (42.0-72.0) % Lymph % (Auto) 20.7 (20-44) % Rush % (Auto) 8.9 (0.0-11.0) % Eos % (Auto) 3.1 (0.0-7.0) % Baso % (Auto) 1.2 (0.0-3.0) % Neut # (Auto) 3.41 (1.7-7.0) K/uL Lymph # (Auto) 1.07 (0.90-2.90) K/uL Rush # (Auto) 0.50 (0.00-0.90) K/UL Eos # (Auto) 0.16 (0.00-0.50) K/uL Baso # (Auto) 0.06 (0.00-0.30) K/uL Abs Immat Gran (auto) 0.02 (0.00-0.30) K/uL Imm/Tot Granulo (auto) 0.4 % Diff Slide Review Cancelled INR 1.86 H (0.91-1.10) D-Dimer Quant (PE/DVT) 0.39 (0.00-0.50) ug/ml VBG pH 7.475 H (7.32-7.43) VBG pCO2 38 L (40-50) mmHG VBG pO2 38.3 (25-47) mmHG VBG HCO3 28 (21-28) mmol/L Sodium 135 (135-149) mmol/L Potassium 2.8 L* (3.6-5.1) mmol/L Chloride 99 (96-114) mmol/L Carbon Dioxide 27 (20-32) mmol/L Anion Gap 9 (7-15) mEq/L BUN 15 (7-30) mg/dL Creatinine 1.4 (0.5-1.5) mg/dL Estimated Creat Clear 35.56 Estimated GFR 39 ml/min Glucose 104 (60-115) mg/dL Calcium 8.4 (8.4-10.6) mg/dL Magnesium 2.2 (1.5-2.6) mg/dL C-Reactive Protein 1.2 H (0.5-1.0) mg/dL NT-Pro-B Natriuret Pep 8740 pg/mL TSH 2.320 (0.270-4.200) uIU/mL SARS-CoV-2 (PCR) Negative SARS-CoV-2 (Negative) Influenza Type A (PCR) Negative PCR FLU A (Negative) Influenza Type B (PCR) Negative PCR FLU B (Negative) RSV (PCR) Negative PCR RSV (Negative) POC Troponin I 0.02 (0.01-0.04) ng/ml <Milly Posey MD - Last Filed: 02/27/24 08:30> Lab Results 02/26/24 02/26/24 02/26/24 Range/Units 07:05 07:10 07:15 WBC 5.18 (4.50-11.00) K/uL RBC 3.53 L (4.00-5.20) m/uL Hgb 11.1 L (12.0-16.0) gm/dL Hct 33.5 (33.0-51.0) % MCV 95 (80-100) fL MCH 31 (26-34) pg MCHC 33 (32-36) gm/dL RDW Coeff of Patel 13.6 (11.5-15.5) % Plt Count 202 (140-440) K/uL Neut % (Auto) 65.7 (42.0-72.0) % Lymph % (Auto) 20.7 (20-44) % Rush % (Auto) 8.9 (0.0-11.0) % Eos % (Auto) 3.1 (0.0-7.0) % Baso % (Auto) 1.2 (0.0-3.0) % Neut # (Auto) 3.41 (1.7-7.0) K/uL Lymph # (Auto) 1.07 (0.90-2.90) K/uL Rush # (Auto) 0.50 (0.00-0.90) K/UL Eos # (Auto) 0.16 (0.00-0.50) K/uL Baso # (Auto) 0.06 (0.00-0.30) K/uL Abs Immat Gran (auto) 0.02 (0.00-0.30) K/uL Imm/Tot Granulo (auto) 0.4 % Diff Slide Review Cancelled INR 1.86 H (0.91-1.10) D-Dimer Quant (PE/DVT) 0.39 (0.00-0.50) ug/ml VBG pH 7.475 H (7.32-7.43) VBG pCO2 38 L (40-50) mmHG VBG pO2 38.3 (25-47) mmHG VBG HCO3 28 (21-28) mmol/L Sodium 135 (135-149) mmol/L Potassium 2.8 L* (3.6-5.1) mmol/L Chloride 99 (96-114) mmol/L Carbon Dioxide 27 (20-32) mmol/L Anion Gap 9 (7-15) mEq/L BUN 15 (7-30) mg/dL Creatinine 1.4 (0.5-1.5) mg/dL Estimated Creat Clear 35.56 Estimated GFR 39 ml/min Glucose 104 (60-115) mg/dL Calcium 8.4 (8.4-10.6) mg/dL Magnesium 2.2 (1.5-2.6) mg/dL C-Reactive Protein 1.2 H (0.5-1.0) mg/dL NT-Pro-B Natriuret Pep 8740 pg/mL TSH 2.320 (0.270-4.200) uIU/mL SARS-CoV-2 (PCR) Negative SARS-CoV-2 (Negative) Influenza Type A (PCR) Negative PCR FLU A (Negative) Influenza Type B (PCR) Negative PCR FLU B (Negative) RSV (PCR) Negative PCR RSV (Negative) POC Troponin I 0.02 (0.01-0.04) ng/ml <Oleksandr Ramirez MD - Last Filed: 02/26/24 11:23> Discharge Plan Discharge Clinical Impression: Dyspnea on exertion, Hypokalemia, Atrial fibrillation with controlled ventricular rate, Pneumonia <Milly Posey MD - Last Filed: 02/27/24 08:30> Additional Instructions: Your potassium needs to be replaced before you can have your cardioversion, therefore that will need to be delayed. I talked with the real estate services administrator about this today so they are aware. We will need to get you followed up with your primary care doctor, so that you can have your electrolytes checked and make sure that they are normalized prior to cardioversion. You need to be on potassium replacement at home for the next week or so. Please make an appointment with your primary care doctor as well as call your real estate services administrator to discuss further. Please take this handout of CT imaging in 2 year follow-up appointment to discuss with your primary care provider. What we see in your lung requires close follow-up. Would anticipate you being seen in primary care within the next 1-2 weeks. Doxycycline from [facility] to continue as your antibiotic at this time. <Milly Posey MD - Last Filed: 02/27/24 08:30> Prescriptions: New potassium chloride [Klor-Con M20] 20 mEq tablet,ER particles/crystals 20 meq PO BID Qty: 14 2RF No Action Arnuity Ellipta 50 mcg/actuation blister with device 1 inh inhalation Eliquis 5 mg tablet 5 mg PO Spiriva Respimat 2.5 mcg/actuation mist 2 puff inhalation DAILY carvedilol 25 mg tablet 25 mg PO BID Jardiance 10 mg tablet 10 mg PO ONCE albuterol sulfate 90 mcg/actuation HFA aerosol inhaler inhalation simvastatin 10 mg tablet 10 mg PO ONCE fluticasone propionate 50 mcg/actuation spray,suspension 1 spray intranasal loratadine [Claritin] 10 mg tablet 10 mg PO QDAY coenzyme Q10 [Co Q-10] 100 mg capsule 100 mg PO QDAY furosemide 20 mg tablet 20 mg PO BID Rx Instructions: Take 3 tablets PO QAM and 2 tablets in the afternoon hydralazine 25 mg tablet 25 mg PO TID isosorbide dinitrate 20 mg tablet 20 mg PO TID Rx Instructions: allow nitrate-free interval of 12-14 hrs per 24-hr period cholecalciferol (vitamin D3) 50 mcg (2,000 unit) tablet 50 mcg PO QDAY vitamin E (dl, acetate) 90 mg (200 unit) capsule 90 mg PO QDAY amiodarone 200 mg tablet 200 mg PO QDAY aspirin [Adult Low Dose Aspirin] 81 mg tablet,delayed release (DR/EC) 81 mg PO DAILY vitamin B complex [B Complex-Vitamin B12] Tablet 1 tab PO DAILY <Milly Posey MD - Last Filed: 02/27/24 08:30> Follow Up/Referrals: Lise Cardenas MD [Primary Care Provider] - <Milly Posey MD - Last Filed: 02/27/24 08:30> Stand Alone Forms: My[facility] Info Instructions <Milly Posey MD - Last Filed: 02/27/24 08:30>
[2024-02-26] MEDS: IPRAT-ALBUT 0.5-2.5 MG/3 ML NEB 1 NEB IH (07:17)
[2024-02-26 07:25] LABS: HCO3 VBG 28 mmol/L (21-28); PCO2 VBG 38 mmHG (40-50); PO2 VBG 38.3 mmHG (25-47); pH VBG 7.475 (7.32-7.43)
[2024-02-26 07:27] LABS: Troponin, Point-of-Care* 0.02 ng/ml (0.01-0.04)
[2024-02-26 07:30] LABS: Basophils Absolute Auto 0.06 K/uL (0.00-0.30); Basophils Percent Auto 1.2 % (0.0-3.0); Eosinophils Absolute Auto 0.16 K/uL (0.00-0.50); Eosinophils Percent Auto 3.1 % (0.0-7.0); Hematocrit 33.5 % (33.0-51.0); Hemoglobin* 11.1 gm/dL (12.0-16.0); Immature Granulocytes Abs Auto 0.02 K/uL (0.00-0.30); Immature Granulocytes Pct Auto 0.4 %; Lymphocytes Absolute Auto 1.07 K/uL (0.90-2.90); Lymphocytes Percent Auto 20.7 % (20-44); Mean Corpuscular HGB Conc 33 gm/dL (32-36); Mean Corpuscular Hemoglobin 31 pg (26-34); Mean Corpuscular Volume 95 fL (80-100); Monocytes Percent Auto 8.9 % (0.0-11.0); Neutrophils Absolute Auto 3.41 K/uL (1.7-7.0); Neutrophils Percent Auto 65.7 % (42.0-72.0); Platelet Count* 202 K/uL (140-440); RDW Coefficient of Variation % 13.6 % (11.5-15.5); Red Blood Count 3.53 m/uL (4.00-5.20); White Blood Count* 5.18 K/uL (4.50-11.00)
[2024-02-26 07:34] LABS: Slide Review Reflex No
--- OUTSIDE RECORDS SUMMARY | 2024-02-26 07:52 | XMS_ITS | Clinical Summary ---
Author Organization [facility] Address [place], [place] [address] Care Team Providers Care Dry Wall Nailer Name Role Phone Nurses, Advanced Heart Failure [...] 1 Capsule by mouth once daily. Active empagliflozin (Jardiance) 10 mg tabletIndications: Nonischemic cardiomyopathy (HC) Take 1 Tablet (10 mg) by mouth once daily. 30 Tablet 4 Active albuterol HFA (PRO-AIR; VENTOLIN; PROVENTIL) [...] due to pollen, unspecified seasonality Inhale 1 Clyde into affected nostril(s) once daily if needed [...] three times daily. 270 Tablet 4 Active amiodarone (CORDARONE) 200 mg tabletIndications: Persistent atrial fibrillation (HC) Take 2 tablets (400 mg) twice a day for 2 weeks. Then take 1 tablet (200 mg) once a day and stay on that dose. Have an EKG done 2 weeks after starting 180 Tablet 3 4 Active potassium chloride (KLOR-CON M20) 20 mEq extended-release tablet (part/cryst)Indica tions:Dilated cardiomyopathy (HC) Take 1 Tablet (20 mEq) by mouth once daily with a meal. 4 Active furosemide (LASIX) 20 mg tabletIndications: Dilated cardiomyopathy (HC) Take 3 tablets (60 mg) in the mornings and take 2 tablets (40 mg) in the afternoons 540 Tablet 3 4 Active simvastatin (ZOCOR) 10 mg tabletIndications: Chronic systolic congestive heart failure (HC) TAKE 1 TABLET BY MOUTH AT BEDTIME 90 Tablet 3 4 Active simvastatin (ZOCOR) 10 mg tabletIndications: Chronic systolic congestive heart failure (HC) TAKE 1 TABLET BY MOUTH AT BEDTIME 90 Tablet 2 4 02/14/20 24 Discontinued furosemide (LASIX) 20 mg tabletIndications: Dilated cardiomyopathy (HC) Take 3 Tablets (60 mg) by mouth two times daily. 540 Tablet 3 4 02/01/20 24 Discontinued(Re order (E-cancel not sent)) furosemide (LASIX) 20 mg tabletIndications: Dilated cardiomyopathy (HC) Take 3 tablets (60 mg) in the mornings and take 2 tablets (40 mg) in the afternoons 540 Tablet 3 4 02/05/20 24 Discontinued(Re order (E-cancel not sent)) Active Problems Problem Noted [...] Encounters Date Type Department Care Team Description 02/14/2024 Orders Only [facility] Staff, Other Clinical 1 scan: (1-Ord) [facility] 02/14/2024 Refill [facility] [address] [place] [address] Maurice Poe MD Refill Request (Simvastatin) 02/06/2024 11:45 AM CDT Nurse/Clinic Staff Only [facility] [address] [place] [address] Cardiovascular Diagnostic Testing 02/05/2024 Travel 02/01/2024 Refill [facility] [address] [place] [address] Maurice Poe MD Refill Request (Furosemide) 01/30/2024 10:40 AM CDT Orders Only [facility] [address] [place] [address] Lab, [facility] 01/30/2024 Telephone [facility] [address] [place] [address] Maurice Poe MD Follow Up 01/29/2024 Travel 01/29/2024 Orders Only [facility] [address] [place] [address] Maurice Poe MD <No scans attached> 01/17/2024 Telephone [facility] [address] [place] [address] Maurice Poe MD Cardiology Appointment 01/12/2024 Telephone [facility] [address] [place] [address] Maurice Poe MD Medication Management 01/11/2024 1:30 PM CDT Office Visit [facility] [address] [place] [address] Maurice Poe MD CHF (Annual follow up) 01/11/2024 12:30 PM CDT Orders Only [facility] [address] [place] [address] Lab 01/11/2024 Travel 01/03/2024 4:50 PM CDT Office Visit [facility] [address] [place] [address] Charis Weber, TRAINING AND DEVELOPMENT OFFICER Skin Problem (Left foot/heel) 01/03/2024 Travel 12/19/2023 Telephone [facility] [place] [address] [facility] [address] [place] [phone] Ileana Anand MD Prior Authorization (Arnuity Ellipta 100 mcg/actuation inhaler JESUS (NOT NEEDED)) 12/16/2023 Refill [facility] [address] [place] [address] Maurice Poe MD Refill Request (Isosorbide Dinitrate) from Last 3 Months Immunizations Name Administration [...] file 09/22/2023 Food Insecurity Answer Date Recorded Do you worry your food will run out before you are able to buy more? 1 09/22/2023 Transportation Needs Answer Date Record ed Lack of Transportation (Medical) 1 09/22/2023 Housing Stability Answer Date Recorded What is your housing situation today? 1 09/22/2023 Sex and Gender Information Value [...] Care Team (Late st Contact Info) Description 02/27/2024 1:00 PM CDT Appointment [facility] [address] [place] [address] 04/04/2024 9:15 AM HEADLIGHT ASSEMBLER Appointment [facility] [address] [place] [address] 04/04/2024 10:20 AM HEADLIGHT ASSEMBLER Orders Only [facility] [address] [address] 04/04/2024 11:30 AM HEADLIGHT ASSEMBLER Office Visit [facility] [address] [address] Maurice Poe MD [address] [address] Health Maintenance Due Date Last Done Comments [...] Procedure Name Priority Date/Time Associated Diagnosis Comments SCAN CORRESP-LABORATORY RESULTS 02/13/2024 2:10 PM CDT EKG 12 LEAD Routine 02/06/2024 12:00 AM [...] 01/03/2024 6:21 PM CDT Cellulitis of skin LIPID PANEL Routine 06/22/2018 7:32 AM HEADLIGHT ASSEMBLER Dilated cardiomyopathy (HC) XR DXA BONE DENSITY 2 SITES AXIAL Routine 03/27/2015 1:29 PM HEADLIGHT ASSEMBLER Asymptomatic menopausal state XR MAMMO BILAT SCREEN FFDM (IA) Routine 05/21/2012 11:17 AM HEADLIGHT ASSEMBLER Other screening mammogram from Last 3 Months or Most Recently Relevant to Health Maintenance Results * SCAN CORRESP-LABORATORY RESULTS (02/13/2024 2:10 PM CDT) Narrative 02/13/2024 2:10 PM CDT Ordered by an unspecified provider. Other Clinical Staff OTHER * EKG 12 LEAD (02/06/2024 12:00 AM CDT) Maurice Poe MD EKG ORD * (ABNORMAL) PRO-BNP (01/30/2024 10:48 AM CDT) Only the most recent of2 resultswithin the time period is included. NT PROBNP 5,108(H) <125 pg/mL [facility] Blood BLOOD SPECIMEN / Unknown 01/30/2024 10:48 AM CDT 01/30/2024 10:48 AM CDT Maurice Poe MD SEND OUTS [facility] [address] [facility] [place] [address], [email or web address] [address] [facility] [place] [address] * MAGNESIUM (01/30/2024 10:48 AM CDT) Only the most recent of2 resultswithin the time period is included. Pathologist [facility] MAGNESIUM 2.4 1.5 - 2.5 mg/dL [email or web address] Blood BLOOD SPECIMEN / Unknown 01/30/2024 10:48 AM CDT 01/30/2024 10:48 AM CDT Maurice Poe MD CHEMISTRY Performing Organization Address [facility]/ZIP Co de Phone Number [facility] [address] [place] [address], [email or web address] [address] [place] [address] * (ABNORMAL) BASIC METABOLIC PANEL (01/30/2024 10:44 AM CDT) Only the most recent of2 resultswithin the time period is included. Pathologist [facility] GLUCOSE 103(H) 65 - 99 mg/dL [facility] Comment: ? Fasting reference interval For someone without known diabetes, a glucose value between 100 and 125 mg/dL is consistent with prediabetes and should be confirmed with a follow-up test. UREA NITROGEN (BUN) 25 7 - 25 mg/dL [email or web address] CREATININE 1.81(H) 0.60 - 1.00 mg/dL [facility] EGFR 29(L) > OR = 60 mL/min/1.7 3m2 [facility] BUN/CREATININE RATIO 14 6 - 22 (calc) [facility] SODIUM 142 135 - 146 mmol/L [facility] POTASSIUM 3.3(L) 3.5 - 5.3 mmol/L [facility] CHLORIDE 102 98 - 110 mmol/L [facility] CARBON DIOXIDE 32 20 - 32 mmol/L [facility] ELECTROLYTE BALANCE 8 7 - 17 mmol/L (calc) [facility] CALCIUM 8.8 8.6 - 10.4 mg/dL [facility] Blood BLOOD SPECIMEN / Unknown 01/30/2024 10:44 AM CDT 01/30/2024 10:45 AM CDT Maurice Poe MD CHEMISTRY [facility] [address] [place] [address], [email or web address] [address] [place] [address] * (ABNORMAL) AEROBIC BACTERIAL CULTURE, STAIN (01/03/2024 6:21 PM CDT) CULTURE RESULT(A) 01/08/2024 2:04 PM CDT [facility] CULTURE 4+ Escherichia coli 01/08/2024 2:04 PM CDT [facility] CULTURE 3+ Mixed warren present 01/08/2024 2:04 PM CDT [facility] GRAM STAIN No PMNs 01/08/2024 2:04 PM CDT [facility] GRAM STAIN 1+ Epithelial cells 01/08/2024 2:04 PM CDT [facility] GRAM STAIN No RBCs 01/08/2024 2:04 PM CDT [facility] GRAM STAIN 3+ Gram Positive Cocci 01/08/2024 2:04 PM CDT [facility] GRAM STAIN 4+ Gram Negative Bacilli 01/08/2024 2:04 PM CDT [facility] Other (Other) Non-Blood / Unknown 01/03/2024 6:21 PM CDT 01/03/2024 7:12 PM CDT Narrative [facility] 01/08/2024 2:04 PM CDT Mixed [...] MEROPENEM <=0.25: S Charis Weber NP MICROBIOLOGY Performing Organization Address City/[facility]/ZIP Co de Phone Number [facility] [address] [place] [address], * LIPID PANEL (06/22/2018 7:32 AM HEADLIGHT ASSEMBLER) [facility] CHOLESTEROL,TOTAL 177 100 - 199 mg/dL 06/22/2018 8:19 AM HEADLIGHT ASSEMBLER [facility] TRIGLYCERIDES 118 <150 mg/dL 06/22/2018 8:19 AM HEADLIGHT ASSEMBLER [facility] HDL CHOLESTEROL 54 >40 mg/dL 9 8:19 AM HEADLIGHT ASSEMBLER [facility] NON-HDL CHOLESTEROL 123 <145 mg/dl 06/22/2018 8:19 AM HEADLIGHT ASSEMBLER [facility] CHOL/HDL RATIO 3.28 <4.50 06/22/2018 8:19 AM HEADLIGHT ASSEMBLER [facility] [employer] [facility] LDL CHOLESTEROL 99 <=130 mg/dL 06/22/2018 8:19 AM HEADLIGHT ASSEMBLER [facility] [employer] [facility] PROVIDER ORDERED STATUS FASTING 06/22/2018 8:19 AM HEADLIGHT ASSEMBLER [facility] Blood BLOOD SPECIMEN / Unknown Venipuncture / Unknown 06/22/2018 7:32 AM HEADLIGHT ASSEMBLER 06/22/2018 7:53 AM HEADLIGHT ASSEMBLER Maurice Poe MD CHEMISTRY [facility] [address] [place] [address], [place] * (ABNORMAL) XR DXA BONE DENSITY 2 SITES (03/27/2015 1:29 PM HEADLIGHT ASSEMBLER) Anatomical Region Laterality Modality Spine, HIPS, HIPL, HIPR Other Narrative 04/03/2015 8:04 AM HEADLIGHT ASSEMBLER Please see scanned document for results of this study. Raza Killian MD DEXA * XR MAMMO BILAT SCREEN FFDM (05/21/2012 11:17 AM HEADLIGHT ASSEMBLER) Anatomical Region Laterality Modality BREASTS, Breast Left, Breast Right Bilateral Mammography Addenda Addendum by Raphael Flaherty DO on 07/31/2012 3:10 PM CDT ??ADDENDUM ? ADDENDUM ? ADDENDUM Many attempts have been made to contact the patient regarding additional imaging that is needed following her screening mammogram. ??The patient has failed to return for our recommended follow-up. ?? Impressions 05/21/2012 3:54 PM HEADLIGHT ASSEMBLER ??ACR 0 Incomplete: Need Additional Imaging Evaluation and/or Prior Mammograms for Comparison RECOMMENDATION: ??Ultrasound of the RIGHT breast. Narrative 05/21/2012 3:54 PM HEADLIGHT ASSEMBLER BILATERAL FULL-FIELD DIGITAL SCREENING MAMMOGRAM WITH CAD [...] Code Status Discussion: Reviewed Preferences Care Teams Dry Wall Nailer Relationship Specialty Start Date End Date Lise Cardenas MD [address] [place] [address] PCP - General Family Practice 09/22/23 Nurses, Advanced Heart Failure [address] [place] [address] Heart Failure Care Coordination 08/25/15 Maurice Poe MD [address] [place] [address] Advanced Heart Failure/Transplant Card 01/14/22
--- OUTSIDE RECORDS SUMMARY | 2024-02-26 07:52 | XMS_ITS | Clinical Summary ---
Author Organization [facility] Address [address] [place] [address] Care Team Providers Care Editor School Photograph Name Role Phone Unavailable Primary Care Provider Unavailabl e Source Comments Patient records contain information from all sites at [facility]. For routine questions regarding patient records, call [phone] during business hours, M-F 8:00 AM - 5:00 PM Central Time. Record requests for emergency care only can be directed to [phone] at any time.[facility] Medications apixaban (ELIQUIS) 5 mg tablet Take 1 tablet by mouth 2 (two) times a day. 3 Active aspirin [address] tablet Take 1 tablet by mouth daily. 3 Active carvediloL (COREG) 25 mg tablet Take 25 mg by mouth 2 (two) times a day. 3 Active empagliflozin (JARDIANCE) 10 mg tablet Take 1 tablet by mouth daily. 4 Active fluticasone propionate (FLONASE) 50 mcg/actuation nasal spray Administer 1 spray into nostril(s) at bedtime as needed. Active furosemide (LASIX) 40 mg tablet Take 40 mg by mouth 2 (two) times a day. 8 Active hydrALAZINE (APRESOLINE) 10 mg tablet Take 25 mg by mouth every 8 (eight) hours. 4 Active isosorbide dinitrate (ISORDIL) 30 mg tablet Take 30 mg by mouth 3 (three) times a day before meals. 4 Active potassium chloride (KLOR-CON M) 10 mEq ER tablet Take 10 mEq by mouth daily with breakfast. 4 Active tiotropium (Spiriva Respimat) 2.5 mcg/actuation inhaler Inhale 2 puffs daily. 3 Active spironolactone (Aldactone) 25 mg tablet Take 0.5 tablets (12.5 mg total) by mouth daily. 4 02/13/20 25 Active amiodarone (Pacerone) 200 mg tablet Take 1 tablet (200 mg total) by mouth daily. 4 Active Active Problems Problem Noted Date Diagnosed Date Gammopathy Monoclonal Nonspecific 02/13/2024 Chronic Kidney Disease (CKD) , Stage 3b [...] Encounters Date Type Department Care Team Description 02/13/2024 11:00 AM CDT External Outreach Division of Nephrology and Hypertension in [place], [place] [address] [place] [address] Stevan Adamson Jr., D.O. Chronic Kidney Disease (CKD), Stage 3b Glomerular Filtration Rate (GFR) 30 To 44 (HCC) (Primary Dx); Hypertensive Heart And Chronic Kidney Disease With Heart Failure And Stage 1 To 4 Chronic Kidney Disease Or Unspecified Chronic Kidney Disease (HCC); Chronic Combined Systolic (Congestive) And Diastolic (Congestive) Heart Failure (HCC); Gammopathy Monoclonal Nonspecific from Last 3 Months Immunizations Name Administration [...] Recorded Dental: Regular Dentist Unknown 10/04/19 24 Comments Unknown Sex and Gender Information Value Date Recorded Sex Assigned at Not on file Legal Sex Female 4:51 PM QUALITY CONTROL ANALYST Gender Identity Not on file Sexual Orientation Not on file Last Filed Vital Signs Vital Sign Reading Time Taken Comments Blood Pressure 126/82 02/13/2024 11:41 AM CDT Pulse 84 02/13/2024 11:41 AM CDT Temperature - - Respiratory Rate - - Oxygen Saturation - - Inhaled Oxygen Concentration - - Weight 106 kg (233 lb 14.5 oz) 02/13/2024 11:41 AM CDT Height 167 cm (5' 5.75) 02/13/2024 11:41 AM CDT Body Mass Index 38.04 02/13/2024 11:41 AM CDT Plan of Treatment Health Maintenance [...] 03/26/2021, 07/24/2020, 07/03/2020 Influenza Vaccine (#1) 2024 3, 12/22/2022, 05/23/2022, Additional history exists Creatinine Level (Kidney Fun ction Test) 01/10/2025 01/11/2024, 11/03/2023, 10/24/2023, Additional history exists Potassium Level 01/10/2025 01/11/2024, 07/0 08/2023, 10/24/2023, Additional history exists Sodium Level 01/10/2025 01/11/2024, 07/0 08/2023, 10/24/2023, Additional history exists Office Visit for Blood Press ure Check / Re-check 02/12/2025 02/13/2024 Fasting Glucose for Diabetes Screening 01/10/2027 01/11/2024, 11/03/2023, 10/24/2023, Additional history exists DTaP,Tdap,and Td Vaccines (3 - Td or Tdap) 05/23/2032 05/23/2022, 02/07/2012 Pneumococcal vaccine (65+ years) Completed 08/21/2017, 03/31/2016, 02/07/2012 RSV vaccine - (32-3 6 weeks) or 60+ years Completed 12/22/2022 Insurance [employer]
--- OUTSIDE RECORDS SUMMARY | 2024-02-26 07:52 | XMS_ITS | Encounter Summary ---
Author Organization [facility] Address [address] [place] [address] Care Team Providers Care Magnaflux Operator Name Role Phone Unavailable Primary Care Provider Unavailabl e Reason for Visit * Appointment Request (Routine) - Closed Specialty Diagnoses / Procedures Referred By Contbonny t Referred To Contact Nephrology and Hypertension Referral ID Status Reason Start Date Expiration Date Visits Re quested Visits Authorized [id number] Closed 01/12/2024 01/11/2025 1 1 Encounter Details Date Type Department Care Team (Latest Contact Info) Description 02/13/2024 11:00 AM CDT External Outreach Division of Nephrology and Hypertension in [place], [place] [address] [place] [address] Stevan Adamson Jr., D.O. [address] [place] [address] Chronic Kidney Disease (CKD), Stage 3b Glomerular Filtration Rate (GFR) 30 To 44 (HCC) (Primary Dx); Hypertensive Heart And Chronic Kidney Disease With Heart Failure And Stage 1 To 4 Chronic Kidney Disease Or Unspecified Chronic Kidney Disease (HCC); Chronic Combined Systolic (Congestive) And Diastolic (Congestive) Heart Failure (HCC); Gammopathy Monoclonal Nonspecific Social History Tobacco Use Types Packs/Day Years Used Date Smoking Tobacco: Never Assessed Dental Answer Date Recorded Dental: Regular Dentist Unknown 10/04/19 24 Comments Unknown Sex and Gender Information Value Date Recorded Sex Assigned at Not on file Legal Sex Female 4:51 PM SUBSTANCE ABUSE SERVICES DIRECTOR Gender Identity Not on file Sexual Orientation [...] Mass Index 38.04 02/13/2024 11:41 AM CDT documented in this encounter Progress Notes * Stevan Adamson Jr., D.O. - 02/13/2024 11:00 AM CDT Referring Provider: No primary care provider on file. SUBJECTIVE REASON FOR VISIT [place] out reach CKD Clinic Follow-up regards CKD on the background of ischemic cardiomyopathy and prior hypertension HISTORY OF PRESENT ILLNESS Ms. Moody is a 73 y.o. female who presents with a cardiomyopathy and CKD, with a subtle change of an IgM kappa paraprotein noted on her immunoelectrophoresis. Since our last visit she was into see cardiology in a made multiple medication changes as she had redeveloped atrial fibrillation. She had previously undergone cardioversion had been in sinus rhythm for some time. She is back on amiodarone. She sleeps in bed, she does have her legs elevated, wears compressive garments on her lower extremities. She has not had PND nor orthopnea, no chest pain recently. She does not suffer with palpitations. Her appetite has been acceptable she absolutely avoid salt in her diet. She has not had use any I note that she has an excellent blood pressure and no orthostatic issues. Systolic pressures have been in the 120s and 130s. No changes in urine character or quantity, no recent hospitalizations. She is on oral anticoagulation but has not had any complications from this. Past medical history: Dilated cardiomyopathy 2. Diastolic heart failure 3. CKD stage IIIB 4. Hypertension 5. Anemia of CKD 6. Secondary renal hyperparathyroidism 7. Medically complicated overweight Current Outpatient Medications: amiodarone (Pacerone) 200 mg tablet, Take 1 tablet (200 mg total) by mouth daily., Disp: , Rfl: apixaban (ELIQUIS) 5 mg tablet, Take 1 tablet by mouth 2 (two) times a day., Disp: , Rfl: aspirin [address] tablet, Take 1 tablet by mouth daily., Disp: , Rfl: carvediloL (COREG) 25 mg tablet, Take 25 mg by mouth 2 (two) times a day., Disp: , Rfl: empagliflozin (JARDIANCE) 10 mg tablet, Take 1 tablet by mouth daily., Disp: , Rfl: fluticasone propionate (FLONASE) 50 mcg/actuation nasal spray, Administer 1 spray into nostril(s) at bedtime as needed., Disp: , Rfl: furosemide (LASIX) 40 mg tablet, Take 40 mg by mouth 2 (two) times a day., Disp: , Rfl: hydrALAZINE (APRESOLINE) 10 mg tablet, Take 25 mg by mouth every 8 (eight) hours., Disp: , Rfl: isosorbide dinitrate (ISORDIL) 30 mg tablet, Take 30 mg by mouth 3 (three) times a day before meals., Disp: , Rfl: potassium chloride (KLOR-CON M) 10 mEq ER tablet, Take 10 mEq by mouth daily with breakfast., Disp:, Rfl: spironolactone (Aldactone) 25 mg tablet, Take 0.5 tablets (12.5 mg total) by mouth daily., Disp: , Rfl: tiotropium (Spiriva Respimat) 2.5 mcg/actuation inhaler, Inhale 2 puffs daily., Disp: , Rfl: REVIEW OF SYSTEMS All other systems reviewed and are negative. OBJECTIVE BP 126/82 Pulse 84 Ht 167 cm Wt 106 kg BMI 38.04 kg/m?? PHYSICAL EXAMINATION General: Awake, alert, oriented. HEENT: BARBARA, EOMI, mucous membranes moist, no oral lesions. Neck: No masses, no bruits. Lungs: Clear to auscultation. Heart: Regular rate and rhythm. No ectopy, murmurs, or rubs. Abdomen: Soft, non-tender. Extremities: No cyanosis, no clubbing, no edema. Neuro: Cranial nerves intact. Gait is normal, strength grossly normal. Skin: No suspicious lesions identified. Psychiatric: Normal affect. DIAGNOSTICS Note serum creatinine 1.7 mg/dL no microalbuminuria, she has a very small IgM kappa paraprotein ASSESSMENT / PLAN #1 Chronic Kidney Disease (CKD), Stage 3b Glomerular Filtration Rate (GFR) 30 To 44 ([facility]) Her renal functions remain gratifyingly stable and she has no microalbuminuria. We have been able to strike a balance with respect to her cardiorenal syndrome. Going forward: 1. Goal blood pressures less than 130s over 80s which have been achieved 2. Low-sodium diet less than 2000 mg sodium per day 3. Continue her current diuretic regimen, with the permission to double her dose of diuretics should her weight rise by more than 4 lb for 2 days of increased dosage. 4. Return to Nephrology Clinic in 6 months 5. No NSAIDs or Pelayo 2 inhibitors 6. Continued monitoring of her electrolyte panel given the multiple changes in her diuretics. #2 Hypertensive Heart And Chronic Kidney Disease With Heart Failure And Stage 1 To 4 Chronic KidneyDisease Or Unspecified Chronic Kidney Disease (HCC) Her blood pressures have been excellent I congratulated her. #3 Chronic Combined Systolic (Congestive) And Diastolic (Congestive) Heart Failure (HCC) She has AFib in his currently on oral anticoagulation heart failure regimen including aldosterone antagonism, as well as hydralazine and nitrates given her CKD. #4 Monoclonal gammopathy unknown significance We will continue to track this small IgM kappa paraprotein #5 Anemia of CKD She does not need an EMILIA at this point Total time: 35 minute Counseling Time: 30 minutes Stevan Adamson Jr., D.O. documented in [...] (Congestive) And Diastolic (Congestive) Heart Failure (HCC) Gammopathy Monoclonal Nonspecific documented in this encounter
--- OUTSIDE RECORDS SUMMARY | 2024-02-26 07:52 | XMS_ITS | Referral Summary ---
Author Organization [facility] Address [address] [place] [address] Care Team Providers Care Brim Flexer Name Role Phone Unavailable Primary Care Provider Unavailabl e Source Comments Patient records contain information from all sites at [facility]. For routine questions regarding patient records, call [phone] during business hours, M-F 8:00 AM - 5:00 PM Central Time. Record requests for emergency care only can be directed to [phone] at any time.[facility] Encounters Date Type Department Care Team Description 02/13/2024 11:00 AM CDT External Outreach Division of Nephrology and Hypertension in [place], [place] [address] [place] [address] Stevan Adamson Jr., D.O. 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
--- OUTSIDE RECORDS SUMMARY | 2024-02-26 07:52 | XMS_ITS ---
Author Organization [facility] Address [address] [place] [address] Care Team Providers Care Hazmat Truck Driver Name Role Phone Unavailable Unavailable Unavailable Surgery Details Not on file Complications Check Surgery Details section. Procedure Estimated Blood Loss Check Surgery Details section. Procedure Findings Check Surgery Details section. Procedure Specimens Taken Check Surgery Details section.
[2024-02-26 07:55] LABS: Chloride* 99 mmol/L (96-114); Sodium* 135 mmol/L (135-149)
[2024-02-26 07:57] LABS: Creatinine* 1.4 mg/dL (0.5-1.5); Est. Creatinine Clearance* 35.56; Estimated Glomerular Filt Rate 39 ml/min; INR 1.86 (0.91-1.10); Prothrombin Time 22.7 Seconds
[2024-02-26 07:58] LABS: Anion Gap 9 mEq/L (7-15); Blood Urea Nitrogen* 15 mg/dL (7-30); Carbon Dioxide* 27 mmol/L (20-32)
[2024-02-26 07:59] LABS: Calcium* 8.4 mg/dL (8.4-10.6); D Dimer Quantitative* 0.39 ug/ml (0.00-0.50); Glucose* 104 mg/dL (60-115)
[2024-02-26 08:01] LABS: C Reactive Protein* 1.2 mg/dL (0.5-1.0)
[2024-02-26 08:03] LABS: PCR FLU A Negative PCR FLU A (Negative); PCR FLU B Negative PCR FLU B (Negative); PCR RSV Negative PCR RSV (Negative); SARS PCR* Negative SARS-CoV-2 (Negative)
[2024-02-26 08:09] LABS: NT Pro B Type NatriureticPept* 8740 pg/mL
[2024-02-26 08:10] LABS: Potassium* 2.8 mmol/L (3.6-5.1)
--- NOTE | 2024-02-26 08:13 | CT_ITS ---
Patient: ARISTIDES OVIEDO Facility:?[facility] Patient ID:?[id number] Site Patient ID:?[id number]. Site :?[id number] Study:?CT-Chest W/O-02/26/2024 8:45:29 AM Ordering Physician:Dennis Atkins Final Report: INDICATION: Dyspnea. Abnormal chest radiograph. COMPARISON: A chest radiograph from earlier the same day and the most recent available CT of January 03, 2021 TECHNIQUE: : CT examination of the chest was performed without contrast.Thin axial sections were obtained from the thoracic inlet through the lung bases. Please note that all CT scans at this facility use dose modulation, iterative reconstruction, and/or weight-based dosing when appropriate to reduce radiation dose to as low as reasonably achievable. FINDINGS: : HEART and MEDIASTINUM: The heart is enlarged but overall unchanged in appearance. Atherosclerotic vascular calcifications. No pericardial effusion. A few prominent lymph nodes are noted similar to the prior exam LUNGS and PLEURAL SPACES: The right upper lobe opacity on the chest x-ray corresponds to a well-circumscribed ground-glass opacity. This is sufficiently focal fat it should be considered a ground-glass nodule. No definite solid component or edson consolidation. This measures 6.5 centimeters. This could be inflammatory. There are some malignancies that present with this appearance especially adenocarcinoma of the lung. Minimal basilar atelectasis. Very small right effusion There are multiple nodules identified at the lung bases including portions of the right middle lobe and lingula. Most of these are tree-in-bud nodules which are usually considered infectious or inflammatory. There is no finding of edema or significant vascular congestion VISUALIZED UPPER ABDOMEN: The limited visualized upper abdominal structures appear normal. OSSEOUS STRUCTURES: Age-appropriate appearance. No acute fracture or destructive process. TUBES and LINES: None. IMPRESSION: 1. Large ground-glass nodule/opacity in the right upper lobe measuring about 6.5 centimeters without focal consolidation or visible solid component. A focal opacity of this appearance could be inflammatory but could also represent a malignancy such as a primary adenocarcinoma of the lung. 2. Minimal basilar atelectasis. Very small right effusion. Nodular opacities at both lung bases in a tree-in-bud distribution. This distribution of nodules is generally considered infectious or inflammatory. 3. Careful clinical and imaging follow-up is recommended regarding the right upper lobe finding. Appropriate consultation is recommended. As a minimum, follow-up CT in no greater than 3 months is recommended, sooner clinical or imaging evaluation if there is clinical indication. 4. A few minimally prominent mediastinal lymph nodes are noted unchanged Please note that all CT scans at this facility use dose modulation, iterative reconstruction, and/or weight-based dosing when appropriate to reduce radiation dose to as low as reasonably achievable. Dictated by Prince Lopez MD @ 02/26/2024 8:57:50 AM Signed by:?Prince Lopez MD @02/26/2024 8:57:50 AM (Electronic Signature)
[2024-02-26] MEDS: POTASSIUM CHLORIDE 10 MEQ/100 ML PIGGYBACK 100 MEQ IVPB (08:23)
[2024-02-26] MEDS: POTASSIUM CHLORIDE 10 MEQ CAPSULE ER 40 MEQ PO (08:30)
[2024-02-26 09:18] LABS: Magnesium* 2.2 mg/dL (1.5-2.6)
[2024-02-26] MEDS: cefTRIAXone 1 GM in 0.9 % SODIUM CHLORIDE Mini-bag 100 ML IVPB (10:55)
== END 2024-02-26 11:37 | disposition home or self-care (01) ==
PROVIDERS: Emergency Provider Emergency Medicine; PCP Student in an Organized Health Care Education/Training Program
DX: J18.9 Pneumonia, unspecified organism (principal); R06.00 Dyspnea, unspecified; E87.6 Hypokalemia; I48.91 Unspecified atrial fibrillation
CPT/HCPCS: 36415; 71045; 71250; 80048; 82803; 83735; 83880; 84443; 84484; 85025; 85379; 85610; 86140; 87631; 94761; 96365; 96375; 99284; 99285; A9270; J0696; J3480

== ENCOUNTER 2024-08-30 15:15 | Outpatient (CLI) | payer MEDICARE, SELFPAY | END 2024-08-30 15:16 | disposition home or self-care (01) | LOC: NFLDREF 20:27 | PROVIDERS: PCP Student in an Organized Health Care Education/Training Program; Referring Provider Student in an Organized Health Care Education/Training Program; Visit Provider Internal Medicine Nephrology | DX: N18.30 Chronic kidney disease, stage 3 unspecified (principal); I50.9 Heart failure, unspecified; D64.9 Anemia, unspecified; I48.91 Unspecified atrial fibrillation; I48.92 Unspecified atrial flutter; I12.9 Hypertensive chronic kidney disease with stage 1 through stage 4 chronic kidney disease, or unspecified chronic kidney disease; E66.9 Obesity, unspecified | CPT/HCPCS: 80069; 82043; 82570; 82728; 82784; 83520; 83540; 83550; 83970; 84155; 84165; 84450; 84460; 84550; 86140; 86334; 87086 ==

== ENCOUNTER 2025-03-11 11:06 | Outpatient (CLI) | payer MEDICARE, SELFPAY | END 2025-03-11 11:07 | disposition home or self-care (01) | LOC: NFLDREF 03-18 05:33 | PROVIDERS: PCP Student in an Organized Health Care Education/Training Program; Referring Provider Student in an Organized Health Care Education/Training Program; Visit Provider Internal Medicine Nephrology | DX: E11.22 Type 2 diabetes mellitus with diabetic chronic kidney disease (principal); I13.0 Hypertensive heart and chronic kidney disease with heart failure and stage 1 through stage 4 chronic kidney disease, or unspecified chronic kidney disease; I50.9 Heart failure, unspecified; N18.30 Chronic kidney disease, stage 3 unspecified | CPT/HCPCS: 80069; 82043; 82570; 82728; 82784; 83520; 83540; 83550; 84155; 84156; 84165; 84550; 86334; 86335; 87086 ==